=== PATIENT | female | born 1945 | race African-American/Black ===

== ENCOUNTER 2024-07-13 20:40 | Inpatient (IN) | payer OTHER, MEDICAID ==
[~2024-07-13] VITALS: Ht 149.9 cm; Wt 72.6 kg
[2024-07-13] MEDS: PANTOPRAZOLE 40 MG/10 ML VIAL INJ IV ONE
[2024-07-13] MEDS: FUROSEMIDE 100 MG/10ML VIAL IV ONE
[2024-07-13] MEDS: methylPREDNISolone SOD SUCC 125 MG/2 ML VL IV ONE
[2024-07-13] MEDS: IPRATROPIUM BROM 0.5 MG/2.5ML INH SOL NEB ONE (21:32)
--- NOTE | 2024-07-13 21:34 | ED.PDOC ---
SOB-HPI HPI Comments 78 y.o female presents to the ED via EMS for a chief complaint of SOB associated with chest tightness that started a couple days ago. EMS reports home health nurse went to check on her today, states patient had labored breathing, unable to speak in full sentences and last seen normal was 3 days ago. Patient reports chest pain is at the center of her chest that is non radiating and constant. EMS reports initial SPO2 on scene read 83% on 2 liters of oxygen, had a DuoNeb that increased her saturation to 94-95% but dropped once treatment was over. Patient received another breathing treatment and placed on 4 liters of oxygen via simple mask with SPO2 at 95-96%. Per home health nurse, patient's saturation sits around the 90's. Patient has no other symptoms or complaints. Patient is on Xarelto Vitals: Temp: 97.5 F BP: 156/67 HR: 116 SPO2: 95% on 4 liters simple mask. was initially 83% with 2 liters NC. RR: 22 Past medical history: COPD, on 2 liters of oxygen at home NC, CHF, asthma and HTN Past surgical history: Pacemaker HPI: Poor Historian. REVIEW OF SYSTEMS: CONSTITUTIONAL: Denies acute: fever, diaphoresis, chills, HEAD: Denies acute: headache, photophobia Eyes: Denies acute: Double vision, vision loss, eye pain, eye discharge. EARS: Denies acute: tinnitus, hearing loss, ear discharge, ear pain, THROAT: Denies acute: sore throat, swelling, difficulty swallowing , pain with swallowing, change in voice. NECK: Denies acute: neck pain, neck swelling, stiff neck. HEART: Denies acute : palpitations, LUNGS: Denies acute: wheezing, cough, hemoptysis ABDOMEN: Denies acute: abdominal pain, Nausea, Vomiting, diarrhea, melena , hematemesis, hematochezia SKIN: Denies acute: rash, redness, lesions, itchiness. EXTREMITIES: Denies acute: calf pain, numbness, tingling, weakness, denies pain in extremity. Denies acute: Low back pain. Neuro: Denies acute: focal neurological deficit, motor or sensory focal neurological deficit, tremors, seizure like activity, confusion, dizziness, change in mental status, loss of bowel or bladder function, cauda equina like symptoms. : Denies acute: dysuria, hematuria, flank pain, increase in urinary frequency. PSYCH: Denies acute: hallucination, suicidal ideation, homicidal ideation. FEMALE: Denies acute: abnormal vaginal bleeding, foul odor, unusual discharge. PHYSICAL EXAM: General: --[id number]------acute distress, awake and alert. Head: normocephalic, atraumatic. Neck: supple, trachea is midline, no swelling. Throat: Normal phonation. Eyes:, no erythema, no purulent discharge, no proptosis, no icterus. Heart: regular rate, regular rhythm, no significant murmur appreciated. Lungs: [id number]-ov-[id number] respiratory distress, No wheezing, no rhonchi, no crackles. No stridors Abdomen: non tender to palpation, non distended, soft, no guarding, no rebound, + bowel sounds. Obese Neuro: Awake, Alert, oriented to name, self, situation, follows commands GCS=15. Speech is normal. Skin: no petechia, no purpura, no cyanosis, slightly-pale, not jaundice. Lower extremities: --4/4 b/l - Pitting edema no deformity, no focal swelling, no calf TTP. Makes eye contact. moves all four extremities. Face: no apparent facial droop. 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 Bleeding minimal. Differential Dx Differential Diagnosis: Other (DDx include ACS, unstable angina, anxiety, PE, pneumothroax, neoplasm, cardiac ischemia, COPD, asthma, CHF, pleural effusion, tobacco abuse, pneumonia, hypoxia, hypercapnia, anemia., infection/sepsis., pulmonary edema. Asthma, Cardiac tamponade, infection.) X-Ray, Labs, Meds, VS Vital Signs Date Time Temp Pulse Resp B/P (MAP) Pulse Ox O2 Delivery O2 Flow Rate FiO2 07/13/24 21:33 22 97 Nasal Cannula* 2 28 07/13/24 20:45 65 07/13/24 20:45 97.5 116 22 156/67 (96) 95 97.5 07/13/24 20:45 95 Nasal Cannula* 15 N/A Simple Mask* 07/13/24 00:00 149/30 Lab Test 07/13/24 22:26 07/13/24 21:36 Range/Units Troponin I High Sensitivity 10 10 </=34 ng/L White Blood Count 8.5 4.4-10.8 10^3/uL Red Blood Count 1.43 L 4.0-5.20 10^6/uL Hemoglobin 4.5 *L 12.2-16.2 g/dL Hematocrit 16.1 L 36.0-46.0 % Mean Corpuscular Volume 112.4 H 80.0-100.0 fL Mean Corpuscular Hemoglobin 31.7 28.0-32.0 pg Mean Corpuscular Hemoglobin Concent 28.2 L 32.0-36.0 g/dL Red Cell Distribution Width 27.1 H 11.8-14.3 % Platelet Count 269 140-450 10^3/uL Mean Platelet Volume 7.3 6.9-10.8 fL Neutrophils (%) (Auto) 37.0-80.0 % Lymphocytes (%) (Auto) 10.0-50.0 % Monocytes (%) (Auto) 0.0-12.0 % Basophils (%) (Auto) 0.0-2.0 % Neutrophils # (Auto) 1.6-8.6 10 ^3/uL Lymphocytes # (Auto) 0.4-5.4 10 ^3/uL Monocytes # (Auto) 0-1.3 10 ^3/uL Differential Total Cells Counted 100.0 100 Neutrophils % (Manual) 65 37.0-80.0 Band Neutrophils % (Manual) 2 Lymphocytes % (Manual) 26 10.0-50.0 Monocytes % (Manual) 5 0-12 Eosinophils % (Manual) 2 0-7 Basophils % (Manual) 0 0.0-2.0 Metamyelocytes % (manual) 0 Myelocytes % (Manual) 0 Promyelocytes % (Manual) 0 Blast Cells % (Manual) 0 Reactive Lymphocytes 0 Platelet Estimate Adequate Anisocytosis (manual) Slight Macrocytosis Moderate Tear Drop Cells Few Prothrombin Time 11.4 9.3-11.8 sec Prothrombin Time INR 1.08 0.9-1.15 Activated Partial Thromboplast Time 26.6 24.5-34.5 SEC Sodium Level 146 H 136-145 mmol/L Potassium Level 4.0 3.5-5.1 mmol/L Chloride Level 120 H 98-107 mmol/L Carbon Dioxide Level 13 L 20-31 mmol/L Anion Gap 13 5-15 Blood Urea Nitrogen 28 H 9-23 mg/dL Creatinine 1.23 H 0.550-1.02 mg/dL Glomerular Filtration Rate Calc 45 >90 mL/min BUN/Creatinine Ratio 22.8 H 10.0-20.0 Serum Glucose 111 H 74-106 mg/dL Calcium Level 9.6 8.7-10.4 mg/dL Magnesium Level 2.2 1.6-2.6 mg/dL Iron Level 261 H 50-170 ug/dL Total Iron Binding Capacity 328 250-425 ug/dL Percent Iron Saturation 79.6 H 15-50 % Total Bilirubin 0.2 0.2-1.0 mg/dL Aspartate Amino Transferase (AST) 28 13-40 U/L Alanine Aminotransferase (ALT) 16 7-40 U/L Alkaline Phosphatase 76 46-116 U/L B-Type Natriuretic Peptide 384.55 0-100 pg/mL Total Protein 5.4 L 5.7-8.2 g/dL Albumin 3.2 3.2-4.8 g/dL Thyroid Stimulating Hormone (TSH) 1.85 0.55-4.78 uIU/mL Current Medications Medications (Trade) Dose Ordered Sig/[place] Route Start Time Stop Time Status Last Admin Albuterol (Ventolin Medneb) 2.5 mg ONCE ONCE NEB 07/13/24 21:30 07/13/24 21:31 DC 07/14/24 00:03 Ipratropium [place] (Atrovent Medneb) 1 mg ONCE ONCE NEB 07/13/24 21:30 07/13/24 21:31 DC 07/13/24 21:32 Methylprednisolone Sodium Succinate (Solu Medrol) 125 mg ONCE ONCE IV 07/13/24 21:30 07/13/24 21:31 DC 07/13/24 00:00 Furosemide (Lasix Injection) 60 mg ONCE ONCE IV 07/13/24 21:30 07/13/24 21:31 DC 07/13/24 00:00 Pantoprazole Sodium (Protonix) 40 mg ONCE ONCE IV 07/13/24 22:15 07/13/24 22:16 DC 07/13/24 00:00 [place] [id number] Ph: [phone] DIAGNOSTIC IMAGING Diagnostic Imaging Report : [id number] Signed PATIENT: KENNETH MULLER ACCT: [id number] UNIT: [id number] : 1945 LOC: ER ROOM / BED: / AGE / SEX: 78 / F ADM STATUS: REG ER SERVICE 16 ORDERING PHYSICIAN: CINTIA FARR DO PROCEDURE(s): CXRP - CHEST PORTABLE REASON: sob ORDER NUMBER(s): [id number], ACCESSION NUMBER(s): [id number] CHEST RADIOGRAPH Indication: sob Technique: Single frontal view of the chest was obtained Comparison: None FINDINGS: Lines and Tubes: Dual-chamber pacemaker in place with pulse generator over the left chest. Lungs: Atelectasis or scarring in the left base. Pleura: No effusion. No pneumothorax. Cardiomediastinal contours: Unremarkable Bones: No acute osseous abnormality. IMPRESSION: 1. No previous chest x-rays for comparison 2. Pacemaker in place 3. Atelectasis or scarring left base. ATED BY: MARILOU SORENSEN Jr., DO DICTATED DATE/TIME: 07/13/242155 SIGNED BY: MARILOU SORENSEN Jr., SIGNED DATE/TIME: 07/13/242155 CC: Time of 1ST Reevaluation: 21:29 Reevaluation 1ST: Unchanged Time of 2ND Reevaluation: 01:50 Reevaluation 2ND: Improved Patient Education/Counseling: Diagnosis, Treatment Family Education/Counseling: No Family Present Comments Patient and daughter were both consented for central line placement and blood transfusion. Patient had blood transfusion in the past. Patient denies bleeding from anywhere. Patient presented with the above HPI.---dyspnea/chest pain---workup was initiated. patient was found with the above mentioned diagnosis. the following medications were ordered: please refer to order lists of meds and tests obtained by myself Dr. Farr. Patient ED course and VS have been stabilized. Patient has been reassessed in the ED and remained in a stable condition. Pertinent incidental findings were discussed with the patient and/or family. Patient/family voices understanding and is agreeable with plan. Patient has been observed in the ED adequate length of time to insure improvement/stability. Escalation of care considered: Consideration of escalation to observation or admission Patient was ADMITTED to the medicine team for further evaluation and treatment of their presentation. Central line was placed successfully. 2 units of blood transfusion were ord ered. Patient clinically looked to be volume overloaded. Lasix was ordered. All the reports of any imaging studies that were ordered by myself were reviewed by myself. Departure 1 Departure Time of Disposition: 22:00 Impression: Primary Impression: CHF exacerbation Additional Impressions: Hypoxemia Chest pain Abnormal EKG Symptomatic anemia Disposition: ADMITTED INPATIENT Admit to: Tele Condition: Guarded Discharged With: Self Critical Care Note Critical Care Time?: Yes (45 min-critical care time only) Heart Score Heart Score: Heart Score Response (Comments) Value History Moderate Suspicious [address]-Deviation 2 Age >65 2 Risk Factors >3 or Hx ASHD 2 Troponin Normal limit 0 Total 7 I personally scribed for CINTIA FARR DO ([email or web address]) on 07/13/24 at 21:34. Electronically submitted by Sydnee Edwards ([facility]). I personally scribed for CINTIA FARR DO ([email or web address]) on 07/14/24 at 00:35. Electronically submitted by Jose Mcdonald ([email or web address]). CINTIA FARR DO July 13, 2024 21:34
[2024-07-13 21:40] VITALS: PULSE 63; RESP 15; O2SAT 96
[2024-07-13 21:54] LABS: Hematocrit 16.1 % (36.0-46.0); Mean Corpuscular Hemoglobin 31.7 pg (28.0-32.0); Mean Corpuscular Hgb Conc. 28.2 g/dL (32.0-36.0); Mean Corpuscular Volume 112.4 fL (80.0-100.0); Platelet Count (auto) 269 10^3/uL (140-450); Red Blood Cells 1.43 10^6/uL (4.0-5.20); White Blood Cell 8.5 10^3/uL (4.4-10.8)
[2024-07-13 21:59] LABS: Red Cell Distribution Width 27.1 % (11.8-14.3)
--- NOTE | 2024-07-13 21:59 | DVH ---
CHEST RADIOGRAPH Indication: sob Technique: Single frontal view of the chest was obtained Comparison: None FINDINGS: Lines and Tubes: Dual-chamber pacemaker in place with pulse generator over the left chest. Lungs: Atelectasis or scarring in the left base. Pleura: No effusion. No pneumothorax. Cardiomediastinal contours: Unremarkable Bones: No acute osseous abnormality. IMPRESSION: 1. No previous chest x-rays for comparison 2. Pacemaker in place 3. Atelectasis or scarring left base.
[2024-07-13 22:01] LABS: Hemoglobin 4.5 g/dL (12.2-16.2)
[2024-07-13 22:02] LABS: Basophils % (manual) 0 (0.0-2.0); Blast Cells 0; Metamyelocytes % 0; Myelocytes % 0; Promyelocytes % 0; Reactive Lymphocytes 0
[2024-07-13 22:09] LABS: Alanine Aminotransferase 16 U/L (7-40); Albumin 3.2 g/dL (3.2-4.8); Alkaline Phosphatase 76 U/L (46-116); Anion Gap 13 (5-15); Aspartate Aminotransferase 28 U/L (13-40); BUN/Creatinine Ratio 22.8 (10.0-20.0); Blood Urea Nitrogen 28 mg/dL (9-23); Calcium 9.6 mg/dL (8.7-10.4); Carbon Dioxide 13 mmol/L (20-31); Chloride 120 mmol/L (98-107); Glucose 111 mg/dL (74-106); Magnesium 2.2 mg/dL (1.6-2.6); Sodium 146 mmol/L (136-145); Total Protein 5.4 g/dL (5.7-8.2)
[2024-07-13 22:10] LABS: Bilirubin, Total 0.2 mg/dL (0.2-1.0)
[2024-07-13 22:28] LABS: Anisocytosis Slight; Band Neutrophils % (manual) 2; Eosinophils % (manual) 2 (0-7); Lymphocytes % (manual) 26 (10.0-50.0); Macrocytosis Moderate; Monocytes % (manual) 5 (0-12); Tear Drop Cells FEW
[2024-07-13 22:29] LABS: Platelet Estimate Adequate
[2024-07-14] VITALS (19 sets, daily range): BP systolic 130–166; BP diastolic 36–95; PULSE 65–73; RESP 11–22; TEMP 97.5–98.8; O2SAT 92–100
[2024-07-14] MEDS ORDERED: ACETAMINOPHEN 325 MG TAB PO PRN
[2024-07-14] MEDS ORDERED: ONDANSETRON HCL 4 MG/2 ML VIAL IV PRN
[2024-07-14] MEDS: ALBUTEROL SULF 2.5 MG/0.5ML(0.5%) NEB SOLN NEB ONE (00:03)
--- NOTE | 2024-07-14 00:03 | DVHHP2 ---
History of Present Illness Reason for Visit: Generalized weakness History of Present Illness 78-year-old female presents for evaluation of generalized weakness has been ongoing for the past four days. Reports also associated shortness for breath and fatigue. No chest pain or palpitations. Denies melena or hematuria. She does report a history of anemia he reports being transfused yet does not recall when. No other acute complaints reported. Past Medical History COPD, anemia, hypertension, dementia, asthma Past Surgical History Pacemaker Family History Noncontributory Smoke: No ALCOHOL: none Drugs: None Lives: with Family Review of Systems Review of Systems Review of systems are currently negative otherwise addressed in HPI. Allergies: Coded Allergies: Atenolol (Verified Allergy, Unknown, 07/13/24) Lisinopril (Verified Allergy, Unknown, 07/13/24) Penicillins (Verified Allergy, Unknown, 07/13/24) Medications Current Medications Medications Dose Ordered Sig/[place] Route Start Time Stop Time Status Last Admin Dose Admin Albuterol 2.5 mg Q6HPRN PRN NEB 07/14/24 00:00 UNV Pantoprazole Sodium 40 mg DAILY IV 07/14/24 10:00 UNV Donepezil HCl 10 mg HS PO 07/14/24 22:00 UNV Amlodipine Besylate 10 mg DAILY PO 07/14/24 10:00 UNV Levothyroxine Sodium 75 mcg QAM@0600 PO 07/14/24 06:00 UNV Furosemide 40 mg DAILY PO 07/14/24 10:00 UNV Ondansetron HCl 4 mg Q4HP PRN IV 07/14/24 00:00 UNV Acetaminophen 650 mg Q6HP PRN PO 07/14/24 00:00 UNV Exam Vital Signs Vital Signs Date Time Temp Pulse Resp B/P (MAP) Pulse Ox O2 Delivery O2 Flow Rate FiO2 07/13/24 21:33 22 97 Nasal Cannula* 2 28 07/13/24 20:45 65 07/13/24 20:45 97.5 156/67 (96) 97.5 Exam Gen: 78-year-old female in mild distress Skin: Warm, dry, normal color and texture, no rash. HEENT: Normocephalic atraumatic, mucous membranes moist and pink. Neck: Cervical and supraclavicular nodes normal without enlargement, trachea is midline, thyroid gland is normal without masses. Pulmonary: Clear to auscultation and percussion bilaterally. Cardiac: Regular rate and rhythm. No murmur Abdomen: Soft, nontender, nondistended, bowel sounds present all 4 quadrants, no guarding, no rigidity, no organomegaly. Extremities: No cyanosis, clubbing, no edema Neuro: Cranial nerves II through XII grossly intact, normal affect and speech, no focal motor deficits. Labs/Xrays ORDERING PHYSICIAN: CINTIA FARR DO PROCEDURE(s): CXRP - CHEST PORTABLE REASON: sob ORDER NUMBER(s): [id number], ACCESSION NUMBER(s): [id number] CHEST RADIOGRAPH Indication: sob Technique: Single frontal view of the chest was obtained Comparison: None FINDINGS: Lines and Tubes: Dual-chamber pacemaker in place with pulse generator over the left chest. Lungs: Atelectasis or scarring in the left base. Pleura: No effusion. No pneumothorax. Cardiomediastinal contours: Unremarkable Bones: No acute osseous abnormality. IMPRESSION: 1. No previous chest x-rays for comparison 2. Pacemaker in place 3. Atelectasis or scarring left base. Labs Test 07/13/24 22:26 07/13/24 21:36 Range/Units Troponin I High Sensitivity 10 </=34 ng/L White Blood Count 8.5 4.4-10.8 10^3/uL Red Blood Count 1.43 L 4.0-5.20 10^6/uL Hemoglobin 4.5 *L 12.2-16.2 g/dL Hematocrit 16.1 L 36.0-46.0 % Mean Corpuscular Volume 112.4 H 80.0-100.0 fL Mean Corpuscular Hemoglobin 31.7 28.0-32.0 pg Mean Corpuscular Hemoglobin Concent 28.2 L 32.0-36.0 g/dL Red Cell Distribution Width 27.1 H 11.8-14.3 % Platelet Count 269 140-450 10^3/uL Mean Platelet Volume 7.3 6.9-10.8 fL Neutrophils (%) (Auto) 37.0-80.0 % Lymphocytes (%) (Auto) 10.0-50.0 % Monocytes (%) (Auto) 0.0-12.0 % Basophils (%) (Auto) 0.0-2.0 % Neutrophils # (Auto) 1.6-8.6 10 ^3/uL Lymphocytes # (Auto) 0.4-5.4 10 ^3/uL Monocytes # (Auto) 0-1.3 10 ^3/uL Differential Total Cells Counted 100.0 100 Neutrophils % (Manual) 65 37.0-80.0 Band Neutrophils % (Manual) 2 Lymphocytes % (Manual) 26 10.0-50.0 Monocytes % (Manual) 5 0-12 Eosinophils % (Manual) 2 0-7 Basophils % (Manual) 0 0.0-2.0 Metamyelocytes % (manual) 0 Myelocytes % (Manual) 0 Promyelocytes % (Manual) 0 Blast Cells % (Manual) 0 Reactive Lymphocytes 0 Platelet Estimate Adequate Anisocytosis (manual) Slight Macrocytosis Moderate Tear Drop Cells Few Sodium Level 146 H 136-145 mmol/L Potassium Level 4.0 3.5-5.1 mmol/L Chloride Level 120 H 98-107 mmol/L Carbon Dioxide Level 13 L 20-31 mmol/L Anion Gap 13 5-15 Blood Urea Nitrogen 28 H 9-23 mg/dL Creatinine 1.23 H 0.550-1.02 mg/dL Glomerular Filtration Rate Calc 45 >90 mL/min BUN/Creatinine Ratio 22.8 H 10.0-20.0 Serum Glucose 111 H 74-106 mg/dL Calcium Level 9.6 8.7-10.4 mg/dL Magnesium Level 2.2 1.6-2.6 mg/dL Total Bilirubin 0.2 0.2-1.0 mg/dL Aspartate Amino Transferase (AST) 28 13-40 U/L Alanine Aminotransferase (ALT) 16 7-40 U/L Alkaline Phosphatase 76 46-116 U/L B-Type Natriuretic Peptide 384.55 0-100 pg/mL Total Protein 5.4 L 5.7-8.2 g/dL Albumin 3.2 3.2-4.8 g/dL Assessment/Plan Assessment/Plan Assessment Symptomatic anemia Chronic kidney disease Status post pacemaker Hypertension Dementia Plan Admit the patient to Med surge to the hospitalist Transfuse 3 units of packed red cells Resume home medications Hold Xarelto stool occult pending Continue treatment per orders. Plan discussed with: Patient My Orders Orders - NABILA LUTHER Procedure Category Date Status Time Iron Panel LAB 07/13/24 In Process 23:46 Albuterol Medneb PHA 07/14/24 Logged (Ventolin Medneb) 00:00 Pantoprazole PHA 07/14/24 Logged (Protonix) 10:00 Donepezil Tablet PHA 07/14/24 Logged (Aricept Tablet) 22:00 Amlodipine Tablet PHA 07/14/24 Logged (Norvasc Tablet) 10:00 Levothyroxine Tablet PHA 07/14/24 Logged (Synthroid Tablet) 06:00 Thyroid Stimulating LAB 07/13/24 In Process Hormone 23:46 PTPTT LAB 07/13/24 In Process 23:46 Pt Request For Service PT 07/13/24 Logged 23:46 Basic Metabolic Panel LAB 07/14/24 Transmitted 04:00 Furosemide Tablet PHA 07/14/24 Logged (Lasix Tablet) 10:00 Admit ADMIT 07/13/24 Transmitted 23:46 Ondansetron Hcl PHA 07/14/24 Logged (Zofran) 00:00 Complete Blood Count LAB 07/14/24 Verified 04:00 Cardiac DIET 07/14/24 Transmitted Diet-2gna,Lofat,Lochol Breakfast Echo 2d Mode Cardiac US 07/13/24 Logged DOP 23:46 Condition: Stable ABENA 07/13/24 In Process 23:46 Acetaminophen Tablet PHA 07/14/24 Logged (Tylenol Tablet) 00:00 Bedrest With Bathroom ABENA 07/13/24 In Process Privileg 23:46 Packedcell-Noactive BBK 07/14/24 Verified Bleeding 00:00 Date of Service: July 13, 2024 Billing Provider: NABILA LUTHER Common Visit Codes: [id number] INP/OBS CARE (HIGH) NABILA LUTHER July 14, 2024 00:03
[2024-07-14 00:20] LABS: % Iron Saturation 79.6 % (15-50)
[2024-07-14 00:24] LABS: INR 1.08 (0.9-1.15); Partial Thromboplastin Time 26.6 SEC (24.5-34.5); Prothrombin Time 11.4 sec (9.3-11.8)
[2024-07-14 01:43] LABS: Urine Bacteria None Seen /hpf (None Seen)
[2024-07-14 01:55] LABS: Urine Blood Negative /uL (Negative); Urine Clarity Clear (Clear); Urine Color Light-Yellow (Yellow); Urine Protein, UAD Negative (Negative); Urine Specific Gravity 1.017 (1.001-1.035); Urine Squamous Epithelial Cell FEW /hpf (<5); Urine Urobilinogen Normal (Negative); Urine WBC 3 /HPF (0-5); Urine pH 5.5 (5.0-9.0)
[2024-07-14] MEDS: LEVOTHYROXINE SODIUM 25 MCG TAB PO SCH (07:25)
[2024-07-14] MEDS: amLODIPine BESYLATE 5 MG TAB PO SCH (10:06)
[2024-07-14] MEDS: PANTOPRAZOLE 40 MG/10 ML VIAL INJ IV SCH (10:06)
[2024-07-14] MEDS: FUROSEMIDE 40 MG TAB PO SCH (10:06)
[2024-07-14 11:43] LABS: Anion Gap 11 (5-15); Calcium 8.9 mg/dL (8.7-10.4); Carbon Dioxide 20 mmol/L (20-31)
[2024-07-14 11:44] LABS: Chloride 116 mmol/L (98-107); Potassium 3.1 mmol/L (3.5-5.1); Sodium 147 mmol/L (136-145)
[2024-07-14 11:48] LABS: BUN/Creatinine Ratio 24.8 (10.0-20.0)
[2024-07-14 11:50] LABS: Blood Urea Nitrogen 25 mg/dL (9-23); Glucose 162 mg/dL (74-106)
[2024-07-14 13:26] LABS: Hematocrit 30.4 % (36.0-46.0); Hemoglobin 9.9 g/dL (12.2-16.2); Mean Corpuscular Hemoglobin 30.4 pg (28.0-32.0); Mean Corpuscular Hgb Conc. 32.7 g/dL (32.0-36.0); Mean Corpuscular Volume 92.7 fL (80.0-100.0); Platelet Count (auto) 250 10^3/uL (140-450); Red Blood Cells 3.27 10^6/uL (4.0-5.20); Red Cell Distribution Width 19.6 % (11.8-14.3); White Blood Cell 7.4 10^3/uL (4.4-10.8)
[2024-07-14 13:33] LABS: Basophils % (manual) 0 (0.0-2.0); Blast Cells 0; Eosinophils % (manual) 0 (0-7); Myelocytes % 0; Promyelocytes % 0; Reactive Lymphocytes 0
--- NOTE | 2024-07-14 13:36 | ECG ---
[facility] Test Date: 2024-07-13 Test Time: 20:45:18 Pat Name: KENNETH MULLER Department: ED Room: 0246 Gender: F Cushion Padder: SOHAM : 1945 Requested By: EMERGENCY EMERGENCY Order Number: [id number] Reading MD: Dileep Urrutia Measurements Intervals [place] Rate: 65 P: 0 [place]: 56 QRS: 34 QRSD: 102 T: 54 QT: 441 QTc: 459 Interpretive Statements Atrial-paced rhythm Electronically Signed On 07-19-2024 21:50:08 PDT by Dileep Urrutia Please click the below link to view image of tracing.
[2024-07-14 14:15] LABS: Band Neutrophils % (manual) 4; Lymphocytes % (manual) 8 (10.0-50.0); Metamyelocytes % 1; Monocytes % (manual) 3 (0-12)
[2024-07-14 14:16] LABS: Platelet Estimate Adequate
[2024-07-14] MEDS: ALBUTEROL SULF 2.5 MG/0.5ML(0.5%) NEB SOLN NEB PRN (18:11)
[2024-07-14] MEDS: DONEPEZIL HYDROCHLORIDE 5 MG TAB PO SCH (20:51)
[2024-07-15] VITALS (12 sets, daily range): BP systolic 126–176; BP diastolic 55–72; PULSE 64–68; RESP 16–20; TEMP 36.4; O2SAT 95–100
[2024-07-15 14:48] LABS: Basophils # (auto) 0 10 ^3/uL (0-0.2); Basophils % (auto) 0.2 % (0.0-2.0); Eosinophils # (auto) 0 10 ^3/uL (0-0.8); Eosinophils % (auto) 0.5 % (0.0-7.0); Lymphocytes # (auto) 0.8 10 ^3/uL (0.4-5.4); Lymphocytes % (auto) 9.1 % (10.0-50.0); Mean Corpuscular Hemoglobin 30.5 pg (28.0-32.0); Mean Corpuscular Hgb Conc. 32.4 g/dL (32.0-36.0); Monocytes # (auto) 0.6 10 ^3/uL (0-1.3); Monocytes % (auto) 6.6 % (0.0-12.0); Neutrophils # (auto) 7.7 10 ^3/uL (1.6-8.6); Neutrophils % (auto) 83.6 % (37.0-80.0); Nucleated Red Blood Cells % 0.7 %; Platelet Count (auto) 255 10^3/uL (140-450); Red Blood Cells 3.29 10^6/uL (4.0-5.20); White Blood Cell 9.2 10^3/uL (4.4-10.8)
[2024-07-15 14:53] LABS: Red Cell Distribution Width 20.8 % (11.8-14.3)
[2024-07-15 14:56] LABS: Anion Gap 11 (5-15); Carbon Dioxide 24 mmol/L (20-31)
[2024-07-15 14:57] LABS: Calcium 9.9 mg/dL (8.7-10.4); Chloride 115 mmol/L (98-107); Potassium 2.6 mmol/L (3.5-5.1); Sodium 150 mmol/L (136-145)
[2024-07-15 15:02] LABS: BUN/Creatinine Ratio 23.9 (10.0-20.0); Blood Urea Nitrogen 22 mg/dL (9-23)
[2024-07-15 15:05] LABS: Glucose 118 mg/dL (74-106)
--- NOTE | 2024-07-15 17:58 | DVHDS2 ---
Discharge Summary Date of Admission July 13, 2024 at 23:46 Date of Discharge: July 15, 2024 Labs/Diagnostic Data: Laboratory Results Test 07/15/24 14:15 07/14/24 13:15 07/14/24 01:00 07/14/24 00:37 White Blood Count 9.2 10^3/uL (4.4-10.8) Red Blood Count 3.29 10^6/uL (4.0-5.20) Hemoglobin 10.0 g/dL (12.2-16.2) Hematocrit 31.0 % (36.0-46.0) Mean Corpuscular Volume 94.0 fL (80.0-100.0) Mean Corpuscular Hemoglobin 30.5 pg (28.0-32.0) Mean Corpuscular Hemoglobin Concent 32.4 g/dL (32.0-36.0) Red Cell Distribution Width 20.8 % (11.8-14.3) Platelet Count 255 10^3/uL (140-450) Mean Platelet Volume 7.3 fL (6.9-10.8) Neutrophils (%) (Auto) 83.6 % (37.0-80.0) Lymphocytes (%) (Auto) 9.1 % (10.0-50.0) Monocytes (%) (Auto) 6.6 % (0.0-12.0) Eosinophils (%) (Auto) 0.5 % (0.0-7.0) Basophils (%) (Auto) 0.2 % (0.0-2.0) Neutrophils # (Auto) 7.7 10 ^3/uL (1.6-8.6) Lymphocytes # (Auto) 0.8 10 ^3/uL (0.4-5.4) Monocytes # (Auto) 0.6 10 ^3/uL (0-1.3) Eosinophils # (Auto) 0 10 ^3/uL (0-0.8) Basophils # (Auto) 0 10 ^3/uL (0-0.2) Nucleated Red Blood Cells 0.7 % Sodium Level 150 mmol/L (136-145) Potassium Level 2.6 mmol/L (3.5-5.1) Chloride Level 115 mmol/L (98-107) Carbon Dioxide Level 24 mmol/L (20-31) Anion Gap 11 (5-15) Blood Urea Nitrogen 22 mg/dL (9-23) Creatinine 0.92 mg/dL (0.550-1.02) Glomerular Filtration Rate Calc 64 mL/min (>90) BUN/Creatinine Ratio 23.9 (10.0-20.0) Serum Glucose 118 mg/dL (74-106) Calcium Level 9.9 mg/dL (8.7-10.4) Differential Total Cells Counted 100.0 (100) Neutrophils % (Manual) 84 (37.0-80.0) Band Neutrophils % (Manual) 4 Lymphocytes % (Manual) 8 (10.0-50.0) Monocytes % (Manual) 3 (0-12) Eosinophils % (Manual) 0 (0-7) Basophils % (Manual) 0 (0.0-2.0) Metamyelocytes % (manual) 1 Myelocytes % (Manual) 0 Promyelocytes % (Manual) 0 Blast Cells % (Manual) 0 Reactive Lymphocytes 0 Platelet Estimate Adequate Urine Color Light-yellow (Yellow) Urine Clarity Clear (Clear) Urine pH 5.5 (5.0-9.0) Urine Specific [place] 1.017 (1.001-1.035) Urine Protein Negative (Negative) Urine Ketones Negative (Negative) Urine Blood Negative /uL (Negative) Urine Nitrite Negative (Negative) Urine Bilirubin Negative (Negative) Urine Urobilinogen Normal mg/dL (Negative) Urine Leukocyte Esterase Negative /uL (Negative) Urine RBC 1 /hpf (0 - 4) Urine Microscopic WBC 3 /HPF (0-5) Urine Squamous Epithelial Cells Few /hpf (<5) Urine Bacteria None seen /hpf (None Seen) Urine Glucose Normal mg/dL (Normal) Troponin I High Sensitivity 12 ng/L (</=34) Test 07/13/24 21:36 Anisocytosis (manual) Slight Macrocytosis Moderate Tear Drop Cells Few Prothrombin Time 11.4 sec (9.3-11.8) Prothrombin Time INR 1.08 (0.9-1.15) Activated Partial Thromboplast Time 26.6 SEC (24.5-34.5) Magnesium Level 2.2 mg/dL (1.6-2.6) Iron Level 261 ug/dL (50-170) Total Iron Binding Capacity 328 ug/dL (250-425) Percent Iron Saturation 79.6 % (15-50) Total Bilirubin 0.2 mg/dL (0.2-1.0) Aspartate Amino Transferase (AST) 28 U/L (13-40) Alanine Aminotransferase (ALT) 16 U/L (7-40) Alkaline Phosphatase 76 U/L (46-116) B-Type Natriuretic Peptide 384.55 pg/mL (0-100) Total Protein 5.4 g/dL (5.7-8.2) Albumin 3.2 g/dL (3.2-4.8) Thyroid Stimulating Hormone (TSH) 1.85 uIU/mL (0.55-4.78) Other Laboratory Tests 07/15/24 14:15 Brief Hx & Hospital Course: 78-year-old female presents for evaluation of generalized weakness has been ongoing for the past four days. Reports also associated shortness for breath and fatigue. No chest pain or palpitations. Denies melena or hematuria. She does report a history of anemia he reports being transfused yet does not recall when. No other acute complaints reported. Received 3 U PRBC Hb stable Condition at Discharge: Good Final Diagnosis/Problems List Anemia Discharge Disposition: Home Discharge Instruct/Medications Diet: Regular Activity: No Restrictions, As Tolerated Follow Up/Referral: PCP in 7 days Medications: same home medicationss Discharge Statement: "Patient was advised to return to the ER or call 911 if any headaches, dizziness, shortness of breath, chest pain, abdominal pain, bleeding, fevers, or worsening of medical condition. Patient was counseled about treatment plan, medications, possible side effects, patientverbalized understanding. All questions were answered to the best of my ability. This discharge took greater then 30 minutes in planning, reviewing documentation, counseling the patient, and discussing with other team members." ASSESSMENT ASSESSMENT Assessment Anemia Date of Service: July 15, 2024 Billing Provider: STEVE LOVELL MD Common Visit Codes: 68297-VLH/OBS DISCH DAY >30min STEVE LOVELL MD July 15, 2024 17:58
== END 2024-07-15 18:30 | disposition home or self-care (01) | DRG 811 ==
LOC: EDBD 20:40 → ER 20:43 → OVERFLOW 23:46 → EAST 07-14 17:04
PROVIDERS: ADMIT Hospitalist; ATTEND Hospitalist
PROC: 06HY33Z Insertion of Infusion Device into Lower Vein, Percutaneous Approach (ICD-10-PCS; 2024-07-13)
PROC: B54BZZA Ultrasonography of Right Lower Extremity Veins, Guidance (ICD-10-PCS; 2024-07-13)
PROC: 30233N1 Transfusion of Nonautologous Red Blood Cells into Peripheral Vein, Percutaneous Approach (ICD-10-PCS; principal; 2024-07-14)
DX: D64.9 Anemia, unspecified (principal); I50.31 Acute diastolic (congestive) heart failure; J96.00 Acute respiratory failure, unspecified whether with hypoxia or hypercapnia; N17.9 Acute kidney failure, unspecified; I13.0 Hypertensive heart and chronic kidney disease with heart failure and stage 1 through stage 4 chronic kidney disease, or unspecified chronic kidney disease; F03.90 Unspecified dementia, unspecified severity, without behavioral disturbance, psychotic disturbance, mood disturbance, and anxiety; N18.9 Chronic kidney disease, unspecified; J44.9 Chronic obstructive pulmonary disease, unspecified; R94.31 Abnormal electrocardiogram [ECG] [EKG]; Z88.0 Allergy status to penicillin; Z88.8 Allergy status to other drugs, medicaments and biological substances; Z79.899 Other long term (current) drug therapy; Z95.0 Presence of cardiac pacemaker
CPT/HCPCS: 36415; 36556; 71045; 80048; 80053; 81001; 83540; 83550; 83735; 83880; 84443; 84484; 85007; 85025; 85027; 85610; 85730; 86850; 86900; 86901; 86920; 93005; 94640; 96374; 96375; 97163; 99291; G0378; J2470

== ENCOUNTER 2024-09-28 10:11 | Inpatient (IN) | payer OTHER, MEDICAID ==
[~2024-09-28] VITALS: Ht 149.9 cm; Wt 71.9 kg
--- NOTE | 2024-09-28 10:57 | ED.PDOC ---
Altered Mental Status HPI Comments HPI: Poor Historian. 79 y.o female presents to ED s/p rapid response at PCP office today. Caregiver who brought patient in today states that patient was admitted at this hospital last week for near syncopal episodes and was at PCP office today for a follow up appointment. Staff at the office noticed that patient went unresponsive for about 1-2 minutes, witnessed by caregiver as well. Event was described as a near syncopal with patient eyes still open and caregiver denies any falls or head injuries. Patient is a poor historian, unable to get information regarding event today. Caregiver states patient is compliant with all her home medication and took them all this morning. Caregiver reports this near syncopal episode occurs with patient complaining of SOB and get agitated before going unresponsive. Patient is on Xeralto Caregiver states patient has seen a neurologist in the past but not for this event as it is new onset. No hx of seizures but per PCP Dr. Birch, states possible seizure episode to r/o. Vitals Temp: 97.3 F HR: 65 BP: 112/54 RR: 20 SPO2: 97% RA Past Medical history: Anemia, CHF, COPD, anemia, DVT Past Surgical history: Pacemaker Medications: Xeralto Social History: Denies smoking, ETOH, and drug use. Allergies: Atenolol, Lisinopril and penicillins. REVIEW OF SYSTEMS: CONSTITUTIONAL: Denies acute: fever, diaphoresis, chills, HEAD: Denies acute: headache, photophobia Eyes: Denies acute: Double vision, vision loss, eye pain, eye discharge. EARS: Denies acute: tinnitus, hearing loss, ear discharge, ear pain, THROAT: Denies acute: sore throat, swelling, difficulty swallowing , pain with swallowing, change in voice. NECK: Denies acute: neck pain, neck swelling, stiff neck. HEART: Denies acute : chest pain, palpitations, LUNGS: Denies acute: SOB, wheezing, cough, hemoptysis ABDOMEN: Denies acute: abdominal pain, Nausea, Vomiting, diarrhea, melena , hematemesis, hematochezia SKIN: Denies acute: rash, redness, lesions, itchiness. EXTREMITIES: Denies acute: calf pain, numbness, tingling, weakness, denies pain in extremity. Denies acute: Low back pain. Neuro: Denies acute: focal neurological deficit, motor or sensory focal neurological deficit, tremors, seizure like activity, confusion, change in mental status, loss of bowel or bladder function, cauda equina like symptoms. : Denies acute: dysuria, hematuria, flank pain, increase in urinary frequency. PSYCH: Denies acute: hallucination, suicidal ideation, homicidal ideation. FEMALE: Denies acute: abnormal vaginal bleeding, foul odor, unusual discharge. PHYSICAL EXAM: General: --[id number]-----acute distress, awake and alert. Head: normocephalic, atraumatic. Neck: supple, trachea is midline, no swelling. Throat: Normal phonation. Eyes:, no erythema, no purulent discharge, no proptosis, no icterus. Heart: regular rate, regular rhythm, no significant murmur appreciated. Lungs: no apparent respiratory distress, Able to speak in full sentences. No wheezing, no rhonchi, no crackles. No stridors Clear to auscultation bilaterally. Abdomen: non tender to palpation, non distended, soft, no guarding, no rebound, + bowel sounds. Obese Neuro: Awake, Alert, oriented to name, self, situation, follows commands GCS=15. Speech is normal. Skin: no petechia, no purpura, no cyanosis, non-pale, not jaundice. Lower extremities: --no - Pitting edema no deformity, no focal swelling, no calf TTP. Makes eye contact. moves all four extremities. Face: no apparent facial droop. ED COURSE: DISCLAIMER: This medical document was created using an electronic medical record system with voice recognition software and computerized dictation system. Although this document has been carefully reviewed, there might still be some phonetic and typographical errors. Occasional wrong-word or "sound-alike" substitutions may have occurred due to the inherent limitations of voice recognition software. These areas are purely typographical due to imperfections of the software programs and do not reflect any compromise in the patient's medical care. Please read the chart carefully and recognize, using context, where these substitutions have occurred. Chief Complaint: Syncope Time Seen by MD: 10:19 Allergies: Coded Allergies: Atenolol (Unverified Allergy, Unknown, 07/13/24) Lisinopril (Unverified Allergy, Unknown, 07/13/24) Penicillins (Unverified Allergy, Unknown, 07/13/24) Home Meds No Active Prescriptions or Reported Meds Information Source: Patient Mode of Arrival: PUSHED IN WALKER Past Medical History PAST MEDICAL HISTORY: Asthma, CHF, COPD, HTN Surgical History: Pacemaker PRODUCTION MECHANIC History: No Pertinent PRODUCTION MECHANIC History Family History Family History: Reviewed,noncontributory to illness Social History Smoker: Non-Smoker Alcohol: Denies ETOH Use Drugs: Denies Drug Use Lives In: Home Was a procedure done? Was a procedure done?: No Differential Diagnosis (ALOC) Differential Diagnosis: Dehydration, Hypoglycemia, Seizure, Heart Failure, Renal Failure, Other (DDX include CVA, TGA, cerebellar ischemia/infarct, carotid stenosis, Intracranial mass/infection/bleed, encephalopathy, electrolyte abnormality, thyroid disease, hydrocephalus, hypoglycemia, drug toxicity, cardiac arrhythmia, seizure, infection in the elderly, Hyperammonemia., kidney failure., sepsis.) X-Ray, Labs, Meds, VS Vital Signs Date Time Temp Pulse Resp B/P (MAP) Pulse Ox O2 Delivery O2 Flow Rate FiO2 09/28/24 19:50 97.2 65 18 128/50 (76) 100 97.2 09/28/24 17:16 97.6 65 16 140/77 (98) 97 97.6 09/28/24 11:40 65 09/28/24 10:38 97.9 65 12 88/45 (59) 96 97.9 09/28/24 10:12 97.3 65 20 112/54 97 97.3 Lab Test 09/28/24 20:29 09/28/24 13:59 Range/Units Troponin I High Sensitivity 6 4 </=34 ng/L White Blood Count 10.1 4.4-10.8 10^3/uL Red Blood Count 2.82 L 4.0-5.20 10^6/uL Hemoglobin 8.9 L 12.2-16.2 g/dL Hematocrit 29.3 L 36.0-46.0 % Mean Corpuscular Volume 104.0 H 80.0-100.0 fL Mean Corpuscular Hemoglobin 31.5 28.0-32.0 pg Mean Corpuscular Hemoglobin Concent 30.3 L 32.0-36.0 g/dL Red Cell Distribution Width 21.4 H 11.8-14.3 % Platelet Count 360 140-450 10^3/uL Mean Platelet Volume 6.9 6.9-10.8 fL Neutrophils (%) (Auto) 78.8 37.0-80.0 % Lymphocytes (%) (Auto) 13.9 10.0-50.0 % Monocytes (%) (Auto) 6.0 0.0-12.0 % Eosinophils (%) (Auto) 0.7 0.0-7.0 % Basophils (%) (Auto) 0.6 0.0-2.0 % Neutrophils # (Auto) 7.9 1.6-8.6 10 ^3/uL Lymphocytes # (Auto) 1.4 0.4-5.4 10 ^3/uL Monocytes # (Auto) 0.6 0-1.3 10 ^3/uL Eosinophils # (Auto) 0.1 0-0.8 10 ^3/uL Basophils # (Auto) 0.1 0-0.2 10 ^3/uL Nucleated Red Blood Cells 0.5 % Sodium Level 146 H 136-145 mmol/L Potassium Level 4.4 3.5-5.1 mmol/L Chloride Level 119 H 98-107 mmol/L Carbon Dioxide Level 16 L 20-31 mmol/L Anion Gap 11 5-15 Blood Urea Nitrogen 30 H 9-23 mg/dL Creatinine 1.25 H 0.550-1.02 mg/dL Glomerular Filtration Rate Calc 44 >90 mL/min BUN/Creatinine Ratio 24.0 H 10.0-20.0 Serum Glucose 106 74-106 mg/dL Lactic Acid Level 1.4 0.4-2.0 mmol/L Calcium Level 10.3 8.7-10.4 mg/dL Magnesium Level 2.0 1.6-2.6 mg/dL Total Bilirubin 0.2 0.2-1.0 mg/dL Aspartate Amino Transferase (AST) 54 H 13-40 U/L Alanine Aminotransferase (ALT) 38 7-40 U/L Alkaline Phosphatase 102 46-116 U/L Total Protein 7.1 5.7-8.2 g/dL Albumin 4.1 3.2-4.8 g/dL Thyroid Stimulating Hormone (TSH) 1.21 0.55-4.78 uIU/mL [place] [address] Ph: [phone] DIAGNOSTIC IMAGING Diagnostic Imaging Report : [id number] Signed PATIENT: KENNETH MULLER ACCT: [id number] UNIT: [id number] : 1945 LOC: ER ROOM / BED: / AGE / SEX: 79 / F ADM STATUS: REG ER SERVICE 1038 ORDERING PHYSICIAN: CINTIA FARR DO PROCEDURE(s): CXRP - CHEST PORTABLE REASON: near syncope ORDER NUMBER(s): [id number], ACCESSION NUMBER(s): [id number] EXAM: XY CHEST PORTABLE Indication: near syncope Technique: Single frontal view of the chest was obtained Comparison: XY CHEST PORTABLE on DOS: 07/13/24 FINDINGS: Lines and Tubes: Cardiac pacemaker projects over left chest wall. Lungs: No focal consolidation. Right apical pleural / parenchymal scarring. Calcific granuloma projects over left upper lung. Pleura: No effusion. No pneumothorax. Cardiomediastinal contours: Unremarkable Bones: No acute osseous abnormality. IMPRESSION: Right apical pleural/ parenchymal scarring. ATED BY: MONCHO GODDARD MD DICTATED DATE/TIME: 09/28/241221 SIGNED BY: MONCHO GODDARD MD SIGNED DATE/TIME: 09/28/24 1222 CC: [place] [address] Ph: [phone] DIAGNOSTIC IMAGING Diagnostic Imaging Report : [id number] Signed PATIENT: EKNNETH MULLER ACCT: [id number] UNIT: [id number] : 1945 LOC: [facility] ROOM / BED: 0249T / B AGE / SEX: 79 / F ADM STATUS: ADM IN SERVICE 1420 ORDERING PHYSICIAN: SERINA RAIN PROCEDURE(s): HWOCT - HEAD WITHOUT CONTRAST REASON: syncope ORDER NUMBER(s): [id number], ACCESSION NUMBER(s): [id number] EXAM: CT HEAD WITHOUT CONTRAST INDICATION: syncope TECHNIQUE: CT of the head without intravenous contrast. Radiation Dose Information: CT Dose: CTDI volume is 50.9 mGy. Dose-length product is 901.5 mGy*cm The dose indicators for CT are the volume Computed Tomography (CT) Dose Index (CTDIvol) and the Dose Length Product (DLP), and are measured in units of mGy an d mGy-cm, respectively. These indicators are not patient dose, but values generated from the CT scanner acquisition factors. The report includes radiation exposure data for exposures received during this examination. COMPARISON: None FINDINGS: There is no evidence of acute intracranial hemorrhage, extra-axial collection, mass effect, midline shift, herniation or hydrocephalus. The ventricles, sulci and cisterns are age appropriate. The nelson-white differentiation is intact. Patchy periventricular and subcortical white matter hypoattenuation is nonspecific but may be related to small vessel ischemic disease. The visualized paranasal sinuses and mastoid air cells are clear. The surrounding soft tissues and osseous structures are unremarkable. IMPRESSION: No acute intracranial abnormality. ATED BY: BRIGIDA KENYON MD DICTATED DATE/TIME: 09/29/24 1522 SIGNED BY: BRIGIDA KENYON MD SIGNED DATE/TIME: 09/29/24 1522 CC: Time of 1ST Reevaluation: 10:45 Reevaluation 1ST: Unchanged Time of 2ND Reevaluation: 11:29 (Discussed with PCP Dr. Birch of event that prompt pt to come into the ED today. PCP states possible seizure episode, although not confirmed/diagnosed ) Time of 3RD Reevaluation: 13:45 ( OF NOW, ALL LABS ARE STILL PENDING) Patient Education/Counseling: Other Family Education/Counseling: Diagnosis, Treatment Comments MDM: patient presented with the above HPI.----syncope and collapse--workup was initiated. patient was found with the above mentioned diagnosis. the following medications were ordered: please refer to order lists of meds and tests obtained by myself Dr. Farr. Patient ED course and VS have been stabilized. Patient has been reassessed in the ED and remained in a stable condition. Pertinent incidental findings were discussed with the patient and/or family. Patient/family voices understanding and is agreeable with plan. Patient has been observed in the ED adequate length of time to insure improvement/stability. Escalation of care considered: Consideration of escalation to observation or admission Patient was ADMITTED to the medicine team for further evaluation and treatment of their presentation. All the reports of any imaging studies that were ordered by myself were reviewed by myself. Departure 1 Departure Time of Disposition: 11:25 Impression: Primary Impression: Near syncope Additional Impression: Symptomatic anemia Disposition: ADMITTED INPATIENT Admit to: Tele Condition: Guarded e-Prescriptions No Active Prescriptions or Reported Meds Discharged With: Self Critical Care Note Critical Care Time?: Yes Heart Score Heart Score: Heart Score Response (Comments) Value History Slightly Suspicious 0 EKG Normal 0 Age >65 2 Risk Factors >3 or Hx ASHD 2 Troponin Normal limit 0 Total 4 I personally scribed for CINTIA FARR DO ([email or web address]) on 09/28/24 at 10:57. Electronically submitted by Sydnee Edwards ([facility]). I personally scribed for CINTIA FARR DO ([email or web address]) on 09/28/24 at 11:41. Electronically submitted by Sydnee Edwards ([facility]). I personally scribed for CINTIA FARR DO ([email or web address]) on 09/28/24 at 11:43. Electronically submitted by Sydnee Edwards ([facility]). I personally scribed for CINTIA FARR DO ([email or web address]) on 09/28/24 at 12:45. Electronically submitted by Sydnee Edwards ([facility]). CINTIA FARR DO Sep 28, 2024 10:57
--- NOTE | 2024-09-28 12:25 | DVH ---
EXAM: XY CHEST PORTABLE Indication: near syncope Technique: Single frontal view of the chest was obtained Comparison: XY CHEST PORTABLE on DOS: 07/13/24 FINDINGS: Lines and Tubes: Cardiac pacemaker projects over left chest wall. Lungs: No focal consolidation. Right apical pleural / parenchymal scarring. Calcific granuloma projec ts over left upper lung. Pleura: No effusion. No pneumothorax. Cardiomediastinal contours: Unremarkable Bones: No acute osseous abnormality. IMPRESSION: Right apical pleural/ parenchymal scarring.
[2024-09-28 14:23] LABS: Hemoglobin 8.9 g/dL (12.2-16.2)
[2024-09-28 14:25] LABS: Hematocrit 29.3 % (36.0-46.0); Mean Corpuscular Hemoglobin 31.5 pg (28.0-32.0); Mean Corpuscular Volume 104.0 fL (80.0-100.0); Nucleated Red Blood Cells % 0.5 %
[2024-09-28 14:41] LABS: Alanine Aminotransferase 38 U/L (7-40); Albumin 4.1 g/dL (3.2-4.8); Alkaline Phosphatase 102 U/L (46-116); Anion Gap 11 (5-15); BUN/Creatinine Ratio 24.0 (10.0-20.0); Calcium 10.3 mg/dL (8.7-10.4); Glucose 106 mg/dL (74-106); Magnesium 2.0 mg/dL (1.6-2.6); Potassium 4.4 mmol/L (3.5-5.1); Total Protein 7.1 g/dL (5.7-8.2)
[2024-09-28 14:46] LABS: Blood Urea Nitrogen 30 mg/dL (9-23); Carbon Dioxide 16 mmol/L (20-31); Chloride 119 mmol/L (98-107); Sodium 146 mmol/L (136-145)
[2024-09-28 14:47] LABS: Bilirubin, Total 0.2 mg/dL (0.2-1.0)
[2024-09-28] MEDS ORDERED: DOCUSATE SOD 100 MG CAP PO PRN (21:15)
[2024-09-28] MEDS ORDERED: ONDANSETRON HCL 4 MG/2 ML VIAL IV PRN (21:15)
[2024-09-28] MEDS ORDERED: hydrALAZINE HCL 20 MG/ML VL IV PRN (21:15)
--- NOTE | 2024-09-28 21:38 | DVHHP2 ---
History of Present Illness Reason for Visit: Near syncope History of Present Illness Patient is a 79-year-old female with past medical history of anemia, CHF, COPD, and DVT currently on Xarelto presented to [facility] ED with complaint of near syncopal episode. As reported, patient was admitted patient at this hospital last week for near syncopal episodes and was at PCP office today for a follow up appointment. Staff at the office noticed that patient went unresponsive for about 1-2 minutes, witnessed by caregiver as well. Caregiver reports this near syncopal episode occurs with patient complaining of shortness of breaths and get agitated before going unresponsive. Patient was seen and evaluated in the ED, laboratory data shows WBC 10.1, hemoglobin 8.9, hematocrit 29.3, platelets 360, sodium 146, potassium 4.4, BUN 30, creatinine 1.25, glucose 106, AST 54, ALT 38, troponin 4, blood pressure 128/80, pulse 65, temperature 9 7.2 F, O2 saturation 99% on room air. Chest x-ray revealing right apical pleural/parenchymal scarring. Please see medication orders section in the computer. On my assessment, patient denied chest pain, no headache, no dizziness, no syncopal episode at this moment, no shortness of breaths, no nausea, no vomiting, no fever, no chills. Patient was admitted for further mignon luation and medical management. Past Medical History Anemia, CHF, COPD, DVT Past Surgical History Pacemaker Family History Reviewed, noncontributory to the management of this case. Past Social History The patient lives at home, denies smoking, alcohol or illicit drugs abuse. Review of Systems Constitutional: Yes: Weakness; No: Fever, Chills, Sweats, Malaise, Other Eyes: No: Pain, Vision change, Conjunctivae inflammation, Eyelid inflammation, Other, Redness ENT: No: Ear pain, Ear discharge, Nose pain, Nose discharge, Nose congestion, Mouth pain, Mouth swelling, Throat pain, Throat swelling, Other Respiratory: No: Cough, Dry, Shortness of breath, SOB with excertion, Wheezing, Hemoptysis, Pleuritic Pain, Sputum, Wheezing, Other Cardiovascular: Other (Syncope); No: Chest Pain, Palpitations, Orthopnea, Paroxysmal Noc. Dyspnea, Edema, Lt Headedness Gastrointestinal: No: Nausea, Vomiting, Abdominal Pain, Diarrhea, Constipation, Melena, Hematochezia, Other Genitourinary: No Dysuria, No Frequency, No Incontinence, No Hematuria, No Retention, No Other Musculoskeletal: No: other, neck pain, shoulder pain, arm pain, back pain, hand pain, leg pain, foot pain Skin: No: Rash, Lesions, Jaundice, Bruising, Other Neurological: No: Weakness, Numbness, Incoordination, Change in speech, Confusion, Seizures, Other Allergies: Coded Allergies: Atenolol (Unverified Allergy, Unknown, 07/13/24) Lisinopril (Unverified Allergy, Unknown, 07/13/24) Penicillins (Unverified Allergy, Unknown, 07/13/24) Medications Current Medications Medications Dose Ordered Sig/Austin Route Start Time Stop Time Status Last Admin Dose Admin Patient Own Medication 20 mg DAILY PO 09/29/24 10:00 UNV Sodium Chloride 10 ml Q8HR IV 09/28/24 22:00 UNV Acetaminophen/ Hydrocodone Bitart 1 tab Q4HP PRN PO 09/28/24 21:15 UNV Ondansetron HCl 4 mg Q4HP PRN IV 09/28/24 21:15 UNV Docusate Sodium 100 mg BIDPRN PRN PO 09/28/24 21:15 UNV Acetaminophen 650 mg Q6HP PRN PO 09/28/24 21:15 UNV Amlodipine Besylate 5 mg DAILY PO 09/29/24 10:00 UNV Hydralazine HCl 10 mg Q6HP PRN IV 09/28/24 21:15 UNV Levothyroxine Sodium 75 mcg QAM@0600 PO 09/29/24 06:00 UNV Famotidine 20 mg DAILY IV 09/29/24 10:00 UNV Exam Vital Signs Vital Signs Date Time Temp Pulse Resp B/P (MAP) Pulse Ox O2 Delivery O2 Flow Rate FiO2 09/28/24 19:50 97.2 65 18 128/50 (76) 100 97.2 General Appearance: Alert, Oriented X3, Cooperative, No acute distress HEENT: Atraumatic, PERRLA, EOMI, Mucous membr. moist/pink Respiratory: Normal air movement Cardiovascular: Regular rate, Normal S1, Normal S2, No murmurs Abdominal: Normal bowel sounds, Soft, No tenderness, No hepatospenomegaly, No masses Extremities: No clubbing, No cyanosis, No edema, Normal pulses, No tenderness/swelling Skin: No rashes, No significant lesion Neuro: Normal speech, Normal tone, Sensation intact, Cranial nerves 3-12 NL, Reflexes 2+, Other (Generalized weakness) Psych/Mental Status: Mental status NL, Mood NL Labs/Xrays Labs Test 09/28/24 20:29 09/28/24 13:59 Range/Units Troponin I High Sensitivity 6 </=34 ng/L White Blood Count 10.1 4.4-10.8 10^3/uL Red Blood Count 2.82 L 4.0-5.20 10^6/uL Hemoglobin 8.9 L 12.2-16.2 g/dL Hematocrit 29.3 L 36.0-46.0 % Mean Corpuscular Volume 104.0 H 80.0-100.0 fL Mean Corpuscular Hemoglobin 31.5 28.0-32.0 pg Mean Corpuscular Hemoglobin Concent 30.3 L 32.0-36.0 g/dL Red Cell Distribution Width 21.4 H 11.8-14.3 % Platelet Count 360 140-450 10^3/uL Mean Platelet Volume 6.9 6.9-10.8 fL Neutrophils (%) (Auto) 78.8 37.0-80.0 % Lymphocytes (%) (Auto) 13.9 10.0-50.0 % Monocytes (%) (Auto) 6.0 0.0-12.0 % Eosinophils (%) (Auto) 0.7 0.0-7.0 % Basophils (%) (Auto) 0.6 0.0-2.0 % Neutrophils # (Auto) 7.9 1.6-8.6 10 ^3/uL Lymphocytes # (Auto) 1.4 0.4-5.4 10 ^3/uL Monocytes # (Auto) 0.6 0-1.3 10 ^3/uL Eosinophils # (Auto) 0.1 0-0.8 10 ^3/uL Basophils # (Auto) 0.1 0-0.2 10 ^3/uL Nucleated Red Blood Cells 0.5 % Sodium Level 146 H 136-145 mmol/L Potassium Level 4.4 3.5-5.1 mmol/L Chloride Level 119 H 98-107 mmol/L Carbon Dioxide Level 16 L 20-31 mmol/L Anion Gap 11 5-15 Blood Urea Nitrogen 30 H 9-23 mg/dL Creatinine 1.25 H 0.550-1.02 mg/dL Glomerular Filtration Rate Calc 44 >90 mL/min BUN/Creatinine Ratio 24.0 H 10.0-20.0 Serum Glucose 106 74-106 mg/dL Lactic Acid Level 1.4 0.4-2.0 mmol/L Calcium Level 10.3 8.7-10.4 mg/dL Magnesium Level 2.0 1.6-2.6 mg/dL Total Bilirubin 0.2 0.2-1.0 mg/dL Aspartate Amino Transferase (AST) 54 H 13-40 U/L Alanine Aminotransferase (ALT) 38 7-40 U/L Alkaline Phosphatase 102 46-116 U/L Total Protein 7.1 5.7-8.2 g/dL Albumin 4.1 3.2-4.8 g/dL PATIENT: KENNETH MULLER ACCT: [id number] UNIT: [id number] : 1945 LOC: ER ROOM / BED: / AGE / SEX: 79 / F ADM STATUS: REG ER SERVICE 1038 ORDERING PHYSICIAN: CINTIA FARR DO PROCEDURE(s): CXRP - CHEST PORTABLE REASON: near syncope ORDER NUMBER(s): [id number], ACCESSION NUMBER(s): [id number] EXAM: XY CHEST PORTABLE Indication: near syncope Technique: Single frontal view of the chest was obtained Comparison: XY CHEST PORTABLE on DOS: 07/13/24 FINDINGS: Lines and Tubes: Cardiac pacemaker projects over left chest wall. Lungs: No focal consolidation. Right apical pleural / parenchymal scarring. Calcific granuloma projects over left upper lung. Pleura: No effusion. No pneumothorax. Cardiomediastinal contours: Unremarkable Bones: No acute osseous abnormality. IMPRESSION: Right apical pleural/ parenchymal scarring. SEPSIS Sepsis Screen Date sepsis recognized/suspect: Sep 28, 2024 Time Sepsis recognized/suspect: 1015 Recent Procedure: No On Antibiotic Therapy: No Respiratory Rate >20: No Heart Rate >90: No Temp<36 C (96.8 F) or >38.3 C: No SBP <90 or MAP <65 mmHG: No New Acute Mental Status Change: No Is the patient on CPAP, BIPAP,: No Physician Orders Type And Screen (09/28/24 14:48) (Nf) Xarelto (09/29/24 10:00) Allergies (09/28/24 21:11) Code Status (09/28/24 21:11) Sodium Chloride Lock (Saline Lock Ns) (09/28/24 22:00) Oxygen Per Hour (09/28/24 21:11) Hydrocodone-Acet 5/325mg Tab (Bowman 5/32 (09/28/24 21:15) Ondansetron Hcl (Zofran) (09/28/24 21:15) Docusate Sodium Capsule (Colace Capsule) (09/28/24 21:15) Fall Risk Precautions In Place QSHIFT (09/28/24 21:11) Complete Blood Count (09/29/24 04:00) Comprehensive Metabolic Panel (09/29/24 04:00) Cardiac Diet-2gna,Lofat,Lochol (09/29/24 Breakfast) Condition: Serious (09/28/24 21:11) Acetaminophen Tablet (Tylenol Tablet) (09/28/24 21:15) Maintain Bed Rest (09/28/24 21:11) Sequential Compression Device (09/28/24 ) Amlodipine Tablet (Norvasc Tablet) (09/29/24 10:00) Hydralazine Injection (Apresoline Inject (09/28/24 21:15) Levothyroxine Tablet (Synthroid Tablet) (09/29/24 06:00) Thyroid Stimulating Hormone (09/28/24 21:11) Famotidine Injection (Pepcid Injection) (09/29/24 10:00) Admit (09/28/24 21:37) Nitroglycerin Sublingual (Ntrostat Subli (09/28/24 21:45) Morphine Sulfate Injection (09/28/24 21:45) Stat Ekg For Chest Pain (09/28/24 21:37) Notify Md Of Changes From Base (09/28/24 21:37) Material Planning Analyst For 24 Hours (09/28/24 21:37) Emergency Dysrhythmia Protocol (09/28/24 21:37) Rhythm Strips Once Every Shift (09/28/24 21:37) Oxygen By Nasal Cannula (09/28/24 21:37) Vital Signs Date Time Temp Pulse Resp B/P (MAP) Pulse Ox O2 Delivery O2 Flow Rate FiO2 09/28/24 19:50 97.2 65 18 128/50 (76) 100 97.2 09/28/24 17:16 97.6 65 16 140/77 (98) 97 97.6 Laboratory Tests Test 09/28/24 13:59 Lactic Acid Level 1.4 mmol/L (0.4-2.0) White Blood Count 10.1 10^3/uL (4.4-10.8) Assessment/Plan Assessment/Plan Near syncope Symptomatic anemia Generalized weakness Plan 1. Admit to telemetry units 2. Breathing treatment 3. Pain control management 4. Management of fluids and electrolytes 5. Consultation for chest x-ray 6. Diagnostic tests-chest x-ray 7. DVT prophylaxis-on aspirin 8. Repeat labs CBC, CMP in a.m. 9. Continue with current medical management 10. Treatment plan discussed with patient and RN. Patient verbalized understanding. Plan discussed with: Patient, Other (RN) My Orders Orders - ZEYNEP BRUCE DNP Procedure Category Date Status Time (Nf) Xarelto PHA 09/29/24 Logged 10:00 Allergies ABENA 09/28/24 In Process 21:11 Code Status CODE 09/28/24 Transmitted 21:11 Sodium Chloride Lock PHA 09/28/24 Logged (Saline Lock Ns) 22:00 Oxygen Per Hour RT 09/28/24 Transmitted 21:11 Hydrocodone-Acet PHA 09/28/24 Logged 5/325mg Tab (Bowman 21:15 Ondansetron Hcl PHA 09/28/24 Logged (Zofran) 21:15 Docusate Sodium PHA 09/28/24 Logged Capsule (Colace 21:15 Fall Risk Precautions [facility] 09/28/[address] 21:11 Complete Blood Count LAB 09/29/24 Verified 04:00 Comprehensive LAB 09/29/24 Verified Metabolic Panel 04:00 Cardiac DIET 09/29/24 Transmitted Diet-2gna,Lofat,Lochol Breakfast Condition: Serious ABENA 09/28/24 In Process 21:11 Acetaminophen Tablet PHA 09/28/24 Logged (Tylenol Tablet) 21:15 Maintain Bed Rest ABENA 09/28/24 In Process 21:11 Sequential ABENA 09/28/24 In Process Compression Device Amlodipine Tablet PHA 09/29/24 Logged (Norvasc Tablet) 10:00 Hydralazine Injection [facility] 09/28/24 Logged (Apresoline Inject 21:15 Levothyroxine Tablet [facility] 09/29/24 Logged (Synthroid Tablet) 06:00 Thyroid Stimulating LAB 09/28/24 Logged Hormone 21:11 Famotidine Injection [facility] 09/29/24 Logged (Pepcid Injection) 10:00 Admit ADMIT 09/28/24 Verified 21:37 Nitroglycerin [facility] 09/28/24 Verified Sublingual (Ntrostat 21:45 Morphine Sulfate [facility] 09/28/24 Verified Injection 21:45 Stat Ekg For Chest [facility] 09/28/24 Verified Pain 21:37 Notify Md Of Changes [facility] 09/28/24 Verified From Base 21:37 Material Planning Analyst For [facility] 09/28/24 Verified 24 Hours 21:37 Emergency Dysrhythmia [facility] 09/28/24 Verified Protocol 21:37 Rhythm Strips Once [facility] 09/28/24 Verified Every Shift 21:37 Oxygen By Nasal RT 09/28/24 Verified Cannula 21:37 Problem List: (1) Near syncope (2) Symptomatic anemia (3) Generalized weakness Date of Service: Sep 28, 2024 Billing Provider: ZEYNEP BRUCE DNP Common Visit Codes: [id number] INP/OBS CARE (HIGH) ZEYNEP BRUCE DNP Sep 28, 2024 21:38
[2024-09-28] MEDS ORDERED: NITROGLYCERIN 0.4 MG SL TAB SL PRN (21:45)
[2024-09-28] MEDS ORDERED: MORPHINE SULFATE INJ 2 MG/ml SYRG IV PRN (21:45)
[2024-09-29] VITALS (16 sets, daily range): BP systolic 139–160; BP diastolic 48–70; PULSE 64–69; RESP 16–18; TEMP 97.3–98.3; O2SAT 95–100
[2024-09-29] MEDS: SODIUM CHLOR 0.9% PF (SALINE LOCK) 10ML VIAL/SYR IV SCH (02:10)
[2024-09-29] MEDS: LEVOTHYROXINE SODIUM 25 MCG TAB PO SCH (05:39)
[2024-09-29 06:56] LABS: Alanine Aminotransferase 37 U/L (7-40); Albumin 3.3 g/dL (3.2-4.8); Alkaline Phosphatase 85 U/L (46-116); Anion Gap 14 (5-15); BUN/Creatinine Ratio 30.1 (10.0-20.0); Calcium 9.7 mg/dL (8.7-10.4); Potassium 4.5 mmol/L (3.5-5.1)
[2024-09-29 06:57] LABS: Bilirubin, Total 0.2 mg/dL (0.2-1.0); Blood Urea Nitrogen 31 mg/dL (9-23); Carbon Dioxide 12 mmol/L (20-31); Chloride 121 mmol/L (98-107); Glucose 67 mg/dL (74-106); Sodium 147 mmol/L (136-145); Total Protein 5.7 g/dL (5.7-8.2)
[2024-09-29 09:35] LABS: Hemoglobin 7.8 g/dL (12.2-16.2); Nucleated Red Blood Cells % 0.3 %
[2024-09-29 09:37] LABS: Hematocrit 25.5 % (36.0-46.0); Mean Corpuscular Hemoglobin 31.4 pg (28.0-32.0); Mean Corpuscular Volume 102.3 fL (80.0-100.0)
[2024-09-29] MEDS: FAMOTIDINE (10MG/ML) 2ML VL IV SCH (10:47)
[2024-09-29] MEDS: ALBUTEROL SULF 2.5 MG/0.5ML(0.5%) NEB SOLN NEB SCH (11:13)
[2024-09-29] MEDS: IPRATROPIUM BROM 0.5 MG/2.5ML INH SOL NEB SCH (11:14)
[2024-09-29] MEDS ORDERED: IPRATROPIUM BROM 0.5 MG/2.5ML INH SOL NEB SCH (12:00)
[2024-09-29] MEDS ORDERED: ALBUTEROL SULF 2.5 MG/0.5ML(0.5%) NEB SOLN NEB SCH (14:00)
[2024-09-29 15:11] LABS: Cholesterol 162 mg/dL (< 200)
[2024-09-29 15:19] LABS: HDL Cholesterol 36 mg/dL (40-59); Triglycerides 170 mg/dL (< 150)
--- NOTE | 2024-09-29 15:24 | DVH ---
EXAM: CT HEAD WITHOUT CONTRAST INDICATION: syncope TECHNIQUE: CT of the head without intravenous contrast. Radiation Dose Information: CT Dose: CTDI volume is 50.9 mGy. Dose-length product is 901.5 mGy*cm The dose indicators for CT are the volume Computed Tomography (CT) Dose Index (CTDIvol) and the Dose Length Product (DLP), and are measured in units of mGy and mGy-cm, respectively. These indicators are not patient dose, but values generated from the CT scanner acquisition factors. The report includes radiation exposure data for exposures received during this examination. COMPARISON: None FINDINGS: There is no evidence of acute intracranial hemorrhage, extra-axial collection, mass effect, midline s hift, herniation or hydrocephalus. The ventricles, sulci and cisterns are age appropriate. The nelson-white differentiation is intact. Patchy periventricular and subcortical white matter hypoattenuation is nonspecific but may be related to small vessel ischemic disease. The visualized paranasal sinuses and mastoid air cells are clear. The surrounding soft tissues and osseous structures are unremarkable. IMPRESSION: No acute intracranial abnormality.
[2024-09-29 16:14] LABS: COVID19 ANTIGEN SOFIA FIA NEGATIVE (NEGATIVE)
--- NOTE | 2024-09-29 16:44 | DVHPNRES ---
Progress Note Date Seen: Sep 29, 2024 Resident Creating Document: CR HAAS RESIDENT Medical Necessity Reason Pt with a Central, PICC or Fol: No Subjective Review of Systems Patient is a 79-year-old female with a past medical history of anemia, CHF, COPD with 2 L of oxygen at home, DVT currently on Xarelto presents to [facility] with complaint of near syncopal episode and wobbly feet. Patient reports that she was admitted in the hospital last week for near syncopal episode and yesterday was at the PCP office for a follow up appointment when she felt her legs were weak. Staff at the office noticed that the patient was unresponsive for about 1-2 minutes, witnessed by caregiver as well. Patient denies any chest pain, headache, dizziness, shortness of breath, nausea, vomiting, fever, chills. PMH: Anemia, CHF, COPD, DVT Past surgical history: Pacemaker Family history: Reviewed and noncontributory to the management of this case PSH: Patient lives at home, denies smoking, alcohol or any illicit drug abuse ROS: 09/29/2024 patient was seen and examined by me at the bedside. she has no new active complaints. She is on 3 L of oxygen via nasal cannula. Patient s going to continue med nebulization of albuterol and ipratropium bromide. MRSA nares are pending. COVID and flu tests are pending. For low hemoglobin levels with slightly increased MCV, a B12 and folic acid levels have been ordered, pending. We have ordered an echo, CT head without contrast came normal and consulted Neurology which is pending. Objective vital signs Vital Sign Date Time Temp Pulse Resp B/P (MAP) Pulse Ox O2 Delivery O2 Flow Rate FiO2 09/29/24 13:18 66 18 98 2.0 28 09/29/24 13:00 98.3 160/52 (88) 98.3 09/29/24 11:13 Nasal Cannula Total Intake and Output 09/28/24 09/28/24 09/29/24 15:00 23:00 07:00 Intake Total 0 ml Balance 0 ml medications Current Medications Medications Dose Ordered Sig/[place] Route Start Time Stop Time Status Last Admin Dose Admin Patient Own Medication 20 mg DAILY PO 09/29/24 10:00 UNV Sodium Chloride 10 ml Q8HR IV 09/28/24 22:00 09/29/24 10:48 10 ML Acetaminophen/ Hydrocodone Bitart 1 tab Q4HP PRN PO 09/28/24 21:15 Ondansetron HCl 4 mg Q4HP PRN IV 09/28/24 21:15 Docusate Sodium 100 mg BIDPRN PRN PO 09/28/24 21:15 Acetaminophen 650 mg Q6HP PRN PO 09/28/24 21:15 Levothyroxine Sodium 75 mcg QAM@0600 PO 09/29/24 06:00 09/29/24 05:39 75 MCG Famotidine 20 mg DAILY IV 09/29/24 10:00 09/29/24 10:47 20 MG Nitroglycerin 0.4 mg Q5MINP PRN SL 09/28/24 21:45 Morphine Sulfate 2 mg Q30M PRN IV 09/28/24 21:45 Rivaroxaban 20 mg QPM PO 09/29/24 18:00 Albuterol 2.5 mg Q6HR NEB 09/29/24 11:00 09/29/24 11:13 2.5 MG Ipratropium Lipscomb 0.5 mg Q6HR NEB 09/29/24 11:00 09/29/24 11:14 0.5 MG Aspirin 81 mg DAILY PO 09/30/24 10:00 Atorvastatin Calcium 40 mg HS PO 09/29/24 22:00 Examination Pt is lying on bed General Appearance: Alert, Oriented X3, Cooperative, Not in acute distress HEENT: Atraumatic, Mucous membranes moist/pink, 3 L of oxygen via nasal cannula Respiratory: Clear to auscultation, Normal air movement, No added sounds Cardiovascular: Regular rate, Normal S1, Normal S2, No murmurs Abdominal: Active bowel sounds, Soft, no distention, no tenderness Extremities: No edema, Normal pulses, No tenderness/swelling Skin: No Significant rash, No breakage in skin barrier Neuro: Normal speech, sensorimotor deficits none Psych/Mental Status: Mental status NL, Mood NL Nurse was there as quality control systems manager during examination laboratory and microbiology Laboratory Tests 09/29/24 09:16 09/29/24 05:50 Test 09/29/24 05:50 Range/Units Serum Glucose 67 L 74-106 mg/dL Labs and/or images reviewed: Labs reviewed by me, Image(s) reviewed by me Problem List/Assessment/Plan Problem List/Assessment/Plan #syncopal episode secondary to hypotension / seizure episode -Orthostatic vitals -Tele -EKG -Echocardiography -Amlodipine stopped for now -aspirin 81 mg p.o. daily -Atorvastatin 40 mg p.o. HS daily -CT head without contrast -Neuro consultation, pending #acute Gram-positive /negative pneumonia #COPD not in exacerbation -Respiratory therapy with ipratropium bromide, albuterol -MRSA nares -COVID/ flu tests -cxr: Right apical pleural/ parenchymal scarring. #Anemia, macrocytic -B12, folic acid within normal range Goals of care discussed with the patient for more than 27 minutes: Full code status Case discussed with Dr. Pedroza, patient and nurse. Plan discussed with: Patient, Other (rn) My Orders My Orders Orders - CR HAAS Procedure Category Date Status Time Urine Sodium LAB 09/29/24 Logged 08:50 Urine Creatinine LAB 09/29/24 Logged 08:50 Urine LAB 09/29/24 Logged Protein/Creatinine Mrsa Screen LAURI 09/29/24 Uncollected 10:45 Albuterol Medneb PHA 09/29/24 In Process (Ventolin Medneb) 11:00 Ipratropium Medneb PHA 09/29/24 In Process (Atrovent Medneb) 11:00 Date of Service: Sep 29, 2024 Billing Provider: DONTAE PEDROZA MD Common Visit Codes: [id number] INP/OBS CARE(HIGH) CR HAAS Sep 29, 2024 16:44 DONTAE PEDROZA MD Sep 29, 2024 17:50
[2024-09-29] MEDS: RIVAROXABAN 20 MG TAB PO SCH (17:46)
[2024-09-29 18:58] LABS: INR 1.32 (0.9-1.15); Partial Thromboplastin Time 33.1 SEC (24.5-34.5); Prothrombin Time 13.6 sec (9.3-11.8)
--- NOTE | 2024-09-29 20:50 | DVHINCON2 ---
Date of service: Sep 29, [address] Ellsworth Reason for Consultation ? Seizure versus syncope History of Present Illness Ms. Chaves is a 79 years old right-handed female with a history of hypertension, diabetes, congestive heart failure, COPD, asthma, AFib, DVT on Xarelto, arthritis, hypothyroidism, GERD, anemia, she was brought to the [facility] on 09/28/2024 with a chief complaint of altered mental status. At this time, she is alert and oriented x3, but is a poor historian. The following information mentioned is obtained from her and then later her daughter, I have also talked her nurse, and I have reviewed her chart and the patient has had two charts and appropriate information from other chart were reviewed and summarized in the the reports The patient reports, on 09/28/2024, she did not know what happened, she denies altered mental status when she was waiting for her appointment here doctor's office but she was taken to the hospital hospital. According to her daughter and ER reports, the patient was mentally altered when she was waiting for appointment in her PCP's office. Dr. Abdullahi garcia stated possible seizure episode to r/o On 09/17/24, when she was at her PCP's office, the patient has had a syncopal event where she became unresponsive for 2-3 minutes, according to ER note, the patient has had a lot of follow up black stool on 09/16/2024. The patient c laims she remember this event, and she said she did not have loss of consciousness, the patient was treated in the [facility] Her daughter relates in 07/2024, the patient has passed out when she was walking at home, and she was treated in the [facility] on weak (not confirmed with our EMR) Daughter confirmed the patient has problem with memory [phone] Plasma alcohol, 09/29/2024: 502 WBC/HB/PLT/MCV, 09/29/2024: 10.1/7.8/343/102.3 PTT/INR/PTT, 09/29/2024: 70.3/1.32/33.1 Na 09/28/24:146, 09/29/24: 147 HCO3, 09/28/2024: 16., 09/29/2024: 12 BUN/CR, 09/28/2024: 30/1.25, 09/29/2024: 31/1.03 GFR, 09/29/2019 5:44 a.m., 09/29/2024: 55 HGB A1c, 09/29/2024: <3.8 TG/HDL/LDL/HDL, 09/29/2024: 117/162/114/36 Vitamin B12, 09/29/24: 1160 Folic acid, 09/29/2024: 47.02 TSH, 09/28/24: 13.59 EKG, 11/02/2014: AFib EKG, 05/27/2016: AFib Extremity venous study, 07/02/2016 Occlusive and near - occlusive deep venous thrombi in the right lower extremity from the common femoral vein to the posterior tibial vein. Extremity venous study, 10/18/2024: Non-occlusive thrombus in the right proximal/mid superficial femoral veins and left proximal femoral vein. Chest X-ray 09/28/2024: Right apical pleural/ parenchymal scarring CT head, 09/29/2024: No acute intracranial abnormality Past Medical History Hypertension, diabetes, congestive heart failure, COPD, asthma, AFib, DVT on Xarelto, arthritis, hypothyroidism, GERD, anemia Past Surgical History Cholecystectomy, , hernia repair, tonsillectomy, Pacemaker insertion Family History: Cardiovascular disease G8 FATHER Family History Heart disease Social History He was tobacco smoke, but no history of drug/alcohol abuse Allergies: Coded Allergies: Atenolol (Unverified Allergy, Unknown, 07/13/24) Lisinopril (Unverified Allergy, Unknown, 07/13/24) Penicillins (Unverified Allergy, Unknown, 07/13/24) Home Meds No Active Prescriptions or Reported Meds Current Medications Current Medications Medications (Trade) Dose Ordered Sig/Austin Route PRN Reason Start Time Stop Time Status Last Admin Patient Own Medication 20 mg DAILY PO 09/29/24 10:00 UNV Sodium Chloride (Saline Lock Ns) 10 ml Q8HR IV 09/28/24 22:00 09/29/24 10:48 Acetaminophen/ Hydrocodone Bitart ([place] 5/325MG Tab) 1 tab Q4HP PRN PO MODERATE PAIN (4-6 PAIN SCALE) 09/28/24 21:15 Ondansetron HCl (Zofran) 4 mg Q4HP PRN IV NAUSEA / VOMITING 09/28/24 21:15 Docusate Sodium (Colace Capsule) 100 mg BIDPRN PRN PO FOR CONSTIPATION 09/28/24 21:15 Acetaminophen (Tylenol Tablet) 650 mg Q6HP PRN PO PAIN SCALE 1-3 OR TEMP>100.4 09/28/24 21:15 Amlodipine Besylate (Norvasc Tablet) 5 mg DAILY PO 09/29/24 10:00 09/29/24 08:50 DC Hydralazine HCl (Apresoline Injection) 10 mg Q6HP PRN IV SBP>150 09/28/24 21:15 09/29/24 08:50 DC Levothyroxine Sodium (Synthroid Tablet) 75 mcg QAM@0600 PO 09/29/24 06:00 09/29/24 05:39 Famotidine (Pepcid Injection) 20 mg DAILY IV 09/29/24 10:00 09/29/24 10:47 Nitroglycerin (Ntrostat Sublingual) 0.4 mg Q5MINP PRN SL FOR CHEST PAIN 09/28/24 21:45 Morphine Sulfate 2 mg Q30M PRN IV FOR CHEST PAIN 09/28/24 21:45 Rivaroxaban (Xarelto Tablet) 20 mg QPM PO 09/29/24 18:00 09/29/24 17:46 Ipratropium [place] (Atrovent Medneb) 0.5 mg Q6HR NEB 09/29/24 12:00 09/29/24 10:56 DC Albuterol (Ventolin Medneb) 2.5 mg Q4HR NEB 09/29/24 14:00 09/29/24 10:56 DC Albuterol (Ventolin Medneb) 2.5 mg Q6HR NEB 09/29/24 11:00 09/29/24 19:44 Ipratropium [place] (Atrovent Medneb) 0.5 mg Q6HR NEB 09/29/24 11:00 09/29/24 19:44 Aspirin 81 mg DAILY PO 09/30/24 10:00 Atorvastatin Calcium (Lipitor) 40 mg HS PO 09/29/24 22:00 Review of Systems As above, the other systems are negative Vital Signs Vital Signs Date Time Temp Pulse Resp B/P (MAP) Pulse Ox O2 Delivery O2 Flow Rate FiO2 09/29/24 17:01 97.4 65 16 143/68 (93) 100 97.4 09/29/24 13:18 2.0 28 09/29/24 11:13 Nasal Cannula Physical Exam GENERAL EXAM: General: the patient is well developed and nourished. No acute distress. HEENT: Normocephalic, neck is supple, no carotid bruits. No mass. RESPIRATORY: Normal respiratory effort with symmetrical lung expansion. Lungs clear to auscultation. CARDIOVASCULAR: Regular rate and rhythm with no murmurs. S1, S2. ABDOMEN: Soft, nontender, normal bowel sound NEUROLOGICAL: MENTAL STATUS: Awake and alert. Oriented to person, place, time poor historian SPEECH, LANGUAGE, HIGHER CORTICAL FUNCTION: no aphasia or dysathria. CRANIAL NERVES: #2: Intact visual raman to confrontation. The optic discs were sharp. #3,4,6: Pupils are equal, round and reactive. EOMs full and conjugate. #5: Facial sensation intact in all three divisions bilaterally. Mandibular strength intact. #7: Facial muscles symmetrical and strength intact. #8: Hearing grossly normal to voice. #9,10: Uvula and soft palate rise in the midline. Swallow and voice are normal. #11: Trapezius and sternomastoid strength intact bilaterally. #12: Tongue midline. No fasciculations or atrophy. SENSATION: Sensation to touch and pinprick is normal. MOTOR: Normal tone in the upper and lower extremity. Normal muscle bulk. No fasciculations. No abnormal movements or posturing. Muscle strength of the major groups in the upper extremities is 5/5. Muscle strength of the major groups in the lower extremities is 5/5. REFLEXES: Deep tendon reflexes normal and symmetrical. No pathological reflexes. CEREBELLAR/COORDINATION: Finger to nose is normal bilaterally. GAIT/STATION: deferred. Labs/Diagnostic Data Labs Test 09/29/24 18:23 09/29/24 15:00 09/29/24 13:49 09/29/24 09:16 Range/Units Prothrombin Time 13.6 H 9.3-11.8 sec Prothrombin Time INR 1.32 H 0.9-1.15 Activated Partial Thromboplast Time 33.1 24.5-34.5 SEC Influenza Type A Antigen Negative Negative Influenza Type B Antigen Negative Negative SARS-CoV-2 Antigen (Rapid) Negative NEGATIVE Hemoglobin A1c < 3.8 <5.7 % A1C B-Type Natriuretic Peptide 70.46 0-100 pg/mL Triglycerides Level 170 H < 150 mg/dL Cholesterol Level 162 < 200 mg/dL LDL Cholesterol 114 H < 100 mg/dL HDL Cholesterol 36 L 40-59 mg/dL Vitamin B12 Level 1160 H 211-911 pg/mL Vitamin D 25-Hydroxy 52.5 30.0-100 ng/mL Folic Acid 47.02 >5.38 ng/mL Plasma/Serum Blood Alcohol 5.2 <10 mg/dL White Blood Count 10.1 4.4-10.8 10^3/uL Red Blood Count 2.49 L 4.0-5.20 10^6/uL Hemoglobin 7.8 L 12.2-16.2 g/dL Hematocrit 25.5 #L 36.0-46.0 % Mean Corpuscular Volume 102.3 H 80.0-100.0 fL Mean Corpuscular Hemoglobin 31.4 28.0-32.0 pg Mean Corpuscular Hemoglobin Concent 30.7 L 32.0-36.0 g/dL Red Cell Distribution Width 20.7 H 11.8-14.3 % Platelet Count 343 140-450 10^3/uL Mean Platelet Volume 7.2 6.9-10.8 fL Neutrophils (%) (Auto) 74.0 37.0-80.0 % Lymphocytes (%) (Auto) 15.7 10.0-50.0 % Monocytes (%) (Auto) 7.0 0.0-12.0 % Eosinophils (%) (Auto) 2.4 0.0-7.0 % Basophils (%) (Auto) 0.9 0.0-2.0 % Neutrophils # (Auto) 7.5 1.6-8.6 10 ^3/uL Lymphocytes # (Auto) 1.6 0.4-5.4 10 ^3/uL Monocytes # (Auto) 0.7 0-1.3 10 ^3/uL Eosinophils # (Auto) 0.2 0-0.8 10 ^3/uL Basophils # (Auto) 0.1 0-0.2 10 ^3/uL Nucleated Red Blood Cells 0.3 % Test 09/29/24 05:50 09/28/24 22:15 09/28/24 13:59 Range/Units Sodium Level 147 H 136-145 mmol/L Potassium Level 4.5 3.5-5.1 mmol/L Chloride Level 121 H 98-107 mmol/L Carbon Dioxide Level 12 L 20-31 mmol/L Anion Gap 14 5-15 Blood Urea Nitrogen 31 H 9-23 mg/dL Creatinine 1.03 H 0.550-1.02 mg/dL Glomerular Filtration Rate Calc 55 >90 mL/min BUN/Creatinine Ratio 30.1 H 10.0-20.0 Serum Glucose 67 L 74-106 mg/dL Calcium Level 9.7 8.7-10.4 mg/dL Total Bilirubin 0.2 0.2-1.0 mg/dL Aspartate Amino Transferase (AST) 66 H 13-40 U/L Alanine Aminotransferase (ALT) 37 7-40 U/L Alkaline Phosphatase 85 46-116 U/L Total Protein 5.7 5.7-8.2 g/dL Albumin 3.3 3.2-4.8 g/dL Troponin I High Sensitivity 7 </=34 ng/L Lactic Acid Level 1.4 0.4-2.0 mmol/L Magnesium Level 2.0 1.6-2.6 mg/dL Thyroid Stimulating Hormone (TSH) 1.21 0.55-4.78 uIU/mL Assessment This is a difficult a long consultation Recurrent syncopal event Syncope secondary to anemia/GI bleeding Rule out partial simple seizure ? Acidosis Dehydration Hypernatremia Kidney injury History of DVT Respiratory failure Anemia Cognitive dysfunction ? Encephalopathy ? Dementia/MCI Plan/Recommendation Monitoring Supportive treatment EEG MR brain scan Lipitor 40 mg daily Xarelto 20 mg daily Up to chair Physical therapy More recommendation per clinical course Progress: Poor This medical document was created using an electronic medical record system with [employer] dictation system. Although this document has been carefully reviewed, there may still be some phonetic and typographical errors. These areas are purely typographical due to imperfections of the software programs, and do not reflect any compromise in the patient's medical care. Plan discussed with: Patient, Daughter, Other MISTI JACOBO MD Sep 29, 2024 20:50
[2024-09-29] MEDS: ATORVASTATIN 20 MG TAB PO SCH (21:33)
[2024-09-29] MEDS ORDERED: LORazepam 2MG/ML-1ML VIAL IV PRN (21:45)
[2024-09-29] MEDS: ACETAMINOPHEN 325 MG TAB PO PRN (23:21)
[2024-09-30] VITALS (15 sets, daily range): BP systolic 134–148; BP diastolic 60–87; PULSE 61–68; RESP 16–18; TEMP 97.3–98.5; O2SAT 99–100
[2024-09-30 06:46] LABS: Hematocrit 18.6 % (36.0-46.0); Mean Corpuscular Hemoglobin 32.4 pg (28.0-32.0); Mean Corpuscular Volume 98.4 fL (80.0-100.0); Nucleated Red Blood Cells % 0.2 %
[2024-09-30 06:55] LABS: Hemoglobin 6.1 g/dL (12.2-16.2)
[2024-09-30 07:01] LABS: Anion Gap 10 (5-15)
[2024-09-30 07:02] LABS: Calcium 9.6 mg/dL (8.7-10.4)
[2024-09-30 07:03] LABS: Carbon Dioxide 16 mmol/L (20-31); Chloride 120 mmol/L (98-107); Potassium 3.3 mmol/L (3.5-5.1); Sodium 146 mmol/L (136-145)
[2024-09-30 07:07] LABS: BUN/Creatinine Ratio 24.4 (10.0-20.0); Blood Urea Nitrogen 21 mg/dL (9-23)
[2024-09-30] MEDS: PANTOPRAZOLE 40 MG/10 ML VIAL INJ IV SCH (07:15)
[2024-09-30 07:17] LABS: Glucose 70 mg/dL (74-106)
[2024-09-30 08:44] LABS: Iron 32.0 ug/dL (50-170); Total Iron Binding Capacity 237.0 ug/dL (250-425)
[2024-09-30] MEDS: POTASSIUM CHL 20MEQ/100ML 100 ML IV ONE (09:47)
--- NOTE | 2024-09-30 18:04 | DVHPNRES ---
Progress Note Date Seen: Sep 30, 2024 Resident Creating Document: CR HAAS RESIDENT Medical Necessity Reason Pt with a Central, PICC or Fol: No Subjective Review of Systems Patient is a 79-year-old female with a past medical history of anemia, CHF, COPD with 2 L of oxygen at home, DVT currently on Xarelto presents to [facility] with complaint of near syncopal episode and wobbly feet. Patient reports that she was admitted in the hospital last week for near syncopal episode and yesterday was at the PCP office for a follow up appointment when she felt her legs were weak. Staff at the office noticed that the patient was unresponsive for about 1-2 minutes, witnessed by caregiver as well. Patient denies any chest pain, headache, dizziness, shortness of breath, nausea, vomiting, fever, chills. PMH: Anemia, CHF, COPD, DVT Past surgical history: Pacemaker Family history: Reviewed and noncontributory to the management of this case PSH: Patient lives at home, denies smoking, alcohol or any illicit drug abuse Pt is lying on bed General Appearance: Alert, Oriented X3, Cooperative, Not in acute distress HEENT: Atraumatic, Mucous membranes moist/pink, 3 L of oxygen via nasal cannula Respiratory: Clear to auscultation, Normal air movement, No added sounds Cardiovascular: Regular rate, Normal S1, Normal S2, No murmurs Abdominal: Active bowel sounds, Soft, no distention, no tenderness Extremities: No edema, Normal pulses, No tenderness/swelling Skin: No Significant rash, No breakage in skin barrier Neuro: Normal speech, sensorimotor deficits none Psych/Mental Status: Mental status NL, Mood NL Nurse was there as finishing range operator during examination ROS: 09/29/2024 patient was seen and examined by me at the bedside. she has no new active complaints. She is on 3 L of oxygen via nasal cannula. Patient s going to continue med nebulization of albuterol and ipratropium bromide. MRSA nares are pending. COVID and flu tests are pending. For low hemoglobin levels with slightly increased MCV, a B12 and folic acid levels have been ordered, pending. We have ordered an echo, CT head without contrast came normal and consulted Neurology which is pending. 09/30/2024 patient was seen and examined by me at the bedside. Patient has no new active complaints. Her hemoglobin dropped to 6.1 so we have transfused her with PRBC. EEG, MR brain scan ordered by Neurology , results pending. I did a per rectal examination on her which showed no bleeding. The stool occult blood has been sent, Results pending. Objective vital signs Vital Sign Date Time Temp Pulse Resp B/P (MAP) Pulse Ox O2 Delivery O2 Flow Rate FiO2 09/30/24 17:00 97.4 63 18 148/87 (107) 100 97.4 09/30/24 11:05 Nasal Cannula* 2 28 Total Intake and Output 09/29/24 09/29/24 09/30/24 15:00 23:00 07:00 Intake Total 400 ml 50 ml Balance 400 ml 50 ml medications Current Medications Medications Dose Ordered Sig/[place] Route Start Time Stop Time Status Last Admin Dose Admin Patient Own Medication 20 mg DAILY PO 09/29/24 10:00 UNV Sodium Chloride 10 ml Q8HR IV 09/28/24 22:00 09/30/24 14:32 10 ML Acetaminophen/ Hydrocodone Bitart 1 tab Q4HP PRN PO 09/28/24 21:15 Ondansetron HCl 4 mg Q4HP PRN IV 09/28/24 21:15 Docusate Sodium 100 mg BIDPRN PRN PO 09/28/24 21:15 Acetaminophen 650 mg Q6HP PRN PO 09/28/24 21:15 09/29/24 23:21 650 MG Levothyroxine Sodium 75 mcg QAM@0600 PO 09/29/24 06:00 09/30/24 06:12 75 MCG Nitroglycerin 0.4 mg Q5MINP PRN SL 09/28/24 21:45 Morphine Sulfate 2 mg Q30M PRN IV 09/28/24 21:45 Rivaroxaban 20 mg QPM PO 09/29/24 18:00 Hold 09/29/24 17:46 20 MG Albuterol 2.5 mg Q6HR NEB 09/29/24 11:00 09/30/24 11:05 2.5 MG Ipratropium [place] 0.5 mg Q6HR NEB 09/29/24 11:00 09/30/24 11:05 0.5 MG Aspirin 81 mg DAILY PO 09/30/24 10:00 09/30/24 13:30 81 MG Atorvastatin Calcium 40 mg HS PO 09/29/24 22:00 09/29/24 21:33 40 MG Lorazepam 1 mg ONCE PRN IV 09/29/24 21:45 Pantoprazole Sodium 40 mg BID IV 09/30/24 07:15 Hold Examination Pt is lying on bed General Appearance: Alert, Oriented X3, Cooperative, Not in acute distress HEENT: Atraumatic, Mucous membranes moist/pink Respiratory: Clear to auscultation, Normal air movement, No added sounds Cardiovascular: Regular rate, Normal S1, Normal S2, No murmurs Abdominal: Active bowel sounds, Soft, no distention, no tenderness Extremities: No edema, Normal pulses, No tenderness/swelling Skin: No Significant rash, presence of stage II decubitus ulcer Neuro: Normal speech, sensorimotor deficits none Psych/Mental Status: Mental status NL, Mood NL Nurse was there as finishing range operator during examination Per rectal examination was conducted by me with the nurse as a finishing range operator. No bleeding seen, no masses felt, no hemorrhoids felt laboratory and microbiology Laboratory Tests 09/30/24 06:05 Test 09/30/24 06:05 Range/Units Serum Glucose 70 L 74-106 mg/dL Microbiology Date/Time Source Procedure Growth Status 09/29/24 15:00 Nose MRSA Screen - Final Complete Labs and/or images reviewed: Labs reviewed by me, Image(s) reviewed by me Problem List/Assessment/Plan Problem List/Assessment/Plan #syncopal episode secondary to ?hypotension/ ?dehydration /?seizure episode/anemia #Cognitive dysfunction due to ? Encephalopathy/ ? Dementia/MCI #DANNI likely due to VMN- resolved #hypernatremia -Orthostatic vitals -Tele -EKG -Echocardiography -Amlodipine stopped for now -aspirin 81 mg p.o. daily -Atorvastatin 40 mg p.o. HS daily -CT head without contrast -Neuro consultation, suggested: Monitoring, Supportive treatment, EEG, MR brain scan, Lipitor 40 mg daily, Xarelto 20 mg daily,Up to chair,Physical therapy #acute Gram-positive /negative pneumonia #COPD not in exacerbation #Respiratory failure with hypoxia -Respiratory therapy with ipratropium bromide, albuterol -MRSA nares -COVID/ flu tests -cxr: Right apical pleural/ parenchymal scarring. #Mixed Anemia, macrocytic, micocytic -B12, folic acid within normal range - iron deficiency profile -hb 6.1 on 09/30, 1PRBC -H&H, pending -stool occult blood, pending # stage II decubitus ulcer on admission -wound consult, pending #history of DVT -no prophylaxis for now Goals of care discussed with the patient for more than 27 minutes: Full code status Case discussed with Dr. Pedroza, patient and nurse. Plan discussed with: Patient, Other (rn) My Orders My Orders Orders - CR HAAS Procedure Category Date Status Time * Wound Consult CONS 09/30/24 Transmitted Stool Occult Blood LAB 09/30/24 Logged 07:05 Pantoprazole PHA 09/30/24 In Process (Protonix) 07:15 * Wound Consult CONS 09/30/24 Transmitted Insert Midline ORDERS 09/30/24 Transmitted 14:47 Date of Service: Sep 30, 2024 Billing Provider: DONTAE PEDROZA MD Common Visit Codes: [id number] INP/OBS CARE(HIGH) CR HAAS Sep 30, 2024 18:04 DONTAE PEDROZA MD Sep 30, 2024 23:58
--- NOTE | 2024-09-30 22:32 | DVHPN2 ---
Progress Note - Dictate Date Seen: Sep 30, 2024 Medical Necessity Reason Pt with a Central, PICC or Fol: No Subjective Ms. Chaves is a 79 years old right-handed female with a history of hypertension, diabetes, congestive heart failure, COPD, asthma, AFib, DVT on Xarelto, arthritis, hypothyroidism, GERD, anemia, she was brought to the [facility] on 09/28/2024 with a chief complaint of altered mental status. I have seen and examined the patient, I have talked to her nurse, she is alert, oriented x3, poor historian but is better compared to yesterday. She is going through RBC transfusion, she reports feeling code, but no chills, no fever, no seizure rashes She Reports feeling tired The patient reports, on 09/28/2024, she did not know what happened, she denies altered mental status when she was waiting for her appointment here doctor's office but she was taken to the hospital hospital. According to her daughter and ER reports, the patient was mentally altered when she was waiting for appointment in her PCP's office. Dr. Birch stated possible seizure episode to r/o On 09/17/24, when she was at her PCP's office, the patient has had a syncopal event where she became unresponsive for 2-3 minutes, according to ER note, the patient has had a lot of follow up black stool on 09/16/2024. The patient claims she remember this event, and she said she did not have loss of consciousness, the patient was treated in the [facility] Her daughter related in 07/2024, the patient passed out when she was walking at home, she was treated in the [facility] (not confirmed with our EMR) Daughter confirmed the patient had problem with memory Plasma alcohol, 09/29/2024: 5.2 WBC/HB/PLT/MCV, 09/29/2024: 10.1/7.8/343/102.3, 09/30/2024: 7.1/6.1/287/98 point four PTT/INR/PTT, 09/29/2024: 70.3/1.32/33.1 Na 09/28/24:146, 09/29/24: 147 HCO3, 09/28/2024: 16., 09/29/2024: 12 BUN/CR, 09/28/2024: 30/1.25, 09/29/2024: 31/1.03 GFR, 09/29/2019 5:44 a.m., 09/29/2024: 55 HGB A1c, 09/29/2024: <3.8 TG/HDL/LDL/HDL, 09/29/2024: 117/162/114/36 Vitamin B12, 09/29/24: 1160 Folic acid, 09/29/2024: 47.02 TSH, 09/28/24: 13.59 EKG, 11/02/2014: AFib EKG, 05/27/2016: AFib Extremity venous study, 07/02/2016 Occlusive and near - occlusive deep venous thrombi in the right lower extremity from the common femoral vein to the posterior tibial vein. Extremity venous study, 10/18/2024: Non-occlusive thrombus in the right proximal/mid superficial femoral veins and left proximal femoral vein. Chest X-ray 09/28/2024: Right apical pleural/ parenchymal scarring CT head, 09/29/2024: No acute intracranial abnormality vital signs Vital Sign Date Time Temp Pulse Resp B/P (MAP) Pulse Ox O2 Delivery O2 Flow Rate FiO2 09/30/24 21:35 97.7 65 18 141/61 97.7 09/30/24 21:00 100 09/30/24 19:04 Nasal Cannula 2.0 09/30/24 19:04 28 Total Intake and Output 09/29/24 09/29/24 09/30/24 15:00 23:00 07:00 Intake Total 400 ml 50 ml Balance 400 ml 50 ml medications Current Medications Medications Dose Ordered Sig/[place] Route Start Time Stop Time Status Last Admin Dose Admin Patient Own Medication 20 mg DAILY PO 09/29/24 10:00 UNV Sodium Chloride 10 ml Q8HR IV 09/28/24 22:00 09/30/24 21:50 10 ML Acetaminophen/ Hydrocodone Bitart 1 tab Q4HP PRN PO 09/28/24 21:15 Ondansetron HCl 4 mg Q4HP PRN IV 09/28/24 21:15 Docusate Sodium 100 mg BIDPRN PRN PO 09/28/24 21:15 Acetaminophen 650 mg Q6HP PRN PO 09/28/24 21:15 09/29/24 23:21 650 MG Levothyroxine Sodium 75 mcg QAM@0600 PO 09/29/24 06:00 09/30/24 06:12 75 MCG Nitroglycerin 0.4 mg Q5MINP PRN SL 09/28/24 21:45 Morphine Sulfate 2 mg Q30M PRN IV 09/28/24 21:45 Rivaroxaban 20 mg QPM PO 09/29/24 18:00 Hold 09/29/24 17:46 20 MG Albuterol 2.5 mg Q6HR NEB 09/29/24 11:00 09/30/24 19:03 2.5 MG Ipratropium [place] 0.5 mg Q6HR NEB 09/29/24 11:00 09/30/24 19:03 0.5 MG Aspirin 81 mg DAILY PO 09/30/24 10:00 09/30/24 13:30 81 MG Atorvastatin Calcium 40 mg HS PO 09/29/24 22:00 09/30/24 21:50 40 MG Lorazepam 1 mg ONCE PRN IV 09/29/24 21:45 Pantoprazole Sodium 40 mg BID IV 09/30/24 07:15 Hold objective General: the patient is well developed and nourished. No acute distress. MENTAL STATUS: Awake and alert. Oriented to person, place, time, poor historian SPEECH, LANGUAGE, HIGHER CORTICAL FUNCTION: no aphasia or dysathria. CRANIAL NERVES: Pupils are equal, round and reactive. EOMs full and conjugate. Facial sensation intact in all three divisions bilaterally. Mandibular strength intact. Facial muscles symmetrical and strength intact. Tongue midline. No fasciculations or atrophy. SENSATION: Sensation to touch and pinprick is normal. MOTOR: Normal tone in the upper and lower extremity. Normal muscle bulk. No fasciculations. No abnormal movements or posturing. Muscle strength of the major groups in the extremities is 5/5. REFLEXES: Deep tendon reflexes normal and symmetrical. No pathological reflexes. CEREBELLAR/COORDINATION: Finger to nose is normal bilaterally. GAIT/STATION: deferred. laboratory and microbiology Laboratory Tests 09/30/24 06:05 Test 09/30/24 06:05 Range/Units Serum Glucose 70 L 74-106 mg/dL Problem List Recurrent syncopal event Syncope secondary to anemia/GI bleeding Rule out partial simple seizure ? Acidosis Dehydration Hypernatremia Kidney injury History of DVT Respiratory failure Anemia Cognitive dysfunction ? Encephalopathy ? Dementia/MCI Assessment/Plan Monitoring Supportive treatment EEG MR brain scan Lipitor 40 mg daily Xarelto 20 mg daily Blood transfusion Up to chair Physical therapy More recommendation per clinical course Progress: Poor This medical document was created using an electronic medical record system with [employer] dictation system. Although this document has been carefully reviewed, there may still be some phonetic and typographical errors. These areas are purely typographical due to imperfections of the software programs, and do not reflect any compromise in the patient's medical care. Prognosis poor Plan discussed with: Other Total Time (mins): 35 MISTI JACOBO MD Sep 30, 2024 22:32
[2024-10-01] VITALS (19 sets, daily range): BP systolic 138–162; BP diastolic 44–76; PULSE 63–68; RESP 16–20; TEMP 97.6–98.2; O2SAT 96–100
[2024-10-01 06:48] LABS: Potassium 3.6 mmol/L (3.5-5.1)
[2024-10-01 06:49] LABS: Anion Gap 11 (5-15); Calcium 9.5 mg/dL (8.7-10.4); Carbon Dioxide 16 mmol/L (20-31); Chloride 120 mmol/L (98-107); Sodium 147 mmol/L (136-145)
[2024-10-01 06:54] LABS: BUN/Creatinine Ratio 19.4 (10.0-20.0); Blood Urea Nitrogen 14 mg/dL (9-23)
[2024-10-01 06:57] LABS: Glucose 68 mg/dL (74-106)
[2024-10-01 07:14] LABS: Hematocrit 25.8 % (36.0-46.0); Hemoglobin 8.6 g/dL (12.2-16.2); Mean Corpuscular Hemoglobin 31.0 pg (28.0-32.0); Mean Corpuscular Volume 92.6 fL (80.0-100.0); Nucleated Red Blood Cells % 0.4 %
[2024-10-01] MEDS: D5W 5% 500 ML IV ONE (12:27)
--- NOTE | 2024-10-01 12:58 | ECG ---
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
--- NOTE | 2024-10-01 19:49 | DVHPNRES ---
Progress Note Date Seen: Oct 01, 2024 Resident Creating Document: CR HAAS RESIDENT Medical Necessity Reason Pt with a Central, PICC or Fol: No Subjective Review of Systems Patient is a 79-year-old female with a past medical history of anemia, CHF, COPD with 2 L of oxygen at home, DVT currently on Xarelto presents to [facility] with complaint of near syncopal episode and wobbly feet. Patient reports that she was admitted in the hospital last week for near syncopal episode and yesterday was at the PCP office for a follow up appointment when she felt her legs were weak. Staff at the office noticed that the patient was unresponsive for about 1-2 minutes, witnessed by caregiver as well. Patient denies any chest pain, headache, dizziness, shortness of breath, nausea, vomiting, fever, chills. PMH: Anemia, CHF, COPD, DVT Past surgical history: Pacemaker Family history: Reviewed and noncontributory to the management of this case PSH: Patient lives at home, denies smoking, alcohol or any illicit drug abuse Pt is lying on bed General Appearance: Alert, Oriented X3, Cooperative, Not in acute distress HEENT: Atraumatic, Mucous membranes moist/pink, 3 L of oxygen via nasal cannula Respiratory: Clear to auscultation, Normal air movement, No added sounds Cardiovascular: Regular rate, Normal S1, Normal S2, No murmurs Abdominal: Active bowel sounds, Soft, no distention, no tenderness Extremities: No edema, Normal pulses, No tenderness/swelling Skin: No Significant rash, No breakage in skin barrier Neuro: Normal speech, sensorimotor deficits none Psych/Mental Status: Mental status NL, Mood NL Nurse was there as surgical aides teacher during examination ROS: 09/29/2024 patient was seen and examined by me at the bedside. she has no new active complaints. She is on 3 L of oxygen via nasal cannula. Patient s going to continue med nebulization of albuterol and ipratropium bromide. MRSA nares are pending. COVID and flu tests are pending. For low hemoglobin levels with slightly increased MCV, a B12 and folic acid levels have been ordered, pending. We have ordered an echo, CT head without contrast came normal and consulted Neurology which is pending. 09/30/2024 patient was seen and examined by me at the bedside. Patient has no new active complaints. Her hemoglobin dropped to 6.1 so we have transfused her with PRBC. EEG, MR brain scan ordered by Neurology , results pending. I did a per rectal examination on her which showed no bleeding. The stool occult blood has been sent, Results pending. 10/01/2024 patient was seen and examined by me at the bedside. Patient was given D5W 500 bolus today. Orthostatic vitals came back normal. plan is to discharge Tomorrow. Objective vital signs Vital Sign Date Time Temp Pulse Resp B/P (MAP) Pulse Ox O2 Delivery O2 Flow Rate FiO2 10/01/24 18:34 68 16 100 10/01/24 18:28 Nasal Cannula* 2 28 10/01/24 17:04 98.0 156/76 (102) 98.0 Total Intake and Output 09/30/24 09/30/24 10/01/24 15:00 23:00 07:00 Intake Total 400 ml 640 ml Balance 400 ml 640 ml medications Current Medications Medications Dose Ordered Sig/[place] Route Start Time Stop Time Status Last Admin Dose Admin Patient Own Medication 20 mg DAILY PO 09/29/24 10:00 UNV Sodium Chloride 10 ml Q8HR IV 09/28/24 22:00 10/01/24 12:35 10 ML Acetaminophen/ Hydrocodone Bitart 1 tab Q4HP PRN PO 09/28/24 21:15 Ondansetron HCl 4 mg Q4HP PRN IV 09/28/24 21:15 Docusate Sodium 100 mg BIDPRN PRN PO 09/28/24 21:15 Acetaminophen 650 mg Q6HP PRN PO 09/28/24 21:15 09/29/24 23:21 650 MG Levothyroxine Sodium 75 mcg QAM@0600 PO 09/29/24 06:00 10/01/24 05:53 75 MCG Nitroglycerin 0.4 mg Q5MINP PRN SL 09/28/24 21:45 Morphine Sulfate 2 mg Q30M PRN IV 09/28/24 21:45 Rivaroxaban 20 mg QPM PO 09/29/24 18:00 Hold 09/29/24 17:46 20 MG Albuterol 2.5 mg Q6HR NEB 09/29/24 11:00 10/01/24 18:28 2.5 MG Ipratropium [place] 0.5 mg Q6HR NEB 09/29/24 11:00 10/01/24 18:28 0.5 MG Aspirin 81 mg DAILY PO 09/30/24 10:00 10/01/24 10:01 81 MG Atorvastatin Calcium 40 mg HS PO 09/29/24 22:00 09/30/24 21:50 40 MG Lorazepam 1 mg ONCE PRN IV 09/29/24 21:45 Pantoprazole Sodium 40 mg BID IV 09/30/24 07:15 Hold Examination Pt is lying on bed General Appearance: Alert, Oriented X3, Cooperative, Not in acute distress HEENT: Atraumatic, Mucous membranes moist/pink Respiratory: Clear to auscultation, Normal air movement, No added sounds Cardiovascular: Regular rate, Normal S1, Normal S2, No murmurs Abdominal: Active bowel sounds, Soft, no distention, no tenderness Extremities: No edema, Normal pulses, No tenderness/swelling Skin: No Significant rash, presence of stage II decubitus ulcer Neuro: Normal speech, sensorimotor deficits none Psych/Mental Status: Mental status NL, Mood NL Nurse was there as surgical aides teacher during examination Per rectal examination was conducted by me with the nurse as a surgical aides teacher. No bleeding seen, no masses felt, no hemorrhoids felt laboratory and microbiology Laboratory Tests 10/01/24 06:06 Test 10/01/24 06:06 Range/Units Serum Glucose 68 L 74-106 mg/dL Microbiology Date/Time Source Procedure Growth Status 09/29/24 15:00 Nose MRSA Screen - Final Complete Labs and/or images reviewed: Labs reviewed by me, Image(s) reviewed by me Problem List/Assessment/Plan Problem List/Assessment/Plan #syncopal episode secondary to ?hypotension/ ?dehydration /?seizure episode/ symptomatic anemia #Cognitive dysfunction due to ? Encephalopathy/ ? Dementia/MCI #DANNI likely due to VMN- resolved #hypernatremia -Orthostatic vitals normal -Tele -EKG normal -Echocardiography -Amlodipine stopped for now -aspirin 81 mg p.o. daily -Atorvastatin 40 mg p.o. HS daily -CT head without contrast -Neuro consultation, suggested: Monitoring, Supportive treatment, EEG, MR brain scan, Lipitor 40 mg daily, Xarelto 20 mg daily,Up to chair,Physical therapy -D5W 500 bolus #acute Gram-positive /negative pneumonia #COPD not in exacerbation #Respiratory failure with hypoxia -Respiratory therapy with ipratropium bromide, albuterol -MRSA nares -COVID/ flu tests -cxr: Right apical pleural/ parenchymal scarring. #Mixed Anemia, macrocytic, micocytic -B12, folic acid within normal range -iron deficiency profile -hb 6.1 on 09/30, 1PRBC -H&H, 8.6 -stool occult blood, pending # stage II decubitus ulcer on admission -wound consult, pending #history of DVT -no prophylaxis for now Goals of care discussed with the patient for more than 27 minutes: Full code status Case discussed with Dr. Pedroza, patient and nurse. Plan discussed with: Patient, Other (rn) Date of Service: Oct 01, 2024 Billing Provider: DONTAE PEDROZA MD Common Visit Codes: [id number] INP/OBS CARE(HIGH) CR HAAS RESIDENT Oct 01, 2024 19:49 DONTAE PEDROZA MD Oct 01, 2024 22:09
--- NOTE | 2024-10-01 21:54 | DVHPN2 ---
Progress Note - Dictate Date Seen: Oct 01, 2024 Medical Necessity Reason Pt with a Central, PICC or Fol: No Subjective MsJean Chaves is a 79 years old right-handed female with a history of hypertension, diabetes, congestive heart failure, COPD, asthma, AFib, DVT on Xarelto, arthritis, hypothyroidism, GERD, anemia, she was brought to the [facility] on 09/28/2024 with a chief complaint of altered mental status. I have seen and examined the patient, I have talked to her nurse, she is alert, oriented x3, she reports doing better, no dizziness or other new complaints Plasma alcohol, 09/29/2024: 5.2 WBC/HB/PLT/MCV, 09/29/2024: 10.1/7.8/343/102.3, 09/30/2024: 7.1/6.1/287/98 point four PTT/INR/PTT, 09/29/2024: 70.3/1.32/33.1 Na 09/28/24:146, 09/29/24: 147 HCO3, 09/28/2024: 16., 09/29/2024: 12 BUN/CR, 09/28/2024: 30/1.25, 09/29/2024: 31/1.03 GFR, 09/29/2019 5:44 a.m., 09/29/2024: 55 HGB A1c, 09/29/2024: <3.8 TG/HDL/LDL/HDL, 09/29/2024: 117/162/114/36 Vitamin B12, 09/29/24: 1160 Folic acid, 09/29/2024: 47.02 TSH, 09/28/24: 13.59 EKG, 11/02/2014: AFib EKG, 05/27/2016: AFib Extremity venous study, 07/02/2016 Occlusive and near - occlusive deep venous thrombi in the right lower extremity from the common femoral vein to the posterior tibial vein. Extremity venous study, 10/18/2024: Non-occlusive thrombus in the right proximal/mid superficial femoral veins and left proximal femoral vein. Chest X-ray 09/28/2024: Right apical pleural/ parenchymal scarring CT head, 09/29/2024: No acute intracranial abnormality vital signs Vital Sign Date Time Temp Pulse Resp B/P (MAP) Pulse Ox O2 Delivery O2 Flow Rate FiO2 10/01/24 21:00 97.7 66 16 141/64 (89) 100 97.7 10/01/24 18:28 Nasal Cannula* 2 28 Total Intake and Output 09/30/24 09/30/24 10/01/24 15:00 23:00 07:00 Intake Total 400 ml 640 ml Balance 400 ml 640 ml medications Current Medications Medications Dose Ordered Sig/[place] Route Start Time Stop Time Status Last Admin Dose Admin Patient Own Medication 20 mg DAILY PO 09/29/24 10:00 UNV Sodium Chloride 10 ml Q8HR IV 09/28/24 22:00 10/01/24 12:35 10 ML Acetaminophen/ Hydrocodone Bitart 1 tab Q4HP PRN PO 09/28/24 21:15 Ondansetron HCl 4 mg Q4HP PRN IV 09/28/24 21:15 Docusate Sodium 100 mg BIDPRN PRN PO 09/28/24 21:15 Acetaminophen 650 mg Q6HP PRN PO 09/28/24 21:15 09/29/24 23:21 650 MG Levothyroxine Sodium 75 mcg QAM@0600 PO 09/29/24 06:00 10/01/24 05:53 75 MCG Nitroglycerin 0.4 mg Q5MINP PRN SL 09/28/24 21:45 Morphine Sulfate 2 mg Q30M PRN IV 09/28/24 21:45 Rivaroxaban 20 mg QPM PO 09/29/24 18:00 Hold 09/29/24 17:46 20 MG Albuterol 2.5 mg Q6HR NEB 09/29/24 11:00 10/01/24 18:28 2.5 MG Ipratropium [place] 0.5 mg Q6HR NEB 09/29/24 11:00 10/01/24 18:28 0.5 MG Aspirin 81 mg DAILY PO 09/30/24 10:00 10/01/24 10:01 81 MG Atorvastatin Calcium 40 mg HS PO 09/29/24 22:00 09/30/24 21:50 40 MG Lorazepam 1 mg ONCE PRN IV 09/29/24 21:45 Pantoprazole Sodium 40 mg BID IV 09/30/24 07:15 Hold objective General: the patient is well developed and nourished. No acute distress. MENTAL STATUS: Awake and alert. Oriented to person, place, time, poor historian SPEECH, LANGUAGE, HIGHER CORTICAL FUNCTION: no aphasia or dysathria. CRANIAL NERVES: Pupils are equal, round and reactive. EOMs full and conjugate. Facial sensation intact in all three divisions bilaterally. Mandibular strength intact. Facial muscles symmetrical and strength intact. Tongue midline. No fasciculations or atrophy. SENSATION: Sensation to touch and pinprick is normal. MOTOR: Normal tone in the upper and lower extremity. Normal muscle bulk. No fasciculations. No abnormal movements or posturing. Muscle strength of the major groups in the extremities is 5/5. REFLEXES: Deep tendon reflexes normal and symmetrical. No pathological reflexes. CEREBELLAR/COORDINATION: Finger to nose is normal bilaterally. GAIT/STATION: deferred. laboratory and microbiology Laboratory Tests 10/01/24 06:06 Test 10/01/24 06:06 Range/Units Serum Glucose 68 L 74-106 mg/dL Problem List Recurrent syncopal event Syncope secondary to anemia/GI bleeding Rule out partial simple seizure ? Acidosis Dehydration Hypernatremia Kidney injury History of DVT Respiratory failure Anemia Cognitive dysfunction ? Encephalopathy ? Dementia/MCI Assessment/Plan Monitoring Supportive treatment EEG MR brain scan Lipitor 40 mg daily Xarelto 20 mg daily Blood transfusion Up to chair Physical therapy More recommendation per clinical course This medical document was created using an electronic medical record system with [employer] dictation system. Although this document has been carefully reviewed, there may still be some phonetic and typographical errors. These areas are purely typographical due to imperfections of the software programs, and do not reflect any compromise in the patient's medical care. Prognosis poor Plan discussed with: Other MISTI JACOBO MD Oct 01, 2024 21:54
[2024-10-01] MEDS: HYDROcodone-ACET 5/325MG TAB PO PRN (23:02)
--- NOTE | 2024-10-01 23:32 | DVHEEG2 ---
Neurology EEG Procedural Note Procedural Note EXAM DATE: 09/30/2024 REFERRING DOCTOR: Dr. Jacobo TECHNIQUE: Eighteen channels of EEG, 2 channels of EOG, and 1 channel of EKG were recorded using the International 10/20 system. CLINICAL DATA: The patient was referred for an EEG evaluation for the evidence of seizure disorder. MEDICATIONS: See the chart BACKGROUND ACTIVITY: While the patient was awake, the background activity consisted of well regulated 8 Hz rhythmic waveforms, symmetrically distributed over both posterior quadrants and was reactive to eye opening. ACTIVATION: Hyperventilation: Not done Photic Stimulation: Not done Sleep: Noticed IMPRESSION: This is a normal EEG. No focal, lateralized, or epileptiform features are noted. If clinically indicated to rule out a seizure disorder, recommend repeat EEG with sleep deprivation. The EKG channel showed a regular heart rate of 66 per minutes. [place] [address] MISTI JACOBO MD Oct 01, 2024 23:32
[2024-10-02] VITALS (12 sets, daily range): BP systolic 125–162; BP diastolic 52–79; PULSE 51–73; RESP 12–16; TEMP 97.6–98.3; O2SAT 65–100
--- NOTE | 2024-10-02 10:46 | DVHDSRES ---
Discharge Summary Date of Admission Resident Creating Document: CR HAAS RESIDENT Sep 28, 2024 at 21:37 Date of Discharge: Oct 02, 2024 Admitting Diagnosis syncopal episode Labs/Diagnostic Data: Laboratory Results Test 10/01/24 06:06 09/30/24 06:05 09/29/24 18:23 09/29/24 15:00 White Blood Count 7.7 10^3/uL (4.4-10.8) Red Blood Count 2.79 10^6/uL (4.0-5.20) Hemoglobin 8.6 g/dL (12.2-16.2) Hematocrit 25.8 % (36.0-46.0) Mean Corpuscular Volume 92.6 fL (80.0-100.0) Mean Corpuscular Hemoglobin 31.0 pg (28.0-32.0) Mean Corpuscular Hemoglobin Concent 33.4 g/dL (32.0-36.0) Red Cell Distribution Width 21.7 % (11.8-14.3) Platelet Count 310 10^3/uL (140-450) Mean Platelet Volume 7.5 fL (6.9-10.8) Neutrophils (%) (Auto) 68.1 % (37.0-80.0) Lymphocytes (%) (Auto) 19.3 % (10.0-50.0) Monocytes (%) (Auto) 9.4 % (0.0-12.0) Eosinophils (%) (Auto) 2.6 % (0.0-7.0) Basophils (%) (Auto) 0.6 % (0.0-2.0) Neutrophils # (Auto) 5.2 10 ^3/uL (1.6-8.6) Lymphocytes # (Auto) 1.5 10 ^3/uL (0.4-5.4) Monocytes # (Auto) 0.7 10 ^3/uL (0-1.3) Eosinophils # (Auto) 0.2 10 ^3/uL (0-0.8) Basophils # (Auto) 0 10 ^3/uL (0-0.2) Nucleated Red Blood Cells 0.4 % Sodium Level 147 mmol/L (136-145) Potassium Level 3.6 mmol/L (3.5-5.1) Chloride Level 120 mmol/L (98-107) Carbon Dioxide Level 16 mmol/L (20-31) Anion Gap 11 (5-15) Blood Urea Nitrogen 14 mg/dL (9-23) Creatinine 0.72 mg/dL (0.550-1.02) Glomerular Filtration Rate Calc 85 mL/min (>90) BUN/Creatinine Ratio 19.4 (10.0-20.0) Serum Glucose 68 mg/dL (74-106) Calcium Level 9.5 mg/dL (8.7-10.4) Reticulocyte Count (auto) 7.06 % (0.5-1.5) Iron Level 32 ug/dL (50-170) Total Iron Binding Capacity 237 ug/dL (250-425) Percent Iron Saturation 13.5 % (15-50) Ferritin 224.8 ng/mL (10-291) Lactate Dehydrogenase 163 U/L (120-246) Prothrombin Time 13.6 sec (9.3-11.8) Prothrombin Time INR 1.32 (0.9-1.15) Activated Partial Thromboplast Time 33.1 SEC (24.5-34.5) Influenza Type A Antigen Negative (Negative) Influenza Type B Antigen Negative (Negative) SARS-CoV-2 Antigen (Rapid) Negative (NEGATIVE) Test 09/29/24 13:49 09/29/24 05:50 09/28/24 22:15 09/28/24 13:59 Hemoglobin A1c < 3.8 % A1C (<5.7) B-Type Natriuretic Peptide 70.46 pg/mL (0-100) Triglycerides Level 170 mg/dL (< 150) Cholesterol Level 162 mg/dL (< 200) LDL Cholesterol 114 mg/dL (< 100) HDL Cholesterol 36 mg/dL (40-59) Vitamin B12 Level 1160 pg/mL (211-911) Vitamin D 25-Hydroxy 52.5 ng/mL (30.0-100) Folic Acid 47.02 ng/mL (>5.38) Plasma/Serum Blood Alcohol 5.2 mg/dL (<10) Total Bilirubin 0.2 mg/dL (0.2-1.0) Aspartate Amino Transferase (AST) 66 U/L (13-40) Alanine Aminotransferase (ALT) 37 U/L (7-40) Alkaline Phosphatase 85 U/L (46-116) Total Protein 5.7 g/dL (5.7-8.2) Albumin 3.3 g/dL (3.2-4.8) Troponin I High Sensitivity 7 ng/L (</=34) Lactic Acid Level 1.4 mmol/L (0.4-2.0) Magnesium Level 2.0 mg/dL (1.6-2.6) Thyroid Stimulating Hormone (TSH) 1.21 uIU/mL (0.55-4.78) Other Laboratory Tests 10/01/24 06:06 Brief Hx & Hospital Course: Patient is a 79-year-old female with a past medical history of anemia, CHF, COPD with 2 L of oxygen at home, DVT currently on Xarelto presents to [facility] with complaint of near syncopal episode and wobbly feet. Patient reports that she was admitted in the hospital last week for near syncopal episode and yesterday was at the PCP office for a follow up appointment when she felt her legs were weak. Staff at the office noticed that the patient was unresponsive for about 1-2 minutes, witnessed by caregiver as well. Patient denies any chest pain, headache, dizziness, shortness of breath, nausea, vomiting, fever, chills. PMH: Anemia, CHF, COPD, DVT Past surgical history: Pacemaker Family history: Reviewed and noncontributory to the management of this case PSH: Patient lives at home, denies smoking, alcohol or any illicit drug abuse Brief history of hospitalization: Patient came in with syncopal episodes secondary to possible hypotension / dehydration /seizure episode/ anemia. She had slight cognitive dysfunction possibly due to encephalopathy, dementia, mCi. Her labs showed hyponatremia and DANNI likely due to VM in. We measured her orthostatic vitals which were normal. We put her on telemetry and did an EKG which came back normal. We stopped her amlodipine as blood pressure was controlled without it. We gave her aspirin 81 mg per orally daily and atorvastatin 40 mg per orally at night. Ct Scan of the head shows no abnormality. we consulted Neurology who suggested EEG, MR brain scan and patient has been counselled to follow-up outpatient for the tests. we will also suggested Lipitor 40 mg daily and Xarelto 20 mg daily as well as physical therapy. during hospitalization labs showed a low hemoglobin of 6.1 so we transfused 1 unit of packed red blood cells and repeated her hemoglobin levels which came back to 8.6. I did a per rectal examination on her which showed no bleeding. Stool occult blood was pending. For her high hyponatremia we gave D5W 500 bolus. For patient's acute Gram-positive /negative pneumonia Seen on x-ray as right apical pleural / parenchymal scarring, COPD not in exacerbation and respiratory failure with hypoxia on 3 L of oxygen patient was given respiratory therapy with ipratropium bromide and albuterol med nebulizations. COVID and flu tests were done which came back negative. patient has mixed anemia, macrocytic, microcytic B12 and folic acid levels were checked which were in normal range. It showed an iron-deficiency profile. As stated earlier we transfused 1 unit PRBC for her low hemoglobin levels. On admission we also saw that she has a stage II decubitus ulcer and wound consult was done. For patient's history of DVT we gave no prophylaxis as her hemoglobin was low. patient is now stable for discharge and reports feeling much better than before. We have counseled the patient Regarding follow up with PCP, we have stopped Xarelto for now and I recommended her to check her hemoglobin level again when she meets her PCP to continue Xarelto and to do the EEG and hemoglobin scan, then to follow up with Neurology. Patient has communicated understanding and agreed with the discharge plan. General Appearance: Alert, Oriented X3, Cooperative, Not in acute distress HEENT: Atraumatic, Mucous membranes moist/pink, 3 L of oxygen via nasal cannula Respiratory: Clear to auscultation, Normal air movement, No added sounds Cardiovascular: Regular rate, Normal S1, Normal S2, No murmurs Abdominal: Active bowel sounds, Soft, no distention, no tenderness Extremities: No edema, Normal pulses, No tenderness/swelling Skin: No Significant rash, Stage II decubitus ulcer seen on admission Neuro: Normal speech, sensorimotor deficits none Psych/Mental Status: Mental status NL, Mood NL Nurse was there as lieutenant ballistics during examination Operations or Procedures EXAM: XY CHEST PORTABLE Indication: near syncope IMPRESSION:Right apical pleural/ parenchymal scarring. EXAM: CT HEAD WITHOUT CONTRAST INDICATION: syncope IMPRESSION: No acute intracranial abnormality. Condition at Discharge: Stable Final Diagnosis/Problems List #syncopal episode secondary to hypotension vs symptomatic anemia, ruled out seizure disorder #Cognitive dysfunction ruled out Encephalopathy, likely Dementia/MCI #DANNI likely due to VMN- resolved #hypernatremia #acute Gram-positive /negative pneumonia #COPD not in exacerbation #Respiratory failure with hypoxia #Mixed Anemia, macrocytic, micocytic # stage II decubitus ulcer on admission #history of DVT Discharge Disposition: Home Discharge Instruct/Medications Diet: Consistent carbohydrate, Cardiac 2g Na,low cholest Activity: No Restrictions, As Tolerated Follow Up/Referral: follow up with PCP within 1 week and check hemoglobin to see for continuation of Xarelto, for EEG, MR brain Follow up with the neurologist with EEG and MR brain reports follow up in Discharge clin[facility] within 1 week Medications: resume home medication Do not take Xarelto until you meet PCP No Active Prescriptions or Reported Meds Discharge Statement: "Patient was advised to return to the ER or call 911 if any headaches, dizziness, shortness of breath, chest pain, abdominal pain, bleeding, fevers, or worsening of medical condition. Patient was counseled about treatment plan, medications, possible side effects, patientverbalized understanding. All questions were answered to the best of my ability. This discharge took greater then 30 minutes in planning, reviewing documentation, counseling the patient, and discussing with other team members." ASSESSMENT ASSESSMENT Assessment syncopal episode secondary to symptomatic anemia Date of Service: Oct 02, 2024 Billing Provider: DONTAE BENEDICT MD Common Visit Codes: [id number] DISCH DAY >30min CR HAAS Oct 02, 2024 10:46 DONTAE BENEDICT MD Oct 02, 2024 23:47
== END 2024-10-02 16:20 | disposition home or self-care (01) | DRG 811 ==
LOC: ER 10:11 → OVERFLOW 21:37 → TELE-EAST 21:37
PROVIDERS: ADMIT Internal Medicine; ATTEND Internal Medicine
PROC: 05HB33Z Insertion of Infusion Device into Right Basilic Vein, Percutaneous Approach (ICD-10-PCS; principal; 2024-09-30)
PROC: B54BZZA Ultrasonography of Right Lower Extremity Veins, Guidance (ICD-10-PCS; 2024-09-30)
PROC: 30233N1 Transfusion of Nonautologous Red Blood Cells into Peripheral Vein, Percutaneous Approach (ICD-10-PCS; 2024-09-30)
DX: D50.9 Iron deficiency anemia, unspecified (principal); J15.69 Pneumonia due to other Gram-negative bacteria; N17.0 Acute kidney failure with tubular necrosis; J96.91 Respiratory failure, unspecified with hypoxia; J15.9 Unspecified bacterial pneumonia; K92.2 Gastrointestinal hemorrhage, unspecified; E87.0 Hyperosmolality and hypernatremia; I95.9 Hypotension, unspecified; E86.0 Dehydration; D53.9 Nutritional anemia, unspecified; Z20.822 Contact with and (suspected) exposure to COVID-19; K21.9 Gastro-esophageal reflux disease without esophagitis; I48.91 Unspecified atrial fibrillation; J44.89 Other specified chronic obstructive pulmonary disease; I50.9 Heart failure, unspecified; I11.0 Hypertensive heart disease with heart failure; E11.9 Type 2 diabetes mellitus without complications; E03.9 Hypothyroidism, unspecified; L89.892 Pressure ulcer of other site, stage 2; Z79.01 Long term (current) use of anticoagulants; Z95.0 Presence of cardiac pacemaker; Z88.0 Allergy status to penicillin; Z86.718 Personal history of other venous thrombosis and embolism; Z82.49 Family history of ischemic heart disease and other diseases of the circulatory system; Z79.899 Other long term (current) drug therapy; Z90.49 Acquired absence of other specified parts of digestive tract; Z88.8 Allergy status to other drugs, medicaments and biological substances
CPT/HCPCS: 36415; 36430; 70450; 71045; 80048; 80053; 80061; 80320; 82306; 82607; 82728; 82746; 83036; 83540; 83550; 83605; 83615; 83735; 83880; 84443; 84484; 85025; 85045; 85610; 85730; 86850; 86900; 86901; 86920; 87081; 87426; 87804; 93005; 94640; 95819; 97163; G0378; J3480; J3490

== ENCOUNTER 2024-10-05 19:49 | Inpatient (IN) | payer OTHER, MEDICAID ==
[~2024-10-05] VITALS: Ht 149.9 cm; Wt 71.5 kg
--- NOTE | 2024-10-05 20:29 | ED.PDOC ---
History of Present Illness HPI Comments 79 y/o F is BIBA from private residence for c/c hematuria. 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 Vitals were noted to have been stable and within normal limits, with exception of patient being hypertensive in the 150's systolically. 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 No reported dysuria or abdominal pain until palpation to abdomen. At time of assessment, patient corrected on bleeding emanating from her rectum, instead. No further acute symptoms endorsed. Chief Complaint: Urinary Time Seen by MD: 19:55 Reviewed Notes: Nurses Notes, Meat Stringer Notes, Medications, Allergies Allergies: Coded Allergies: Atenolol (Unverified Allergy, Unknown, 07/13/24) Lisinopril (Unverified Allergy, Unknown, 07/13/24) Penicillins (Unverified Allergy, Unknown, 07/13/24) Home Meds No Active Prescriptions or Reported Meds Information Source: Patient, Emergency Med Personnel Mode of Arrival: EMS Severity: Moderate Timing: Hours Duration: Since onset Prehospital treatment: 12 Lead EKG, Accucheck, Resource Recovery Specialist Past Medical History PAST MEDICAL HISTORY: Anemia (macrocytic and mcrocytic, mixed ), Asthma, CHF, COPD (w/home O2), HTN, Thyroid (hypothyroidism ) Past Medical History (Other): DANNI DVT - currently on Xarelto PNA Surgical History: Pacemaker (dual sequential paced ) PERSONALIZED LIVING MANAGER History: No Pertinent PERSONALIZED LIVING MANAGER History Family History Family History: Reviewed,noncontributory to illness Social History Smoker: Non-Smoker Alcohol: Denies ETOH Use Drugs: Denies Drug Use Lives In: Home, Assisted Care All Other Systems: Reviewed and Negative (Comprehensive systems review obtained and negative except for what is stated in the HPI.) Physical Exam General Appearance: No Apparent Distress, Normal, Other (elderly appearing ) HEENT: Normal ENT Inspection, Pharynx Normal, TMs Normal Neck: Full Range of Motion, Non-Tender, Normal, Normal Inspection Respiratory: Chest Non-Tender, Lungs Clear, No Accessory Muscle Use, No Respiratory Distress, Normal Breath Sounds Cardiovascular: No Edema, No JVD, No Murmur, No Gallop, Normal Peripheral Pulses, Regular Rate/Rhythm Breast Exam: Deferred Gastrointestinal: No Organomegaly, Non Tender, No Pulsatile Mass, Normal Bowel Sounds, Soft Genitalia: Deferred Pelvic: Deferred Rectal: Deferred Extremities: No calf tenderness, Normal capillary refill, Normal inspection, Normal range of motion, Non-tender, No pedal edema Musculoskeletal : Apperance: Normal Neurologic: Alert, 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 Was a procedure done?: No Differential Dx Considerations may include: upper GI bleed, lower GI bleed, rectal fistula, hemorrhoids, cystitis, pyelonephritis, nephrolithiasis, vaginitis, anemia, among others X-Ray, Labs, Meds, VS Vital Signs Date Time Temp Pulse Resp B/P (MAP) Pulse Ox O2 Delivery O2 Flow Rate FiO2 10/05/24 20:18 65 10/05/24 20:04 98.1 65 16 159/78 100 98.1 Lab Test 10/05/24 22:15 10/05/24 20:24 Range/Units White Blood Count 9.2 4.4-10.8 10^3/uL Red Blood Count 3.25 L 4.0-5.20 10^6/uL Hemoglobin 9.9 #L 12.2-16.2 g/dL Hematocrit 30.9 #L 36.0-46.0 % Mean Corpuscular Volume 95.0 80.0-100.0 fL Mean Corpuscular Hemoglobin 30.3 28.0-32.0 pg Mean Corpuscular Hemoglobin Concent 31.9 L 32.0-36.0 g/dL Red Cell Distribution Width 21.9 H 11.8-14.3 % Platelet Count 323 140-450 10^3/uL Mean Platelet Volume 7.2 6.9-10.8 fL Neutrophils (%) (Auto) 67.9 37.0-80.0 % Lymphocytes (%) (Auto) 19.1 10.0-50.0 % Monocytes (%) (Auto) 8.6 0.0-12.0 % Eosinophils (%) (Auto) 3.8 0.0-7.0 % Basophils (%) (Auto) 0.6 0.0-2.0 % Neutrophils # (Auto) 6.2 1.6-8.6 10 ^3/uL Lymphocytes # (Auto) 1.7 0.4-5.4 10 ^3/uL Monocytes # (Auto) 0.8 0-1.3 10 ^3/uL Eosinophils # (Auto) 0.3 0-0.8 10 ^3/uL Basophils # (Auto) 0.1 0-0.2 10 ^3/uL Nucleated Red Blood Cells 0.1 % Prothrombin Time 16.1 H 9.3-11.8 sec Prothrombin Time INR 1.59 H 0.9-1.15 Activated Partial Thromboplast Time 38.6 H 24.5-34.5 SEC Sodium Level 143 136-145 mmol/L Potassium Level 3.9 3.5-5.1 mmol/L Chloride Level 118 H 98-107 mmol/L Carbon Dioxide Level 12 L 20-31 mmol/L Anion Gap 13 5-15 Blood Urea Nitrogen 21 9-23 mg/dL Creatinine 1.42 #H 0.550-1.02 mg/dL Glomerular Filtration Rate Calc 38 >90 mL/min BUN/Creatinine Ratio 14.8 10.0-20.0 Serum Glucose 74 74-106 mg/dL Calcium Level 9.6 8.7-10.4 mg/dL Total Bilirubin 0.2 0.2-1.0 mg/dL Aspartate Amino Transferase (AST) 41 H 13-40 U/L Alanine Aminotransferase (ALT) 34 7-40 U/L Alkaline Phosphatase 97 46-116 U/L Total Protein 5.8 5.7-8.2 g/dL Albumin 3.4 3.2-4.8 g/dL [place] [id number] Ph: [phone] DIAGNOSTIC IMAGING Diagnostic Imaging Report : [id number] Signed PATIENT: KENNETH MULLER ACCT: [id number] UNIT: [id number] : 1945 LOC: ER ROOM / BED: / AGE / SEX: 79 / F ADM STATUS: REG ER SERVICE 99 ORDERING PHYSICIAN: DAWIT ALMENDAREZ MD PROCEDURE(s): ABPL - CT AB PEL WO CON-NO ORAL OR IV REASON: abd pain, GI bleed ORDER NUMBER(s): [id number], ACCESSION NUMBER(s): [id number] Exam: CT CT AB PEL WO CON-NO ORAL OR IV History: abd pain, GI bleed Comparison Study: None TECHNIQUE: Multidetector CT of the abdomen was performed from lung bases to pubic symphysis. Imaging was performed without IV contrast. Axial, coronal and sagittal multiplanar reformats were obtained from the axial data set by the technologist. Radiation Dose Information: CT Dose: CTDI volume is 5.77 mGy. Dose-length product is 297.62 mGy*cm FINDINGS: Evaluation of solid organs is limited due to lack of intravenous contrast use. Findings: Lung Bases: No acute or significant lung base finding. Normal heart size. No pleural or pericardial effusion. Liver: The liver is normal in size. No focal lesions. Gallbladder and Biliary Tree: Gallbladder has been surgically removed. Spleen: Unremarkable Pancreas: The pancreas is grossly normal in appearance. Adrenal Glands: Unremarkable Kidneys: 15-16 mm cortical irregularity left kidney noticed on series 2, image [address] with IV contrast or renal ultrasound for further evaluati on. Punctate calculus right kidney without hydronephrosis. Bladder: Grossly unremarkable for degree of distention. Bowel: The stomach is grossly normal in appearance. Small bowel and colon are normal in caliber and distribution. The appendix is not visualized; however, no secondary findings of acute appendicitis identified. Ascites: Absent Lymphadenopathy: No mesenteric, retroperitoneal or periportal lymphadenopathy. Abdominal Wall and Mesentery: Unremarkable. Vasculature: The visualized abdominal aorta is normal in size and caliber. Evaluation of abdominal and pelvic vessels is limited due to lack of intravenous contrast. Pelvic Organs: Unremarkable Musculoskeletal: No aggressive focal bony lesions, acute fractures or dislocation. Soft tissues: Unremarkable IMPRESSION: 1. Gallbladder has been surgically removed. 2. 15-16 mm cortical irregularity left kidney does not appear to be a simple cyst recommend repeat CT with IV contrast or renal ultrasound for further evaluation. Radiation optimization: All CT scans at this facility use at least one of these dose optimization techniques: automated exposure control mA and/or kV adjustment per patient size (includes targeted exams where dose is matched to clinical indication) or iterative reconstruction. ATED BY: MARILOU SORENSEN Jr., DO DICTATED DATE/TIME: 10/05/242116 SIGNED BY: MARILOU SORENSEN Jr., SIGNED DATE/TIME: 10/05/242116 CC: Time of 1ST Reevaluation: 20:25 Reevaluation 1ST: Unchanged Patient Education/Counseling: Diagnosis, Treatment Family Education/Counseling: No Family Present SEPSIS Sepsis Screen Date sepsis recognized/suspect: Oct 05, 2024 Time Sepsis recognized/suspect: 2005 Recent Procedure: No On Antibiotic Therapy: No Respiratory Rate >20: No Heart Rate >90: No Temp<36 C (96.8 F) or >38.3 C: No SBP <90 or MAP <65 mmHG: No New Acute Mental Status Change: No Is the patient on CPAP, BIPAP,: No Physician Orders Urinalysis (10/05/24 19:52) Ct Ab Pel Wo Con-No Oral Or Iv (10/05/24 20:00) Electrocardigram (10/05/24 20:00) Vital Signs Date Time Temp Pulse Resp B/P (MAP) Pulse Ox O2 Delivery O2 Flow Rate FiO2 10/05/24 20:18 65 10/05/24 20:04 98.1 65 16 159/78 100 98.1 Laboratory Tests Test 10/05/24 22:15 White Blood Count 9.2 10^3/uL (4.4-10.8) Departure 1 Departure Time of Disposition: 00:01 Impression: Primary Impression: Generalized weakness Additional Impressions: GI bleed Acute renal injury Disposition: ADMITTED INPATIENT Admit to: Med Surg Condition: Guarded e-Prescriptions No Active Prescriptions or Reported Meds Comments 79-year-old female reports noting rectal bleeding earlier today. On lab review she is mildly anemic with an H and H of 10 and 31. Creatinine is elevated at 1.42/acute renal injury. INR elevated at 1.59. CT of the abdomen and pelvis shows a left kidney cyst. Patient is hemodynamically stable but will need to be admitted for acute renal injury and lower GI bleeding with initially with mild anemia Critical Care Note Critical Care Time?: Yes (35 min-critical care time only) Critical care comment: Total critical care time: Approximately 36 minutes Due to a high probability of clinically significant, life threatening deterioration, the patient required my highest level of preparedness to intervene emergently and I personally spent this critical care time directly and personally managing the patient. This critical care time included obtaining a history; examining the patient; pulse oximetry; ordering and review of studies; arranging urgent treatment with development of a management plan; evaluation of patient's response to treatment; frequent reassessment; and, discussions with other providers. This critical care time was performed to assess and manage the high probability of imminent, life-threatening deterioration that could result in multi-organ failure. It was exclusive of separately billable procedures and treating other patients. Stability Stability form required: No Heart Score Heart Score: Heart Score Response (Comments) Value History N/A 0 EKG N/A 0 Age N/A 0 Risk Factors N/A 0 Troponin N/A 0 Total 0 I personally scribed for DAWIT ALMENDAREZ MD ([email or web address]) on 10/05/24 at 20:29. Electronically submitted by Jose Mcdonald ([email or web address]). I personally scribed for DAWIT ALMENDAREZ MD ([email or web address]) on 10/05/24 at 22:16. Electronically submitted by Jose Mcdonald ([email or web address]). DAWIT ALMENDAREZ MD Oct 05, 2024 20:29
[2024-10-05 21:07] LABS: Alanine Aminotransferase 34 U/L (7-40); Albumin 3.4 g/dL (3.2-4.8); Alkaline Phosphatase 97 U/L (46-116); Anion Gap 13 (5-15); BUN/Creatinine Ratio 14.8 (10.0-20.0); Blood Urea Nitrogen 21 mg/dL (9-23); Calcium 9.6 mg/dL (8.7-10.4); Glucose 74 mg/dL (74-106); Potassium 3.9 mmol/L (3.5-5.1); Sodium 143 mmol/L (136-145); Total Protein 5.8 g/dL (5.7-8.2)
[2024-10-05 21:08] LABS: INR 1.59 (0.9-1.15); Partial Thromboplastin Time 38.6 SEC (24.5-34.5); Prothrombin Time 16.1 sec (9.3-11.8)
--- NOTE | 2024-10-05 21:20 | DVH ---
Exam: CT CT AB PEL WO CON-NO ORAL OR IV History: abd pain, GI bleed Comparison Study: None TECHNIQUE: Multidetector CT of the abdomen was performed from lung bases to pubic symphysis. Imaging was performed without IV contrast. Axial, coronal and sagittal multiplanar reformats were obtained fr om the axial data set by the technologist. Radiation Dose Information: CT Dose: CTDI volume is 5.77 mGy. Dose-length product is 297.62 mGy*cm FINDINGS: Evaluation of solid organs is limited due to lack of intravenous contrast use. Findings: Lung Bases: No acute or significant lung base finding. Normal heart size. No pleural or pericardial effusion. Liver: The liver is normal in size. No focal lesions. Gallbladder and Biliary Tree: Gallbladder has been surgically removed. Spleen: Unremarkable Pancreas: The pancreas is grossly normal in appearance. Adrenal Glands: Unremarkable Kidneys: 15-16 mm cortical irregularity left kidney noticed on series 2, image [address] with IV contrast or renal ultrasound for further evaluation. Punctate calculus right kidney without hydronephrosis. Bladder: Grossly unremarkable for degree of distention. Bowel: The stomach is grossly normal in appearance. Small bowel and colon are normal in caliber and d istribution. The appendix is not visualized; however, no secondary findings of acute appendicitis id entified. Ascites: Absent Lymphadenopathy: No mesenteric, retroperitoneal or periportal lymphadenopathy. Abdominal Wall and Mesentery: Unremarkable. Vasculature: The visualized abdominal aorta is normal in size and caliber. Evaluation of abdominal a nd pelvic vessels is limited due to lack of intravenous contrast. Pelvic Organs: Unremarkable Musculoskeletal: No aggressive focal bony lesions, acute fractures or dislocation. Soft tissues: Unremarkable IMPRESSION: 1. Gallbladder has been surgically removed. 2. 15-16 mm cortical irregularity left kidney does not appear to be a simple cyst recommend repeat CT with IV contrast or renal ultrasound for further evaluation. Radiation optimization: All CT scans at this facility use at least one of these dose optimization te chniques: automated exposure control mA and/or kV adjustment per patient size (includes targeted exa ms where dose is matched to clinical indication) or iterative reconstruction.
[2024-10-05 21:38] LABS: Bilirubin, Total 0.2 mg/dL (0.2-1.0); Carbon Dioxide 12 mmol/L (20-31); Chloride 118 mmol/L (98-107)
[2024-10-05 22:34] LABS: Hematocrit 30.9 % (36.0-46.0); Hemoglobin 9.9 g/dL (12.2-16.2); Mean Corpuscular Hemoglobin 30.3 pg (28.0-32.0); Mean Corpuscular Volume 95.0 fL (80.0-100.0); Nucleated Red Blood Cells % 0.1 %
[2024-10-06] MEDS: SODIUM CHLORIDE 0.9% 1,000 ML IV SCH ×2 (00:15→13:15)
--- NOTE | 2024-10-06 01:13 | DVHHPRES ---
History of Present Illness Resident Creating Document: WILFREDO RUIZ RESIDENT History of Present Illness 79-year-old female with history of hypertension, CHF, hypothyroidism, dual sequential pacemaker, COPD with 2 L, DVT on Xarelto, home oxygen, anemia, asthma, DANNI, CHF presents to the ER with complaints of blood mixed stool and bl ood in the urine reported by the caregiver. The patient herself did not observe any hematochezia or hematuria. The patient denies any shortness of breath, chest pain, lightheadedness, dizziness, palpitations, weakness, urinary symptoms or any other complaints. The patient is a poor historian and no one was accompanying the patient. Most of the past medical history have been obtained from previous documentations. Past Medical history: Hypertension, CHF, hypothyroidism, dual sequential pacemaker, COPD with 2 L, DVT on Xarelto, home oxygen, anemia, asthma, DANNI, CHF Past surgical history: sections Home medications: Xarelto, vitamin-D, donepezil, folic acid metoprolol succinate, amiodarone, levothyroxine, docusate sodium, ipratropium Allergies: Atenolol, lisinopril, penicillins Smoking history: 42 pack years. Quit 20 years ago Alcohol: Quit 20 years ago. Used to drink occasionally Drugs: Never PCP: Dr. Birch Code status: DNR, DNI Review of Systems Allergies: Coded Allergies: Atenolol (Unverified Allergy, Unknown, 07/13/24) Lisinopril (Unverified Allergy, Unknown, 07/13/24) Penicillins (Unverified Allergy, Unknown, 07/13/24) Medications Current Medications Medications Dose Ordered Sig/[place] Route Start Time Stop Time Status Last Admin Dose Admin Sodium Chloride 10 ml Q8HR IV 10/06/24 06:00 Sodium Chloride 1,000 ml @ 60 mls/hr [id number] IV 10/06/24 00:15 Exam Vital Signs Vital Signs Date Time Temp Pulse Resp B/P (MAP) Pulse Ox O2 Delivery O2 Flow Rate FiO2 10/06/24 00:23 97.3 69 18 155/69 (97) 100 97.3 10/06/24 00:23 Nasal Cannula 2.0 Exam Pt is lying on bed General Appearance: Alert, Oriented X3, Cooperative, Mild distress HEENT: Atraumatic, Mucous membranes moist/pink Respiratory: Clear to auscultation, Normal air movement, No added sounds Cardiovascular: Regular rate, Normal S1, Normal S2, No murmurs Abdominal/ : Active bowel sounds, Soft, no distention, right upper quadrant mild tenderness MILA: No mass, formed stool in the rectal vault. No active bleeding. No tenderness. FOBT sent Extremities: No edema, Normal pulses, No tenderness/swelling Skin: 2 discrete skin ulcers over the sacrum, no active bleeding or discharge present, 1 and 2 cm respectively. Neuro: Normal speech, sensorimotor deficits none Psych/Mental Status: Mental status NL, Mood NL Nurse was there as rose grading supervisor during examination Labs/Xrays Labs Test 10/05/24 22:15 10/05/24 20:24 Range/Units White Blood Count 9.2 4.4-10.8 10^3/uL Red Blood Count 3.25 L 4.0-5.20 10^6/uL Hemoglobin 9.9 #L 12.2-16.2 g/dL Hematocrit 30.9 #L 36.0-46.0 % Mean Corpuscular Volume 95.0 80.0-100.0 fL Mean Corpuscular Hemoglobin 30.3 28.0-32.0 pg Mean Corpuscular Hemoglobin Concent 31.9 L 32.0-36.0 g/dL Red Cell Distribution Width 21.9 H 11.8-14.3 % Platelet Count 323 140-450 10^3/uL Mean Platelet Volume 7.2 6.9-10.8 fL Neutrophils (%) (Auto) 67.9 37.0-80.0 % Lymphocytes (%) (Auto) 19.1 10.0-50.0 % Monocytes (%) (Auto) 8.6 0.0-12.0 % Eosinophils (%) (Auto) 3.8 0.0-7.0 % Basophils (%) (Auto) 0.6 0.0-2.0 % Neutrophils # (Auto) 6.2 1.6-8.6 10 ^3/uL Lymphocytes # (Auto) 1.7 0.4-5.4 10 ^3/uL Monocytes # (Auto) 0.8 0-1.3 10 ^3/uL Eosinophils # (Auto) 0.3 0-0.8 10 ^3/uL Basophils # (Auto) 0.1 0-0.2 10 ^3/uL Nucleated Red Blood Cells 0.1 % Prothrombin Time 16.1 H 9.3-11.8 sec Prothrombin Time INR 1.59 H 0.9-1.15 Activated Partial Thromboplast Time 38.6 H 24.5-34.5 SEC Sodium Level 143 136-145 mmol/L Potassium Level 3.9 3.5-5.1 mmol/L Chloride Level 118 H 98-107 mmol/L Carbon Dioxide Level 12 L 20-31 mmol/L Anion Gap 13 5-15 Blood Urea Nitrogen 21 9-23 mg/dL Creatinine 1.42 #H 0.550-1.02 mg/dL Glomerular Filtration Rate Calc 38 >90 mL/min BUN/Creatinine Ratio 14.8 10.0-20.0 Serum Glucose 74 74-106 mg/dL Calcium Level 9.6 8.7-10.4 mg/dL Total Bilirubin 0.2 0.2-1.0 mg/dL Aspartate Amino Transferase (AST) 41 H 13-40 U/L Alanine Aminotransferase (ALT) 34 7-40 U/L Alkaline Phosphatase 97 46-116 U/L Total Protein 5.8 5.7-8.2 g/dL Albumin 3.4 3.2-4.8 g/dL SEPSIS Sepsis Screen Date sepsis recognized/suspect: Oct 05, 2024 Time Sepsis recognized/suspect: 2005 Recent Procedure: No On Antibiotic Therapy: No Respiratory Rate >20: No Heart Rate >90: No Temp<36 C (96.8 F) or >38.3 C: No SBP <90 or MAP <65 mmHG: No New Acute Mental Status Change: No Is the patient on CPAP, BIPAP,: No Physician Orders Urinalysis (10/05/24 19:52) Ct Ab Pel Wo Con-No Oral Or Iv (10/05/24 20:00) Electrocardigram (10/05/24 20:00) Admit (10/06/24 00:09) Allergies (10/06/24 00:09) Code Status (10/06/24 00:09) Sodium Chloride Lock (Saline Lock Ns) (10/06/24 06:00) Sodium Chloride 0.9% (10/06/24 00:15) Complete Blood Count (10/07/24 04:00) Comprehensive Metabolic Panel (10/07/24 04:00) Cardiac Diet-2gna,Lofat,Lochol (10/06/24 Breakfast) Notify Md Of Changes From Base (10/06/24 00:09) Oxygen By Nasal Cannula (10/06/24 00:09) Stool Occult Blood (10/06/24 00:53) Iron Panel (10/06/24 01:03) Kidney (10/06/24 01:03) B-Type Natriuretic Peptide (10/06/24 01:08) Chest Two Views Routine (10/06/24 01:08) Stool Occult Blood (10/06/24 01:08) Stool Bacterial Culture (10/06/24 01:08) Stool Wbc (10/06/24 01:08) Vital Signs Date Time Temp Pulse Resp B/P (MAP) Pulse Ox O2 Delivery O2 Flow Rate FiO2 10/06/24 00:23 97.3 69 18 155/69 (97) 100 97.3 10/06/24 00:23 69 18 100 Nasal Cannula 2.0 10/05/24 20:18 65 10/05/24 20:04 98.1 65 16 159/78 100 98.1 Laboratory Tests Test 10/05/24 22:15 White Blood Count 9.2 10^3/uL (4.4-10.8) Assessment/Plan Assessment/Plan Lower GI bleeding due to hemorrhoids/diverticulosis/upper GI bleeding Anemia likely due to lower GI bleeding? -Hemoglobin 9.9 -FOBT -Consult GI for possible colonoscopy -IV fluid -CT abdomen and pelvis:Gallbladder has been surgically removed. 15-16 mm cortical irregularity left kidney does not appear to be a simple cyst recommend repeat CT with IV contrast or renal ultrasound for further evaluation. Left kidney irregular mass -renal ultrasound ordered for further evaluation -consult Urology if deemed necessary History of CHF with bilateral pedal edema present -CXR -echocardiography -BNP -EKG DVT -Rivaroxaban held due to GI bleeding and GFR less than 38. PT, PTT and INR high DANNI likely due to VMN -Creatinine 1.4 -IV fluid given and monitor labs GI prophylaxis: Pantoprazole DVT prophylaxis: SCDs Diet: Cardiac Goals of care discussed with the patient for more than 27 minutes: Full code status Case discussed with , patient and RN Plan discussed with: Patient, Other (RN) My Orders Orders - WILFREDO RUIZ RESIDENT Procedure Category Date Status Time Admit ADMIT 10/06/24 Transmitted 00:09 Allergies ABENA 10/06/24 In Process 00:09 Code Status CODE 10/06/24 Transmitted 00:09 Sodium Chloride Lock PHA 10/06/24 In Process (Saline Lock Ns) 06:00 Sodium Chloride 0.9% PHA 10/06/24 In Process 00:15 Complete Blood Count LAB 10/07/24 Verified 04:00 Comprehensive LAB 10/07/24 Verified Metabolic Panel 04:00 Cardiac DIET 10/06/24 Transmitted Diet-2gna,Lofat,Lochol Breakfast Notify Of Changes ABENA 10/06/24 In Process From Base 00:09 Oxygen By Nasal RT 10/06/24 Transmitted Cannula 00:09 Iron Panel LAB 10/06/24 Logged 01:03 Kidney US 10/06/24 Logged 01:03 B-Type Natriuretic LAB 10/06/24 Logged Peptide 01:08 Chest Two Views XY 10/06/24 Logged Routine 01:08 Stool Occult Blood LAB 10/06/24 Logged 01:08 Stool Bacterial LAURI 10/06/24 Uncollected Culture 01:08 Stool Wbc LAB 10/06/24 Logged 01:08 Date of Service: Oct 06, 2024 Billing Provider: WILFREDO RUIZ Common Visit Codes: 09077-QUSUQNU INP/OBS CARE (HIGH) Secondary Visit Codes: 54581-DMMIUVML CARE PLAN 30 MINUTES WILFREDO RUIZ Oct 06, 2024 01:13
[2024-10-06] MEDS ORDERED: RIVAROXABAN 15 MG TAB PO SCH (01:45)
--- NOTE | 2024-10-06 02:26 | ECG ---
[facility] Test Date: 2024-10-05 Test Time: 20:18:08 Pat Name: KENNETH MULLER Department: [facility] ED Patient ID: [id number] Room: [facility] Gender: F Humanities Division Chair: RONAK : 1945 Requested By: DAWIT ALMENDAREZ Order Number: [id number] Reading MD: Dileep Urrutia Measurements Intervals [place] Rate: 65 P: 0 WV: 49 QRS: 7 QRSD: 94 T: 9 QT: 403 QTc: 419 Interpretive Statements Atrial-paced complexes Left ventricular hypertrophy Electronically Signed On 10-06-2024 22:58:51 PDT by Dileep Urrutia Please click the below link to view image of tracing.
[2024-10-06 02:46] LABS: Iron 47.0 ug/dL (50-170)
[2024-10-06 03:26] LABS: Total Iron Binding Capacity 233.0 ug/dL (250-425)
--- NOTE | 2024-10-06 04:33 | DVH ---
INDICATION: Renal cortical irregularity TECHNIQUE: Multiple real-time sonographic images of the kidneys and bladder were obtained. COMPARISON: None FINDINGS: RIGHT KIDNEY: Measures 9.1 cm. Increased in echogenicity. No mass. No urinary stones. No hydronephros is. Decreased cortex. LEFT KIDNEY: Measures 8.6 cm. Increased in echogenicity. No mass. No urinary stones. No hydronephro sis. Decreased cortex. 1.7 x 1.8 x 1.7 cm cysts within the left kidney. BLADDER: Contracted IMPRESSION: 1. Medical renal disease. Decreased bilateral renal cortex. 2. Simple cyst within the left kidney. 3. Empty bladder.
[2024-10-06] MEDS: SODIUM CHLOR 0.9% PF (SALINE LOCK) 10ML VIAL/SYR IV SCH (06:00)
--- NOTE | 2024-10-06 06:14 | DVH ---
CHEST RADIOGRAPH Indication: Bilateral leg edema Technique: Single frontal view of the chest was obtained COMPARISON: XY CHEST PORTABLE on DOS: 09/28/24, XY CHEST PORTABLE on DOS: 07/13/24 FINDINGS: Lines and Tubes: None. Left anterior chest wall cardiac pacing device. Lungs: Chronic appearing right apical pleural-parenchymal scarring. No evidence of focal consolidatio n. Pleura: No effusion. No pneumothorax. Cardiomediastinal contours: Unremarkable Bones: Unremarkable IMPRESSION: 1. No acute disease.
[2024-10-06 08:00] VITALS: PULSE 65; RESP 17; O2SAT 100
[2024-10-06 10:45] VITALS: BP 158/56; PULSE 64; RESP 18; TEMP 97.7; O2SAT 98
[2024-10-06] MEDS: PANTOPRAZOLE 40 MG/10 ML VIAL INJ IV SCH (10:47)
[2024-10-06] MEDS: SODIUM CHLORIDE 0.9% 500 ML IVB ONE (10:56)
[2024-10-06 13:04] VITALS: BP 157/48; PULSE 62; RESP 20; TEMP 96.9; O2SAT 98
[2024-10-06] MEDS: SODIUM CHLORIDE 0.9% 500 ML IV ONE (13:15)
[2024-10-06 15:31] LABS: Urine Protein, UAD TRACE (Negative)
--- NOTE | 2024-10-06 15:31 | DVHSR ---
APPROVED REPORT EXAM: LIMITED Two-dimensional and M-mode echocardiogram with Doppler and color Doppler. Blood Pressure: 155/69 mmHg INDICATION cobgestive heart failure RISK FACTORS Obesity: Height: 4'11, Weight: 160 DIMENSIONS LVDd4.0 (3.8-5.7cm)LA (2D)3.8 (1.9-4.0cm)Aortic Root3.1 (2.0-3.7cm) LVDs3.0 (2.5-4.0cm)LA (MM) (1.9-4.0cm)Aortic Cusp Exc1.4 (1.5-2.0cm) EF (%) 54.0 (55-70%)Rt. Atrium (1.9-4.0cm)Asc. Aorta cm IVSd1.0 (0.7-1.1cm)RV (D) (1.8-2.4cm) PWd0.9 (0.7-1.1cm) Mitral Valve MitralMitral Stenosis E wave0.58m/sMV Mean GR.mmHg A wave1.02m/sMV Peak GR.105mmHg E/A ratio0.62D MVAcm2 DECEL [id number] 1/2 Timems Aortic Valve Aortic ValveAortic Stenosis V10.94m/Chery Mean GR.6mmHg V21.65m/Chery Peak GR.11mmHg LVOT Diameter2.3 (1.8-2.4cm)Doppler AVA2.37cm2 Tricuspid Valve TR Velocity2.73m/s [id number] Other Information Quality : Technically LimitedRhythm : Technically limited study due to pt kept moving probe away. body habitus.patient position. Conclusion lvef 55% normal rv function left atrium enlarged mild aortic sclerosis
[2024-10-06 17:33] VITALS: BP 145/26; PULSE 65; TEMP 97.8; O2SAT 100
--- NOTE | 2024-10-06 19:24 | DVHPNRES ---
Progress Note Date Seen: Oct 06, 2024 Resident Creating Document: BUSHRA LAUREN RESIDENT Medical Necessity Reason Pt with a Central, PICC or Fol: No Subjective Review of Systems 79-year-old female with past medical history of hypertension congestive heart failure undetermined, hypothyroidism, COPD on 2 L home oxygen, DVT, with symptoms of blood in stool since 1 day. Patient's history had mild pain on defecation digital rectal examination done in the ED level so stools and no blood. Patient says she is fine and did not require hospitalization. Caregiver contradicts the patient saying she had hematuria. PMHx:hypertension, congestive heart failure-undetermined, hypothyroidism, COPD, DVT, PSHx: section Family history: Insignificant Social history: Further pack-year smoking history, quit alcohol 20 years ago. Allergic history: Atenolol, lisinopril, penicillin General: patient denies fever, fatigue, weaknes, sweating, any recent changes in appetite and weight HEENT: No headaches, visiual changes, hearing loss, tinnitus, nasal congestion and discharge, and sore throat. Cardiovascular: Denies chest pain, palpitations, dyspnea on exertion, orthopnea, or claudication. Respiratory: No cough, and wheezing. Gastrointestinal: Denies nausea, vomiting, dysphagia, odynophagia, heartburn, abdominal pain, flatulence, bloating, diarrhea, constipation, change in stool, or blood in stool. Genitourinary: No dysuria, hematuria, discharge, frequency, urgency, nocturia, incontinence, and urinary retention. Endocrine: No heat or cold intolerance, polydipsia, polyuria, and polyphagia. Neurological: No dizziness, extremity weakness and numbness, tremors, gait disturbance, seizures, and memory impairment. Psychiatric: Denies depression, anxiety,or insomnia. Musculoskeletal: Denies neck pain, stiffness and swelling, back pain, muscle weakness, joint pain, stiffness, swelling, or limited range of motion. Skin: No rashes, itching, skin lesion, changes in hair, nail, skin texture and breast. Hematologic/Lymphatic: Denies easy bruising, bleeding tendencies, or lymph node enlargement. Objective vital signs Vital Sign Date Time Temp Pulse Resp B/P (MAP) Pulse Ox O2 Delivery O2 Flow Rate FiO2 10/06/24 17:33 97.8 65 145/26 (65) 100 97.8 10/06/24 13:04 20 10/06/24 08:00 Nasal Cannula* 2 28 medications Current Medications Medications Dose Ordered Sig/[place] Route Start Time Stop Time Status Last Admin Dose Admin Sodium Chloride 10 ml Q8HR IV 10/06/24 06:00 10/06/24 14:24 10 ML Pantoprazole Sodium 40 mg DAILY IV 10/06/24 10:00 10/06/24 10:47 40 MG Sodium Chloride 1,000 ml @ 100 mls/hr Q10H IV 10/06/24 13:15 Examination General Appearance: Alert, Oriented X3, Cooperative, No acute distress HEENT: Atraumatic, PERRLA, EOMI, Mucous membrane moist/pink Respiratory: Clear to auscultation, Normal air movement Cardiovascular: Regular rate, Normal S1, Normal S2, No murmurs, no chest wall tenderness Abdominal: Tenderness in the hypogastric region, No hepatospenomegaly, No masses Extremities: No clubbing, No cyanosis, No edema, Normal pulses, No tenderness/swelling Skin: No rashes, No breakdown, No significant lesion Neuro: Normal gait, Normal speech, Strength at 5/5 X4 ext, Normal tone, Sensation intact, Cranial nerves 3-12 NL, Reflexes 2+ Psych/Mental Status: Mental status NL, Mood NL laboratory and microbiology Laboratory Tests 10/05/24 22:15 10/05/24 20:24 Test 10/05/24 20:24 Range/Units Serum Glucose 74 74-106 mg/dL Problem List/Assessment/Plan Problem List/Assessment/Plan Possible acute kidney injury Urinalysis IV fluids Sacral ulcer - present on presentation Hypertension Congestive heart failure - unknown type Hypothyroidism COPD DVT Iron-deficiency anemia Asthma DIET: Cardiac diet DVT PROPHYLAXIS: Lovenox GI PROPHYLAXIS:: Protonix BOWEL REGIMEN: Colace CODE STATUS: Goal of care discussed for more than 25 minutes, full code DISPOSITION: Med/surge RECONCILED HOME MEDS: Donepezil, rivaroxaban, metoprolol, omeprazole, amiodarone, levothyroxine, ipratropium albuterol nebulization PCP: Patient's status and plan discussed with the patient. Case discussed with Dr. Hou Plan discussed with: Patient My Orders My Orders Orders - BUSHRA LAUREN RESIDENT Procedure Category Date Status Time Sodium Chloride 0.9% PHA 10/06/24 In Process 13:15 Communication Order ORDERS 10/06/24 Transmitted 14:16 * Wound Consult CONS 10/06/24 Transmitted Date of Service: Oct 06, 2024 Billing Provider: GINA HOU MD Common Visit Codes: [id number] INP/OBS CARE(HIGH) BUSHRA LAUREN RESIDENT Oct 06, 2024 19:24 GINA HOU MD Oct 07, 2024 23:17
[2024-10-06] MEDS ORDERED: METOPROLOL TARTRATE 25 MG TAB PO ONE (19:45)
[2024-10-06 21:50] VITALS: BP 167/77; PULSE 65; RESP 18; TEMP 98.2; O2SAT 100
[2024-10-06] MEDS ORDERED: METOPROLOL TARTRATE 25 MG TAB PO SCH (22:00)
[2024-10-06] MEDS: LEVOTHYROXINE SODIUM 25 MCG TAB PO ONE (22:21)
[2024-10-06] MEDS: AMIODARONE HCL 200 MG TAB PO ONE (22:22)
[2024-10-06] MEDS: DONEPEZIL HYDROCHLORIDE 5 MG TAB PO SCH (22:22)
[2024-10-07] VITALS (8 sets, daily range): BP systolic 140–173; BP diastolic 46–89; PULSE 65–75; RESP 17–23; TEMP 97.1–98.1; O2SAT 95–100
[2024-10-07] MEDS: LEVOTHYROXINE SODIUM 25 MCG TAB PO SCH (05:04)
[2024-10-07] MEDS: AMIODARONE HCL 200 MG TAB PO SCH (08:49)
--- NOTE | 2024-10-07 16:59 | DVHPNRES ---
Progress Note Date Seen: Oct 07, 2024 Resident Creating Document: BUSHRA LAUREN Medical Necessity Reason Pt with a Central, PICC or Fol: No Subjective Review of Systems Patient seen at bedside. Plan for Urinalysis sample to be obtained by straight cath Objective vital signs Vital Sign Date Time Temp Pulse Resp B/P (MAP) Pulse Ox O2 Delivery O2 Flow Rate FiO2 10/07/24 12:45 97.2 66 18 147/75 (99) 100 97.2 10/07/24 07:30 Nasal Cannula* 2 28 Total Intake and Output 10/06/24 10/06/24 10/07/24 15:00 23:00 07:00 Intake Total 300 ml 50 ml Balance 300 ml 50 ml medications Current Medications Medications Dose Ordered Sig/[place] Route Start Time Stop Time Status Last Admin Dose Admin Sodium Chloride 10 ml Q8HR IV 10/06/24 06:00 10/07/24 05:07 10 ML Pantoprazole Sodium 40 mg DAILY IV 10/06/24 10:00 10/07/24 08:49 40 MG Sodium Chloride 1,000 ml @ 100 mls/hr Q10H IV 10/06/24 13:15 10/07/24 09:02 100 MLS/HR Rivaroxaban 20 mg QPM PO 10/07/24 18:00 Metoprolol Tartrate 12.5 mg BID PO 10/06/24 22:00 Hold Donepezil HCl 5 mg HS PO 10/06/24 22:00 10/06/24 22:22 5 MG Levothyroxine Sodium 75 mcg QAM@0600 PO 10/07/24 06:00 10/07/24 05:04 75 MCG Amiodarone HCl 200 mg DAILY PO 10/07/24 10:00 10/07/24 08:49 200 MG Examination General Appearance: Alert, Oriented X3, Cooperative, No acute distress HEENT: Atraumatic, PERRLA, EOMI, Mucous membrane moist/pink Respiratory: Clear to auscultation, Normal air movement Cardiovascular: Regular rate, Normal S1, Normal S2, No murmurs, no chest wall tenderness Abdominal: Tenderness in the hypogastric region, No hepatospenomegaly, No masses Extremities: No clubbing, No cyanosis, No edema, Normal pulses, No tenderness/swelling Skin: No rashes, No breakdown, No significant lesion Neuro: Normal gait, Normal speech, Strength at 5/5 X4 ext, Normal tone, Sensation intact, Cranial nerves 3-12 NL, Reflexes 2+ Psych/Mental Status: Mental status NL, Mood NL laboratory and microbiology Laboratory Tests 10/05/24 22:15 10/05/24 20:24 Test 10/05/24 20:24 Range/Units Serum Glucose 74 74-106 mg/dL Problem List/Assessment/Plan Problem List/Assessment/Plan Possible acute kidney injury Urinalysis IV fluids Sacral ulcer - present on presentation Hypertension Congestive heart failure - unknown type Hypothyroidism COPD DVT Iron-deficiency anemia Asthma DIET: Cardiac diet DVT PROPHYLAXIS: Rivaroxaban GI PROPHYLAXIS:: Protonix CODE STATUS: full code DISPOSITION: Med/surge RECONCILED HOME MEDS: Donepezil, rivaroxaban, metoprolol, omeprazole, amiodarone, levothyroxine, ipratropium albuterol nebulization PCP: Patient's status and plan discussed with the patient. Case discussed with Dr. Hou Plan discussed with: Patient My Orders My Orders Orders - BUSHRA LAUREN RESIDENT Procedure Category Date Status Time Straight Cath Patient ORDERS 10/07/24 Transmitted 15:11 Communication Order ORDERS 10/07/24 Transmitted 15:11 Complete Blood Count LAB 10/08/24 Verified 04:00 Comprehensive LAB 10/08/24 Verified Metabolic Panel 04:00 Date of Service: Oct 07, 2024 Billing Provider: GINA HOU MD Common Visit Codes: [id number] INP/OBS CARE(HIGH) BUSHRA LAUREN Oct 07, 2024 16:10 GINA HOU MD Oct 07, 2024 22:38
[2024-10-07] MEDS: RIVAROXABAN 20 MG TAB PO SCH (17:09)
[2024-10-07 18:15] LABS: Urine Protein, UAD TRACE (Negative)
[2024-10-07 18:33] LABS: Nucleated Red Blood Cells % 0.0 %
[2024-10-07 18:34] LABS: Hematocrit 32.6 % (36.0-46.0); Hemoglobin 9.8 g/dL (12.2-16.2); Mean Corpuscular Hemoglobin 30.6 pg (28.0-32.0); Mean Corpuscular Volume 102.3 fL (80.0-100.0)
[2024-10-07 18:57] LABS: Alanine Aminotransferase 33 U/L (7-40); Albumin 3.5 g/dL (3.2-4.8); Alkaline Phosphatase 101 U/L (46-116); Anion Gap 15 (5-15); BUN/Creatinine Ratio 29.9 (10.0-20.0); Bilirubin, Total 0.3 mg/dL (0.2-1.0); Calcium 9.8 mg/dL (8.7-10.4); Total Protein 5.9 g/dL (5.7-8.2)
[2024-10-07 19:05] LABS: Blood Urea Nitrogen 26 mg/dL (9-23); Carbon Dioxide 11 mmol/L (20-31); Chloride 122 mmol/L (98-107); Glucose 71 mg/dL (74-106); Potassium 3.3 mmol/L (3.5-5.1); Sodium 148 mmol/L (136-145)
[2024-10-08] VITALS (8 sets, daily range): BP systolic 127–177; BP diastolic 58–79; PULSE 64–70; RESP 16–18; TEMP 97.3–97.7; O2SAT 96–100
[2024-10-08] MEDS: ACETAMINOPHEN 325 MG TAB PO PRN (00:30)
[2024-10-08] MEDS: ONDANSETRON ODT 4 MG TAB PO ONE (00:30)
[2024-10-08] MEDS ORDERED: METOPROLOL TARTRATE 25 MG TAB PO ONE (17:30)
[2024-10-08] MEDS: predniSONE 20 MG TAB PO ONE (18:59)
[2024-10-08] MEDS: diphenhdrAMINE HCL 50 MG/1 ML VL IM ONE (19:00)
--- NOTE | 2024-10-08 19:21 | DVHPNRES ---
Progress Note Date Seen: Oct 08, 2024 Resident Creating Document: BUSHRA LAUREN RESIDENT Medical Necessity Reason Pt with a Central, PICC or Fol: No Subjective Review of Systems Patient seen at bedside. She complains of abdominal pain. Pain medication ordered. Objective vital signs Vital Sign Date Time Temp Pulse Resp B/P (MAP) Pulse Ox O2 Delivery O2 Flow Rate FiO2 10/08/24 18:58 177/62 10/08/24 17:00 97.3 68 16 100 97.3 10/08/24 07:30 Nasal Cannula* 2 28 Total Intake and Output 10/07/24 10/07/24 10/08/24 15:00 23:00 07:00 Intake Total 500 ml 150 ml Balance 500 ml 150 ml medications Current Medications Medications Dose Ordered Sig/[place] Route Start Time Stop Time Status Last Admin Dose Admin Sodium Chloride 10 ml Q8HR IV 10/06/24 06:00 10/08/24 14:00 10 ML Sodium Chloride 1,000 ml @ 100 mls/hr Q10H IV 10/06/24 13:15 10/08/24 15:15 100 MLS/HR Rivaroxaban 20 mg QPM PO 10/07/24 18:00 10/08/24 18:18 20 MG Donepezil HCl 5 mg HS PO 10/06/24 22:00 10/07/24 21:33 5 MG Levothyroxine Sodium 75 mcg QAM@0600 PO 10/07/24 06:00 10/08/24 06:01 75 MCG Amiodarone HCl 200 mg DAILY PO 10/07/24 10:00 10/08/24 08:44 200 MG Ceftriaxone Sodium 50 ml @ 100 mls/hr DAILY@09 IV 10/08/24 09:00 10/08/24 08:44 100 MLS/HR Acetaminophen 650 mg Q6HP PRN PO 10/07/24 23:30 10/08/24 00:30 650 MG Nifedipine 60 mg DAILY PO 10/09/24 10:00 Diphenhydramine HCl 25 mg Q6HP PRN IV 10/09/24 00:30 Prednisone 40 mg DAILY PO 10/09/24 10:00 Pantoprazole Sodium 40 mg BID IV 10/08/24 22:00 Examination General Appearance: Alert, Oriented X3, Cooperative, No acute distress HEENT: Atraumatic, PERRLA, EOMI, Mucous membrane moist/pink Respiratory: Clear to auscultation, Normal air movement Cardiovascular: Regular rate, Normal S1, Normal S2, No murmurs, no chest wall tenderness Abdominal: Tenderness in the hypogastric region, No hepatospenomegaly, No masses Extremities: No clubbing, No cyanosis, No edema, Normal pulses, No tenderness/swelling Skin: No rashes, No breakdown, No significant lesion Neuro: Normal gait, Normal speech, Strength at 5/5 X4 ext, Normal tone, Sensation intact, Cranial nerves 3-12 NL, Reflexes 2+ Psych/Mental Status: Mental status NL, Mood NL laboratory and microbiology Laboratory Tests 10/07/24 18:20 Test 10/07/24 18:20 Range/Units Serum Glucose 71 L 74-106 mg/dL Problem List/Assessment/Plan Problem List/Assessment/Plan Possible acute kidney injury Urinalysis IV fluids Urinary Tract infection on antibiotics Sacral ulcer - present on presentation Hypertension Congestive heart failure - unknown type Hypothyroidism COPD DVT Iron-deficiency anemia Asthma DIET: Cardiac diet DVT PROPHYLAXIS: Rivaroxaban GI PROPHYLAXIS:: Protonix CODE STATUS: full code DISPOSITION: Med/surge RECONCILED HOME MEDS: Donepezil, rivaroxaban, metoprolol, omeprazole, amiodarone, levothyroxine, ipratropium albuterol nebulization PCP: Patient's status and plan discussed with the patient. Case discussed with Dr. Hou Plan discussed with: Patient My Orders My Orders Orders - BUSHRA LAUREN RESIDENT Procedure Category Date Status Time Basic Metabolic Panel LAB 10/08/24 Logged 17:25 Alum & Mag PHA 10/08/24 Verified Hydrox-Simethicone 19:15 Morphine Sulfate PHA 10/08/24 Verified Injection 19:15 Dietary Evaluation Review Comments: Nutrition Recommendation 1) Consider Ensure High Protein 240ml BID if PO intake <50% 2) Laron 1 pk BID, MVI w/ minerals 1 tab daily, VitC 500mg BID, Zinc sulfate 220mg BID x 10 days 3) Monitor PO intake, lab values, weight trend, and I/O Expected Outcomes/Goals: To meet >75% estimated needs Wound to improve Fu 3-5 days Date of Service: Oct 08, 2024 Billing Provider: GINA HOU MD Common Visit Codes: [id number] INP/OBS CARE(HIGH) BUSHRA LAUREN RESIDENT Oct 08, 2024 19:21 GINA HOU MD Oct 15, 2024 21:37
[2024-10-08] MEDS: PANTOPRAZOLE 40 MG/10 ML VIAL INJ IV SCH (22:02)
[2024-10-08 23:00] LABS: Hemoglobin 8.3 g/dL (12.2-16.2); Mean Corpuscular Volume 94.5 fL (80.0-100.0); Nucleated Red Blood Cells % 0.0 %
[2024-10-08 23:02] LABS: Hematocrit 26.2 % (36.0-46.0); Mean Corpuscular Hemoglobin 30.0 pg (28.0-32.0)
[2024-10-08 23:19] LABS: Albumin 3.2 g/dL (3.2-4.8); Alkaline Phosphatase 97 U/L (46-116); Anion Gap 15 (5-15); BUN/Creatinine Ratio 22.5 (10.0-20.0); Blood Urea Nitrogen 20 mg/dL (9-23); Calcium 9.6 mg/dL (8.7-10.4); Glucose 93 mg/dL (74-106); Total Protein 5.9 g/dL (5.7-8.2)
[2024-10-08 23:20] LABS: Sodium 150 mmol/L (136-145)
[2024-10-08 23:21] LABS: Alanine Aminotransferase 44 U/L (7-40); Bilirubin, Total 0.2 mg/dL (0.2-1.0); Carbon Dioxide 12 mmol/L (20-31); Chloride 123 mmol/L (98-107)
[2024-10-08 23:22] LABS: Potassium 2.5 mmol/L (3.5-5.1)
[2024-10-09] VITALS (8 sets, daily range): BP systolic 111–143; BP diastolic 44–78; PULSE 63–65; RESP 17–18; TEMP 96.5–98.4; O2SAT 96–100
[2024-10-09] MEDS: POTASSIUM CHL 20MEQ/100ML 100 ML IV SCH (00:22)
[2024-10-09] MEDS ORDERED: diphenhdrAMINE HCL 50 MG/1 ML VL IV PRN (00:30)
[2024-10-09] MEDS ORDERED: METOPROLOL TARTRATE 25 MG TAB PO SCH (10:00)
[2024-10-09] MEDS ORDERED: predniSONE 20 MG TAB PO SCH (10:00)
--- NOTE | 2024-10-09 11:37 | DVHPNRES ---
Progress Note Date Seen: Oct 09, 2024 Resident Creating Document: BUSHRA LAUREN Medical Necessity Reason Pt with a Central, PICC or Fol: No Subjective Review of Systems Patient seen at bedside. Complains of abdominal pain. She had an episode of hypokalemia potassium 2.5 yesterday. Potassium was supplemented. Potassium send for today. Neutrophilic leukocytosis present 12.3. We will try to wean off from oxygen. Did not get sample for stool test. Change ceftriaxone to levofloxacin. Objective vital signs Vital Sign Date Time Temp Pulse Resp B/P (MAP) Pulse Ox O2 Delivery O2 Flow Rate FiO2 10/09/24 09:39 129/44 10/09/24 09:00 96.5 65 18 100 96.5 10/09/24 08:00 Nasal Cannula* 2 28 Total Intake and Output 10/08/24 10/08/24 10/09/24 15:00 23:00 07:00 Intake Total 50 ml 420 ml 350 ml Balance 50 ml 420 ml 350 ml medications Current Medications Medications Dose Ordered Sig/[place] Route Start Time Stop Time Status Last Admin Dose Admin Sodium Chloride 10 ml Q8HR IV 10/06/24 06:00 10/09/24 05:41 10 ML Rivaroxaban 20 mg QPM PO 10/07/24 18:00 10/08/24 18:18 20 MG Donepezil HCl 5 mg HS PO 10/06/24 22:00 10/08/24 22:02 5 MG Levothyroxine Sodium 75 mcg QAM@0600 PO 10/07/24 06:00 10/09/24 05:42 75 MCG Amiodarone HCl 200 mg DAILY PO 10/07/24 10:00 10/09/24 09:39 200 MG Acetaminophen 650 mg Q6HP PRN PO 10/07/24 23:30 10/08/24 00:30 650 MG Nifedipine 60 mg DAILY PO 10/09/24 10:00 10/09/24 09:39 60 MG Pantoprazole Sodium 40 mg BID IV 10/08/24 22:00 10/09/24 09:39 40 MG Al Hydrox/Mg Hydrox/Simethicone 15 ml [id number] PRN GT 10/08/24 19:15 Morphine Sulfate 1 mg Q4HP PRN IV 10/08/24 19:15 Sodium Chloride 1,000 ml @ 125 mls/hr Q8H IV 10/09/24 10:45 Levofloxacin/ Dextrose 100 ml @ 100 mls/hr DAILY IV 10/09/24 10:45 Examination General Appearance: Alert, Oriented X3, Cooperative, No acute distress HEENT: Atraumatic, PERRLA, EOMI, Mucous membrane moist/pink Respiratory: Clear to auscultation, Normal air movement, Patient on 2 L oxygen Cardiovascular: Regular rate, Normal S1, Normal S2, No murmurs, no chest wall tenderness Abdominal: Tenderness in the hypogastric region, No hepatospenomegaly, No masses Extremities: No clubbing, No cyanosis, No edema, Normal pulses, No tenderness/swelling Skin: No rashes, No breakdown, No significant lesion Neuro: Normal gait, Normal speech, Strength at 5/5 X4 ext, Normal tone, Sensation intact, Cranial nerves 3-12 NL, Reflexes 2+ Psych/Mental Status: Mental status NL, Mood NL laboratory and microbiology Laboratory Tests 10/08/24 22:39 Test 10/08/24 22:39 Range/Units Serum Glucose 93 74-106 mg/dL Problem List/Assessment/Plan Problem List/Assessment/Plan acute kidney injury Urinalysis IV fluids Urinary Tract infection on antibiotics-levofloxacin Neutrophilic leukocytosis Hypokalemia potassium supplemented Sacral ulcer - present on presentation Wound care consult given Hypertension Congestive heart failure - unknown type Hypothyroidism COPD DVT Iron-deficiency anemia Asthma DIET: Cardiac diet DVT PROPHYLAXIS: Rivaroxaban GI PROPHYLAXIS:: Protonix CODE STATUS: full code DISPOSITION: Med/surge RECONCILED HOME MEDS: Donepezil, rivaroxaban, metoprolol, omeprazole, amiodarone, levothyroxine, ipratropium albuterol nebulization PCP: Patient's status and plan discussed with the patient. Case discussed with Dr. Hou Plan discussed with: Patient My Orders My Orders Orders - BUSHRA LAUREN RESIDENT Procedure Category Date Status Time Alum & Mag PHA 10/08/24 In Process Hydrox-Simethicone 19:15 Morphine Sulfate PHA 10/08/24 In Process Injection 19:15 Basic Metabolic Panel LAB 10/09/24 Logged 06:46 Dietary Evaluation Review Comments: Nutrition Recommendation 1) Consider Ensure High Protein 240ml BID if PO intake <50% 2) Laron 1 pk BID, MVI w/ minerals 1 tab daily, VitC 500mg BID, Zinc sulfate 220mg BID x 10 days 3) Monitor PO intake, lab values, weight trend, and I/O Expected Outcomes/Goals: To meet >75% estimated needs Wound to improve Fu 3-5 days Date of Service: Oct 09, 2024 Billing Provider: GINA HOU MD Common Visit Codes: [id number] INP/OBS CARE(HIGH) BUSHRA LAUREN RESIDENT Oct 09, 2024 11:37 GINA HOU MD Oct 15, 2024 21:54
[2024-10-09 13:01] LABS: Urine Protein, UAD TRACE (Negative)
[2024-10-09 13:25] LABS: Anion Gap 11 (5-15); Chloride 126 mmol/L (98-107); Potassium 3.3 mmol/L (3.5-5.1); Sodium 151 mmol/L (136-145)
[2024-10-09 13:26] LABS: Calcium 9.8 mg/dL (8.7-10.4); Carbon Dioxide 14 mmol/L (20-31)
[2024-10-09 13:31] LABS: BUN/Creatinine Ratio 27.5 (10.0-20.0)
[2024-10-09 13:35] LABS: Blood Urea Nitrogen 22 mg/dL (9-23); Glucose 96 mg/dL (74-106)
[2024-10-09] MEDS: SODIUM CHLORIDE 0.9% 1,000 ML IV SCH (13:49)
[2024-10-09] MEDS: POTASSIUM EFFERVESENT TAB 25 MEQ PO ONE (17:48)
[2024-10-10] VITALS (8 sets, daily range): BP systolic 102–175; BP diastolic 43–85; PULSE 65–76; RESP 16–21; TEMP 97.5–98.9; O2SAT 96–100
[2024-10-10] MEDS: MAALOX PLUS or MAALOX 30 ML GT PRN (10:58)
[2024-10-10] MEDS: MORPHINE SULFATE INJ 2 MG/ml SYRG IV PRN (10:59)
--- NOTE | 2024-10-10 11:12 | DVHPNRES ---
Progress Note Date Seen: Oct 10, 2024 Resident Creating Document: BUSHRA LAUREN RESIDENT Medical Necessity Reason Pt with a Central, PICC or Fol: No Subjective Review of Systems Patient seen at bedside. Symptomatically better than yesterday. Still has abdominal pain. Urine culture pending. Antibiotics changed from ceftriaxone to levofloxacin. Objective vital signs Vital Sign Date Time Temp Pulse Resp B/P (MAP) Pulse Ox O2 Delivery O2 Flow Rate FiO2 10/10/24 10:59 76 20 123/62 10/10/24 09:00 98.3 99 98.3 10/09/24 20:00 Nasal Cannula* 2 28 Total Intake and Output 10/09/24 10/09/24 10/10/24 15:00 23:00 07:00 Intake Total 220 ml 1240 ml 1265 ml Output Total 200 ml Balance 220 ml 1040 ml 1265 ml medications Current Medications Medications Dose Ordered Sig/[place] Route Start Time Stop Time Status Last Admin Dose Admin Sodium Chloride 10 ml Q8HR IV 10/06/24 06:00 10/10/24 10:25 10 ML Rivaroxaban 20 mg QPM PO 10/07/24 18:00 10/09/24 17:48 20 MG Donepezil HCl 5 mg HS PO 10/06/24 22:00 10/09/24 21:44 5 MG Levothyroxine Sodium 75 mcg QAM@0600 PO 10/07/24 06:00 10/10/24 05:44 75 MCG Amiodarone HCl 200 mg DAILY PO 10/07/24 10:00 10/10/24 10:24 200 MG Acetaminophen 650 mg Q6HP PRN PO 10/07/24 23:30 10/10/24 00:54 650 MG Nifedipine 60 mg DAILY PO 10/09/24 10:00 10/10/24 10:24 60 MG Pantoprazole Sodium 40 mg BID IV 10/08/24 22:00 10/10/24 10:23 40 MG Al Hydrox/Mg Hydrox/Simethicone 15 ml [id number] PRN GT 10/08/24 19:15 10/10/24 10:58 15 ML Morphine Sulfate 1 mg Q4HP PRN IV 10/08/24 19:15 10/10/24 10:59 1 MG Sodium Chloride 1,000 ml @ 125 mls/hr Q8H IV 10/09/24 10:45 10/10/24 10:33 125 MLS/HR Levofloxacin/ Dextrose 100 ml @ 100 mls/hr DAILY IV 10/09/24 10:45 10/10/24 10:23 100 MLS/HR Examination General Appearance: Alert, Oriented X3, Cooperative, No acute distress HEENT: Atraumatic, PERRLA, EOMI, Mucous membrane moist/pink Respiratory: Clear to auscultation, Normal air movement, Patient on 2 L oxygen Cardiovascular: Regular rate, Normal S1, Normal S2, No murmurs, no chest wall tenderness Abdominal: Tenderness in the hypogastric region, No hepatospenomegaly, No masses Extremities: No clubbing, No cyanosis, No edema, Normal pulses, No tenderness/swelling Skin: No rashes, No breakdown, No significant lesion Neuro: Normal gait, Normal speech, Strength at 5/5 X4 ext, Normal tone, Sensation intact, Cranial nerves 3-12 NL, Reflexes 2+ Psych/Mental Status: Mental status NL, Mood NL laboratory and microbiology Laboratory Tests 10/09/24 12:58 10/08/24 22:39 Test 10/09/24 12:58 Range/Units Serum Glucose 96 74-106 mg/dL Microbiology Date/Time Source Procedure Growth Status 10/08/24 22:39 Blood Blood Culture - Preliminary NO GROWTH AFTER 24 HOURS OF INCUBATION. Resulted Problem List/Assessment/Plan Problem List/Assessment/Plan acute kidney injury Urinalysis IV fluids Urinary Tract infection on antibiotics-levofloxacin Neutrophilic leukocytosis Hypokalemia potassium supplemented Sacral ulcer - present on presentation Wound care consult given Hypertension Congestive heart failure - unknown type Hypothyroidism COPD DVT Iron-deficiency anemia Asthma DIET: Cardiac diet DVT PROPHYLAXIS: Rivaroxaban GI PROPHYLAXIS:: Protonix CODE STATUS: full code DISPOSITION: Med/surge RECONCILED HOME MEDS: Donepezil, rivaroxaban, metoprolol, omeprazole, amiodarone, levothyroxine, ipratropium albuterol nebulization PCP: Patient's status and plan discussed with the patient. Case discussed with Dr. Vasquez Plan discussed with: Patient, Daughter (stepdaughter) My Orders My Orders Orders - BUSHRA LAUREN RESIDENT Procedure Category Date Status Time Basic Metabolic Panel LAB 10/11/24 Verified 04:00 Complete Blood Count LAB 10/11/24 Verified 04:00 Communication Order ORDERS 10/10/24 Transmitted 11:05 Dietary Evaluation Review Comments: Nutrition Recommendation 1) Consider Ensure High Protein 240ml BID if PO intake <50% 2) Laron 1 pk BID, MVI w/ minerals 1 tab daily, VitC 500mg BID, Zinc sulfate 220mg BID x 10 days 3) Monitor PO intake, lab values, weight trend, and I/O Expected Outcomes/Goals: To meet >75% estimated needs Wound to improve Fu 3-5 days Date of Service: Oct 10, 2024 Billing Provider: DONTAE BENEDICT MD Common Visit Codes: [id number] INP/OBS CARE(HIGH) BUSHRA LAUREN RESIDENT Oct 10, 2024 11:12 DONTAE BENEDICT MD Oct 11, 2024 09:26
[2024-10-10 12:18] LABS: Hematocrit 27.9 % (36.0-46.0); Hemoglobin 9.1 g/dL (12.2-16.2); Mean Corpuscular Hemoglobin 29.7 pg (28.0-32.0); Mean Corpuscular Volume 91.3 fL (80.0-100.0); Nucleated Red Blood Cells % 0.1 %
[2024-10-10 12:30] LABS: Anisocytosis Slight; Tear Drop Cells FEW
[2024-10-10 12:36] LABS: Albumin 3.5 g/dL (3.2-4.8); Alkaline Phosphatase 111 U/L (46-116); Anion Gap 11 (5-15); BUN/Creatinine Ratio 26.5 (10.0-20.0); Blood Urea Nitrogen 22 mg/dL (9-23); Calcium 10.3 mg/dL (8.7-10.4); Potassium 3.6 mmol/L (3.5-5.1); Total Protein 6.2 g/dL (5.7-8.2)
[2024-10-10 12:37] LABS: Alanine Aminotransferase 89 U/L (7-40); Bilirubin, Total 0.2 mg/dL (0.2-1.0); Carbon Dioxide 17 mmol/L (20-31); Chloride 121 mmol/L (98-107); Glucose 58 mg/dL (74-106); Sodium 149 mmol/L (136-145)
[2024-10-11] VITALS (10 sets, daily range): BP systolic 102–138; BP diastolic 47–66; PULSE 61–88; RESP 16–20; TEMP 97–100.3; O2SAT 96–100
[2024-10-11 08:03] LABS: Hemoglobin 7.9 g/dL (12.2-16.2)
[2024-10-11 08:04] LABS: Hematocrit 24.3 % (36.0-46.0); Mean Corpuscular Hemoglobin 30.2 pg (28.0-32.0); Mean Corpuscular Volume 92.8 fL (80.0-100.0); Nucleated Red Blood Cells % 0.2 %
[2024-10-11 08:21] LABS: Anion Gap 13 (5-15); Calcium 9.5 mg/dL (8.7-10.4)
[2024-10-11 08:26] LABS: BUN/Creatinine Ratio 18.3 (10.0-20.0); Blood Urea Nitrogen 13 mg/dL (9-23)
[2024-10-11 08:31] LABS: Sodium 148 mmol/L (136-145)
[2024-10-11 08:35] LABS: Carbon Dioxide 16 mmol/L (20-31); Chloride 119 mmol/L (98-107); Glucose 74 mg/dL (74-106); Potassium 2.5 mmol/L (3.5-5.1)
[2024-10-11] MEDS: POTASSIUM CHLORIDE 60 MEQ, LIDOCAINE 1% (LOCAL ANESTH.) 6 ML in SODIUM CHL 0.9% 500 ML IV ONE (11:26)
[2024-10-11] MEDS: POTASSIUM EFFERVESENT TAB 25 MEQ PO ONE (11:45)
[2024-10-11] MEDS: LACTULOSE 20Gm/30ML SOLN PO ONE (14:17)
--- NOTE | 2024-10-11 16:02 | DVHPNRES ---
Progress Note Date Seen: Oct 11, 2024 Resident Creating Document: TEODORO GALLAGHER RESIDENT Medical Necessity Reason Pt with a Central, PICC or Fol: No Subjective Review of Systems Physical examined review of system on admission: Neeta Chaves is a 79-year-old female with past medical history of hypertension, congestive heart failure with preserved ejection fraction, hypothyroidism, COPD on 2 L home oxygen, DVT, presented to the ER with chief complain of blood in stool since 1 day. She is a poor historian. She reported mild pain on defecation; digital rectal examination done in the ER revealed stools without blood smeared. Patient says she is fine and did not require hospitalization. Caregiver contradicts the patient saying she had hematuria. PMHx:hypertension, congestive heart failure-undetermined, hypothyroidism, COPD, DVT, PSHx: section Family history: Insignificant Social history: Further pack-year smoking history, quit alcohol 20 years ago. Allergic history: Atenolol, lisinopril, penicillin General: Patient denies fever, fatigue, weaknes, sweating, any recent changes in appetite and weight HEENT: No headaches, visiual changes, hearing loss, tinnitus, nasal congestion and discharge, and sore throat. Cardiovascular: Denies chest pain, palpitations, dyspnea on exertion, orthopnea, or claudication. Respiratory: No cough, and wheezing. Gastrointestinal: Denies nausea, vomiting, dysphagia, odynophagia, heartburn, abdominal pain, flatulence, bloating, diarrhea, constipation, change in stool, or blood in stool. Genitourinary: No dysuria, hematuria, discharge, frequency, urgency, nocturia, incontinence, and urinary retention. Endocrine: No heat or cold intolerance, polydipsia, polyuria, and polyphagia. Neurological: No dizziness, extremity weakness and numbness, tremors, gait disturbance, seizures, and memory impairment. Psychiatric: Denies depression, anxiety,or insomnia. Musculoskeletal: Denies neck pain, stiffness and swelling, back pain, muscle weakness, joint pain, stiffness, swelling, or limited range of motion. Skin: No rashes, itching, skin lesion, changes in hair, nail, skin texture and breast. Hematologic/Lymphatic: Denies easy bruising, bleeding tendencies, or lymph node enlargement. 10/11/2024: She was examined at bedside today. She is talking softly. Complained of new onset cough, she has a weak cough, unable to produce sputum. Minimal sputum produced, white in color. CXR, influenza, COVID test ordered. Her hemoglobin came down from 9.1 to 7.5, H&H repeated, GI consulted, stool occult blood pending. Objective vital signs Vital Sign Date Time Temp Pulse Resp B/P (MAP) Pulse Ox O2 Delivery O2 Flow Rate FiO2 10/11/24 12:54 97.5 65 19 125/57 (79) 99 97.5 10/11/24 08:00 Nasal Cannula* 2 28 Total Intake and Output 10/10/24 10/10/24 10/11/24 15:00 23:00 07:00 Intake Total 300 ml 100 ml Output Total 500 ml Balance -200 ml 100 ml medications Current Medications Medications Dose Ordered Sig/[place] Route Start Time Stop Time Status Last Admin Dose Admin Sodium Chloride 10 ml Q8HR IV 10/06/24 06:00 10/11/24 14:14 10 ML Rivaroxaban 20 mg QPM PO 10/07/24 18:00 10/10/24 16:32 20 MG Donepezil HCl 5 mg HS PO 10/06/24 22:00 10/10/24 21:28 5 MG Levothyroxine Sodium 75 mcg QAM@0600 PO 10/07/24 06:00 10/11/24 05:46 75 MCG Amiodarone HCl 200 mg DAILY PO 10/07/24 10:00 10/11/24 09:27 200 MG Acetaminophen 650 mg Q6HP PRN PO 10/07/24 23:30 10/11/24 04:28 650 MG Nifedipine 60 mg DAILY PO 10/09/24 10:00 10/11/24 09:28 60 MG Pantoprazole Sodium 40 mg BID IV 10/08/24 22:00 10/11/24 09:27 40 MG Al Hydrox/Mg Hydrox/Simethicone 15 ml [id number] PRN GT 10/08/24 19:15 10/10/24 10:58 15 ML Morphine Sulfate 1 mg Q4HP PRN IV 10/08/24 19:15 10/10/24 16:42 1 MG Sodium Chloride 1,000 ml @ 125 mls/hr Q8H IV 10/09/24 10:45 10/10/24 20:03 125 MLS/HR Levofloxacin 50 ml @ 50 mls/hr DAILY IV 10/11/24 10:00 10/11/24 09:28 50 MLS/HR Guaifenesin 200 mg Q6HP PRN PO 10/11/24 12:00 Examination General: Patient is speaking softly, with weak cough. Patient alert and oriented in person, place and time. Patient following commands. HEENT: Normocephalic, atraumatic, moist mucous membranes Respiratory/pulmonary: Bilateral rhonchi on auscultation. Cardiovascular: Normal heart sounds S1 and S2 with no associated murmurs Abdomen: Generalized abdominal tenderness on palpation Extremities: There is no peripheral edema present at the lower extremities. Peripheral Pulses: 3+ Radial (R). 3+ Radial (L). 3+ Dorsalis pedis (R). 3+ Dorsalis pedis(L) Skin: No rashes or pruritus, there is no sacral edema present at this time. Neurological: Intact cranial nerves with no focal neurologic deficits laboratory and microbiology Laboratory Tests 10/11/24 06:29 Test 10/11/24 06:29 Range/Units Serum Glucose 74 74-106 mg/dL Microbiology Date/Time Source Procedure Growth Status 10/08/24 22:39 Blood Blood Culture - Preliminary NO GROWTH AFTER 72 HOURS OF INCUBATION. Resulted 10/08/24 12:20 Voided Urine Urine Culture - Final Complete Problem List/Assessment/Plan Problem List/Assessment/Plan Complicated Urinary tract infection Acute kidney injury, likely due to VMN Labs showed neutrophilic leukocytosis. Urinalysis positive for UTI, hematuria Managed with IV fluids, IV levofloxacin Hypokalemia Potassium supplemented Sacral ulcer - present on presentation Wound care consult given Anemia due to GI bleed, possible Hemoglobin went down from 9.1 yesterday to 7.9 Stool occult blood ordered GI consulted Hypertension HFpEF Hypothyroidism History of COPD, without exacerbation History of DVT History of Iron-deficiency anemia History of Asthma DIET: Cardiac diet DVT PROPHYLAXIS: Rivaroxaban GI PROPHYLAXIS:: Protonix CODE STATUS: full code DISPOSITION: Med/surge RECONCILED HOME MEDS: Donepezil, rivaroxaban, metoprolol, omeprazole, amiodarone, levothyroxine, ipratropium albuterol nebulization PCP: Patient's status and plan discussed with the patient. Case discussed with Dr. Pedroza Plan discussed with: Patient My Orders My Orders Orders - TEODORO GALLAGHER RESIDENT Procedure Category Date Status Time Potassium LAB 10/11/24 Logged 13:00 Potassium Chloride PHA 10/11/24 In Process (Potassium Chloride). 10:00 Hemoglobin & LAB 10/11/24 Logged Hematocrit 11:38 * Gi [facility] [employer] CONS 10/11/24 Transmitted 11:49 Stool Occult Blood LAB 10/11/24 Logged 11:49 Guaifenesin Plain PHA 10/11/24 In Process Liquid (Robitussin Gabriela 12:00 Chest Percussion Tx RT 10/11/24 Transmitted Initi 15:42 Chest Two Views XY 10/11/24 Transmitted Routine 15:42 Albuterol Medneb PHA 10/11/24 Transmitted (Ventolin Medneb) 15:45 Ipratropium Medneb PHA 10/11/24 Transmitted (Atrovent Medneb) 15:45 Dietary Evaluation Review Comments: Nutrition Recommendation 1) Consider Ensure High Protein 240ml BID if PO intake <50% 2) Laron 1 pk BID, MVI w/ minerals 1 tab daily, VitC 500mg BID, Zinc sulfate 220mg BID x 10 days 3) Monitor PO intake, lab values, weight trend, and I/O Expected Outcomes/Goals: To meet >75% estimated needs Wound to improve Fu 3-5 days Date of Service: Oct 11, 2024 Billing Provider: DONTAE PEDROZA MD Common Visit Codes: [id number] INP/OBS CARE(HIGH) TEODORO GALLAGHER RESIDENT Oct 11, 2024 16:02 DONTAE PEDROZA MD Oct 11, 2024 23:10
[2024-10-11] MEDS: ALBUTEROL SULF 2.5 MG/0.5ML(0.5%) NEB SOLN NEB ONE (16:13)
[2024-10-11] MEDS: IPRATROPIUM BROM 0.5 MG/2.5ML INH SOL NEB ONE (16:14)
--- NOTE | 2024-10-11 16:20 | DVH ---
CHEST RADIOGRAPH Indication: New onset cough Technique: Single frontal view of the chest was obtained Comparison: XY CHEST XRAY 1 VIEW on DOS: 10/06/24, XY CHEST PORTABLE on DOS: 09/28/24, XY CHEST PORTABL E on DOS: 07/13/24 FINDINGS: Lines and Tubes: None ended approach dual lead pacemaker terminating within right atrium and right ve ntricle. Lungs: Right apical opacity. Mild interstitial prominence. Pleura: No effusion. No pneumothorax. Cardiomediastinal contours: Size is within normal limits with [id number] atherosclerotic calcif ication and uncoiling of the aorta. Bones: No acute osseous abnormality. IMPRESSION: Unchanged right apical opacity which may represent pleural thickening/ scarring with mild interstitia l prominence which may be from Senescent changes/fibrotic changes
--- NOTE | 2024-10-11 17:43 | DVHINCON2 ---
Date of service: Oct 11, [address] RUIZ Reason for Consultation Rectal bleeding abdominal pain History of Present Illness This 79-year-old female with a history of hypertension congestive heart failure hypothyroidism pacemaker status post COPD with on oxygen with DVT patient is on Xarelto and home oxygen and patient has got anemia he came with some blood mixed with stools and blood in the urine. Denied any constipation or diarrhea patient is a very poor historian and has difficult to get much detailed history. Past Medical History Hypertension congestive heart failure pacemaker COPD DVT asthma Past Surgical History c Sections Family History: Cardiovascular disease G8 FATHER Family History Noncontributory Social History Noncontributory history of smoking and drinking in the past Allergies: Coded Allergies: Atenolol (Unverified Allergy, Unknown, 07/13/24) Lisinopril (Unverified Allergy, Unknown, 07/13/24) Penicillins (Unverified Allergy, Unknown, 07/13/24) Home Meds No Active Prescriptions or Reported Meds Current Medications Current Medications Medications (Trade) Dose Ordered Sig/[place] Route PRN Reason Start Time Stop Time Status Last Admin Levofloxacin 50 ml @ 50 mls/hr DAILY IV 10/11/24 10:00 10/11/24 09:28 Guaifenesin (Robitussin Plain Liquid) 200 mg Q6HP PRN PO FOR COUGH 10/11/24 12:00 Review of Systems Noncontributory Vital Signs Vital Signs Date Time Temp Pulse Resp B/P (MAP) Pulse Ox O2 Delivery O2 Flow Rate FiO2 10/11/24 16:06 66 16 100 10/11/24 16:00 Nasal Cannula* 2 28 10/11/24 12:54 97.5 125/57 (79) 97.5 Physical Exam Moderately built and nourished female on oxygen vital signs stable HEENT examination mild pallor no icterus neck was supple no lymphadenopathy chest was bilaterally symmetrical lungs are clear lungs but scattered scattered rales cardiovascular unremarkable abdomen was soft mild tenderness in both lower quadrants no rigidity no guarding no masses bowel sounds are normal extremities no edema no varicosities no clubbing Scan showed no gross abnormalities but it was done without contrast. Hemoglobin is 9.9 Labs/Diagnostic Data Labs Test 10/11/24 06:29 10/10/24 12:01 10/09/24 12:20 10/08/24 22:39 Range/Units White Blood Count 9.5 4.4-10.8 10^3/uL Red Blood Count 2.62 L 4.0-5.20 10^6/uL Hemoglobin 7.9 L 12.2-16.2 g/dL Hematocrit 24.3 #L 36.0-46.0 % Mean Corpuscular Volume 92.8 80.0-100.0 fL Mean Corpuscular Hemoglobin 30.2 28.0-32.0 pg Mean Corpuscular Hemoglobin Concent 32.5 32.0-36.0 g/dL Red Cell Distribution Width 20.5 H 11.8-14.3 % Platelet Count 262 140-450 10^3/uL Mean Platelet Volume 7.4 6.9-10.8 fL Neutrophils (%) (Auto) 85.2 H 37.0-80.0 % Lymphocytes (%) (Auto) 6.3 L 10.0-50.0 % Monocytes (%) (Auto) 6.9 0.0-12.0 % Eosinophils (%) (Auto) 1.2 0.0-7.0 % Basophils (%) (Auto) 0.4 0.0-2.0 % Neutrophils # (Auto) 8.1 1.6-8.6 10 ^3/uL Lymphocytes # (Auto) 0.6 0.4-5.4 10 ^3/uL Monocytes # (Auto) 0.7 0-1.3 10 ^3/uL Eosinophils # (Auto) 0.1 0-0.8 10 ^3/uL Basophils # (Auto) 0 0-0.2 10 ^3/uL Nucleated Red Blood Cells 0.2 % Sodium Level 148 H 136-145 mmol/L Potassium Level 2.5 *L 3.5-5.1 mmol/L Chloride Level 119 H 98-107 mmol/L Carbon Dioxide Level 16 L 20-31 mmol/L Anion Gap 13 5-15 Blood Urea Nitrogen 13 9-23 mg/dL Creatinine 0.71 0.550-1.02 mg/dL Glomerular Filtration Rate Calc 86 >90 mL/min BUN/Creatinine Ratio 18.3 10.0-20.0 Serum Glucose 74 74-106 mg/dL Calcium Level 9.5 8.7-10.4 mg/dL Platelet Estimate Adequate Anisocytosis (manual) Slight Tear Drop Cells Few Total Bilirubin 0.2 0.2-1.0 mg/dL Aspartate Amino Transferase (AST) 158 H 13-40 U/L Alanine Aminotransferase (ALT) 89 H 7-40 U/L Alkaline Phosphatase 111 46-116 U/L Total Protein 6.2 5.7-8.2 g/dL Albumin 3.5 3.2-4.8 g/dL Urine Color Colorless Yellow Urine Clarity Turbid H Clear Urine pH 6.0 5.0-9.0 Urine Specific [place] 1.012 1.001-1.035 Urine Protein Trace H Negative Urine Ketones 1+ H Negative Urine Blood 3+ H Negative /uL Urine Nitrite Negative Negative Urine Bilirubin Negative Negative Urine Urobilinogen Normal Negative mg/dL Urine Leukocyte Esterase 3+ Negative /uL Urine RBC 43 0 - 4 /hpf Urine Microscopic WBC 543 H 0-5 /HPF Urine Squamous Epithelial Cells None seen <5 /hpf Urine Bacteria Few H None Seen /hpf Urine Mucus Few None Seen Urine Glucose Normal Normal mg/dL Lactic Acid Level 0.5 0.4-2.0 mmol/L Lipase 20 12-53 U/L Test 10/06/24 03:30 10/05/24 20:24 Range/Units Prothrombin Time 16.1 H 9.3-11.8 sec Prothrombin Time INR 1.59 H 0.9-1.15 Activated Partial Thromboplast Time 38.6 H 24.5-34.5 SEC Iron Level 47 L 50-170 ug/dL Total Iron Binding Capacity 233 L 250-425 ug/dL Percent Iron Saturation 20.2 15-50 % B-Type Natriuretic Peptide 92.77 0-100 pg/mL Microbiology Date/Time Source Procedure Growth Status 10/08/24 22:39 Blood Blood Culture - Preliminary NO GROWTH AFTER 72 HOURS OF INCUBATION. Resulted 10/08/24 12:20 Voided Urine Urine Culture - Final Complete Assessment 79-year-old female with a history of hypertension congestive heart failure pacemaker DVT on oxygen and Xarelto with the anemia asthma and abdominal pain some hematochezia any or even hematuria Clinical improved physical examination was unremarkable except patient is on oxygen and mild tenderness in both lower quadrants patient is on hemoglobin is 9.9 CT scan showed no gross abnormalities patient is on Xarelto possibilities possible diverticular disease or other pathology Other colon lesion can not be excluded Plan/Recommendation We will recommend to follow the hemoglobin closely We will recommend a repeat CT scan of the abdomen and pelvis with oral contrast to check if any colonic problems since the last one was without oral contrast He is not a candidate for colonoscopy at this time because of the fact that she is on Xarelto and he is on she is on some home oxygen and unstable at this time We will recommend to stop the Xarelto if continued bleeding Thank you Dr Adam Plan discussed with: Patient WANDA ADAM MD Oct 11, 2024 17:43
[2024-10-11 18:34] LABS: Hematocrit 30.0 % (36.0-46.0); Hemoglobin 9.7 g/dL (12.2-16.2)
[2024-10-12] VITALS (7 sets, daily range): BP systolic 103–157; BP diastolic 50–61; PULSE 65–66; RESP 16–19; TEMP 97–98.3; O2SAT 94–98
[2024-10-12 07:00] LABS: COVID19 ANTIGEN SOFIA FIA POSITIVE (NEGATIVE)
[2024-10-12] MEDS ORDERED: REMDESIVIR PER PHARMACY 0 ML IV SCH (07:30)
[2024-10-12] MEDS: POTASSIUM CHL 20 Meq TABLET PO ONE (09:44)
[2024-10-12 11:39] LABS: Albumin 3.3 g/dL (3.2-4.8); Alkaline Phosphatase 111 U/L (46-116); Anion Gap 11 (5-15); BUN/Creatinine Ratio 17.7 (10.0-20.0); Blood Urea Nitrogen 11 mg/dL (9-23); Calcium 10.0 mg/dL (8.7-10.4); Potassium 3.8 mmol/L (3.5-5.1); Total Protein 6.1 g/dL (5.7-8.2)
[2024-10-12 11:40] LABS: Bilirubin, Total 0.3 mg/dL (0.2-1.0)
[2024-10-12 11:47] LABS: Carbon Dioxide 16 mmol/L (20-31); Chloride 121 mmol/L (98-107); Glucose 70 mg/dL (74-106); Sodium 148 mmol/L (136-145)
[2024-10-12 11:48] LABS: Alanine Aminotransferase 69 U/L (7-40)
[2024-10-12] MEDS: REMDESIVIR 200mg in NS 210mL LOADING DOSE ADULT IV ONE (11:49)
[2024-10-12] MEDS ORDERED: GICOCKTAIL GT (14:55)
[2024-10-12] MEDS ORDERED: ACET-1882 PO (14:55)
[2024-10-12] MEDS ORDERED: LEVO25TA6 PO (14:55)
[2024-10-12] MEDS ORDERED: AMIO200T13 PO (14:55)
[2024-10-12] MEDS ORDERED: NIFE1TAB31 PO (14:55)
[2024-10-12] MEDS ORDERED: DONE5TAB80 PO (14:55)
[2024-10-12] MEDS ORDERED: GUA200LQ PO (14:55)
[2024-10-12] MEDS ORDERED: RIV20T PO (14:55)
[2024-10-12] MEDS ORDERED: NIRM1TAB7 PO (14:55)
[2024-10-12] MEDS ORDERED: PANT40T PO (14:55)
--- NOTE | 2024-10-12 19:54 | DVHDSRES ---
Discharge Summary Date of Admission Resident Creating Document: RHINA HUBBARD RESIDENT Oct 06, 2024 at 00:09 Date of Discharge: Oct 12, 2024 Labs/Diagnostic Data: Laboratory Results Test 10/12/24 11:00 10/11/24 18:10 10/11/24 06:29 10/11/24 05:05 Sodium Level 148 mmol/L (136-145) Potassium Level 3.8 mmol/L (3.5-5.1) Chloride Level 121 mmol/L (98-107) Carbon Dioxide Level 16 mmol/L (20-31) Anion Gap 11 (5-15) Blood Urea Nitrogen 11 mg/dL (9-23) Creatinine 0.62 mg/dL (0.550-1.02) Glomerular Filtration Rate Calc 91 mL/min (>90) BUN/Creatinine Ratio 17.7 (10.0-20.0) Serum Glucose 70 mg/dL (74-106) Calcium Level 10.0 mg/dL (8.7-10.4) Total Bilirubin 0.3 mg/dL (0.2-1.0) Aspartate Amino Transferase (AST) 95 U/L (13-40) Alanine Aminotransferase (ALT) 69 U/L (7-40) Alkaline Phosphatase 111 U/L (46-116) Total Protein 6.1 g/dL (5.7-8.2) Albumin 3.3 g/dL (3.2-4.8) Hemoglobin 9.7 g/dL (12.2-16.2) Hematocrit 30.0 % (36.0-46.0) White Blood Count 9.5 10^3/uL (4.4-10.8) Red Blood Count 2.62 10^6/uL (4.0-5.20) Mean Corpuscular Volume 92.8 fL (80.0-100.0) Mean Corpuscular Hemoglobin 30.2 pg (28.0-32.0) Mean Corpuscular Hemoglobin Concent 32.5 g/dL (32.0-36.0) Red Cell Distribution Width 20.5 % (11.8-14.3) Platelet Count 262 10^3/uL (140-450) Mean Platelet Volume 7.4 fL (6.9-10.8) Neutrophils (%) (Auto) 85.2 % (37.0-80.0) Lymphocytes (%) (Auto) 6.3 % (10.0-50.0) Monocytes (%) (Auto) 6.9 % (0.0-12.0) Eosinophils (%) (Auto) 1.2 % (0.0-7.0) Basophils (%) (Auto) 0.4 % (0.0-2.0) Neutrophils # (Auto) 8.1 10 ^3/uL (1.6-8.6) Lymphocytes # (Auto) 0.6 10 ^3/uL (0.4-5.4) Monocytes # (Auto) 0.7 10 ^3/uL (0-1.3) Eosinophils # (Auto) 0.1 10 ^3/uL (0-0.8) Basophils # (Auto) 0 10 ^3/uL (0-0.2) Nucleated Red Blood Cells 0.2 % Influenza Type A Antigen Negative (Negative) Influenza Type B Antigen Negative (Negative) SARS-CoV-2 Antigen (Rapid) Positive (NEGATIVE) Test 10/10/24 12:01 10/09/24 12:20 10/08/24 22:39 10/06/24 03:30 Platelet Estimate Adequate Anisocytosis (manual) Slight Tear Drop Cells Few Urine Color Colorless (Yellow) Urine Clarity Turbid (Clear) Urine pH 6.0 (5.0-9.0) Urine Specific [place] 1.012 (1.001-1.035) Urine Protein Trace (Negative) Urine Ketones 1+ (Negative) Urine Blood 3+ /uL (Negative) Urine Nitrite Negative (Negative) Urine Bilirubin Negative (Negative) Urine Urobilinogen Normal mg/dL (Negative) Urine Leukocyte Esterase 3+ /uL (Negative) Urine RBC 43 /hpf (0 - 4) Urine Microscopic WBC 543 /HPF (0-5) Urine Squamous Epithelial Cells None seen /hpf (<5) Urine Bacteria Few /hpf (None Seen) Urine Mucus Few (None Seen) Urine Glucose Normal mg/dL (Normal) Lactic Acid Level 0.5 mmol/L (0.4-2.0) Lipase 20 U/L (12-53) Test 10/05/24 20:24 Prothrombin Time 16.1 sec (9.3-11.8) Prothrombin Time INR 1.59 (0.9-1.15) Activated Partial Thromboplast Time 38.6 SEC (24.5-34.5) Iron Level 47 ug/dL (50-170) Total Iron Binding Capacity 233 ug/dL (250-425) Percent Iron Saturation 20.2 % (15-50) B-Type Natriuretic Peptide 92.77 pg/mL (0-100) Other Laboratory Tests 10/12/24 11:00 10/11/24 18:10 10/11/24 06:29 Brief Hx & Hospital Course: 79-year-old female with history of hypertension, CHF, hypothyroidism, dual sequential pacemaker, COPD with 2 L, DVT on Xarelto, home oxygen, anemia, asthma, DANNI, CHF presents to the ER with complaints of blood mixed stool and blood in the urine reported by the caregiver. The patient herself did not observe any hematochezia or hematuria. The patient denies any shortness of breath, chest pain, lightheadedness, dizziness, palpitations, weakness, urinary symptoms or any other complaints. The patient is a poor historian and no one was accompanying the patient. Most of the past medical history have been obtained from previous documentations. Hospital course: Initial lab work shows leukocytosis with urinary tract infection and treated with levofloxacin and IV fluid concurrently hold Xarelto. GI recommendation due to hemoglobin 9.9 , patient is on Xarelto possible due to diverticular disease or other pathology. patient is not a candidate for colonoscopy at this time because she is on Xarelto, will follow-up outpatient. CT abdomen and pelvis shows gallbladder surgically removed, 15-16 mm cortical irregularity of left kidney does not taper simple cyst. ultrasound kidney shows simple cyst in left kidney. ECHO shows ejection fraction 55 . Anticoagulant hold due to possible GI bleeding. Patient UA shows hematuria but after holding anticoagulant hematuria improved. No active signs symptoms of bleeding. Patient currently denies any fever cough, SOB, chest pain, headache, dysuria or any acute distress. Blood culture 10/08/2024 negative x two times. Patient having episode of fever during hospitalization and COVID and influenza tested. COVID- 19 became positive on 10/12/2024 patient currently on 2 L home oxygen which she used at home. Patient will be benefitted with halfway care facilities with physical therapy. Patient discharged with Paxlovid for 7 days. Past Medical history: Hypertension, CHF, hypothyroidism, dual sequential pacemaker, COPD with 2 L, DVT on Xarelto, home oxygen, anemia, asthma, DANNI, CHF Past surgical history: sections Home medications: Xarelto, vitamin-D, donepezil, folic acid metoprolol succinate, amiodarone, levothyroxine, docusate sodium, ipratropium Allergies: Atenolol, lisinopril, penicillins Smoking history: 42 pack years. Quit 20 years ago Alcohol: Quit 20 years ago. Used to drink occasionally Drugs: Never PCP: Dr. Birch Physical Examination (PE): GENERAL APPEARANCE: Well developed, well nourished, alert and cooperative, currently on 2 L oxygen via nasal cannula, currently lying on bed EYES: PERRL, EOMI. Fundi normal, vision is grossly intact. EARS: External auditory canals and tympanic membranes clear, CARDIAC: Normal S1 and S2. No S3, S4 or murmurs. Rhythm is regular. There is no peripheral edema, cyanosis or pallor. Extremities are warm and well perfused. Capillary refill is less than 2 seconds. No carotid bruits. LUNGS: Clear to auscultation and percussion without rales, rhonchi, wheezing or diminished breath sounds. ABDOMEN: Positive bowel sounds. Soft, nondistended, nontender. MUSKULOSKELETAL: Gait instability BACK: decreased range of motion or muscular spasm.. NEUROLOGICAL: CN II-XII intact. SKIN: Skin normal color, texture and turgor with no lesions or eruptions. Diagnosis: COVID gastroenteritis Questionable lower GI bleed UTI with Hematuria Normocytic anemia with elevated ferritin DANNI hemodynamically mediated (VMN) - Resolved Left kidney cyst History of DVT - discontinue Rivaroxaban HFpEF with no exacerbation History of non-affiliated arrhythmia - s/p permanent dual chamber pacemaker placement Decubitus sacral ulcer stage II- present on presentation Hypertension Hypothyroidism Hypokalemia Mild hypernatremia COPD on home oxygen (2/min) Asthma Frailty Constipation post diarrhea Goals of care discussed with patient for over 18 minutes: Full code status Discussed case with Dr. Vasquez, patient, family and nurses. Cosigning senior Resident: Sharmila Rucker, agree with discharge summary Operations or Procedures Exam: CT CT AB PEL WO CON-NO ORAL OR IV History: abd pain, GI bleed Comparison Study: None TECHNIQUE: Multidetector CT of the abdomen was performed from lung bases to pubic symphysis. Imaging was performed without IV contrast. Axial, coronal and sagittal multiplanar reformats were obtained from the axial data set by the technologist. Radiation Dose Information: CT Dose: CTDI volume is 5.77 mGy. Dose-length product is 297.62 mGy*cm FINDINGS: Evaluation of solid organs is limited due to lack of intravenous contrast use. Findings: Lung Bases: No acute or significant lung base finding. Normal heart size. No pleural or pericardial effusion. Liver: The liver is normal in size. No focal lesions. Gallbladder and Biliary Tree: Gallbladder has been surgically removed. Spleen: Unremarkable Pancreas: The pancreas is grossly normal in appearance. Adrenal Glands: Unremarkable Kidneys: 15-16 mm cortical irregularity left kidney noticed on series 2, image [address] with IV contrast or renal ultrasound for further evaluation. Punctate calculus right kidney without hydronephrosis. Bladder: Grossly unremarkable for degree of distention. Bowel: The stomach is grossly normal in appearance. Small bowel and colon are normal in caliber and distribution. The appendix is not visualized; however, no secondary findings of acute appendicitis identified. Ascites: Absent Lymphadenopathy: No mesenteric, retroperitoneal or periportal lymphadenopathy. Abdominal Wall and Mesentery: Unremarkable. Vasculature: The visualized abdominal aorta is normal in size and caliber. Evaluation of abdominal and pelvic vessels is limited due to lack of intravenous contrast. Pelvic Organs: Unremarkable Musculoskeletal: No aggressive focal bony lesions, acute fractures or dislocation. Soft tissues: Unremarkable IMPRESSION: 1. Gallbladder has been surgically removed. 2. 15-16 mm cortical irregularity left kidney does not appear to be a simple cyst recommend repeat CT with IV contrast or renal ultrasound for further evaluation. Radiation optimization: All CT scans at this facility use at least one of these dose optimization techniques: automated exposure control mA and/or kV adjustment per patient size (includes targeted exams where dose is matched to clinical indication) or iterative reconstruction. ATED BY: MARILOU SORENSEN Jr., DO DICTATED DATE/TIME: 10/05/242116 ORDERING PHYSICIAN: WILFREDO RUIZ PROCEDURE(s): KIDUS - KIDNEY REASON: Renal cortical irregularity ORDER NUMBER(s): [id number], ACCESSION NUMBER(s): [id number] INDICATION: Renal cortical irregularity TECHNIQUE: Multiple real-time sonographic images of the kidneys and bladder were obtained. COMPARISON: None FINDINGS: RIGHT KIDNEY: Measures 9.1 cm. Increased in echogenicity. No mass. No urinary stones. No hydronephrosis. Decreased cortex. LEFT KIDNEY: Measures 8.6 cm. Increased in echogenicity. No mass. No urinary stones. No hydronephrosis. Decreased cortex. 1.7 x 1.8 x 1.7 cm cysts within the left kidney. BLADDER: Contracted IMPRESSION: 1. Medical renal disease. Decreased bilateral renal cortex. 2. Simple cyst within the left kidney. 3. Empty bladder. ATED BY: TAE RUIZ MD DICTATED DATE/TIME: 10/06/24 0430 Condition at Discharge: Stable Final Diagnosis/Problems List COVID gastroenteritis Questionable lower GI bleed UTI with Hematuria Normocytic anemia with elevated ferritin DANNI hemodynamically mediated (VMN) - Resolved Left kidney cyst History of DVT - discontinue Rivaroxaban HFpEF with no exacerbation History of non-affiliated arrhythmia - s/p permanent dual chamber pacemaker placement Decubitus sacral ulcer stage II- present on presentation Hypertension Hypothyroidism Hypokalemia Mild hypernatremia COPD on home oxygen (2/min) Asthma Frailty Constipation post diarrhea [facility] Discharge Instruct/Medications Diet: Cardiac 2g Na,low cholest, Renal Activity: No Restrictions, As Tolerated Follow Up/Referral: PCP (Dr Birch) Discharge clinic in 7 days Medications: Paxlovid for 7 days Rest of home medication Scheduled Amiodarone HCl (Amiodarone HCl), 200 MG PO DAILY Donepezil Hydrochloride (Donepezil Hcl), 5 MG PO HS Levothyroxine Sodium (Levothyroxine Sodium), 75 MCG PO QAM@0600 Nifedipine (Nifedipine Er), 60 MG PO DAILY Nirmatrelvir/Ritonavir (PAXLOVID 10 x 150 MG & 10 x 100MG), 1 TAB PO BID Pantoprazole Sodium Sesquihydr (Pantoprazole Sodium), 40 MG PO DAILY Scheduled PRN Acetaminophen (Acetaminophen), 650 MG PO Q6HP PRN Alum & Mag Hydrox-Simethicone (Gi Cocktail), 15 ML GT [id number] PRN Guaifenesin (Guaifenesin), 200 MG PO Q6HP PRN Discharge Statement: "Patient was advised to return to the ER or call 911 if any headaches, dizziness, shortness of breath, chest pain, abdominal pain, bleeding, fevers, or worsening of medical condition. Patient was counseled about treatment plan, medications, possible side effects, patientverbalized understanding. All questions were answered to the best of my ability. This discharge took greater then 30 minutes in planning, reviewing documentation, counseling the patient, and discussing with other team members." ASSESSMENT ASSESSMENT Assessment COVID gastroenteritis Date of Service: Oct 12, 2024 Billing Provider: GINA VASQUEZ MD Common Visit Codes: 68030-KJQ/OBS DISCH DAY >30min RHINA HUBBARD RESIDENT Oct 12, 2024 19:54 SHARMILA RUCKER RESIDENT Oct 13, 2024 23:44 GINA VASQUEZ MD Oct 15, 2024 22:42
[2024-10-13] VITALS (9 sets, daily range): BP systolic 133–159; BP diastolic 51–65; PULSE 64–67; RESP 16–20; TEMP 97.8–98.9; O2SAT 95–100
[2024-10-13] MEDS: LACTULOSE 20Gm/30ML SOLN PO ONE (11:00)
[2024-10-13] MEDS ORDERED: REMDESIVIR 100mg in NS 230mL (5 DAY REGIMEN) IV SCH (15:00)
[2024-10-13 15:18] LABS: Hematocrit 25.2 % (36.0-46.0); Hemoglobin 8.3 g/dL (12.2-16.2); Mean Corpuscular Hemoglobin 29.9 pg (28.0-32.0); Mean Corpuscular Volume 90.6 fL (80.0-100.0); Nucleated Red Blood Cells % 0.0 %
[2024-10-13 15:29] LABS: Anion Gap 10 (5-15); BUN/Creatinine Ratio 21.9 (10.0-20.0); Blood Urea Nitrogen 14 mg/dL (9-23); Calcium 9.6 mg/dL (8.7-10.4); Glucose 89 mg/dL (74-106)
[2024-10-13 15:30] LABS: Alanine Aminotransferase 58 U/L (7-40); Albumin 2.8 g/dL (3.2-4.8); Alkaline Phosphatase 119 U/L (46-116); Bilirubin, Total 0.2 mg/dL (0.2-1.0); Carbon Dioxide 19 mmol/L (20-31); Chloride 119 mmol/L (98-107); Potassium 2.6 mmol/L (3.5-5.1); Sodium 148 mmol/L (136-145); Total Protein 5.5 g/dL (5.7-8.2)
[2024-10-13 15:33] LABS: Ferritin 688.7 ng/mL (10-291)
[2024-10-13] MEDS: REMDESIVIR 100mg in NS 230mL (3 DAY REGIMEN) IV SCH (16:24)
[2024-10-13] MEDS: POTASSIUM EFFERVESENT TAB 25 MEQ PO ONE (22:10)
[2024-10-13] MEDS: POTASSIUM EFFERVESENT TAB 25 MEQ GT ONE (22:11)
[2024-10-13] MEDS: LACTULOSE 20Gm/30ML SOLN PO SCH (22:11)
--- NOTE | 2024-10-13 22:13 | DVHPNRES ---
Progress Note Date Seen: Oct 13, 2024 Resident Creating Document: PATRICK RUCKER RESIDENT Medical Necessity Reason Pt with a Central, PICC or Fol: Yes The following are medically ne: Jackson Catheter Subjective Review of Systems Neeta Tate a 79-year-old female presents to the ER with complaints of blood mixed stool and blood in the urine reported by the caregiver. The patient herself did not observe any hematochezia or hematuria. The patient denies any shortness of breath, chest pain, lightheadedness, dizziness, palpitations, weakness, urinary symptoms or any other complaints. The patient is a poor historian and no one was accompanying the patient. Most of the past medical history have been obtained from previous documentations. 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 Past surgical history: sections, cholecystectomy, permanent pacemaker placement Family history: Noncontributory Social history: Lives in [place] with caregiver (she is only part-time, does not have a 24 hour caregiver), her granddaughter takes care of her. Ex tobacco abuse (42 pack-year history of smoking) quit 20 years ago. Occasionally drinks alcohol. Denies current tobacco, alcohol and other drug abuse. Allergies: Atenolol, lisinopril, penicillins Home medications: Xarelto, vitamin-D, donepezil, folic acid, metoprolol succinate, amiodarone, levothyroxine, docusate sodium, ipratropium PCP: Dr. Birch Patient seen and examined at bedside. Currently she has no new complaints, she is still did not have a bowel movement. Increase laxatives and have ordered Fleet enema. Patient was on full liquid diet, advanced to mechanical soft diet and promoting nutrition with ensure. Awaiting placement in SNF once bed is available for COVID positive patient. Patient refuses to ambulate with physical therapy, have placed Jackson catheter since patient has a rash from having a diaper. Objective vital signs Vital Sign Date Time Temp Pulse Resp B/P (MAP) Pulse Ox O2 Delivery O2 Flow Rate FiO2 10/13/24 21:00 97.9 65 20 143/59 (87) 99 97.9 8/26/25 10:00 Nasal Cannula* 2 28 Total Intake and Output 10/12/24 10/12/24 10/13/24 15:00 23:00 07:00 Intake Total 200 ml 400 ml Balance 200 ml 400 ml medications Current Medications Medications Dose Ordered Sig/[place] Route Start Time Stop Time Status Last Admin Dose Admin Sodium Chloride 10 ml Q8HR IV 10/06/24 06:00 10/13/24 14:00 10 ML Donepezil HCl 5 mg HS PO 10/06/24 22:00 10/12/24 22:13 5 MG Levothyroxine Sodium 75 mcg QAM@0600 PO 10/07/24 06:00 10/13/24 06:24 75 MCG Amiodarone HCl 200 mg DAILY PO 10/07/24 10:00 10/13/24 09:46 200 MG Acetaminophen 650 mg Q6HP PRN PO 10/07/24 23:30 10/11/24 04:28 650 MG Nifedipine 60 mg DAILY PO 10/09/24 10:00 10/11/24 09:28 60 MG Pantoprazole Sodium 40 mg BID IV 10/08/24 22:00 10/13/24 09:46 40 MG Al Hydrox/Mg Hydrox/Simethicone 15 ml [id number] PRN GT 10/08/24 19:15 10/10/24 10:58 15 ML Morphine Sulfate 1 mg Q4HP PRN IV 10/08/24 19:15 10/10/24 16:42 1 MG Sodium Chloride 1,000 ml @ 125 mls/hr Q8H IV 10/09/24 10:45 10/13/24 19:00 125 MLS/HR Levofloxacin 50 ml @ 50 mls/hr DAILY IV 10/11/24 10:00 10/13/24 09:46 50 MLS/HR Guaifenesin 200 mg Q6HP PRN PO 10/11/24 12:00 10/12/24 09:58 200 MG Remdesivir 0 ml @ 0 mls/hr PER PHARMACY IV 10/12/24 07:30 10/14/24 07:31 Remdesivir 100 mg/ Sodium Chloride 250 ml @ 250 mls/hr DAILY@1500 IV 10/13/24 15:00 10/14/24 15:59 10/13/24 16:24 250 MLS/HR Lactulose 30 ml BID PO 10/13/24 22:00 Examination Patient lying in bed, in no acute distress General: Lucid, frail, afebrile, mucosae are moist Cardiovascular: Normal S1 and S2. No murmurs, gallops or rubs Respiratory: Normal ventilation mechanics. Clear lung sounds on auscultation Abdomen: Soft, nontender, no organomegaly, normal bowel sounds. Additional retinal exam shows no stool in rectal vault, no hemorrhoids were palpated. MSK/skin: Mobilizes 4 limbs. Skin is dry and warm. Decubitus Sacral ulcer stage II. Mild erythema in vulvar area. Neurological: Oriented in 3 spheres. No motor no sensitive deficits. Pupils are isocoric and reactive laboratory and microbiology Laboratory Tests 10/13/24 14:59 Test 10/13/24 14:59 Range/Units Serum Glucose 89 74-106 mg/dL Microbiology Date/Time Source Procedure Growth Status 10/08/24 22:39 Blood Blood Culture - Preliminary NO GROWTH AFTER 72 HOURS OF INCUBATION. Resulted 10/08/24 12:20 Voided Urine Urine Culture - Final Complete Problem List/Assessment/Plan Problem List/Assessment/Plan ASSESSMENT COVID gastroenteritis Questionable lower GI bleed UTI with Hematuria Normocytic anemia with elevated ferritin DANNI hemodynamically mediated (VMN) - Resolved Left kidney cyst History of DVT - discontinue Rivaroxaban HFpEF with no exacerbation History of non-affiliated arrhythmia - s/p permanent dual chamber pacemaker placement Decubitus sacral ulcer stage II- present on presentation Hypertension Hypothyroidism Hypokalemia Mild hypernatremia COPD on home oxygen (2/min) Asthma Frailty Constipation post diarrhea PLAN Completed abdomen and pelvis CT which showed gallbladder surgically removed and 15-60 mm cortical irregularity of left kidney, obtain later ultrasound of kidney which showed simple cyst on left kidney. Consulted GI specialist who recommended falling H&H and if deemed necessary to complete abdomen and pelvis CT with oral and IV contrast. Still pending stool sample to evaluate stool occult blood. Completed digital rectal exam with showed empty rectal vault, no hemorrhoids. Patient currently completing remdesivir treatment (already received two out of three infusions). We will complete IV course, or if not we will continue with p.o. course if SNF bed is available. Completed echocardiogram which showed LVEF of 55% and normal RV function, left atrium is mildly enlarged in she has aortic sclerosis. Currently patient is off blood thinners due to anemia (she previously was on rivaroxaban due to provoked DVTs from being bed-bound). Have explained risk of doing so, which includes presenting DVT and PE. Patient is on SCDs. Ordered PT sessions, but patient is refusing at the moment. Have addressed decision to family member. Planning discharge to SNF for physical therapy sessions, pending bed availability for COVID positive patient Patient's urine analysis shows values compatible with UTI and microscopic hematuria, urine culture showed less than [id number] colonies. We will complete course of levofloxacin (we will complete five days on 10/16/2024) No indication for iron since ferritin level is elevated. Patient is currently now constipated, have indicated laxative treatment, if this fails enema. Progress diet from full liquid to mechanical soft and added ensure. Goals of care discussed with patient for over 18 minutes: Full code status Discussed plan with Dr. Vasquez, patient, family and nurses: Planning discharge to SNF once bed is available for COVID positive patient, planning to complete physical therapy sessions. Patient is not willing to cooperate with PT sessions at this point. Currently completing remdesivir and levofloxacin treatment for COVID gastroenteritis and UTI, remdesivir we will be completed on 10/15/2024 and Levaquin we will be completed in 10/16/2024. Patient has poor prognosis. Plan discussed with: Patient, Daughter (Ann Marie (stepdaughter)), Other (Nurses) My Orders My Orders Orders - PATRICK RUCKER RESIDENT Procedure Category Date Status Time Insert Jackson Catheter ABENA 10/13/24 In Process 11:00 Lactulose Oral PHA 10/13/24 In Process 22:00 Potassium Effervesent PHA 10/13/24 In Process Tab (Klor-Con/Ef) 22:15 Complete Blood Count LAB 10/14/24 Verified 04:00 Comprehensive LAB 10/14/24 Verified Metabolic Panel 04:00 Ammonia LAB 10/14/24 Verified 04:00 Magnesium LAB 10/14/24 Verified 04:00 Phosphorus LAB 10/14/24 Verified 04:00 PTPTT LAB 10/14/24 Verified 04:00 Fleet Enema Adult PHA 10/13/24 In Process 22:15 Acute Hepatitis Panel LAB 10/13/24 Logged 22:07 Wound Culture W/ Gs LAURI 10/13/24 Uncollected 22:09 Dietary Evaluation Review Comments: Nutrition Recommendation 1) Consider Ensure High Protein 240ml BID if PO intake <50% 2) [place]on 1 pk BID, MVI w/ minerals 1 tab daily, VitC 500mg BID, Zinc sulfate 220mg BID x 10 days 3) Monitor PO intake, lab values, weight trend, and I/O Expected Outcomes/Goals: To meet >75% estimated needs Wound to improve Fu 3-5 days Date of Service: Oct 13, 2024 Billing Provider: GINA VASQUEZ MD Common Visit Codes: [id number] INP/OBS CARE(HIGH) PATRICK RUCKER RESIDENT Oct 13, 2024 22:13 GINA VASQUEZ MD Oct 20, 2024 21:26
[2024-10-13] MEDS: FLEET ENEMA(ADULT) 135 ML PR ONE (22:15)
[2024-10-14] VITALS (9 sets, daily range): BP systolic 129–152; BP diastolic 32–92; PULSE 63–81; RESP 18–20; TEMP 97.3–98.1; O2SAT 95–100
[2024-10-14 04:43] LABS: Urine Protein, UAD 1+ (Negative); Urine WBC Clumps PRESENT /hpf (None Seen)
[2024-10-14] MEDS: Ensure HIGH Protein Chocolate 8oz Bottle PO SCH (08:18)
[2024-10-14 08:55] LABS: Hematocrit 34.4 % (36.0-46.0); Hemoglobin 10.1 g/dL (12.2-16.2); Mean Corpuscular Hemoglobin 29.9 pg (28.0-32.0); Mean Corpuscular Volume 102.4 fL (80.0-100.0); Nucleated Red Blood Cells % 0.4 %
[2024-10-14 09:10] LABS: Albumin 3.2 g/dL (3.2-4.8); Anion Gap 10 (5-15); BUN/Creatinine Ratio 12.1 (10.0-20.0); Calcium 10.1 mg/dL (8.7-10.4); Glucose 83 mg/dL (74-106); Magnesium 1.8 mg/dL (1.6-2.6); Potassium 4.1 mmol/L (3.5-5.1); Total Protein 5.9 g/dL (5.7-8.2)
[2024-10-14 09:17] LABS: Alanine Aminotransferase 75 U/L (7-40); Alkaline Phosphatase 139 U/L (46-116); Bilirubin, Total 0.3 mg/dL (0.2-1.0); Blood Urea Nitrogen 8 mg/dL (9-23); Carbon Dioxide 17 mmol/L (20-31); Chloride 120 mmol/L (98-107); Sodium 147 mmol/L (136-145)
[2024-10-14 14:33] LABS: Hepatitis B Surface Antigen Negative (Negative)
[2024-10-14 14:55] LABS: Hepatitis C Antibody Negative (Negative)
--- NOTE | 2024-10-14 20:17 | DVHPNRES ---
Progress Note Date Seen: Oct 14, 2024 Resident Creating Document: RHINA HUBBARD RESIDENT Medical Necessity Reason Pt with a Central, PICC or Fol: Yes The following are medically ne: Jackson Catheter Subjective Review of Systems Neeta Amosis a 79-year-old female presents to the ER with complaints of blood mixed stool and blood in the urine reported by the caregiver. The patient herself did not observe any hematochezia or hematuria. The patient denies any shortness of breath, chest pain, lightheadedness, dizziness, palpitations, weakness, urinary symptoms or any other complaints. The patient is a poor historian and no one was accompanying the patient. Most of the past medical history have been obtained from previous documentations. 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 Past surgical history: sections, cholecystectomy, permanent pacemaker placement Family history: Noncontributory Social history: [place] (she is only part-time, does not have a 24 hour caregiver), her granddaughter takes care of her. Ex tobacco abuse (42 pack-year history of smoking) quit 20 years ago. Occasionally drinks alcohol. Denies current tobacco, alcohol and other drug abuse. Allergies: Atenolol, lisinopril, penicillins Home medications: Xarelto, vitamin-D, donepezil, folic acid, metoprolol succinate, amiodarone, levothyroxine, docusate sodium, ipratropium PCP: Dr. Birch Patient seen and examined at bedside. Patient denies acute distress. Awaiting placement in SNF once bed is available for COVID positive patient.Jackson catheter since patient has a rash from having a diaper. Hemoglobin 8.3, no signs symptoms of active bleeding. Stool for occult blood test [id number] and repeated twice FOBT came back negative. Patient denies any fever cough, abdominal pain, dysuria or any acute distress. Currently on 2 L oxygen via nasal cannula. Objective vital signs Vital Sign Date Time Temp Pulse Resp B/P (MAP) Pulse Ox O2 Delivery O2 Flow Rate FiO2 10/14/24 17:00 97.3 63 18 152/76 (101) 100 97.3 10/14/24 10:00 Nasal Cannula* 2 28 Total Intake and Output 10/13/24 10/13/24 10/14/24 15:00 23:00 07:00 Intake Total 50 ml 650 ml 150 ml Output Total 100 ml 200 ml Balance 50 ml 550 ml -50 ml medications Current Medications Medications Dose Ordered Sig/Austin Route Start Time Stop Time Status Last Admin Dose Admin Sodium Chloride 10 ml Q8HR IV 10/06/24 06:00 10/14/24 14:08 10 ML Donepezil HCl 5 mg HS PO 10/06/24 22:00 10/13/24 22:11 5 MG Levothyroxine Sodium 75 mcg QAM@0600 PO 10/07/24 06:00 10/14/24 06:11 75 MCG Amiodarone HCl 200 mg DAILY PO 10/07/24 10:00 10/14/24 10:39 200 MG Acetaminophen 650 mg Q6HP PRN PO 10/07/24 23:30 10/11/24 04:28 650 MG Nifedipine 60 mg DAILY PO 10/09/24 10:00 10/14/24 10:38 60 MG Pantoprazole Sodium 40 mg BID IV 10/08/24 22:00 10/14/24 10:38 40 MG Al Hydrox/Mg Hydrox/Simethicone 15 ml [id number] PRN GT 10/08/24 19:15 10/10/24 10:58 15 ML Morphine Sulfate 1 mg Q4HP PRN IV 10/08/24 19:15 10/10/24 16:42 1 MG Levofloxacin 50 ml @ 50 mls/hr DAILY IV 10/11/24 10:00 10/14/24 10:37 50 MLS/HR Guaifenesin 200 mg Q6HP PRN PO 10/11/24 12:00 10/14/24 10:38 200 MG Lactulose 30 ml BID PO 10/13/24 22:00 10/13/24 22:11 30 ML Enteral Nutritional Formula 240 ml TIDWM PO 10/14/24 08:00 10/14/24 18:12 240 ML Examination Patient lying in bed, in no acute distress Jackson catheter in place and urine color clear. General: Lucid, frail, afebrile, mucosae are moist Cardiovascular: Normal S1 and S2. No murmurs, gallops or rubs Respiratory: Normal ventilation mechanics. Clear lung sounds on auscultation Abdomen: Soft, nontender, no organomegaly, normal bowel sounds. Additional retinal exam shows no stool in rectal vault, no hemorrhoids were palpated. MSK/skin: Mobilizes 4 limbs. Skin is dry and warm. Decubitus Sacral ulcer stage II. Mild erythema in vulvar area. Neurological: Oriented in 3 spheres. No motor no sensitive deficits. Pupils are isocoric and reactive laboratory and microbiology Laboratory Tests 10/14/24 08:38 Test 10/14/24 08:38 Range/Units Serum Glucose 83 74-106 mg/dL Microbiology Date/Time Source Procedure Growth Status 10/08/24 22:39 Blood Blood Culture - Final NO GROWTH AFTER 5 DAYS OF INCUBATION. Complete 10/08/24 12:20 Voided Urine Urine Culture - Final Complete Problem List/Assessment/Plan Problem List/Assessment/Plan ASSESSMENT COVID gastroenteritis Questionable lower GI bleed UTI with Hematuria Normocytic anemia with elevated ferritin DANNI hemodynamically mediated (VMN) - Resolved Left kidney cyst History of DVT - discontinue Rivaroxaban HFpEF with no exacerbation History of non-affiliated arrhythmia - s/p permanent dual chamber pacemaker placement Decubitus sacral ulcer stage II- present on presentation Hypertension Hypothyroidism Hypokalemia Mild hypernatremia COPD on home oxygen (2/min) Asthma Frailty Constipation post diarrhea Anemia Hypo magnesemia Transaminitis PLAN Completed abdomen and pelvis CT which showed gallbladder surgically removed and 15-60 mm cortical irregularity of left kidney, obtain later ultrasound of kidney which showed simple cyst on left kidney. Consulted GI specialist who recommended falling H&H and if deemed necessary to complete abdomen and pelvis CT with oral and IV contrast. Still pending stool sample to evaluate stool occult blood. Completed digital rectal exam with showed empty rectal vault, no hemorrhoids. Patient currently completing remdesivir treatment (already received two out of three infusions). We will complete IV course, or if not we will continue with p.o. course if SNF bed is available. Completed echocardiogram which showed LVEF of 55% and normal RV function, left atrium is mildly enlarged in she has aortic sclerosis. Currently patient is off blood thinners due to anemia (she previously was on rivaroxaban due to provoked DVTs from being bed-bound). Have explained risk of doing so, which includes presenting DVT and PE. Patient is on SCDs. Ordered PT sessions, but patient is refusing at the moment. Have addressed decision to family member. Planning discharge to SNF for physical therapy sessions, pending bed availability for COVID positive patient Patient's urine analysis shows values compatible with UTI and microscopic hematuria, urine culture showed less than [id number] colonies. We will complete course of levofloxacin (we will complete five days on 10/16/2024) No indication for iron since ferritin level is elevated. Patient is currently now constipated, have indicated laxative treatment, if this fails enema. Progress diet from full liquid to mechanical soft and added ensure. Bowel or bed today. Jackson catheter in place. Goals of care discussed with patient for over 21 minutes: Full code status Discussed plan with Dr. Vasquez. Waiting for placement SNF. Cosigned by Dr Nugent, PGY2 Resident Plan discussed with: Patient, Other (nurses) Dietary Evaluation Review Comments: Nutrition Recommendation 1) Consider Ensure High Protein 240ml BID if PO intake <50% 2) Laron 1 pk BID, MVI w/ minerals 1 tab daily, VitC 500mg BID, Zinc sulfate 220mg BID x 10 days 3) Monitor PO intake, lab values, weight trend, and I/O Expected Outcomes/Goals: To meet >75% estimated needs Wound to improve Fu 3-5 days Date of Service: Oct 14, 2024 Billing Provider: GINA VASQUEZ MD Common Visit Codes: [id number] INP/OBS CARE(MOD) RHINA HUBBARD RESIDENT Oct 14, 2024 20:16 WILFREDO HILARIO RESIDENT Oct 15, 2024 07:54 GINA VASQUEZ MD Oct 20, 2024 21:40
[2024-10-14 21:28] LABS: INR 1.18 (0.9-1.15); Partial Thromboplastin Time 31.7 SEC (24.5-34.5); Prothrombin Time 12.3 sec (9.3-11.8)
[2024-10-15] VITALS (8 sets, daily range): BP systolic 127–148; BP diastolic 51–91; PULSE 65–86; RESP 16–18; TEMP 97.6–98.6; O2SAT 95–99
--- NOTE | 2024-10-15 19:18 | DVHPNRES ---
Progress Note Date Seen: Oct 15, 2024 Resident Creating Document: RHINA HUBBARD RESIDENT Medical Necessity Reason Pt with a Central, PICC or Fol: No The following are medically ne: Jackson Catheter Subjective Review of Systems Neeta Amct a 79-year-old female presents to the ER with complaints of blood mixed stool and blood in the urine reported by the caregiver. The patient herself did not observe any hematochezia or hematuria. The patient denies any shortness of breath, chest pain, lightheadedness, dizziness, palpitations, weakness, urinary symptoms or any other complaints. The patient is a poor historian and no one was accompanying the patient. Most of the past medical history have been obtained from previous documentations. 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 Past surgical history: sections, cholecystectomy, permanent pacemaker placement Family history: Noncontributory Social history: Lives in [place] with caregiver (she is only part-time, does not have a 24 hour caregiver), her granddaughter takes care of her. Ex tobacco abuse (42 pack-year history of smoking) quit 20 years ago. Occasionally drinks alcohol. Denies current tobacco, alcohol and other drug abuse. Allergies: Atenolol, lisinopril, penicillins Home medications: Xarelto, vitamin-D, donepezil, folic acid, metoprolol succinate, amiodarone, levothyroxine, docusate sodium, ipratropium PCP: Dr. Birch Patient seen on bedside, not in acute distress. Patient on lying position and encourage for ambulation. Awaiting placement in SNF once bed is available for COVID positive patient.Jackson catheter since patient has a rash from having a diaper. Patient denies any fever cough, abdominal pain, dysuria or any acute distress. Currently on 2 L oxygen via nasal cannula. Called daughter (Anastacio Jesus) and explained pt current medical conditions, verbally understand whatever discussed.([phone]) Patient explained, she will be benefitted with physical therapy. Objective vital signs Vital Sign Date Time Temp Pulse Resp B/P (MAP) Pulse Ox O2 Delivery O2 Flow Rate FiO2 10/15/24 16:38 97.6 86 16 127/63 (84) 97 97.6 10/15/24 12:13 Nasal Cannula 2.0 10/15/24 12:13 28 Total Intake and Output 10/14/24 10/14/24 10/15/24 15:00 23:00 07:00 Intake Total 490 ml 100 ml Output Total 400 ml 450 ml Balance 90 ml -350 ml medications Current Medications Medications Dose Ordered Sig/Austin Route Start Time Stop Time Status Last Admin Dose Admin Sodium Chloride 10 ml Q8HR IV 10/06/24 06:00 10/15/24 13:20 10 ML Donepezil HCl 5 mg HS PO 10/06/24 22:00 10/14/24 21:27 5 MG Levothyroxine Sodium 75 mcg QAM@0600 PO 10/07/24 06:00 10/15/24 05:05 75 MCG Amiodarone HCl 200 mg DAILY PO 10/07/24 10:00 10/15/24 10:19 200 MG Acetaminophen 650 mg Q6HP PRN PO 10/07/24 23:30 10/11/24 04:28 650 MG Nifedipine 60 mg DAILY PO 10/09/24 10:00 10/15/24 10:19 60 MG Pantoprazole Sodium 40 mg BID IV 10/08/24 22:00 10/15/24 10:18 40 MG Al Hydrox/Mg Hydrox/Simethicone 15 ml [id number] PRN GT 10/08/24 19:15 10/10/24 10:58 15 ML Morphine Sulfate 1 mg Q4HP PRN IV 10/08/24 19:15 10/10/24 16:42 1 MG Levofloxacin 50 ml @ 50 mls/hr DAILY IV 10/11/24 10:00 10/15/24 10:18 50 MLS/HR Guaifenesin 200 mg Q6HP PRN PO 10/11/24 12:00 10/14/24 21:34 200 MG Lactulose 30 ml BID PO 10/13/24 22:00 10/15/24 10:19 30 ML Enteral Nutritional Formula 240 ml TIDWM PO 10/14/24 08:00 10/15/24 17:58 240 ML Examination Patient lying in bed, in no acute distress Jackson catheter in place and urine color clear. General: Lucid, frail, afebrile, mucosae are moist Cardiovascular: Normal S1 and S2. No murmurs, gallops or rubs Respiratory: Normal ventilation mechanics. Clear lung sounds on auscultation Abdomen: Soft, nontender, no organomegaly, normal bowel sounds. Additional retinal exam shows no stool in rectal vault, no hemorrhoids were palpated. MSK/skin: Mobilizes 4 limbs. Skin is dry and warm. Decubitus Sacral ulcer stage II. Mild erythema in vulvar area. Neurological: Oriented in 3 spheres. No motor no sensitive deficits. Pupils are i reactive laboratory and microbiology Laboratory Tests 10/14/24 08:38 Test 10/14/24 08:38 Range/Units Serum Glucose 83 74-106 mg/dL Microbiology Date/Time Source Procedure Growth Status 10/08/24 22:39 Blood Blood Culture - Final NO GROWTH AFTER 5 DAYS OF INCUBATION. Complete 10/08/24 12:20 Voided Urine Urine Culture - Final Complete Problem List/Assessment/Plan Problem List/Assessment/Plan ASSESSMENT COVID gastroenteritis Questionable lower GI bleed UTI with Hematuria Normocytic anemia with elevated ferritin DANNI hemodynamically mediated (VMN) - Resolved Left kidney cyst History of DVT - discontinue Rivaroxaban HFpEF with no exacerbation History of non-affiliated arrhythmia - s/p permanent dual chamber pacemaker placement Decubitus sacral ulcer stage II- present on presentation Hypertension Hypothyroidism Hypokalemia 2.9 Mild hypernatremia COPD on home oxygen (2/min) Asthma Frailty Constipation post diarrhea Anemia Hypo magnesemia Transaminitis Hyperammomia Report and image: Completed abdomen and pelvis CT which showed gallbladder surgically removed and 15-60 mm cortical irregularity of left kidney, obtain later ultrasound of kidney which showed simple cyst on left kidney. Consulted GI specialist who recommended falling H&H and if deemed necessary to complete abdomen and pelvis CT with oral and IV contrast. Still pending stool sample to evaluate stool occult blood. Completed digital rectal exam with showed empty rectal vault, no hemorrhoids. Completed echocardiogram which showed LVEF of 55% and normal RV function, left atrium is mildly enlarged in she has aortic sclerosis. PLAN Acetaminophen 650 mg p.o. q.6 p.r.n. Maalox 15 mL through G-tube q.12h p.r.n. Amiodarone 200 mg p.o. daily Donepezil 5 mg p.o. daily Guaifenesin liquid 200 mg p.o. q.6 p.r.n. for cough Lactulose 30 mL p.o. b.i.d. Levofloxacin 250 mg IV daily Levothyroxine 75 mcg p.o. q.a.m. Nifedipine 60 mg p.o. daily Nutritional supplement daily Pantoprazole 40 mg po b.i.d. K IV 40 mEq Currently patient is off blood thinners due to anemia (she previously was on rivaroxaban due to provoked DVTs from being bed-bound). Have explained risk of doing so, which includes presenting DVT and PE. Patient is on SCDs. Ordered PT sessions, but patient is refusing at the moment. Have addressed decision to family member. Planning discharge to SNF for physical therapy sessions, pending bed availability for COVID positive patient Patient's urine analysis shows values compatible with UTI and microscopic hematuria, urine culture showed less than [id number] colonies. We will complete course of levofloxacin (we will complete five days on 10/16/2024) No indication for iron since ferritin level is elevated. Patient currently completing remdesivir treatment (already received two out of three infusions). We will complete IV course, or if not we will continue with p.o. course if SNF bed is available. Patient is currently now constipated, have indicated laxative treatment, if this fails enema. Progress diet from full liquid to mechanical soft and added ensure. Bowel or bed today. Jackson catheter in place. Goals of care discussed with patient for over 19 minutes: Full code status Cosigned by Dr Nugent, PGY2, resident Discussed plan with Dr. Vasquez. Waiting for placement SNF. Plan discussed with: Patient, Other (Nurse) My Orders My Orders Orders - RHINA HUBBARD RESIDENT Procedure Category Date Status Time Pt Request For Service PT 10/15/24 Logged 18:55 Dietary Evaluation Review Comments: Nutrition Recommendation 1) Consider Ensure High Protein 240ml BID if PO intake <50% 2) Laron 1 pk BID, MVI w/ minerals 1 tab daily, VitC 500mg BID, Zinc sulfate 220mg BID x 10 days 3) Monitor PO intake, lab values, weight trend, and I/O Expected Outcomes/Goals: To meet >75% estimated needs Wound to improve Fu 3-5 days Date of Service: Oct 15, 2024 Billing Provider: GINA VASQUEZ MD Common Visit Codes: [id number] INP/OBS CARE(HIGH) RHINA HUBBARD RESIDENT Oct 15, 2024 19:18 WILFREDO HILARIO RESIDENT Oct 15, 2024 23:13 PATRICK RUCKER RESIDENT Oct 16, 2024 21:35 GINA VASQUEZ MD Oct 23, 2024 21:01
[2024-10-15 20:34] LABS: Hematocrit 25.3 % (36.0-46.0)
[2024-10-15 20:35] LABS: Hemoglobin 8.1 g/dL (12.2-16.2); Mean Corpuscular Hemoglobin 29.8 pg (28.0-32.0); Mean Corpuscular Volume 92.6 fL (80.0-100.0); Nucleated Red Blood Cells % 0.5 %
[2024-10-15 20:51] LABS: Anion Gap 11 (5-15); BUN/Creatinine Ratio 27.8 (10.0-20.0); Bilirubin, Total 0.3 mg/dL (0.2-1.0); Blood Urea Nitrogen 20 mg/dL (9-23); Calcium 9.6 mg/dL (8.7-10.4)
[2024-10-15 20:52] LABS: Alanine Aminotransferase 74 U/L (7-40); Albumin 2.7 g/dL (3.2-4.8); Alkaline Phosphatase 137 U/L (46-116); Carbon Dioxide 19 mmol/L (20-31); Chloride 119 mmol/L (98-107); Glucose 126 mg/dL (74-106); Potassium 2.9 mmol/L (3.5-5.1); Sodium 149 mmol/L (136-145); Total Protein 5.3 g/dL (5.7-8.2)
[2024-10-16] VITALS (7 sets, daily range): BP systolic 113–140; BP diastolic 45–74; PULSE 64–66; RESP 17–20; TEMP 97–98.2; O2SAT 99–100
[2024-10-16] MEDS: POTASSIUM CHL 20MEQ/100ML 100 ML IV SCH (00:03)
[2024-10-16] MEDS: PANTOPRAZOLE 40 MG TAB PO SCH (05:10)
[2024-10-16] MEDS ORDERED: SOD CHL 0.45% 500 ML IV ONE (06:30)
[2024-10-16 18:06] LABS: Hematocrit 26.4 % (36.0-46.0); Hemoglobin 8.5 g/dL (12.2-16.2); Mean Corpuscular Hemoglobin 28.7 pg (28.0-32.0); Mean Corpuscular Volume 88.6 fL (80.0-100.0); Nucleated Red Blood Cells % 0.1 %
[2024-10-16 19:38] LABS: Potassium 3.7 mmol/L (3.5-5.1)
[2024-10-16 19:39] LABS: Anion Gap 9 (5-15); Carbon Dioxide 21 mmol/L (20-31)
[2024-10-16 19:40] LABS: Calcium 10.2 mg/dL (8.7-10.4)
[2024-10-16 19:44] LABS: Glucose 101 mg/dL (74-106)
[2024-10-16 19:45] LABS: BUN/Creatinine Ratio 32.4 (10.0-20.0); Blood Urea Nitrogen 22 mg/dL (9-23)
[2024-10-16 19:51] LABS: Chloride 119 mmol/L (98-107); Sodium 149 mmol/L (136-145)
--- NOTE | 2024-10-16 21:20 | DVHPNRES ---
Progress Note Date Seen: Oct 16, 2024 Resident Creating Document: RHINA HUBBARD RESIDENT Medical Necessity Reason Pt with a Central, PICC or Fol: No The following are medically ne: Jackson Catheter Subjective Review of Systems Neeta Amosis a 79-year-old female presents to the ER with complaints of blood mixed stool and blood in the urine reported by the caregiver. The patient herself did not observe any hematochezia or hematuria. The patient denies any shortness of breath, chest pain, lightheadedness, dizziness, palpitations, weakness, urinary symptoms or any other complaints. The patient is a poor historian and no one was accompanying the patient. Most of the past medical history have been obtained from previous documentations. 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 Past surgical history: sections, cholecystectomy, permanent pacemaker placement Family history: Noncontributory Social history: Lives in [place] with caregiver (she is only part-time, does not have a 24 hour caregiver), her granddaughter takes care of her. Ex tobacco abuse (42 pack-year history of smoking) quit 20 years ago. Occasionally drinks alcohol. Denies current tobacco, alcohol and other drug abuse. Allergies: Atenolol, lisinopril, penicillins Home medications: Xarelto, vitamin-D, donepezil, folic acid, metoprolol succinate, amiodarone, levothyroxine, docusate sodium, ipratropium PCP: Dr. Birch Patient seen on bedside, not in acute distress. Patient on lying position and encourage for ambulation. Patient denies any fever cough, abdominal pain, dysuria or any acute distress. Currently on 2 L oxygen via nasal cannula. Patient explained, she will be benefitted with physical therapy. Family wishes to place the patient in intermediate facility but if it is getting difficult to place. Patient will be discharge at home. Contact isolation due to COVID-19 positive. Awaiting placement in SNF once bed is available for COVID positive patient.Jackson catheter since patient has a rash from having a diaper. Objective vital signs Vital Sign Date Time Temp Pulse Resp B/P (MAP) Pulse Ox O2 Delivery O2 Flow Rate FiO2 10/16/24 17:00 98.2 65 20 140/74 (96) 100 98.2 10/16/24 10:00 Nasal Cannula 2.0 10/16/24 10:00 28 Total Intake and Output 10/15/24 10/15/24 10/16/24 15:00 23:00 07:00 Intake Total 50 ml 620 ml 337 ml Output Total 40 ml 175 ml Balance 50 ml 580 ml 162 ml medications Current Medications Medications Dose Ordered Sig/Austin Route Start Time Stop Time Status Last Admin Dose Admin Donepezil HCl 5 mg HS PO 10/06/24 22:00 10/15/24 22:10 5 MG Levothyroxine Sodium 75 mcg QAM@0600 PO 10/07/24 06:00 10/16/24 05:10 75 MCG Amiodarone HCl 200 mg DAILY PO 10/07/24 10:00 10/16/24 10:56 200 MG Acetaminophen 650 mg Q6HP PRN PO 10/07/24 23:30 10/11/24 04:28 650 MG Nifedipine 60 mg DAILY PO 10/09/24 10:00 10/16/24 10:57 60 MG Al Hydrox/Mg Hydrox/Simethicone 15 ml [id number] PRN GT 10/08/24 19:15 10/10/24 10:58 15 ML Morphine Sulfate 1 mg Q4HP PRN IV 10/08/24 19:15 10/10/24 16:42 1 MG Levofloxacin 50 ml @ 50 mls/hr DAILY IV 10/11/24 10:00 10/16/24 10:56 50 MLS/HR Guaifenesin 200 mg Q6HP PRN PO 10/11/24 12:00 10/14/24 21:34 200 MG Enteral Nutritional Formula 240 ml TIDWM PO 10/14/24 08:00 10/16/24 17:39 240 ML Pantoprazole Sodium 40 mg BID@0600,1700 PO 10/16/24 06:00 10/16/24 17:39 40 MG Examination Patient lying in bed, in no acute distress Jackson catheter in place and urine color clear. General: Lucid, frail, afebrile, mucosae are moist Cardiovascular: Normal S1 and S2. No murmurs, gallops or rubs Respiratory: Normal ventilation mechanics. Clear lung sounds on auscultation, oxygen via NC Abdomen: Soft, nontender, no organomegaly, normal bowel sounds. Additional retinal exam shows no stool in rectal vault, no hemorrhoids were palpated. MSK/skin: Mobilizes 4 limbs. Skin is dry and warm. Decubitus Sacral ulcer stage II. Mild erythema in vulvar area. Neurological: Oriented in 3 spheres. No motor no sensitive deficits. Pupils are i reactive laboratory and microbiology Laboratory Tests 10/16/24 19:11 10/16/24 17:50 Test 10/16/24 19:11 Range/Units Serum Glucose 101 74-106 mg/dL Microbiology Date/Time Source Procedure Growth Status 10/08/24 22:39 Blood Blood Culture - Final NO GROWTH AFTER 5 DAYS OF INCUBATION. Complete 10/08/24 12:20 Voided Urine Urine Culture - Final Complete Problem List/Assessment/Plan Problem List/Assessment/Plan ASSESSMENT COVID gastroenteritis Questionable lower GI bleed UTI with Hematuria Normocytic anemia with elevated ferritin DANNI hemodynamically mediated (VMN) - Resolved Left kidney cyst History of DVT - discontinue Rivaroxaban HFpEF with no exacerbation History of non-affiliated arrhythmia - s/p permanent dual chamber pacemaker placement Decubitus sacral ulcer stage II- present on presentation Hypertension Hypothyroidism Hypokalemia Mild hypernatremia COPD on home oxygen (2/min) Asthma Frailty Constipation post diarrhea Anemia Hypo magnesemia Transaminitis Hyperammomia Report and image: Completed abdomen and pelvis CT which showed gallbladder surgically removed and 15-60 mm cortical irregularity of left kidney, obtain later ultrasound of kidney which showed simple cyst on left kidney. Consulted GI specialist who recommended falling H&H and if deemed necessary to complete abdomen and pelvis CT with oral and IV contrast. Still pending stool sample to evaluate stool occult blood. Completed digital rectal exam with showed empty rectal vault, no hemorrhoids. Completed echocardiogram which showed LVEF of 55% and normal RV function, left atrium is mildly enlarged in she has aortic sclerosis. PLAN Acetaminophen 650 mg p.o. q.6 p.r.n. Maalox 15 mL through G-tube q.12h p.r.n. Amiodarone 200 mg p.o. daily Donepezil 5 mg p.o. daily Guaifenesin liquid 200 mg p.o. q.6 p.r.n. for cough Lactulose 30 mL p.o. b.i.d. Levofloxacin 250 mg IV daily Levothyroxine 75 mcg p.o. q.a.m. Nifedipine 60 mg p.o. daily Nutritional supplement daily Pantoprazole 40 mg po b.i.d. Currently patient is off blood thinners due to anemia (she previously was on rivaroxaban due to provoked DVTs from being bed-bound). Have explained risk of doing so, which includes presenting DVT and PE. Patient is on SCDs. Ordered PT sessions, but patient is refusing at the moment. Have addressed decision to family member. Planning discharge to SNF for physical therapy sessions, pending bed availability for COVID positive patient Patient's urine analysis shows values compatible with UTI and microscopic hematuria, urine culture showed less than [id number] colonies. We will complete course of levofloxacin (we will complete five days on 10/16/2024) No indication for iron since ferritin level is elevated. Patient currently completing remdesivir treatment (already received two out of three infusions). We will complete IV course, or if not we will continue with p.o. course if SNF bed is available. Patient is currently now constipated, have indicated laxative treatment, if this fails enema. Progress diet from full liquid to mechanical soft and added ensure. Bowel or bed today. Jackson catheter in place. Contact isolation due to COVID positive Goals of care discussed with patient for over 26 minutes: Full code status Discussed plan with Dr. Vasquez. Waiting for placement SNF. Plan discussed with: Patient, Other (Nurse) Dietary Evaluation Review Comments: Nutrition Recommendation 1) Consider Ensure High Protein 240ml BID if PO intake <50% 2) Laron 1 pk BID, MVI w/ minerals 1 tab daily, VitC 500mg BID, Zinc sulfate 220mg BID x 10 days 3) Monitor PO intake, lab values, weight trend, and I/O Expected Outcomes/Goals: To meet >75% estimated needs Wound to improve Fu 3-5 days Date of Service: Oct 16, 2024 Billing Provider: GINA VASQUEZ MD Common Visit Codes: [id number] INP/OBS CARE(HIGH) RHINA HUBBARD RESIDENT Oct 16, 2024 21:20 PATRICK RUCKER RESIDENT Oct 16, 2024 21:38 GINA VASQUEZ MD Oct 23, 2024 21:32
[2024-10-17] VITALS (8 sets, daily range): BP systolic 108–136; BP diastolic 46–80; PULSE 65–66; RESP 16–19; TEMP 97.6–97.9; O2SAT 97–100
--- NOTE | 2024-10-17 04:03 | DVH ---
INDICATION: Transaminitis and hyperammonemia TECHNIQUE: Multiple real-time sonographic images were obtained of the right upper quadrant. COMPARISON: US KIDNEY on DOS: 10/06/24, CT CT AB PEL WO CON-NO ORAL OR IV on DOS: 10/05/24 FINDINGS: The liver demonstrates diffusely increased echotexture without focal mass lesions. The live r measures 17.4 cm. Normal hepatopetal portal venous flow. No evidence of pleural effusion or abdomi nal ascites. There is no intrahepatic or extrahepatic ductal dilatation. The common duct measures 0.6 cm. The gallbladder is surgically absent. Negative sonographic vargas's sign. The right kidney measures 9.6 cm. The right kidney is normal in contour, size, and shape. The echogen icity is normal with mild cortical thinning. There is no hydronephrosis. The pancreas is not well visualized due to overlying bowel gas. IMPRESSION: 1. Hepatomegaly and hepatic steatosis. 2. Mild right renal cortical thinning. 3. Status post cholecystectomy.
[2024-10-17] MEDS: LACTULOSE 20Gm/30ML SOLN PO SCH (09:45)
--- NOTE | 2024-10-17 13:25 | DVHPNRES ---
Progress Note Date Seen: Oct 17, 2024 Resident Creating Document: WILFREDO RUIZ RESIDENT Medical Necessity Reason Pt with a Central, PICC or Fol: No The following are medically ne: Jackson Catheter Subjective Review of Systems Neeta Amct a 79-year-old female presents to the ER with complaints of blood mixed stool and blood in the urine reported by the caregiver. The patient herself did not observe any hematochezia or hematuria. The patient denies any shortness of breath, chest pain, lightheadedness, dizziness, palpitations, weakness, urinary symptoms or any other complaints. The patient is a poor historian and no one was accompanying the patient. Most of the past medical history have been obtained from previous documentations. 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 Past surgical history: sections, cholecystectomy, permanent pacemaker placement Family history: Noncontributory Social history: Lives in [place] with caregiver (she is only part-time, does not have a 24 hour caregiver), her granddaughter takes care of her. Ex tobacco abuse (42 pack-year history of smoking) quit 20 years ago. Occasionally drinks alcohol. Denies current tobacco, alcohol and other drug abuse. Allergies: Atenolol, lisinopril, penicillins Home medications: Xarelto, vitamin-D, donepezil, folic acid, metoprolol succinate, amiodarone, levothyroxine, docusate sodium, ipratropium PCP: Dr. Birch The patient was seen and examined at bedside. Overnight events were reviewed. She denies any chest pain, shortness of breath, fever or any other complaints today. Objective vital signs Vital Sign Date Time Temp Pulse Resp B/P (MAP) Pulse Ox O2 Delivery O2 Flow Rate FiO2 10/17/24 12:36 97.6 65 19 124/80 (95) 99 97.6 10/17/24 10:00 Nasal Cannula* 1 24 Total Intake and Output 10/16/24 10/16/24 10/17/24 15:00 23:00 07:00 Intake Total 125 ml 778 ml 500 ml Output Total 600 ml 550 ml Balance 125 ml 178 ml -50 ml medications Current Medications Medications Dose Ordered Sig/Austin Route Start Time Stop Time Status Last Admin Dose Admin Donepezil HCl 5 mg HS PO 10/06/24 22:00 10/16/24 21:44 5 MG Levothyroxine Sodium 75 mcg QAM@0600 PO 10/07/24 06:00 10/17/24 05:18 75 MCG Amiodarone HCl 200 mg DAILY PO 10/07/24 10:00 10/17/24 09:45 200 MG Acetaminophen 650 mg Q6HP PRN PO 10/07/24 23:30 10/11/24 04:28 650 MG Nifedipine 60 mg DAILY PO 10/09/24 10:00 10/17/24 09:45 60 MG Al Hydrox/Mg Hydrox/Simethicone 15 ml [id number] PRN GT 10/08/24 19:15 10/10/24 10:58 15 ML Morphine Sulfate 1 mg Q4HP PRN IV 10/08/24 19:15 10/10/24 16:42 1 MG Guaifenesin 200 mg Q6HP PRN PO 10/11/24 12:00 10/14/24 21:34 200 MG Enteral Nutritional Formula 240 ml TIDWM PO 10/14/24 08:00 10/17/24 12:23 240 ML Pantoprazole Sodium 40 mg BID@0600,1700 PO 10/16/24 06:00 10/17/24 05:17 40 MG Levofloxacin 50 ml @ 50 mls/hr DAILY IV 10/17/24 10:00 10/17/24 20:00 10/17/24 09:44 50 MLS/HR Lactulose 30 ml DAILY PO 10/17/24 10:00 10/17/24 09:45 30 ML Examination Patient lying in bed, in no acute distress Jackson catheter in place and urine color clear. General: Lucid, frail, afebrile, mucosae are moist Cardiovascular: Normal S1 and S2. No murmurs, gallops or rubs Respiratory: Normal ventilation mechanics. Clear lung sounds on auscultation, oxygen via NC Abdomen: Soft, nontender, no organomegaly, normal bowel sounds. Additional rectal exam shows no stool in rectal vault, no hemorrhoids were palpated. MSK/skin: Mobilizes 4 limbs. Skin is dry and warm. Decubitus Sacral ulcer stage II. Mild erythema in vulvar area. Neurological: Oriented in 3 spheres. No motor no sensitive deficits. Pupils are i reactive laboratory and microbiology Laboratory Tests 10/16/24 19:11 10/16/24 17:50 Test 10/16/24 19:11 Range/Units Serum Glucose 101 74-106 mg/dL Microbiology Date/Time Source Procedure Growth Status 10/08/24 22:39 Blood Blood Culture - Final NO GROWTH AFTER 5 DAYS OF INCUBATION. Complete 10/08/24 12:20 Voided Urine Urine Culture - Final Complete Labs and/or images reviewed: Labs reviewed by me, Image(s) reviewed by me Problem List/Assessment/Plan Problem List/Assessment/Plan #Acute viral Gastroenteritis related to COVID 19 Continue Remdesivir treatment (2 of 3 infusions completed). Transition to oral course if SNF bed is available. Monitor hydration and electrolytes. Progress diet from full liquid to mechanical soft; add Ensure. #Questionable Lower GI Bleed Suspected GI bleeding with falling hemoglobin and hematocrit. Consider abdomen/pelvis CT with oral and IV contrast and GI consult as outpatient Stool occult blood test: positive Digital rectal exam showed empty vault, no hemorrhoids. #UTI with Hematuria Continue Levofloxacin IV (5-day course ending 10/16/2024). Monitor for resolution of symptoms. Urine culture showed <10,000 colonies. #Normocytic Anemia due to chronic disease No iron supplementation indicated. #DANNI due to VMN Monitor renal function. Maintain adequate hydration and hemodynamic stability. Left Kidney Cyst Simple cyst found on ultrasound. No intervention needed unless symptomatic. Monitor with follow-up imaging if clinically indicated. History of DVT Prior provoked DVT due to immobility. Discontinue Rivaroxaban due to anemia. Use SCDs for DVT prophylaxis. Discuss risks with patient and family. HFpEF (Heart Failure with Preserved Ejection Fraction) Continue monitoring. Echocardiogram shows LVEF 55%, mild left atrial enlargement, aortic sclerosis. History of Arrhythmia sp Permanent dual chamber pacemaker in place. Continue Amiodarone 200 mg daily. Decubitus Sacral Ulcer Stage II Wound care management. Pressure relief strategies. Monitor for signs of infection. Hypertension Continue Nifedipine 60 mg daily. Hypothyroidism Continue Levothyroxine 75 mcg daily. Hypokalemia Supplement as needed. Mild Hypernatremia Monitor sodium levels. Ensure adequate hydration. COPD on Home Oxygen Continue home oxygen (21 min/day). Monitor respiratory status. Asthma Continue current management. Frailty Discharge to SNF for physical therapy: but now family wants to go home, possible DC tomorrow PT ordered but patient currently refusing; family informed. Constipation Post-Diarrhea Likely due to GI illness and medications. Initiate laxatives. Enema if laxatives fail. Monitor bowel movements. Hypomagnesemia Supplement magnesium. Monitor levels. Transaminitis Monitor liver function tests. Hyperammonemia Continue Lactulose 30 mL BID. Goals of care discussed with patient for over 26 minutes: Full code status Discussed plan with Dr. Vasquez. Waiting for DC home Plan discussed with: Patient, Other (RN) Dietary Evaluation Review Comments: Nutrition Recommendation 1) Consider Ensure High Protein 240ml BID if PO intake <50% 2) Laron 1 pk BID, MVI w/ minerals 1 tab daily, VitC 500mg BID, Zinc sulfate 220mg BID x 10 days 3) Monitor PO intake, lab values, weight trend, and I/O Expected Outcomes/Goals: To meet >75% estimated needs Wound to improve Fu 3-5 days Date of Service: Oct 17, 2024 Billing Provider: GINA VASQUEZ MD Common Visit Codes: [id number] INP/OBS CARE(HIGH) WILFREDO RUIZ RESIDENT Oct 17, 2024 13:25 WILFREDO HILARIO RESIDENT Oct 19, 2024 06:27 GINA VASQUEZ MD Oct 23, 2024 21:59
[2024-10-17 14:46] LABS: Hematocrit 26.0 % (36.0-46.0); Hemoglobin 8.5 g/dL (12.2-16.2); Mean Corpuscular Hemoglobin 28.9 pg (28.0-32.0); Mean Corpuscular Volume 88.3 fL (80.0-100.0)
[2024-10-17 15:02] LABS: Anion Gap 10 (5-15); BUN/Creatinine Ratio 30.8 (10.0-20.0); Blood Urea Nitrogen 20 mg/dL (9-23); Calcium 10.2 mg/dL (8.7-10.4); Potassium 3.5 mmol/L (3.5-5.1); Total Protein 6.0 g/dL (5.7-8.2)
[2024-10-17 15:14] LABS: Total Cells Counted 100.0 (100)
[2024-10-17 15:17] LABS: Alanine Aminotransferase 62 U/L (7-40); Albumin 2.8 g/dL (3.2-4.8); Alkaline Phosphatase 148 U/L (46-116); Bilirubin, Total 0.3 mg/dL (0.2-1.0); Carbon Dioxide 20 mmol/L (20-31); Chloride 119 mmol/L (98-107); Glucose 124 mg/dL (74-106); Magnesium 1.5 mg/dL (1.6-2.6); Sodium 149 mmol/L (136-145)
[2024-10-18] VITALS (7 sets, daily range): BP systolic 123–139; BP diastolic 46–69; PULSE 65; RESP 16–18; TEMP 97.5–98.6; O2SAT 95–100
[2024-10-18 13:37] LABS: Hematocrit 24.6 % (36.0-46.0); Hemoglobin 7.8 g/dL (12.2-16.2); Mean Corpuscular Hemoglobin 29.3 pg (28.0-32.0); Mean Corpuscular Volume 92.1 fL (80.0-100.0); Nucleated Red Blood Cells % 0.1 %
[2024-10-18 13:46] LABS: Anion Gap 8 (5-15); Carbon Dioxide 21 mmol/L (20-31)
[2024-10-18 13:47] LABS: Calcium 10.0 mg/dL (8.7-10.4)
[2024-10-18 13:48] LABS: Chloride 119 mmol/L (98-107); Potassium 3.3 mmol/L (3.5-5.1); Sodium 148 mmol/L (136-145)
[2024-10-18 13:51] LABS: BUN/Creatinine Ratio 22.2 (10.0-20.0); Blood Urea Nitrogen 14 mg/dL (9-23); Glucose 131 mg/dL (74-106)
--- NOTE | 2024-10-18 14:51 | DVHPNRES ---
Progress Note Date Seen: Oct 18, 2024 Resident Creating Document: RHINA HUBBARD RESIDENT Medical Necessity Reason Pt with a Central, PICC or Fol: No The following are medically ne: Jackson Catheter Subjective Review of Systems Neeta Amct a 79-year-old female presents to the ER with complaints of blood mixed stool and blood in the urine reported by the caregiver. The patient herself did not observe any hematochezia or hematuria. The patient denies any shortness of breath, chest pain, lightheadedness, dizziness, palpitations, weakness, urinary symptoms or any other complaints. The patient is a poor historian and no one was accompanying the patient. Most of the past medical history have been obtained from previous documentations. 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 Past surgical history: sections, cholecystectomy, permanent pacemaker placement Family history: Noncontributory Social history: Lives in [place] with caregiver (she is only part-time, does not have a 24 hour caregiver), her granddaughter takes care of her. Ex tobacco abuse (42 pack-year history of smoking) quit 20 years ago. Occasionally drinks alcohol. Denies current tobacco, alcohol and other drug abuse. Allergies: Atenolol, lisinopril, penicillins Home medications: Xarelto, vitamin-D, donepezil, folic acid, metoprolol succinate, amiodarone, levothyroxine, docusate sodium, ipratropium PCP: Dr. Birch Patient seen on bedside. Currently denies any acute distress. Patient having bowel movement and denies any nausea vomiting, abdominal pain, chest pain, SOB, headache, fever. Patient hemodynamically stable for discharge. Called stepdaughter Ann Marie Chaves [phone] but unable to reach. Finally reach caregiver Radha([phone]) who is available at home to receive the patient. Transportation scheduled approximately 3:30 p.m.. Objective vital signs Vital Sign Date Time Temp Pulse Resp B/P (MAP) Pulse Ox O2 Delivery O2 Flow Rate FiO2 10/18/24 13:30 98.1 65 16 123/69 (87) 95 98.1 10/18/24 10:00 Nasal Cannula* 1 24 Total Intake and Output 10/17/24 10/17/24 10/18/24 15:00 23:00 07:00 Intake Total 50 ml 340 ml 800 ml Output Total 375 ml 700 ml Balance 50 ml -35 ml 100 ml medications Current Medications Medications Dose Ordered Sig/Austin Route Start Time Stop Time Status Last Admin Dose Admin Donepezil HCl 5 mg HS PO 10/06/24 22:00 10/17/24 21:43 5 MG Levothyroxine Sodium 75 mcg QAM@0600 PO 10/07/24 06:00 10/18/24 05:28 75 MCG Amiodarone HCl 200 mg DAILY PO 10/07/24 10:00 10/18/24 10:08 200 MG Acetaminophen 650 mg Q6HP PRN PO 10/07/24 23:30 10/11/24 04:28 650 MG Nifedipine 60 mg DAILY PO 10/09/24 10:00 10/18/24 10:09 60 MG Al Hydrox/Mg Hydrox/Simethicone 15 ml [id number] PRN GT 10/08/24 19:15 10/10/24 10:58 15 ML Morphine Sulfate 1 mg Q4HP PRN IV 10/08/24 19:15 10/10/24 16:42 1 MG Guaifenesin 200 mg Q6HP PRN PO 10/11/24 12:00 10/14/24 21:34 200 MG Enteral Nutritional Formula 240 ml TIDWM PO 10/14/24 08:00 10/18/24 13:02 240 ML Pantoprazole Sodium 40 mg BID@0600,1700 PO 10/16/24 06:00 10/18/24 05:28 40 MG Lactulose 30 ml DAILY PO 10/17/24 10:00 10/17/24 09:45 30 ML Examination Patient lying in bed, in no acute distress Jackson catheter in place and urine color clear. General: Lucid, frail, afebrile, mucosae are moist Cardiovascular: Normal S1 and S2. No murmurs, gallops or rubs Respiratory: Normal ventilation mechanics. Clear lung sounds on auscultation, oxygen via NC Abdomen: Soft, nontender, no organomegaly, normal bowel sounds. Additional retinal exam shows no stool in rectal vault, no hemorrhoids were palpated. MSK/skin: Mobilizes 4 limbs. Skin is dry and warm. Decubitus Sacral ulcer stage II. Mild erythema in vulvar area. Neurological: Oriented in 3 spheres. No motor no sensitive deficits. Pupils are i reactive laboratory and microbiology Laboratory Tests 10/18/24 13:20 Test 10/18/24 13:20 Range/Units Serum Glucose 131 H 74-106 mg/dL Microbiology Date/Time Source Procedure Growth Status 10/08/24 22:39 Blood Blood Culture - Final NO GROWTH AFTER 5 DAYS OF INCUBATION. Complete 10/08/24 12:20 Voided Urine Urine Culture - Final Complete Problem List/Assessment/Plan Problem List/Assessment/Plan # COVID Gastroenteritis Assessment: COVID-related gastrointestinal symptoms. Continue Remdesivir treatment (2 of 3 infusions completed). Transition to oral course if SNF bed is available. Monitor hydration and electrolytes. Progress diet from full liquid to mechanical soft; add Ensure. Family agree to placed patient at home as SNF bed is not available due to COVID- 19 positive #Questionable Lower GI Bleed Assessment: Suspected GI bleeding with falling hemoglobin and hematocrit GI consult completed. Consider abdomen/pelvis CT with oral and IV contrast if needed. Stool occult blood test pending. Digital rectal exam showed empty vault, no hemorrhoids. # UTI with Hematuria Assessment: Urinary tract infection with microscopic hematuria. Continue Levofloxacin IV (5-day course ending 10/16/2024). Monitor for resolution of symptoms Urine culture showed <10,000 colonies. # Normocytic Anemia with Elevated Ferritin Assessment: Anemia not due to iron deficiency. No iron supplementation indicated. Monitor hemoglobin and hematocrit. Evaluate for chronic disease or inflammation. #DANNI due to vasomotor nephropathy Assessment: Acute kidney injury resolved. Monitor renal function. Maintain adequate hydration and hemodynamic stability. # Left Kidney Cyst Assessment: Simple cyst found on ultrasound. No intervention needed unless symptomatic. Monitor with follow-up imaging if clinically indicated. #History of DVT Assessment: Prior provoked DVT due to immobility. Discontinue Rivaroxaban due to anemia. Use SCDs for DVT prophylaxis. Discuss risks with patient and family. # HFpEF (Heart Failure with Preserved Ejection Fraction) Assessment: No current exacerbation. Continue monitoring. Echocardiogram shows LVEF 55%, mild left atrial enlargement, aortic sclerosis. # History of Arrhythmia Assessment: Non-affiliated arrhythmia. Permanent dual chamber pacemaker in place. Continue Amiodarone 200 mg daily. # Decubitus Sacral Ulcer Stage II Assessment: Present on admission. Wound care management. Pressure relief strategies. Monitor for signs of infection. #. Essentially Hypertension Assessment: Chronic condition. Continue Nifedipine 60 mg daily. Monitor blood pressure. #. Hypothyroidism Assessment: Chronic condition. Continue Levothyroxine 75 mcg daily. Monitor TSH levels. # Hypokalemia Assessment: Low potassium levels. Monitor electrolytes. Supplement as needed. #. Mild Hypernatremia Assessment: Slightly elevated sodium. Monitor sodium levels. Ensure adequate hydration. #COPD on Home Oxygen #Asthma with no exacerbation Assessment: Chronic obstructive pulmonary disease. Continue home oxygen (21 min/day). Monitor respiratory status. # Frailty Assessment: General physical decline. Discharge to SNF for physical therapy. PT ordered but patient currently refusing; family informed. # Constipation Post-Diarrhea Initiate laxatives. Enema if laxatives fail. Monitor bowel movements. # Anemia of chronic disease Assessment: Multifactorial, possibly chronic disease-related. Monitor CBC. No iron due to elevated ferritin. # Hypomagnesemia Assessment: Low magnesium. Supplement magnesium. Monitor levels. # Transaminitis Assessment: Elevated liver enzymes. Monitor liver function tests. Evaluate for underlying causes. #Hyperammonemia Assessment: Elevated ammonia levels. Continue Lactulose 30 mL BID. Monitor mental status and ammonia levels. Goals of care discussed with patient for over 22 minutes: Full code status . Patient hemodynamically stable for discharge and scheduled transportation afternoon. Spoke to caregiver-Radha [phone]. And confirm her presence at home when the patient we will arrive. Discussed plan with Dr. Vasquez. Waiting for placement SNF. Plan discussed with: Patient, Other (Nurse) My Orders My Orders Orders - RHINA HUBBARD RESIDENT Procedure Category Date Status Time Discharge DISCHARGE 10/18/24 Transmitted 12:49 Dietary Evaluation Review Comments: Nutrition Recommendation 1) Consider Ensure High Protein 240ml BID if PO intake <50% 2) Laron 1 pk BID, MVI w/ minerals 1 tab daily, VitC 500mg BID, Zinc sulfate 220mg BID x 10 days 3) Monitor PO intake, lab values, weight trend, and I/O Expected Outcomes/Goals: To meet >75% estimated needs Wound to improve Fu 3-5 days Date of Service: Oct 18, 2024 Billing Provider: GINA VASQUEZ MD Common Visit Codes: [id number] INP/OBS CARE(HIGH) RHINA HUBBARD RESIDENT Oct 18, 2024 14:51 GINA VASQUEZ MD Oct 23, 2024 22:05
== END 2024-10-18 16:32 | disposition home health service (06) | DRG 393 ==
LOC: ER 19:49 → EDBD 19:49 → OVERFLOW 10-06 00:09 → WEST WING 10-06 21:54
PROVIDERS: ADMIT Student in an Organized Health Care Education/Training Program; ATTEND Student in an Organized Health Care Education/Training Program
PROC: 05H933Z Insertion of Infusion Device into Right Brachial Vein, Percutaneous Approach (ICD-10-PCS; 2024-10-09)
PROC: B54MZZA Ultrasonography of Right Upper Extremity Veins, Guidance (ICD-10-PCS; 2024-10-09)
PROC: XW033E5 Introduction of Remdesivir Anti-infective into Peripheral Vein, Percutaneous Approach, New Technology Group 5 (ICD-10-PCS; principal; 2024-10-13)
DX: K64.8 Other hemorrhoids (principal); K57.31 Diverticulosis of large intestine without perforation or abscess with bleeding; N17.0 Acute kidney failure with tubular necrosis; U07.1 COVID-19; J44.0 Chronic obstructive pulmonary disease with (acute) lower respiratory infection; E87.0 Hyperosmolality and hypernatremia; E87.6 Hypokalemia; N28.1 Cyst of kidney, acquired; E83.42 Hypomagnesemia; R74.01 Elevation of levels of liver transaminase levels; E03.9 Hypothyroidism, unspecified; I11.0 Hypertensive heart disease with heart failure; I50.9 Heart failure, unspecified; D50.9 Iron deficiency anemia, unspecified; L89.152 Pressure ulcer of sacral region, stage 2; K59.00 Constipation, unspecified; A08.4 Viral intestinal infection, unspecified; R31.29 Other microscopic hematuria; Z88.8 Allergy status to other drugs, medicaments and biological substances; Z88.0 Allergy status to penicillin; Z79.01 Long term (current) use of anticoagulants; Z90.49 Acquired absence of other specified parts of digestive tract; Z95.0 Presence of cardiac pacemaker; Z87.891 Personal history of nicotine dependence; Z82.49 Family history of ischemic heart disease and other diseases of the circulatory system; Z79.899 Other long term (current) drug therapy; D64.9 Anemia, unspecified
CPT/HCPCS: 36415; 71045; 74176; 76705; 76775; 80048; 80053; 80074; 81001; 82140; 82270; 82728; 82746; 83540; 83550; 83605; 83690; 83735; 83880; 84100; 84132; 84439; 84443; 84480; 85007; 85014; 85018; 85025; 85027; 85045; 85048; 85610; 85730; 86850; 86900; 86901; 87040; 87086; 87177; 87426; 87804; 93005; 93306; 94640; 94668; 97110; 97116; 97163; 97530; 99291; G0378; J1956; J2003; J2470; J3480; Q0162

== ENCOUNTER 2024-10-23 10:56 | Inpatient (IN) | payer OTHER, MEDICAID ==
[2024-10-23] VITALS (7 sets, daily range): BP systolic 133–142; BP diastolic 56–67; PULSE 65–66; RESP 10–19; TEMP 97.7–97.8; O2SAT 98–100
[~2024-10-23] VITALS: Ht 160 cm; Wt 145.9 kg
[~2024-10-23 10:56] MED LIST: ACET-1882 PO; AMIO200T13 PO; DONE5TAB80 PO; GICOCKTAIL GT; GUA200LQ PO; LEVO25TA6 PO; NIFE1TAB31 PO; NIRM1TAB7 PO; PANT40T PO
--- NOTE | 2024-10-23 11:20 | ED.PDOC ---
History of Present Illness HPI Comments 79-year-old female BIBA with prior medical history of anemia, asthma, CHF, COPD, home O2, in, hypothyroidism, DANNI, DVT, PNA: Surgical history of pacemaker and a chief complaint of generalized weakness. EMS report that the family called them due from the patient is sitting in the chair slumped over. Family reports that the patient has had similar symptoms to prior experiences and would get a blood transfusion. Note the patient is A/Ox3. Denies chills, fever, N/V/D, SOB, CP. No other associated symptoms, modifiers, recent injuries or sick contacts present at this time. Chief Complaint: General Weakness Time Seen by MD: 11:15 Reviewed Notes: Nurses Notes, Inspector Poising Notes, Medications, Allergies Allergies: Coded Allergies: Atenolol (Unverified Allergy, Unknown, 07/13/24) Lisinopril (Unverified Allergy, Unknown, 07/13/24) Penicillins (Unverified Allergy, Unknown, 07/13/24) Home Meds Active Scripts Pantoprazole Sodium Sesquihydr (Pantoprazole Sodium) 40 Mg Tab, 40 MG PO DAILY for 30 Days, #30 TAB Prov:PATRICK RUCKER [facility] 10/12/24 Nirmatrelvir/Ritonavir (PAXLOVID 10 x 150 MG & 10 x 100MG) 1 Tab Tab, 1 TAB PO BID for 7 Days, #14 TAB Prov:PATRICK RUCKER [facility] 10/12/24 Nifedipine (Nifedipine Er) 30 Mg Tab, 60 MG PO DAILY for 30 Days, #60 TAB Prov:PATRICK RUCKER [facility] 10/12/24 Levothyroxine Sodium (Levothyroxine Sodium) 25 Mcg Tab, 75 MCG PO QAM@0600 for 30 Days, #30 TAB Prov:PATRICK RUCKER [facility] 10/12/24 Guaifenesin (Guaifenesin) 100 Mg/5 Ml Syp, 200 MG PO Q6HP PRN for 30 Days, #10 SYP Prov:PATRICK RUCKER [facility] 10/12/24 Donepezil Hydrochloride (DONEPEZIL HCL) 5 Mg Tab, 5 MG PO HS for 30 Days, #30 TAB Prov:PATRICK RUCKER [facility] 10/12/24 Amiodarone HCl (Amiodarone HCl) 200 Mg Tab, 200 MG PO DAILY for 30 Days, #30 TAB Prov:PATRICK RUCKER 10/12/24 Alum & Mag Hydrox-Simethicone (Gi Cocktail) 55 Ml Ss, 15 ML GT [id number] PRN for 10 Days, #10 ML Prov:PATRICK URCKER 10/12/24 Acetaminophen (Acetaminophen) 325 Mg Tab, 650 MG PO Q6HP PRN for 20 Days, #160 TAB Prov:PATRICK RUCKER 10/12/24 Information Source: Emergency Med Personnel Mode of Arrival: EMS Severity: Moderate Timing: Minutes Duration: Since onset, Minutes Prehospital treatment: None Past Medical History PAST MEDICAL HISTORY: Anemia, Asthma, CHF, COPD (Has O2 at home), HTN, Thyroid (Hypothyroid) Past Medical History (Other): DANNI, DVT, PNA Surgical History: Pacemaker BANQUET COOK History: No Pertinent BANQUET COOK History Family History Family History: Reviewed,noncontributory to illness, Unknown Social History Smoker: Non-Smoker Alcohol: Denies ETOH Use Drugs: Denies Drug Use Lives In: Home, Assisted Care Constitutional: reports: weakness; denies: chills, diaphoresis, fatigue, fever, malaise, sweats, others EENTM: denies: blurred vision, double vision, ear bleeding, ear discharge, ear drainage, ear pain, ear ringing, eye pain, eye redness, hearing loss, mouth pain, mouth swelling, nasal discharge, nose bleeding, nose congestion, nose pain, photophobia, tearing, throat pain, throat swelling, voice changes, others Respiratory: denies: cough, hemoptysis, orthopnea, SOB at rest, shortness of breath, SOB with excertion, stridor, wheezing, others Cardiovascular: denies: chest pain, dizzy spells, diaphoresis, Dyspnea on exertion, edema, irregular heart beat, left arm pain, lightheadedness, palpitations, PND, syncope, others Gastrointestinal: denies: abdomen distended, abdominal pain, blood streaked bowels, constipated, diarrhea, dysphagia, difficulty swallowing, hematemesis, melena, nausea, poor appetite, poor fluid intake, rectal bleeding, rectal pain, vomiting, others Genitourinary: denies: abnormal vagina bleeding, burning, dyspareunia, dysuria, flank pain, frequency, hematuria, incontinence, pain, , vagina discharge, urgency, others Neurological: denies: dizziness, fainting, headache, left sided numbness, left sided weakness, numbness, paresthesia, pre-existing deficit, right sided numbness, right sided weakness, seizure, speech problems, tingling, tremors, weakness, others Musculoskeletal: denies: back pain, gout, joint pain, joint swelling, muscle pain, muscle stiffness, neck pain, others Integumetry: denies: bruises, change in color, change in hair/nails, dryness, laceration, lesions, lumps, rash, wounds, others Allergic/Immunocompromised: denies: Difficulty Healing, Frequent Infections, Hives, Itching, others Hematologic/Lymphatic: denies: anemia, blood clots, easy bleeding, easy bruising, swollen glands, others Endocrine: denies: excessive hunger, excessive sweating, excessive thirst, excessive urination, flushing, intolerance to cold, intolerance to heat, unexplained weight gain, unexplained weight loss, others Psychiatric: denies: anxiety, bipolar disorder, depression, hopeless, panic disorder, schizophrenia, sleepless, suicidal, others All Other Systems: Reviewed and Negative Physical Exam Exam Comments Patient sees uncomfortable General Appearance: No Apparent Distress, Normal HEENT: Normal ENT Inspection, Pharynx Normal, TMs Normal Neck: Full Range of Motion, Non-Tender, Normal, Normal Inspection Respiratory: Chest Non-Tender, Lungs Clear, No Accessory Muscle Use, No Respiratory Distress, Normal Breath Sounds Cardiovascular: No Edema, No JVD, No Murmur, No Gallop, Normal Peripheral Pulses, Regular Rate/Rhythm Breast Exam: Deferred Gastrointestinal: No Organomegaly, Non Tender, No Pulsatile Mass, Normal Bowel Sounds, Soft Genitalia: Deferred Pelvic: Deferred Rectal: Deferred Extremities: No calf tenderness, Normal capillary refill, Normal inspection, Normal range of motion, Non-tender, No pedal edema Musculoskeletal : Apperance: Normal Neurologic: Alert, drum puller II-XII nml as Tested, No Motor Deficits, Normal Affect, Normal Mood, No Sensory Deficits Cerebellar Function: Normal Reflexes: Normal Skin: Dry, Normal Color, Warm Lymphatic: No Adenopathy Was a procedure done? Was a procedure done?: No X-Ray, Labs, Meds, VS Vital Signs Date Time Temp Pulse Resp B/P (MAP) Pulse Ox O2 Delivery O2 Flow Rate FiO2 10/23/24 11:03 98.9 96 18 159/139 100 98.9 Time of 1ST Reevaluation: 11:45 Reevaluation 1ST: Unchanged Patient Education/Counseling: Diagnosis, Treatment, Prognosis Family Education/Counseling: No Family Present SEPSIS Sepsis Screen Date sepsis recognized/suspect: Oct 23, 2024 Time Sepsis recognized/suspect: 1103 Recent Procedure: No On Antibiotic Therapy: No Respiratory Rate >20: No Heart Rate >90: Yes Temp<36 C (96.8 F) or >38.3 C: No SBP <90 or MAP <65 mmHG: No New Acute Mental Status Change: No Is the patient on CPAP, BIPAP,: No Physician Orders Electrocardigram (10/23/24 11:12) Vital Signs Date Time Temp Pulse Resp B/P (MAP) Pulse Ox O2 Delivery O2 Flow Rate FiO2 10/23/24 11:03 98.9 96 18 159/139 100 98.9 Critical Care Note Critical Care Time?: No Stability Stability form required: No I personally scribed for JOSEFA ASKEW MD ([email or web address]) on 10/23/24 at 11:20. Elec tronically submitted by Pj Mills ([email or web address]). JOSEFA ASKEW MD Oct 23, 2024 11:20
--- NOTE | 2024-10-23 13:02 | DVH ---
EXAM: XY CHEST PORTABLE Indication: weakness Technique: Single frontal view of the chest was obtained Comparison: XY CHEST XRAY 1 VIEW on DOS: 10/11/24, XY CHEST XRAY 1 VIEW on DOS: 10/06/24, XY CHEST PORT ABLE on DOS: 09/28/24, XY CHEST PORTABLE on DOS: 07/13/24 FINDINGS: Lines and Tubes: Cardiac pacemaker projects over left chest wall. Lungs: Right upper lung consolidative opacity. Pleura: No effusion. No pneumothorax. Cardiomediastinal contours: Unremarkable Bones: No acute osseous abnormality. IMPRESSION: Right upper lung consolidative opacities.
[2024-10-23 13:25] LABS: Nucleated Red Blood Cells % 0.0 %
[2024-10-23 13:27] LABS: Hematocrit 27.7 % (36.0-46.0); Hemoglobin 8.3 g/dL (12.2-16.2); Mean Corpuscular Hemoglobin 29.9 pg (28.0-32.0); Mean Corpuscular Volume 99.5 fL (80.0-100.0)
[2024-10-23 13:30] LABS: Potassium 3.7 mmol/L (3.5-5.1); Sodium 141 mmol/L (136-145)
[2024-10-23 13:31] LABS: Anion Gap 12 (5-15); Calcium 9.7 mg/dL (8.7-10.4)
[2024-10-23 13:32] LABS: Carbon Dioxide 15 mmol/L (20-31); Chloride 114 mmol/L (98-107)
[2024-10-23 13:36] LABS: BUN/Creatinine Ratio 24.4 (10.0-20.0); Blood Urea Nitrogen 21 mg/dL (9-23)
[2024-10-23 13:37] LABS: Glucose 128 mg/dL (74-106)
[2024-10-23] MEDS: IOHEXOL 300 MG/ML 100ML BOTTLE IJ ONE ×2 (17:22→17:23)
--- NOTE | 2024-10-23 18:21 | DVH ---
Exam: CT CT AB PEL WITH IV CON ONLY History: abdominal pain, gi bleed Comparison Study: CT abdomen and pelvis 10/05/2024 TECHNIQUE: Multidetector CT of the abdomen and pelvis with IV contrast. Axial, coronal and sagittal m ultiplanar reformats were obtained from the axial data set by the technologist. Radiation Dose Information: CT Dose: CTDI volume is 14.97 mGy. Dose-length product is 2.47 mGy*cm FINDINGS: Bibasilar ground-glass opacities with emphysematous changes and scarring. Partially visualized heart is unremarkable. Mild intrahepatic biliary ductal dilatation. Mild hepatomegaly. Calcified granulomas within the splee n. Otherwise, liver, spleen, pancreas and adrenal glands unremarkable. Status post cholecystectomy. 1.8 cm left renal upper pole hypodense lesion which does not measure as simple fluid with additional 1.5 cm left renal cyst and multiple subcentimeter hypodense bilateral renal lesions that are too smal l to characterize. Mild left renal pelviectasis with no obstructing calculus noted. The urinary bladd er is unremarkable. Uterus and adnexa unremarkable. Small hiatal hernia. Mild gastric wall thickening which is most likely from inadequate distention. Sm all bowel loops unremarkable. Appendix is not definitely visualized. Sigmoid diverticulosis without d iverticulitis. Small to moderate amount of fecal material within the colon. No evidence of intraperitoneal free air . Mild nonspecific presacral edema. No evidence of aortic aneurysm. Heavy atherosclerotic calcification of the aorta and bilateral iliac s. No significant lymphadenopathy. The soft tissues unremarkable. Multiple small lytic lesions within the visualized spine and sacrum wi thin the visualized pelvic bones. Sclerosis of bilateral femoral heads with linear lucencies consiste nt with avascular necrosis. IMPRESSION: Sigmoid diverticulosis without diverticulitis. Small to moderate amount of fecal material within the colon. Mild left renal pelviectasis with no obstructing calculus noted. Small left renal cyst with 1.8 cm left renal upper pole hypodense lesion which does not measure simpl e fluid and additional multiple subcentimeter hypodense bilateral renal lesions that are too small to characterize. Renal ultrasound is recommended for further evaluation. Small hiatal hernia. Mild nonspecific presacral edema. Multiple small lytic lesions within the visualized osseous structures. Correlate for Metastasis/mult iple myeloma. Avascular necrosis of bilateral femoral heads. Additional findings as above.
[2024-10-23] MEDS ORDERED: ONDANSETRON HCL 4 MG/2 ML VIAL IV PRN (20:45)
[2024-10-23] MEDS ORDERED: ALBUTEROL SULF 2.5 MG/0.5ML(0.5%) NEB SOLN NEB PRN (20:45)
[2024-10-23] MEDS ORDERED: ACETAMINOPHEN 500 MG TAB or CAP PO PRN (20:45)
[2024-10-23] MEDS ORDERED: MORPHINE SULFATE INJ 2 MG/ml SYRG IV PRN (20:45)
[2024-10-23] MEDS ORDERED: IPRATROPIUM BROM 0.5 MG/2.5ML INH SOL NEB PRN (20:45)
[2024-10-23] MEDS ORDERED: NITROGLYCERIN 0.4 MG SL TAB SL PRN (20:45)
--- NOTE | 2024-10-23 20:56 | DVHHP2 ---
History of Present Illness Reason for Visit: Generalized weakness History of Present Illness The patient is a 79-year-old female with multiple past medical history including anemia, CHF, COPD, thyroid disease, and DVT who presented to [facility] ED with complaint of generalized weakness. As reported by EMS, family member called to change in patient's condition when his slumped over the chair. Family reports that he had similar symptoms to prior experienced and was transfused blood. Patient was seen and evaluated in the ED, laboratory data shows WBC 11.2, hemoglobin 8.3, hematocrit 27.7, platelets 348, sodium 141, potassium 3.7, BUN 21, creatinine 0.86, glucose 128, calcium 9.7, troponin five, blood pressure 133/67, heart rate 65, temperature 98.0 F, O2 saturation 99% on oxygen. Abdomen/pelvis CT revealing sigmoid diverticulosis without diverticulitis, small to moderate amount of fecal material within the colon; small hiatal hernia, multiple small lytic lesions within the visualized osseous structures, correlate for metastasis/multiple myeloma. Chest x-ray revealing right upper lung consolidative opacities. Please see medication orders section in the computer. On my assessment, patient denied chest pain, no headache, no dizziness, currently on oxygen, no diarrhea, no nausea, no vomiting, no fever, no chills. Patient was admitted further evaluation and medical management. Past Medical History Anemia, Asthma, CHF, COPD (Has O2 at home), HTN, Thyroid (Hypothyroid), DANNI, DVT, PNA Past Surgical History Pacemaker Family History Reviewed, noncontributory to the management of this case. Past Social History The patient lives at home, denies smoking, alcohol or illicit drugs abuse. Review of Systems Constitutional: Yes: Weakness; No: Fever, Chills, Sweats, Malaise, Other Eyes: No: Pain, Vision change, Conjunctivae inflammation, Eyelid inflammation, Other, Redness ENT: No: Ear pain, Ear discharge, Nose pain, Nose discharge, Nose congestion, Mouth pain, Mouth swelling, Throat pain, Throat swelling, Other Respiratory: No: Cough, Dry, Shortness of breath, SOB with excertion, Wheezing, Hemoptysis, Pleuritic Pain, Sputum, Wheezing, Other Cardiovascular: No: Chest Pain, Palpitations, Orthopnea, Paroxysmal Noc. Dyspnea, Edema, Lt Headedness, Other Gastrointestinal: No: Nausea, Vomiting, Abdominal Pain, Diarrhea, Constipation, Melena, Hematochezia, Other Genitourinary: No Dysuria, No Frequency, No Incontinence, No Hematuria, No Retention, No Other Musculoskeletal: No: other, neck pain, shoulder pain, arm pain, back pain, hand pain, leg pain, foot pain Skin: No: Rash, Lesions, Jaundice, Bruising, Other Neurological: No: Weakness, Numbness, Incoordination, Change in speech, Confusion, Seizures, Other Allergies: Coded Allergies: Atenolol (Unverified Allergy, Unknown, 07/13/24) Lisinopril (Unverified Allergy, Unknown, 07/13/24) Penicillins (Unverified Allergy, Unknown, 07/13/24) Exam Vital Signs Vital Signs Date Time Temp Pulse Resp B/P (MAP) Pulse Ox O2 Delivery O2 Flow Rate FiO2 10/23/24 19:29 97.7 65 18 133/67 (89) 100 97.7 10/23/24 19:29 Nasal Cannula* 2 28 General Appearance: Alert, Oriented X3, Cooperative, No acute distress HEENT: Atraumatic, PERRLA, EOMI, Mucous membr. moist/pink Respiratory: Normal air movement, Other (Diminished breath sounds) Cardiovascular: Regular rate, Normal S1, Normal S2, No murmurs Abdominal: Normal bowel sounds, Soft, No tenderness, No hepatospenomegaly, No masses Extremities: No clubbing, No cyanosis, No edema, Normal pulses, No tenderness/swelling Skin: No rashes, No significant lesion Neuro: Normal speech, Normal tone, Sensation intact, Cranial nerves 3-12 NL, Reflexes 2+, Other (Generalized weakness) Psych/Mental Status: Mental status NL, Mood NL Labs/Xrays Labs Test 10/23/24 16:55 10/23/24 13:03 Range/Units Troponin I High Sensitivity 5 </=34 ng/L White Blood Count 11.2 H 4.4-10.8 10^3/uL Red Blood Count 2.79 L 4.0-5.20 10^6/uL Hemoglobin 8.3 L 12.2-16.2 g/dL Hematocrit 27.7 #L 36.0-46.0 % Mean Corpuscular Volume 99.5 # 80.0-100.0 fL Mean Corpuscular Hemoglobin 29.9 28.0-32.0 pg Mean Corpuscular Hemoglobin Concent 30.1 L 32.0-36.0 g/dL Red Cell Distribution Width 21.0 H 11.8-14.3 % Platelet Count 348 140-450 10^3/uL Mean Platelet Volume 7.6 6.9-10.8 fL Neutrophils (%) (Auto) 87.0 H 37.0-80.0 % Lymphocytes (%) (Auto) 6.8 L 10.0-50.0 % Monocytes (%) (Auto) 4.6 0.0-12.0 % Eosinophils (%) (Auto) 1.2 0.0-7.0 % Basophils (%) (Auto) 0.4 0.0-2.0 % Neutrophils # (Auto) 9.7 H 1.6-8.6 10 ^3/uL Lymphocytes # (Auto) 0.8 0.4-5.4 10 ^3/uL Monocytes # (Auto) 0.5 0-1.3 10 ^3/uL Eosinophils # (Auto) 0.1 0-0.8 10 ^3/uL Basophils # (Auto) 0 0-0.2 10 ^3/uL Nucleated Red Blood Cells 0.0 % Sodium Level 141 # 136-145 mmol/L Potassium Level 3.7 3.5-5.1 mmol/L Chloride Level 114 H 98-107 mmol/L Carbon Dioxide Level 15 L 20-31 mmol/L Anion Gap 12 5-15 Blood Urea Nitrogen 21 9-23 mg/dL Creatinine 0.86 # 0.550-1.02 mg/dL Glomerular Filtration Rate Calc 69 >90 mL/min BUN/Creatinine Ratio 24.4 H 10.0-20.0 Serum Glucose 128 H 74-106 mg/dL Calcium Level 9.7 8.7-10.4 mg/dL PATIENT: KENNETH MULLER ACCT: [id number] UNIT: [id number] : 1945 LOC: ER ROOM / BED: / AGE / SEX: 79 / F ADM STATUS: REG ER SERVICE 1553 ORDERING PHYSICIAN: JOSEFA ASKEW MD PROCEDURE(s): ABPLIV - CT AB PEL WITH IV CON ONLY REASON: abdominal pain, gi bleed ORDER NUMBER(s): [id number], ACCESSION NUMBER(s): [id number] Exam: CT CT AB PEL WITH IV CON ONLY History: abdominal pain, gi bleed Comparison Study: CT abdomen and pelvis 10/05/2024 TECHNIQUE: Multidetector CT of the abdomen and pelvis with IV contrast. Axial, coronal and sagittal multiplanar reformats were obtained from the axial data set by the technologist. Radiation Dose Information: CT Dose: CTDI volume is 14.97 mGy. Dose-length product is 2.47 mGy*cm FINDINGS: Bibasilar ground-glass opacities with emphysematous changes and scarring. Partially visualized heart is unremarkable. Mild intrahepatic biliary ductal dilatation. Mild hepatomegaly. Calcified granulomas within the spleen. Otherwise, liver, spleen, pancreas and adrenal glands unremarkable. Status post cholecystectomy. 1.8 cm left renal upper pole hypodense lesion which does not measure as simple fluid with additional 1.5 cm left renal cyst and multiple subcentimeter hypodense bilateral renal lesions that are too small to characterize. Mild left renal pelviectasis with no obstructing calculus noted. The urinary bladder is unremarkable. Uterus and adnexa unremarkable. Small hiatal hernia. Mild gastric wall thickening which is most likely from inadequate distention. Small bowel loops unremarkable. Appendix is not definitely visualized. Sigmoid diverticulosis without diverticulitis. Small to moderate amount of fecal material within the colon. No evidence of intraperitoneal free air . Mild nonspecific presacral edema. No evidence of aortic aneurysm. Heavy atherosclerotic calcification of the aorta and bilateral iliacs. No significant lymphadenopathy. The soft tissues unremarkable. Multiple small lytic lesions within the visualized spine and sacrum within the visualized pelvic bones. Sclerosis of bilateral femoral heads with linear lucencies consistent with avascular necrosis. IMPRESSION: Sigmoid diverticulosis without diverticulitis. Small to moderate amount of fecal material within the colon. Mild left renal pelviectasis with no obstructing calculus noted. Small left renal cyst with 1.8 cm left renal upper pole hypodense lesion which does not measure simple fluid and additional multiple subcentimeter hypodense bilateral renal lesions that are too small to characterize. Renal ultrasound is recommended for further evaluation. Small hiatal hernia. Mild nonspecific presacral edema. Multiple small lytic lesions within the visualized osseous structures. Correlate for Metastasis/multiple myeloma. Avascular necrosis of bilateral femoral heads. Additional findings as above. ORDERING PHYSICIAN: JOSEFA ASKEW MD PROCEDURE(s): CXRP - CHEST PORTABLE REASON: weakness ORDER NUMBER(s): [id number], ACCESSION NUMBER(s): [id number] EXAM: XY CHEST PORTABLE Indication: weakness Technique: Single frontal view of the chest was obtained Comparison: XY CHEST XRAY 1 VIEW on DOS: 10/11/24, XY CHEST XRAY 1 VIEW on DOS: 10/06/24, XY CHEST PORTABLE on DOS: 09/28/24, XY CHEST PORTABLE on DOS: 07/13/24 FINDINGS: Lines and Tubes: Cardiac pacemaker projects over left chest wall. Lungs: Right upper lung consolidative opacity. Pleura: No effusion. No pneumothorax. Cardiomediastinal contours: Unremarkable Bones: No acute osseous abnormality. IMPRESSION: Right upper lung consolidative opacities. SEPSIS Sepsis Screen Date sepsis recognized/suspect: Oct 23, 2024 Time Sepsis recognized/suspect: 1928 Recent Procedure: No On Antibiotic Therapy: No Respiratory Rate >20: No Heart Rate >90: No Temp<36 C (96.8 F) or >38.3 C: No SBP <90 or MAP <65 mmHG: No New Acute Mental Status Change: No Is the patient on CPAP, BIPAP,: No Physician Orders Stool Occult Blood (10/23/24 15:48) Ct Ab Pel With Iv Con Only (10/23/24 15:53) Thyroid Stimulating Hormone (10/23/24 20:44) Hemoglobin A1c (10/23/24 20:44) Hydralazine Injection (Apresoline Inject (10/23/24 20:45) Levothyroxine Tablet (Synthroid Tablet) (10/24/24 06:00) Levofloxacin Levaquin (10/24/24 10:00) Levofloxacin Levaquin (10/23/24 20:45) Albuterol Medneb (Ventolin Medneb) (10/23/24 20:45) Ipratropium Medneb (Atrovent Medneb) (10/23/24 20:45) Admit (10/23/24 20:44) Allergies (10/23/24 20:44) Code Status (10/23/24 20:44) Sodium Chloride Lock (Saline Lock Ns) (10/23/24 22:00) Oxygen Per Hour (10/23/24 20:44) Hydrocodone-Acet 5/325mg Tab ([place] 32 (10/23/24 20:45) Ondansetron Hcl (Zofran) (10/23/24 20:45) Docusate Sodium Capsule (Colace Capsule) (10/23/24 20:45) Fall Risk Precautions In Place QSHIFT (10/23/24 20:44) Complete Blood Count (10/24/24 04:00) Comprehensive Metabolic Panel (10/24/24 04:00) Cardiac Diet-2gna,Lofat,Lochol (10/24/24 Breakfast) Condition: Serious (10/23/24 20:44) Acetaminophen Tablet (Tylenol Tablet) (10/23/24 20:45) Maintain Bed Rest (10/23/24 20:44) Sequential Compression Device (10/23/24 ) Nitroglycerin Sublingual (Ntrostat Subli (10/23/24 20:45) Morphine Sulfate Injection (10/23/24 20:45) Stat Ekg For Chest Pain (10/23/24 20:44) Notify Md Of Changes From Base (10/23/24 20:44) Photographs Curator For 24 Hours (10/23/24 20:44) Emergency Dysrhythmia Protocol (10/23/24 20:44) Rhythm Strips Once Every Shift (10/23/24 20:44) Oxygen By Nasal Cannula (10/23/24 20:44) Vital Signs Date Time Temp Pulse Resp B/P (MAP) Pulse Ox O2 Delivery O2 Flow Rate FiO2 10/23/24 19:29 97.7 65 18 133/67 (89) 100 97.7 10/23/24 19:29 100 Nasal Cannula* 2 28 10/23/24 18:54 98.0 65 11 146/59 (88) 100 98.0 10/23/24 16:00 95.7 65 13 129/61 (83) 95 95.7 10/23/24 14:00 97.6 65 10 140/60 (86) 100 97.6 Laboratory Tests Test 10/23/24 13:03 White Blood Count 11.2 10^3/uL (4.4-10.8) H Assessment/Plan Assessment/Plan Generalized weakness Metastatic disease Anemia, unspecified Acute respiratory distress Leukocytosis, unspecified Pneumonia, unspecified organism Plan 1. Admit to telemetry unit 2. Breathing treatment 3. Pain control management 4. IV antibiotic management 5. Management of fluids and electrolytes 6. Consultation for hospitalist 7. Diagnostic test abdomen/pelvis CT 8. DVT prophylaxis-on SCDs 9. Repeat labs CBC, CMP in a.m. 10. Home medication reviewed and reconciled 11. Continue with current medical management 12. Treatment plan discussed with patient and RN. Patient verbalized understanding. Plan discussed with: Patient, Other (RN) My Orders Orders - ZEYNEP BRUCE DNP Procedure Category Date Status Time Thyroid Stimulating LAB 10/23/24 Transmitted Hormone 20:44 Hemoglobin A1c LAB 10/23/24 Transmitted 20:44 Hydralazine Injection PHA 10/23/24 Transmitted (Apresoline Inject 20:45 Levothyroxine Tablet PHA 10/24/24 Transmitted (Synthroid Tablet) 06:00 Levofloxacin Levaquin PHA 10/24/24 Transmitted 10:00 Levofloxacin Levaquin PHA 10/23/24 Transmitted 20:45 Albuterol Medneb PHA 10/23/24 Transmitted (Ventolin Medneb) 20:45 Ipratropium Medneb PHA 10/23/24 Transmitted (Atrovent Medneb) 20:45 Admit ADMIT 10/23/24 Transmitted 20:44 Allergies ABENA 10/23/24 In Process 20:44 Code Status CODE 10/23/24 Transmitted 20:44 Sodium Chloride Lock PHA 10/23/24 Transmitted (Saline Lock Ns) 22:00 Oxygen Per Hour RT 10/23/24 Transmitted 20:44 Hydrocodone-Acet PHA 10/23/24 Transmitted 5/325mg Tab ([place] 20:45 Ondansetron Hcl PHA 10/23/24 Transmitted (Zofran) 20:45 Docusate Sodium PHA 10/23/24 Transmitted Capsule (Colace 20:45 Fall Risk Precautions ABENA 10/23/[address] 20:44 Complete Blood Count LAB 10/24/24 Verified 04:00 Comprehensive LAB 10/24/24 Verified Metabolic Panel 04:00 Cardiac DIET 10/24/24 Transmitted Diet-2gna,Lofat,Lochol Breakfast Condition: Serious ABENA 10/23/24 In Process 20:44 Acetaminophen Tablet PHA 10/23/24 Transmitted (Tylenol Tablet) 20:45 Maintain Bed Rest ABENA 10/23/24 In Process 20:44 Sequential ABENA 10/23/24 In Process Compression Device Nitroglycerin [facility] 10/23/24 Transmitted Sublingual (Ntrostat 20:45 Morphine Sulfate PHA 10/23/24 Transmitted Injection 20:45 Stat Ekg For Chest [facility] 10/23/24 In Process Pain 20:44 Notify Md Of Changes [facility] 10/23/24 In Process From Base 20:44 Photographs Curator For [facility] 10/23/24 In Process 24 Hours 20:44 Emergency Dysrhythmia [facility] 10/23/24 In Process Protocol 20:44 Rhythm Strips Once [facility] 10/23/24 In Process Every Shift 20:44 Oxygen By Nasal 10/23/24 Transmitted Cannula 20:44 Problem List: (1) Generalized weakness (2) Metastatic disease (3) Anemia, unspecified (4) Acute respiratory distress (5) Leukocytosis, unspecified (6) Pneumonia, unspecified organism Date of Service: Oct 23, 2024 Billing Provider: ZEYNEP BRUCE DNP Common Visit Codes: [id number] INP/OBS CARE (HIGH) ZEYNEP BRUCE DNP Oct 23, 2024 20:56
[2024-10-23] MEDS: SODIUM CHLOR 0.9% PF (SALINE LOCK) 10ML VIAL/SYR IV SCH (22:06)
[2024-10-23 22:28] LABS: COVID19 ANTIGEN SOFIA FIA NEGATIVE (NEGATIVE)
[2024-10-24] VITALS (10 sets, daily range): BP systolic 107–149; BP diastolic 62–78; PULSE 64–67; RESP 16–20; TEMP 97.4–98.5; O2SAT 97–100
[2024-10-24] MEDS: HYDROcodone-ACET 5/325MG TAB PO PRN (01:28)
[2024-10-24] MEDS ORDERED: VANCOMYCIN PER PHARMACY 0 MG IV SCH (04:45)
[2024-10-24] MEDS: LEVOTHYROXINE SODIUM 25 MCG TAB PO SCH (06:17)
--- NOTE | 2024-10-24 15:34 | DVHPN2 ---
Subjective The patient is seen and examined at bedside. No complaint today. Still remained very weak. Reviewed: Care Plan, H&P, Labs, Medications, Previous Orders Changes from previous H/P or p: No Changes Eyes: No Pain, No Vision change, No Conjunctivae inflammation, No Eyelid inflammation, No Other, No Redness ENT: No Ear pain, No Ear discharge, No Nose pain, No Nose discharge, No Nose congestion, No Mouth pain, No Mouth swelling, No Throat pain, No Throat swelling, No Other Cardiovascular: No Chest Pain, No Palpitations, No Orthopnea, No Paroxysmal Noc. Dyspnea, No Edema, No Lt Headedness, No Other Respiratory: No Cough, No Dry, No Shortness of breath, No SOB with excertion, No Wheezing, No Hemoptysis, No Pleuritic Pain, No Sputum, No Other Gastrointestinal: No Nausea, No Vomiting, No Abdominal Pain, No Diarrhea, No Constipation, No Melena, No Hematochezia, No Other Genitourinary: No Dysuria, No Frequency, No Incontinence, No Hematuria, No Retention, No Other Musculoskeletal: No other, No neck pain, No shoulder pain, No arm pain, No back pain, No hand pain, No leg pain, No foot pain Skin: No Rash, No Lesions, No Jaundice, No Bruising, No Other Objective Vitals Vital Signs Date Time Temp Pulse Resp B/P (MAP) Pulse Ox O2 Delivery O2 Flow Rate FiO2 10/24/24 13:00 97.7 64 17 131/62 (85) 100 97.7 10/24/24 10:54 Nasal Cannula 2.0 10/24/24 10:54 28 Intake/Output Intake and Output 10/24/24 07:00 Intake Total 280 ml Balance 280 ml Intake Oral 180 ml IV Total 100 ml # Voids 1 General Appearance: Alert, Cooperative, No acute distress HEENT: Atraumatic, PERRLA, EOMI, Mucous membr. moist/pink Neck: Supple Lungs: Clear to auscultation, Normal air movement Cardiovascular: Regular rate, Normal S1, Normal S2, No murmurs, Gallops, Rubs Abdomen: Normal bowel sounds, Soft, No tenderness Neuro: Cranial nerves 3-12 NL Psych/Mental Status: Mental status NL Medications Current Medications Medications Dose Ordered Sig/[place] Route Start Time Stop Time Status Last Admin Dose Admin Hydralazine HCl 10 mg Q6HP PRN IV 9/5/25 20:45 Levothyroxine Sodium 25 mcg QAM@0600 PO 10/24/24 06:00 10/24/24 06:17 25 MCG Levofloxacin/ Dextrose 100 ml @ 100 mls/hr DAILY@2100 IV 10/24/24 21:00 Albuterol 2.5 mg Q4HPRN PRN NEB 10/23/24 20:45 Ipratropium [place] 0.5 mg Q4HPRN PRN NEB 10/23/24 20:45 Sodium Chloride 10 ml Q8HR IV 10/23/24 22:00 10/24/24 06:17 10 ML Acetaminophen/ Hydrocodone Bitart 1 tab Q4HP PRN PO 10/23/24 20:45 10/24/24 01:28 1 TAB Ondansetron HCl 4 mg Q4HP PRN IV 10/23/24 20:45 Docusate Sodium 100 mg BIDPRN PRN PO 10/23/24 20:45 Acetaminophen 500 mg Q6HP PRN PO 10/23/24 20:45 Nitroglycerin 0.4 mg Q5MINP PRN SL 10/23/24 20:45 Morphine Sulfate 2 mg Q30M PRN IV 10/23/24 20:45 Vancomycin HCl 0 ml @ 0 mls/hr UD IV 10/24/24 04:45 Laboratory Results Laboratory Tests 10/23/24 13:03 HgA1c, TSH Test 10/23/24 16:55 Thyroid Stimulating Hormone (TSH) 0.30 uIU/mL (0.55-4.78) L Urinalysis Test 10/23/24 22:01 Urine Color Pending Urine Clarity Pending Urine pH Pending Urine Specific [place] Pending Urine Protein Pending Urine Ketones Pending Urine Blood Pending Urine Nitrite Pending Urine Bilirubin Pending Urine Urobilinogen Pending Urine Leukocyte Esterase Pending Urine RBC Pending Urine Microscopic WBC Pending Urine Squamous Epithelial Cells Pending Urine Bacteria Pending Urine Glucose Pending Microbiology Microbiology Date/Time Source Procedure Growth Status 10/24/24 04:02 Nose MRSA Screen - Final Complete Assessment/Plan Assessment/Plan Generalized weakness Metastatic disease Anemia, unspecified Acute respiratory distress Leukocytosis, unspecified Pneumonia, unspecified organism Congestive heart failure COPD Continuing current management. Continuing with IV antibiotic. Continuing with Lasix. Encouraged the patient to be out of bed and ambulate. This medical document was created using an electronic medical record system with [employer] direct computerized dictation system. Although this document has been carefully reviewed, there may still be some phonetic and typographical errors. These areas are purely typographical due to imperfections of the software programs, and do not reflect any compromise in the patient's medical care. Plan discussed with: Patient, Other (RN) Date of Service: Oct 24, 2024 Billing Provider: DONTAE BENEDICT MD Common Visit Codes: [id number] INP/OBS CARE(HIGH) DONTAE BENEDICT MD Oct 24, 2024 15:34
[2024-10-24 16:31] LABS: Hematocrit 25.8 % (36.0-46.0); Hemoglobin 7.9 g/dL (12.2-16.2); Mean Corpuscular Hemoglobin 29.7 pg (28.0-32.0); Mean Corpuscular Volume 96.3 fL (80.0-100.0); Nucleated Red Blood Cells % 0.1 %
[2024-10-24 16:46] LABS: Alanine Aminotransferase 34 U/L (7-40); Anion Gap 10 (5-15); BUN/Creatinine Ratio 25.0 (10.0-20.0); Bilirubin, Total 0.3 mg/dL (0.2-1.0); Blood Urea Nitrogen 18 mg/dL (9-23); Calcium 9.9 mg/dL (8.7-10.4); Potassium 4.0 mmol/L (3.5-5.1); Sodium 143 mmol/L (136-145); Total Protein 6.1 g/dL (5.7-8.2)
[2024-10-24 16:49] LABS: Albumin 2.8 g/dL (3.2-4.8); Alkaline Phosphatase 118 U/L (46-116); Carbon Dioxide 18 mmol/L (20-31); Chloride 115 mmol/L (98-107); Glucose 67 mg/dL (74-106)
--- NOTE | 2024-10-24 19:25 | ECG ---
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
[2024-10-25] VITALS (10 sets, daily range): BP systolic 116–156; BP diastolic 63–88; PULSE 64–66; RESP 15–20; TEMP 97.4–98.4; O2SAT 95–100
--- NOTE | 2024-10-25 11:24 | DVHPN2 ---
Subjective The patient is seen and examined at bedside. No complaint today. Still remained very weak. Reviewed: Care Plan, H&P, Labs, Medications, Previous Orders Changes from previous H/P or p: No Changes Eyes: No Pain, No Vision change, No Conjunctivae inflammation, No Eyelid inflammation, No Other, No Redness ENT: No Ear pain, No Ear discharge, No Nose pain, No Nose discharge, No Nose congestion, No Mouth pain, No Mouth swelling, No Throat pain, No Throat swelling, No Other Cardiovascular: No Chest Pain, No Palpitations, No Orthopnea, No Paroxysmal Noc. Dyspnea, No Edema, No Lt Headedness, No Other Respiratory: No Cough, No Dry, No Shortness of breath, No SOB with excertion, No Wheezing, No Hemoptysis, No Pleuritic Pain, No Sputum, No Other Gastrointestinal: No Nausea, No Vomiting, No Abdominal Pain, No Diarrhea, No Constipation, No Melena, No Hematochezia, No Other Genitourinary: No Dysuria, No Frequency, No Incontinence, No Hematuria, No Retention, No Other Musculoskeletal: No other, No neck pain, No shoulder pain, No arm pain, No back pain, No hand pain, No leg pain, No foot pain Skin: No Rash, No Lesions, No Jaundice, No Bruising, No Other Objective Vitals Vital Signs Date Time Temp Pulse Resp B/P (MAP) Pulse Ox O2 Delivery O2 Flow Rate FiO2 10/25/24 09:00 97.4 65 20 144/63 (90) 100 97.4 10/25/24 08:05 Nasal Cannula* 2 28 Intake/Output Intake and Output 10/25/24 07:00 Intake Total 437 ml Output Total 150 ml Balance 287 ml Intake Oral 437 ml Output Urine Total 150 ml # Voids 1 General Appearance: Alert, Cooperative, No acute distress HEENT: Atraumatic, PERRLA, EOMI, Mucous membr. moist/pink Neck: Supple Lungs: Clear to auscultation, Normal air movement Cardiovascular: Regular rate, Normal S1, Normal S2, No murmurs, Gallops, Rubs Abdomen: Normal bowel sounds, Soft, No tenderness Neuro: Cranial nerves 3-12 NL Psych/Mental Status: Mental status NL Medications Current Medications Medications Dose Ordered Sig/[place] Route Start Time Stop Time Status Last Admin Dose Admin Hydralazine HCl 10 mg Q6HP PRN IV 10/23/24 20:45 Levothyroxine Sodium 25 mcg QAM@0600 PO 10/24/24 06:00 10/25/24 05:49 25 MCG Levofloxacin/ Dextrose 100 ml @ 100 mls/hr DAILY@2100 IV 10/24/24 21:00 Albuterol 2.5 mg Q4HPRN PRN NEB 10/23/24 20:45 Ipratropium [place] 0.5 mg Q4HPRN PRN NEB 10/23/24 20:45 Sodium Chloride 10 ml Q8HR IV 10/23/24 22:00 10/24/24 06:17 10 ML Acetaminophen/ Hydrocodone Bitart 1 tab Q4HP PRN PO 10/23/24 20:45 10/24/24 23:55 1 TAB Ondansetron HCl 4 mg Q4HP PRN IV 10/23/24 20:45 Docusate Sodium 100 mg BIDPRN PRN PO 10/23/24 20:45 Acetaminophen 500 mg Q6HP PRN PO 10/23/24 20:45 Nitroglycerin 0.4 mg Q5MINP PRN SL 10/23/24 20:45 Morphine Sulfate 2 mg Q30M PRN IV 10/23/24 20:45 Vancomycin HCl 0 ml @ 0 mls/hr UD IV 10/24/24 04:45 Laboratory Results Laboratory Tests 10/24/24 16:21 Chemistry Test 10/24/24 16:21 Albumin 2.8 g/dL (3.2-4.8) L Calcium Level 9.9 mg/dL (8.7-10.4) Total Protein 6.1 g/dL (5.7-8.2) LFT Test 10/24/24 16:21 Alanine Aminotransferase (ALT) 34 U/L (7-40) Alkaline Phosphatase 118 U/L (46-116) H Aspartate Amino Transferase (AST) 58 U/L (13-40) H Total Bilirubin 0.3 mg/dL (0.2-1.0) Urinalysis Test 10/23/24 22:01 Urine Color Pending Urine Clarity Pending Urine pH Pending Urine Specific [place] Pending Urine Protein Pending Urine Ketones Pending Urine Blood Pending Urine Nitrite Pending Urine Bilirubin Pending Urine Urobilinogen Pending Urine Leukocyte Esterase Pending Urine RBC Pending Urine Microscopic WBC Pending Urine Squamous Epithelial Cells Pending Urine Bacteria Pending Urine Glucose Pending Microbiology Microbiology Date/Time Source Procedure Growth Status 10/24/24 04:02 Nose MRSA Screen - Final Complete Labs and/or images reviewed: Labs reviewed by me Assessment/Plan Assessment/Plan Generalized weakness Metastatic disease Anemia, unspecified Acute respiratory distress Leukocytosis, unspecified Pneumonia, unspecified organism Congestive heart failure COPD Continuing current management. Continuing with IV antibiotic. Continuing with Lasix. Encouraged the patient to be out of bed and ambulate. We will consulted physical therapist. This medical document was created using an electronic medical record system with [email or web address] computerized dictation system. Although this document has been carefully reviewed, there may still be some phonetic and typographical errors. These areas are purely typographical due to imperfections of the software programs, and do not reflect any compromise in the patient's medical care. Plan discussed with: Patient My Orders Orders - DONTAE BENEDICT MD Procedure Category Date Status Time Insert Midline ORDERS 10/24/24 Transmitted 16:06 Date of Service: Oct 25, 2024 Billing Provider: DONTAE BENEDICT MD Common Visit Codes: [id number] INP/OBS CARE(HIGH) DONTAE BENEDICT MD Oct 25, 2024 11:24
[2024-10-25] MEDS: VANCOMYCIN 500mg/100mL 100 ML IV SCH (21:09)
[2024-10-26] VITALS (8 sets, daily range): BP systolic 129–157; BP diastolic 50–76; PULSE 64–67; RESP 16–20; TEMP 97.2–98.7; O2SAT 91–100
[2024-10-26] MEDS: VANCOMYCIN 500mg/100mL 100 ML IV SCH (09:00)
--- NOTE | 2024-10-26 12:13 | DVHPN2 ---
Subjective The patient is seen and examined at bedside. No complaint today. Still remained very weak. Reviewed: Care Plan, H&P, Labs, Medications, Previous Orders Changes from previous H/P or p: No Changes Eyes: No Pain, No Vision change, No Conjunctivae inflammation, No Eyelid inflammation, No Other, No Redness ENT: No Ear pain, No Ear discharge, No Nose pain, No Nose discharge, No Nose congestion, No Mouth pain, No Mouth swelling, No Throat pain, No Throat swelling, No Other Cardiovascular: No Chest Pain, No Palpitations, No Orthopnea, No Paroxysmal Noc. Dyspnea, No Edema, No Lt Headedness, No Other Respiratory: No Cough, No Dry, No Shortness of breath, No SOB with excertion, No Wheezing, No Hemoptysis, No Pleuritic Pain, No Sputum, No Other Gastrointestinal: No Nausea, No Vomiting, No Abdominal Pain, No Diarrhea, No Constipation, No Melena, No Hematochezia, No Other Genitourinary: No Dysuria, No Frequency, No Incontinence, No Hematuria, No Retention, No Other Musculoskeletal: No other, No neck pain, No shoulder pain, No arm pain, No back pain, No hand pain, No leg pain, No foot pain Skin: No Rash, No Lesions, No Jaundice, No Bruising, No Other Objective Vitals Vital Signs Date Time Temp Pulse Resp B/P (MAP) Pulse Ox O2 Delivery O2 Flow Rate FiO2 10/26/24 09:12 97.2 67 20 137/75 (95) 91 97.2 10/26/24 08:10 Nasal Cannula* 2 28 Intake/Output Intake and Output 10/26/24 07:00 Intake Total 525 ml Balance 525 ml Intake Oral 325 ml IV Total 200 ml # Voids 3 General Appearance: Alert, Cooperative, No acute distress HEENT: Atraumatic, PERRLA, EOMI, Mucous membr. moist/pink Neck: Supple Lungs: Clear to auscultation, Normal air movement Cardiovascular: Regular rate, Normal S1, Normal S2, No murmurs, Gallops, Rubs Abdomen: Normal bowel sounds, Soft, No tenderness Neuro: Cranial nerves 3-12 NL Psych/Mental Status: Mental status NL Medications Current Medications Medications Dose Ordered Sig/[place] Route Start Time Stop Time Status Last Admin Dose Admin Hydralazine HCl 10 mg Q6HP PRN IV 10/23/24 20:45 Levothyroxine Sodium 25 mcg QAM@0600 PO 10/24/24 06:00 10/26/24 05:53 25 MCG Levofloxacin/ Dextrose 100 ml @ 100 mls/hr DAILY@2100 IV 10/24/24 21:00 10/25/24 22:50 100 MLS/HR Albuterol 2.5 mg Q4HPRN PRN NEB 10/23/24 20:45 Cancel Ipratropium [place] 0.5 mg Q4HPRN PRN NEB 10/23/24 20:45 Cancel Sodium Chloride 10 ml Q8HR IV 10/23/24 22:00 10/26/24 05:53 10 ML Acetaminophen/ Hydrocodone Bitart 1 tab Q4HP PRN PO 10/23/24 20:45 10/24/24 23:55 1 TAB Ondansetron HCl 4 mg Q4HP PRN IV 10/23/24 20:45 Docusate Sodium 100 mg BIDPRN PRN PO 10/23/24 20:45 Acetaminophen 500 mg Q6HP PRN PO 10/23/24 20:45 Nitroglycerin 0.4 mg Q5MINP PRN SL 10/23/24 20:45 Morphine Sulfate 2 mg Q30M PRN IV 10/23/24 20:45 Vancomycin HCl 0 ml @ 0 mls/hr UD IV 10/24/24 04:45 Vancomycin HCl 100 ml @ 200 mls/hr Q12H IV 10/26/24 09:00 10/26/24 09:00 200 MLS/HR Laboratory Results Laboratory Tests 10/24/24 16:21 Microbiology Microbiology Date/Time Source Procedure Growth Status 10/24/24 04:02 Nose MRSA Screen - Final Complete Labs and/or images reviewed: Labs reviewed by me Assessment/Plan Assessment/Plan Generalized weakness Metastatic disease Anemia, unspecified Acute respiratory distress Leukocytosis, unspecified Pneumonia, unspecified organism Congestive heart failure COPD Continuing current management. Continuing with IV antibiotic. Continuing with Lasix. Encouraged the patient to be out of bed and ambulate. We will consulted physical therapist. This medical document was created using an electronic medical record system with [employer] direct computerized dictation system. Although this document has been carefully reviewed, there may still be some phonetic and typographical errors. These areas are purely typographical due to imperfections of the software programs, and do not reflect any compromise in the patient's medical care. Plan discussed with: Patient My Orders Orders - DONTAE BENEDICT MD Procedure Category Date Status Time Basic Metabolic Panel LAB 10/26/24 Logged 04:00 Date of Service: Oct 26, 2024 Billing Provider: DONTAE BENEDICT MD Common Visit Codes: [id number] INP/OBS CARE(HIGH) DONTAE BENEDICT MD Oct 26, 2024 12:13
--- NOTE | 2024-10-26 13:32 | MEDREC ---
[facility] Intervention Section I [facility] Intervention: Review courses of therapy (MRSA negative, vancomycin no longer indicated for pneumonia coverage. Please consider d/c vancomycin) ZAY DANIEL [facility] RESIDENT Oct 26, 2024 13:32
[2024-10-26 13:59] LABS: Hematocrit 23.8 % (36.0-46.0); Hemoglobin 7.3 g/dL (12.2-16.2); Mean Corpuscular Hemoglobin 29.5 pg (28.0-32.0); Mean Corpuscular Volume 96.2 fL (80.0-100.0); Nucleated Red Blood Cells % 0.1 %
[2024-10-26 14:05] LABS: Potassium 3.7 mmol/L (3.5-5.1)
[2024-10-26 14:06] LABS: Anion Gap 10 (5-15); Calcium 9.9 mg/dL (8.7-10.4); Carbon Dioxide 17 mmol/L (20-31); Chloride 119 mmol/L (98-107); Sodium 146 mmol/L (136-145)
[2024-10-26 14:11] LABS: BUN/Creatinine Ratio 29.6 (10.0-20.0); Blood Urea Nitrogen 21 mg/dL (9-23); Glucose 86 mg/dL (74-106)
[2024-10-27] VITALS (11 sets, daily range): BP systolic 124–155; BP diastolic 55–77; PULSE 65–83; RESP 14–18; TEMP 97.4–98.5; O2SAT 95–100
[2024-10-27 10:51] LABS: Hematocrit 21.4 % (36.0-46.0); Mean Corpuscular Hemoglobin 29.9 pg (28.0-32.0); Mean Corpuscular Volume 92.6 fL (80.0-100.0); Nucleated Red Blood Cells % 0.2 %
[2024-10-27 10:58] LABS: Potassium 3.8 mmol/L (3.5-5.1)
[2024-10-27 10:59] LABS: Anion Gap 9 (5-15); Chloride 118 mmol/L (98-107); Sodium 147 mmol/L (136-145)
[2024-10-27 11:00] LABS: Calcium 10.0 mg/dL (8.7-10.4)
[2024-10-27 11:04] LABS: BUN/Creatinine Ratio 23.9 (10.0-20.0); Blood Urea Nitrogen 16 mg/dL (9-23); Glucose 94 mg/dL (74-106)
[2024-10-27 11:07] LABS: Carbon Dioxide 20 mmol/L (20-31)
[2024-10-27] MEDS ORDERED: CEPH250C PO (11:15)
--- NOTE | 2024-10-27 11:17 | DVHDS2 ---
Discharge Summary Date of Admission Oct 23, 2024 at 20:44 Date of Discharge: Oct 27, 2024 Labs/Diagnostic Data: Laboratory Results Test 10/27/24 10:20 10/26/24 13:33 10/25/24 05:51 10/24/24 16:21 Sodium Level 147 mmol/L (136-145) Potassium Level 3.8 mmol/L (3.5-5.1) Chloride Level 118 mmol/L (98-107) Carbon Dioxide Level 20 mmol/L (20-31) Anion Gap 9 (5-15) Blood Urea Nitrogen 16 mg/dL (9-23) Creatinine 0.67 mg/dL (0.550-1.02) Glomerular Filtration Rate Calc 89 mL/min (>90) BUN/Creatinine Ratio 23.9 (10.0-20.0) Serum Glucose 94 mg/dL (74-106) Calcium Level 10.0 mg/dL (8.7-10.4) Vancomycin Level Trough 17.9 ug/mL (5-10) Eosinophils (%) (Auto) 3.1 % (0.0-7.0) Eosinophils # (Auto) 0.3 10 ^3/uL (0-0.8) Basophils # (Auto) 0.1 10 ^3/uL (0-0.2) Nucleated Red Blood Cells 0.1 % Random Vancomycin Level 13.5 ug/mL (5-10) Total Bilirubin 0.3 mg/dL (0.2-1.0) Aspartate Amino Transferase (AST) 58 U/L (13-40) Alanine Aminotransferase (ALT) 34 U/L (7-40) Alkaline Phosphatase 118 U/L (46-116) Total Protein 6.1 g/dL (5.7-8.2) Albumin 2.8 g/dL (3.2-4.8) Test 10/23/24 22:01 10/23/24 21:38 10/23/24 16:55 Stool Occult Blood Negative (Negative) Stool Occult Blood Sample #3 (Negative) Influenza Type A Antigen Negative (Negative) Influenza Type B Antigen Negative (Negative) SARS-CoV-2 Antigen (Rapid) Negative (NEGATIVE) Troponin I High Sensitivity 5 ng/L (</=34) Thyroid Stimulating Hormone (TSH) 0.30 uIU/mL (0.55-4.78) Other Laboratory Tests 10/27/24 10:20 Final Diagnosis/Problems List Deconditioning Discharge Disposition: Home Discharge Instruct/Medications Diet: Regular Activity: No Restrictions, As Tolerated Follow Up/Referral: pcp 1-2 weeks Scheduled Amiodarone HCl (Amiodarone HCl), 200 MG PO DAILY Cephalexin (Keflex Capsule), 1 CAP PO BID Donepezil Hydrochloride (Donepezil Hcl), 5 MG PO HS Levothyroxine Sodium (Levothyroxine Sodium), 75 MCG PO QAM@0600 Nifedipine (Nifedipine Er), 60 MG PO DAILY Nirmatrelvir/Ritonavir (PAXLOVID 10 x 150 MG & 10 x 100MG), 1 TAB PO BID Pantoprazole Sodium Sesquihydr (Pantoprazole Sodium), 40 MG PO DAILY Scheduled PRN Acetaminophen (Acetaminophen), 650 MG PO Q6HP PRN Alum & Mag Hydrox-Simethicone (Gi Cocktail), 15 ML GT [id number] PRN Guaifenesin (Guaifenesin), 200 MG PO Q6HP PRN Discharge Statement: "Patient was advised to return to the ER or call 911 if any headaches, dizziness, shortness of breath, chest pain, abdominal pain, bleeding, fevers, or worsening of medical condition. Patient was counseled about treatment plan, medications, possible side effects, patientverbalized understanding. All questions were answered to the best of my ability. This discharge took greater then 30 minutes in planning, reviewing documentation, counseling the patient, and discussing with other team members." ASSESSMENT ASSESSMENT Assessment Deconditioning DONTAE BENEDICT MD Oct 27, 2024 11:16
[2024-10-27 11:33] LABS: Hemoglobin 6.9 g/dL (12.2-16.2)
[2024-10-27] MEDS: DOCUSATE SOD 100 MG CAP PO PRN (20:17)
[2024-10-27] MEDS: hydrALAZINE HCL 20 MG/ML VL IV PRN (21:31)
--- NOTE | 2024-10-27 22:26 | DVHPN2 ---
Subjective The patient is seen and examined at bedside. No complaint today. The patient stated she feel better today. Still remained very weak. Reviewed: Care Plan, H&P, Labs, Medications, Previous Orders Changes from previous H/P or p: No Changes Eyes: No Pain, No Vision change, No Conjunctivae inflammation, No Eyelid inflammation, No Other, No Redness ENT: No Ear pain, No Ear discharge, No Nose pain, No Nose discharge, No Nose congestion, No Mouth pain, No Mouth swelling, No Throat pain, No Throat swelling, No Other Cardiovascular: No Chest Pain, No Palpitations, No Orthopnea, No Paroxysmal Noc. Dyspnea, No Edema, No Lt Headedness, No Other Respiratory: No Cough, No Dry, No Shortness of breath, No SOB with excertion, No Wheezing, No Hemoptysis, No Pleuritic Pain, No Sputum, No Other Gastrointestinal: No Nausea, No Vomiting, No Abdominal Pain, No Diarrhea, No Constipation, No Melena, No Hematochezia, No Other Genitourinary: No Dysuria, No Frequency, No Incontinence, No Hematuria, No Retention, No Other Musculoskeletal: No other, No neck pain, No shoulder pain, No arm pain, No back pain, No hand pain, No leg pain, No foot pain Skin: No Rash, No Lesions, No Jaundice, No Bruising, No Other Objective Vitals Vital Signs Date Time Temp Pulse Resp B/P (MAP) Pulse Ox O2 Delivery O2 Flow Rate FiO2 10/27/24 21:31 154/70 10/27/24 21:08 98.0 66 17 98.0 10/27/24 21:00 100 10/27/24 08:00 Nasal Cannula* 2 28 Intake/Output Intake and Output 10/27/24 07:00 Intake Total 1250 ml Balance 1250 ml Intake Oral 950 ml IV Total 300 ml # Voids 7 General Appearance: Alert, Cooperative, No acute distress HEENT: Atraumatic, PERRLA, EOMI, Mucous membr. moist/pink Neck: Supple Lungs: Clear to auscultation, Normal air movement Cardiovascular: Regular rate, Normal S1, Normal S2, No murmurs, Gallops, Rubs Abdomen: Normal bowel sounds, Soft, No tenderness Neuro: Cranial nerves 3-12 NL Psych/Mental Status: Mental status NL Medications Current Medications Medications Dose Ordered Sig/[place] Route Start Time Stop Time Status Last Admin Dose Admin Hydralazine HCl 10 mg Q6HP PRN IV 10/23/24 20:45 10/27/24 21:31 10 MG Levothyroxine Sodium 25 mcg QAM@0600 PO 10/24/24 06:00 10/27/24 05:20 25 MCG Levofloxacin/ Dextrose 100 ml @ 100 mls/hr DAILY@2100 IV 10/24/24 21:00 10/27/24 20:17 100 MLS/HR Albuterol 2.5 mg Q4HPRN PRN NEB 10/23/24 20:45 Cancel Ipratropium [place] 0.5 mg Q4HPRN PRN NEB 10/23/24 20:45 Cancel Sodium Chloride 10 ml Q8HR IV 10/23/24 22:00 10/27/24 21:48 10 ML Acetaminophen/ Hydrocodone Bitart 1 tab Q4HP PRN PO 10/23/24 20:45 10/27/24 21:32 1 TAB Ondansetron HCl 4 mg Q4HP PRN IV 10/23/24 20:45 Docusate Sodium 100 mg BIDPRN PRN PO 10/23/24 20:45 10/27/24 20:17 100 MG Acetaminophen 500 mg Q6HP PRN PO 10/23/24 20:45 Nitroglycerin 0.4 mg Q5MINP PRN SL 10/23/24 20:45 Morphine Sulfate 2 mg Q30M PRN IV 10/23/24 20:45 Vancomycin HCl 0 ml @ 0 mls/hr UD IV 10/24/24 04:45 Vancomycin HCl 100 ml @ 200 mls/hr Q12H IV 10/28/24 00:00 Laboratory Results Laboratory Tests 10/27/24 10:20 Chemistry Test 10/27/24 10:20 Calcium Level 10.0 mg/dL (8.7-10.4) Microbiology Microbiology Date/Time Source Procedure Growth Status 10/24/24 04:02 Nose MRSA Screen - Final Complete Labs and/or images reviewed: Labs reviewed by me Assessment/Plan Assessment/Plan Generalized weakness Metastatic disease Anemia, unspecified Acute respiratory distress Leukocytosis, unspecified Pneumonia, unspecified organism Congestive heart failure COPD Continuing current management. Continuing with IV antibiotic. Continuing with Lasix. Encouraged the patient to be out of bed and ambulate. We will consulted physical therapist. Hemoglobin today 6.9. I will type and cross and transfuse one packed red blood cell. This medical document was created using an electronic medical record system with [employer] computerized dictation system. Although this document has been carefully reviewed, there may still be some phonetic and typographical errors. These areas are purely typographical due to imperfections of the software programs, and do not reflect any compromise in the patient's medical care. Plan discussed with: Patient, Other (Rn) My Orders Orders - DONTAE BENEDICT MD Procedure Category Date Status Time Complete Blood Count LAB 10/28/24 Verified 05:00 Complete Blood Count LAB 10/29/24 Verified 05:00 Complete Blood Count LAB 10/30/24 Verified 05:00 Complete Blood Count LAB 10/31/24 Verified 05:00 Basic Metabolic Panel LAB 10/28/24 Verified 05:00 Basic Metabolic Panel LAB 10/29/24 Verified 05:00 Basic Metabolic Panel LAB 10/30/24 Verified 05:00 Basic Metabolic Panel LAB 10/31/24 Verified 05:00 Date of Service: Oct 27, 2024 Billing Provider: DONTAE BENEDICT MD Common Visit Codes: [id number] INP/OBS CARE(HIGH) DONTAE BENEDICT MD Oct 27, 2024 22:26
[2024-10-28] VITALS (7 sets, daily range): BP systolic 118–160; BP diastolic 65–80; PULSE 60–88; RESP 16–18; TEMP 97.5–98.2; O2SAT 98–100
[2024-10-28] MEDS: VANCOMYCIN 500mg/100mL 100 ML IV SCH ×2 (02:37→15:34)
[2024-10-28 07:30] LABS: Hematocrit 26.6 % (36.0-46.0); Hemoglobin 9.0 g/dL (12.2-16.2); Mean Corpuscular Hemoglobin 29.7 pg (28.0-32.0); Mean Corpuscular Volume 88.4 fL (80.0-100.0); Nucleated Red Blood Cells % 0.1 %
[2024-10-28 07:41] LABS: Anion Gap 11 (5-15)
[2024-10-28 07:42] LABS: Calcium 10.2 mg/dL (8.7-10.4)
[2024-10-28 07:45] LABS: Carbon Dioxide 17 mmol/L (20-31); Chloride 117 mmol/L (98-107); Potassium 2.8 mmol/L (3.5-5.1); Sodium 145 mmol/L (136-145)
[2024-10-28 07:46] LABS: BUN/Creatinine Ratio 16.9 (10.0-20.0); Blood Urea Nitrogen 11 mg/dL (9-23)
[2024-10-28 07:47] LABS: Glucose 72 mg/dL (74-106)
--- NOTE | 2024-10-28 10:50 | DVHDS2 ---
Discharge Summary Date of Admission Oct 23, 2024 at 20:44 Date of Discharge: Oct 28, 2024 Admitting Diagnosis Generalized weakness Metastatic disease Anemia, unspecified Acute respiratory distress Leukocytosis, unspecified Pneumonia, unspecified organism Congestive heart failure COPD Labs/Diagnostic Data: Laboratory Results Test 10/28/24 07:13 10/27/24 10:20 10/25/24 05:51 10/24/24 16:21 White Blood Count 8.9 10^3/uL (4.4-10.8) Red Blood Count 3.01 10^6/uL (4.0-5.20) Hemoglobin 9.0 g/dL (12.2-16.2) Hematocrit 26.6 % (36.0-46.0) Mean Corpuscular Volume 88.4 fL (80.0-100.0) Mean Corpuscular Hemoglobin 29.7 pg (28.0-32.0) Mean Corpuscular Hemoglobin Concent 33.6 g/dL (32.0-36.0) Red Cell Distribution Width 17.2 % (11.8-14.3) Platelet Count 327 10^3/uL (140-450) Mean Platelet Volume 7.6 fL (6.9-10.8) Neutrophils (%) (Auto) 73.0 % (37.0-80.0) Lymphocytes (%) (Auto) 13.9 % (10.0-50.0) Monocytes (%) (Auto) 8.3 % (0.0-12.0) Eosinophils (%) (Auto) 3.6 % (0.0-7.0) Basophils (%) (Auto) 1.2 % (0.0-2.0) Neutrophils # (Auto) 6.5 10 ^3/uL (1.6-8.6) Lymphocytes # (Auto) 1.2 10 ^3/uL (0.4-5.4) Monocytes # (Auto) 0.7 10 ^3/uL (0-1.3) Eosinophils # (Auto) 0.3 10 ^3/uL (0-0.8) Basophils # (Auto) 0.1 10 ^3/uL (0-0.2) Nucleated Red Blood Cells 0.1 % Sodium Level 145 mmol/L (136-145) Potassium Level 2.8 mmol/L (3.5-5.1) Chloride Level 117 mmol/L (98-107) Carbon Dioxide Level 17 mmol/L (20-31) Anion Gap 11 (5-15) Blood Urea Nitrogen 11 mg/dL (9-23) Creatinine 0.65 mg/dL (0.550-1.02) Glomerular Filtration Rate Calc 90 mL/min (>90) BUN/Creatinine Ratio 16.9 (10.0-20.0) Serum Glucose 72 mg/dL (74-106) Calcium Level 10.2 mg/dL (8.7-10.4) Vancomycin Level Trough 17.9 ug/mL (5-10) Random Vancomycin Level 13.5 ug/mL (5-10) Total Bilirubin 0.3 mg/dL (0.2-1.0) Aspartate Amino Transferase (AST) 58 U/L (13-40) Alanine Aminotransferase (ALT) 34 U/L (7-40) Alkaline Phosphatase 118 U/L (46-116) Total Protein 6.1 g/dL (5.7-8.2) Albumin 2.8 g/dL (3.2-4.8) Test 10/23/24 22:01 10/23/24 21:38 10/23/24 16:55 Stool Occult Blood Negative (Negative) Stool Occult Blood Sample #3 (Negative) Influenza Type A Antigen Negative (Negative) Influenza Type B Antigen Negative (Negative) SARS-CoV-2 Antigen (Rapid) Negative (NEGATIVE) Troponin I High Sensitivity 5 ng/L (</=34) Thyroid Stimulating Hormone (TSH) 0.30 uIU/mL (0.55-4.78) Other Laboratory Tests 10/28/24 07:13 Brief Hx & Hospital Course: This is a 79 years old female with multiple past medical history including multiple myeloma with metastasis, anemia, congestive heart failure, COPD, thyroid disease, and DVT come to emergency department because of generalized weakness. Per report by EMS family member called because she change condition. She was found to slumped over the chair. The patient reports that she had a similar symptoms before and was found to have anemic and required transfusions. The patient had history of metastatic and multiple myeloma. Chest x-ray showed right upper lobe consolidation opacity. The patient was admitted. The patient was treated with vancomycin and Levaquin. The patient was found to have anemia with hemoglobin of 6.8. The patient received one packed red blood cell transfusions. Her hemoglobin is stable today at night. I am going to discharge the patient home. Advised the patient to follow up with primary care physician 1-2 weeks. Follow up with her oncologist per schedule. Activity as tolerated. Diet per home diet. Physical exam: HEENT: Normocephalic atraumatic pupils equal react to light and accommodation. Extraocular muscles intact, conjunctiva pink, oropharynx moist, no thrush, no exudate. Lymphatic: No lymphadenopathy Cardiovascular exam: S1, S2 was heard. No murmurs, rubs, gallops Lung: Clear on auscultation bilaterally, no wheeze, rale, rhonchi. GI: Abdominal soft, nondistended, nontenderness, positive bowel sounds. Extremity: No crepitus, cyanosis, edema. Pedal pulses present bilateral. Full range of motion. Skin: Normal turgor, no rash. Psych: Alert, oriented x3. Neurology: No focal deficits, cranial nerve II to XII grossly intact. This medical document was created using an electronic medical record system with [employer] computerized dictation system. Although this document has been carefully reviewed, there may still be some phonetic and typographical errors. These areas are purely typographical due to imperfections of the software programs, and do not reflect any compromise in the patient's medical care. Condition at Discharge: Stable Final Diagnosis/Problems List Deconditioning Generalized weakness Metastatic disease Anemia, unspecified Acute respiratory distress Leukocytosis, unspecified Pneumonia, Gram-positive pneumonia Congestive heart failure COPD Discharge Disposition: Home Discharge Instruct/Medications Diet: Regular Activity: No Restrictions, As Tolerated Follow Up/Referral: pcp 1-2 weeks Medications: resume home med Scheduled Amiodarone HCl (Amiodarone HCl), 200 MG PO DAILY Cephalexin (Keflex Capsule), 1 CAP PO BID Donepezil Hydrochloride (Donepezil Hcl), 5 MG PO HS Levothyroxine Sodium (Levothyroxine Sodium), 75 MCG PO QAM@0600 Nifedipine (Nifedipine Er), 60 MG PO DAILY Pantoprazole Sodium Sesquihydr (Pantoprazole Sodium), 40 MG PO DAILY Scheduled PRN Acetaminophen (Acetaminophen), 650 MG PO Q6HP PRN Alum & Mag Hydrox-Simethicone (Gi Cocktail), 15 ML GT [id number] PRN Guaifenesin (Guaifenesin), 200 MG PO Q6HP PRN Discontinued Medications Nirmatrelvir/Ritonavir (PAXLOVID 10 x 150 MG & 10 x 100MG), 1 TAB PO BID Discharge Statement: "Patient was advised to return to the ER or call 911 if any headaches, dizziness, shortness of breath, chest pain, abdominal pain, bleeding, fevers, or worsening of medical condition. Patient was counseled about treatment plan, medications, possible side effects, patientverbalized understanding. All questions were answered to the best of my ability. This discharge took greater then 30 minutes in planning, reviewing documentation, counseling the patient, and discussing with other team members." ASSESSMENT ASSESSMENT Assessment Deconditioning Date of Service: Oct 28, 2024 Billing Provider: DONTAE BENEDICT MD Common Visit Codes: [id number] DISCH DAY >30min DONTAE BENEDICT MD Oct 28, 2024 10:50
[2024-10-28] MEDS: POTASSIUM CHL 20 Meq TABLET PO ONE (13:28)
== END 2024-10-28 18:30 | disposition home or self-care (01) | DRG 843 ==
LOC: ER 10:56 → EDBD 10:56 → OVERFLOW 20:44 → TELE-WESTW 23:03
PROVIDERS: ADMIT Internal Medicine; ATTEND Internal Medicine
PROC: 30233N1 Transfusion of Nonautologous Red Blood Cells into Peripheral Vein, Percutaneous Approach (ICD-10-PCS; principal; 2024-10-27)
DX: C79.89 Secondary malignant neoplasm of other specified sites (principal); J15.9 Unspecified bacterial pneumonia; J44.0 Chronic obstructive pulmonary disease with (acute) lower respiratory infection; C90.00 Multiple myeloma not having achieved remission; I11.0 Hypertensive heart disease with heart failure; I50.9 Heart failure, unspecified; Z99.81 Dependence on supplemental oxygen; E03.9 Hypothyroidism, unspecified; R06.03 Acute respiratory distress; Z20.822 Contact with and (suspected) exposure to COVID-19; K57.30 Diverticulosis of large intestine without perforation or abscess without bleeding; D63.0 Anemia in neoplastic disease; D72.829 Elevated white blood cell count, unspecified; Z88.0 Allergy status to penicillin; Z95.0 Presence of cardiac pacemaker; Z86.718 Personal history of other venous thrombosis and embolism
CPT/HCPCS: 36415; 71045; 74177; 80048; 80053; 80202; 82270; 84443; 84484; 85025; 86850; 86900; 86901; 86920; 87081; 87426; 87804; 93005; 96365; G0378; J1956

== ENCOUNTER 2024-11-11 10:27 | Inpatient (IN) | payer MEDICARE, MEDICAID ==
[2024-11-11] VITALS (12 sets, daily range): BP systolic 137–172; BP diastolic 45–72; PULSE 65–69; RESP 10–19; TEMP 97.4–97.8; O2SAT 100
[~2024-11-11] VITALS: Ht 157.5 cm; Wt 63.2 kg
[~2024-11-11 10:27] MED LIST changes: +ASCO500T6 PO; +CALC500T53 PO; +CEPH250C PO; +CETI-120 PO; +CHOL1TAB30 PO; +DONE1TAB88 PO; +FERR325T20 PO; +IBUP-1455 PO; +IPRA0.00 NEB; +METO25TA93 PO; -NIRM1TAB7 PO; +OMEP1CAP70 PO; +POTA-220 PO; +RIV20T PO
--- NOTE | 2024-11-11 10:40 | ED.PDOC ---
Musculoskeletal HPI Comments Discharge diagnosis from 10/28/24 Deconditioning Generalized weakness Metastatic disease Anemia, unspecified Acute respiratory distress Leukocytosis, unspecified Pneumonia, Gram-positive pneumonia Congestive heart failure COPD HPI: 79 year old female presents to the emergency department via EMS with a chief complaint of wound check. Per EMS, patient has a chronic wound to LT heel, wound care nurse went this morning, noticed wound was worsening, called PCP, Dr. Birch, recommended to bring patient to ED. Patient has been dealing with this wound for the past 3-4 months. EMS states patient also has wound on LT buttock region. Patient is non-verbal, complains of pain. No other symptoms or modifying factors present at this time. Per EMS: Patient is nonverbal, patient is bed ridden. Initial Vitals BP: 124/50 HR: 65 RR: 18 O2 Sat: 98% Temp: 98.0 F Past Medical history: anemia, asthma, CHF, COPD, HTN, thyroid disease, nonverbal Past Surgical history: pacemaker Medications: Xarelto Social History: Denies smoking, ETOH, and drug use. Allergies: Penicillin, Atenolol, Lisinopril HPI: Poor Historian. REVIEW OF SYSTEMS: CONSTITUTIONAL: Denies acute: fever, diaphoresis, chills, generalized weakness. HEAD: Denies acute: headache, photophobia Eyes: Denies acute: Double vision, vision loss, eye pain, eye discharge. EARS: Denies acute: tinnitus, hearing loss, ear discharge, ear pain, THROAT: Denies acute: sore throat, swelling, difficulty swallowing , pain with swallowing, change in voice. NECK: Denies acute: neck pain, neck swelling, stiff neck. HEART: Denies acute : chest pain, palpitations, LUNGS: Denies acute: SOB, wheezing, cough, hemoptysis ABDOMEN: Denies acute: abdominal pain, Nausea, Vomiting, diarrhea, melena , hematemesis, hematochezia SKIN: Denies acute: rash, redness, lesions, itchiness. EXTREMITIES: Denies acute: calf pain, numbness, tingling, weakness, Denies acute: Low back pain. Neuro: Denies acute: focal neurological deficit, motor or sensory focal neurological deficit, tremors, seizure like activity, confusion, dizziness, change in mental status, loss of bowel or bladder function, cauda equina like symptoms. : Denies acute: dysuria, hematuria, flank pain, increase in urinary frequency. PSYCH: Denies acute: hallucination, suicidal ideation, homicidal ideation. FEMALE: Denies acute: abnormal vaginal bleeding, foul odor, unusual discharge. PHYSICAL EXAM: General: ----mild----acute distress, awake and alert. Head: normocephalic, atraumatic. Neck: supple, trachea is midline, no swelling. Throat: Normal phonation. Eyes:, no erythema, no purulent discharge, no proptosis, no icterus. Heart: regular rate, regular rhythm, no significant murmur appreciated. Lungs: no apparent respiratory distress, Able to speak in full sentences. No wheezing, no rhonchi, no crackles. No stridors Clear to auscultation bilaterally. Abdomen: non tender to palpation, non distended, soft, no guarding, no rebound, + bowel sounds. 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 Does not appear to be infected. Not deep. Neuro: Awake, Alert, oriented to name, self, situation, follows commands GCS=15. Speech is normal. Skin: no petechia, no purpura, no cyanosis, non-pale, not jaundice. Lower extremities: --no - Pitting edema no deformity, no focal swelling, no calf TTP. Evaluation of the area of complaint of the left lower extremity: Left he will chronic dried wound proximally 5 cm in diameter without associated erythema or swelling. The heel is slightly tender to palpation. Patient is stated that the pain has been there for awhile. EMS suggested it was at least for 3-4 months. Patient is neurovascularly intact in the affected extremity. Pedal pulses palpable. Sensory and motor are present. Makes eye contact. moves all four extremities. Face: no apparent facial droop. Pedal pulses are palpable. ED COURSE: DISCLAIMER: This medical document was created using an electronic medical record system with voice recognition software and computerized dictation system. Although this document has been carefully reviewed, there might still be some phonetic and typographical errors. Occasional wrong-word or "sound-alike" substitutions may have occurred due to the inherent limitations of voice recognition software. These areas are purely typographical due to imperfections of the software programs and do not reflect any compromise in the patient's medical care. Please read the chart carefully and recognize, using context, where these substitutions have occurred. Chief Complaint: Fall Injury Time Seen by MD: 10:30 Reviewed Notes: Medications, Allergies Allergies: Coded Allergies: Atenolol (Unverified Allergy, Unknown, 07/13/24) Lisinopril (Unverified Allergy, Unknown, 07/13/24) Penicillins (Unverified Allergy, Unknown, 07/13/24) Home Meds Active Scripts Cephalexin (KEFLEX CAPSULE) 250 Mg Cp, 1 CAP PO BID, #14 CAP Prov:DONTAE BENEDICT MD 10/27/24 Nifedipine (Nifedipine Er) 30 Mg Tab, 60 MG PO DAILY for 30 Days, #60 TAB Prov:PATRICK RUCKER RESIDENT 10/12/24 Levothyroxine Sodium (Levothyroxine Sodium) 25 Mcg Tab, 75 MCG PO QAM@0600 for 30 Days, #30 TAB Prov:PATRICK RUCKER RESIDENT 10/12/24 Amiodarone HCl (Amiodarone HCl) 200 Mg Tab, 200 MG PO DAILY for 30 Days, #30 TAB Prov:PATRICK RUCKER RESIDENT 10/12/24 Reported Medications Calcium Carbonate (Calcium Carbonate) 1,250 Mg Tab, 1 TAB PO DAILY for 30 Days, #30 11/12/24 Ipratropium-Albuterol (Ipratropium [place]/Albut) 1 Lis Lis, 1 VIAL NEB QID for 30 Days, #360 11/12/24 Potassium Chloride (Klor-Con M20) 20 Meq Tab, 1 TAB PO DAILY for 90 Days, #90 11/12/24 Rivaroxaban (Xarelto Tablet) 20 Mg Tb, 1 TAB PO QPM for 30 Days, #30 11/12/24 Cholecalciferol (Gnp Vitamin D) 1,000 Unit Tab, 1 TAB PO DAILY for 30 Days, #30 11/12/24 Ferrous Sulfate (Ferosul) 325 Mg Tab, 1 TAB PO DAILY for 30 Days, #30 11/12/24 Cetirizine HCl (Cetirizine Hydrochloride) 10 Mg Tab, 2 TAB PO DAILY for ITCH for 30 Days, #60 11/12/24 Ascorbic Acid (Gnp Vitamin C W/Rosalia Hips) 500 Mg Tab, 1 TAB PO DAILY for 90 Days, #90 11/12/24 Ibuprofen Micronized (Ibuprofen) 800 Mg Tab, 1 TAB PO Q4-6HR for 15 Days, #90 11/12/24 Omeprazole (Omeprazole Dr) 20 Mg Cap, 1 CAP PO DAILY for 90 Days, #90 11/12/24 Metoprolol Succinate (Metoprolol Succinate Er) 25 Mg Tab, 1 TAB PO DAILY for 90 Days, #90 11/12/24 Donepezil Hydrochloride (DONEPEZIL HCL) 10 Mg Tab, 1 TAB PO DAILY for 30 Days, #30 11/12/24 Information Source: Patient, Emergency Med Personnel Mode of Arrival: EMS Location: Left Extremity Location: Foot Timing: Months Prehospital treatment: None Severity: Moderate Able to Move Extremity: Yes Bear Weight: Limited Pain: Moderate Mechanism: Other Circumstances: Preceding Wound Onset of Symptoms: After Trauma Symptoms: Pain DVT Risk Factors: CHF Past Medical History PAST MEDICAL HISTORY: Anemia, Asthma, CHF, COPD, HTN, Thyroid Surgical History: Pacemaker CHARGE ACCOUNTS AUDIT CLERK History: No Pertinent CHARGE ACCOUNTS AUDIT CLERK History Family History Family History: Reviewed,noncontributory to illness, Unknown Social History Smoker: Non-Smoker Alcohol: Denies ETOH Use Drugs: Denies Drug Use Lives In: Home, Assisted Care Was a procedure done? Was a procedure done?: No Differential Diagnosis EXT Differential Diagnosis: Cellulitis, Septic (Osteomyelitis, necrotizing fasciitis,), Other X-Ray, Labs, Meds, VS Vital Signs Date Time Temp Pulse Resp B/P (MAP) Pulse Ox O2 Delivery O2 Flow Rate FiO2 11/11/24 15:00 65 13 143/55 (84) 100 11/11/24 14:00 65 13 148/47 (80) 100 11/11/24 13:00 65 12 157/124 (135) 100 11/11/24 12:00 66 14 100 Nasal Cannula* 2 28 11/11/24 12:00 97.4 66 14 150/56 (87) 100 97.4 11/11/24 10:37 98.0 65 18 124/50 98 98.0 Lab Test 11/11/24 11:52 Range/Units White Blood Count 13.7 H 4.4-10.8 10^3/uL Red Blood Count 1.88 L 4.0-5.20 10^6/uL Hemoglobin 5.8 *L 12.2-16.2 g/dL Hematocrit 18.2 L 36.0-46.0 % Mean Corpuscular Volume 96.8 80.0-100.0 fL Mean Corpuscular Hemoglobin 30.6 28.0-32.0 pg Mean Corpuscular Hemoglobin Concent 31.6 L 32.0-36.0 g/dL Red Cell Distribution Width 19.1 H 11.8-14.3 % Platelet Count 428 140-450 10^3/uL Mean Platelet Volume 7.3 6.9-10.8 fL Neutrophils (%) (Auto) 77.4 37.0-80.0 % Lymphocytes (%) (Auto) 15.2 10.0-50.0 % Monocytes (%) (Auto) 5.2 0.0-12.0 % Eosinophils (%) (Auto) 1.6 0.0-7.0 % Basophils (%) (Auto) 0.6 0.0-2.0 % Neutrophils # (Auto) 10.6 H 1.6-8.6 10 ^3/uL Lymphocytes # (Auto) 2.1 0.4-5.4 10 ^3/uL Monocytes # (Auto) 0.7 0-1.3 10 ^3/uL Eosinophils # (Auto) 0.2 0-0.8 10 ^3/uL Basophils # (Auto) 0.1 0-0.2 10 ^3/uL Nucleated Red Blood Cells 0.4 % Platelet Estimate Adequate Anisocytosis (manual) Slight Ovalocytes Erythrocyte Sedimentation Rate 128 H 0-20 mm/hr Reticulocyte Count (auto) 7.70 H 0.5-1.5 % Sodium Level 140 136-145 mmol/L Potassium Level 3.7 3.5-5.1 mmol/L Chloride Level 116 H 98-107 mmol/L Carbon Dioxide Level 14 L 20-31 mmol/L Anion Gap 10 5-15 Blood Urea Nitrogen 32 H 9-23 mg/dL Creatinine 1.22 H 0.550-1.02 mg/dL Glomerular Filtration Rate Calc 45 >90 mL/min BUN/Creatinine Ratio 26.2 H 10.0-20.0 Serum Glucose 102 74-106 mg/dL Lactic Acid Level 2.0 0.4-2.0 mmol/L Calcium Level 11.2 H 8.7-10.4 mg/dL Phosphorus Level 2.5 2.4-5.1 mg/dL Magnesium Level 2.3 1.6-2.6 mg/dL Lactate Dehydrogenase 232 120-246 U/L C-Reactive Protein High Sensitivity 2.00 H <1.0 mg/dL [place] [id number] Ph: [phone] DIAGNOSTIC IMAGING Diagnostic Imaging Report : [id number] Signed PATIENT: KENNETH MULLER ACCT: [id number] UNIT: [id number] : 1945 LOC: ER ROOM / BED: / AGE / SEX: 79 / F ADM STATUS: REG ER SERVICE [id number] ORDERING PHYSICIAN: CINTIA FARR DO PROCEDURE(s): LANK2 - L ANKLE 2 VIEW XRAY REASON: chronic heel wound ORDER NUMBER(s): [id number], ACCESSION NUMBER(s): [id number] CLINICAL INDICATION: chronic heel wound TECHNIQUE: 3 radiographic views of the left ankle were obtained. Comparison: XY L HIP COMPLETE XRAY on DOS: 07/29/24, XY L ANKLE 2 VIEW XRAY on DOS: 06/12/24, XY R ANKLE 2 VIEW XRAY on DOS: 06/12/24, XY R HIP COMPLETE XRAY on DOS: 05/18/24, XY R FOOT 3 VIEW XRAY on DOS: 10/28/23 FINDINGS/IMPRESSION: There is no evidence of acute fracture or dislocation. Heterotopic calcification left fibular head. Small plantar calcaneal enthesophyte. ATED BY: MONCHO GODDARD MD DICTATED DATE/TIME: 11/11/241203 SIGNED BY: MONCHO GODDARD MD SIGNED DATE/TIME: 11/11/241203 CC: [place] [id number] Ph: [phone] DIAGNOSTIC IMAGING Diagnostic Imaging Report : [id number] Signed PATIENT: KENNETH MULLER ACCT: [id number] UNIT: [id number] : 1945 [facility]GE / SEX: 79 / F ADM STATUS: ADM IN SERVICE 1556 ORDERING PHYSICIAN: FRITZ BUSH PROCEDURE(s): CXR1 - CHEST XRAY 1 VIEW REASON: SOB ORDER NUMBER(s): [id number], ACCESSION NUMBER(s): [id number] CHEST RADIOGRAPH Indication: SOB Technique: Single frontal view of the chest was obtained COMPARISON: XY CHEST PORTABLE on DOS: 10/23/24, XY CHEST XRAY 1 VIEW on DOS: 10/11/24, XY CHEST XRAY 1 VIEW on DOS: 10/06/24, XY CHEST PORTABLE on DOS: 09/28/24, XY CHEST PORTABLE on DOS: 08/28/24 FINDINGS: Lines and Tubes: Left chest pacemaker. Lungs: Patchy airspace opacities in the right upper lobe. Pleura: No effusion. No pneumothorax. Cardiomediastinal contours: Unremarkable Bones: Unremarkable IMPRESSION: Patchy airspace opacities in the right lung apex may represent scarring or pneumonia. Clinical correlation advised. This is increased since 10/23/2024. ATED BY: ELVIN RHODES MD DICTATED DATE/TIME: 11/11/241647 SIGNED BY: ELVIN RHODES MD SIGNED DATE/TIME: 11/11/241647 CC: [place] [id number] Ph: [phone] DIAGNOSTIC IMAGING Diagnostic Imaging Report : [id number] Signed PATIENT: KENNETH MULLER ACCT: [id number] UNIT: [id number] : 1945 [facility] AGE / SEX: 79 / F ADM STATUS: ADM IN SERVICE 165 ORDERING PHYSICIAN: FRITZ BUSH PROCEDURE(s): LFTCT - CT L FOOT WO CONTRAST REASON: rule out osteomyelitis ORDER NUMBER(s): [id number], ACCESSION NUMBER(s): [id number] EXAM: CT CT L FOOT WO CONTRAST INDICATION: rule out osteomyelitis TECHNIQUE: Axial images of left foot without contrast have been obtained along with coronal and sagittal reformatted images. All CT scans at this facility use dose modulation, iterative reconstruction, and/or weight based dosing when appropriate to reduce radiation dose to as low as reasonably achievable. COMPARISON: XY L ANKLE 2 VIEW XRAY on DOS: 11/11/24 FINDINGS: BONES: No CT evidence of an acute fracture or aggressive osseous lesion. bridging ossification across the ankle syndesmosis. Diffusely decreased bone mineralization. Curvilinear extension of ossification along the fibula. In regards to the clinical question, no definitive osseous erosion to suggest d efinitive evidence of osteomyelitis however maintain elevated suspicion given deep soft tissue ulceration along the plantar aspect of the heel. MUSCLES: Fatty atrophy of the intrinsic musculature JOINT SPACES: No joint effusion. TENDONS/LIGAMENTS: Intact. OTHER: None. IMPRESSION: 1. No definitive CT evidence of osteomyelitis however maintain elevated suspicion given deep soft tissue ulceration and phlegmon suspected particularly overlying the posterior heel. ATED BY: BRIGIDA KENYON MD DICTATED DATE/TIME: 11/11/241844 SIGNED BY: BRIGIDA KENYON MD SIGNED DATE/TIME: 11/11/241844 CC: Time of 1ST Reevaluation: 11:00 Reevaluation 1ST: Unchanged Patient Education/Counseling: Diagnosis, Treatment Family Education/Counseling: No Family Present Comments MDM: patient presented with the above HPI.-chronic wound-----workup was initi ated. patient was found with the above mentioned diagnosis. the following medications were ordered: please refer to order lists of meds and tests obtained by myself Dr. Farr. Patient ED course and VS have been stabilized. Patient has been reassessed in the ED and remained in a stable condition. Pertinent incidental findings were discussed with the patient and/or family. Patient/family voices understanding and is agreeable with plan. Patient has been observed in the ED adequate length of time to insure improvement/stability. Escalation of care considered: Consideration of escalation to observation or admission Patient was found with recurrent anemia. Patient was ADMITTED to the medicine team for further evaluation and treatment of their presentation. All the reports of any imaging studies that were ordered by myself were reviewed by myself. Departure 1 Departure Time of Disposition: 12:17 Impression: Primary Impression: Anemia, unspecified Additional Impression: Chronic wound Disposition: ADMITTED INPATIENT Admit to: Tele Condition: Guarded Discharged With: Self Critical Care Note Critical Care Time?: Yes (35 min-critical care time only) I personally scribed for CINTIA FARR DO ([email or web address]) on 11/11/24 at 10:40. Electronically submitted by Liz Joshua ([email or web address]). I personally scribed for CINTIA FARR DO ([email or web address]) on 11/11/24 at 10:52. Electronically submitted by Liz Joshua ([email or web address]). I personally scribed for CINTIA FARR DO ([email or web address]) on 11/11/24 at 11:19. Electronically submitted by Liz Joshua ([email or web address]). I personally scribed for CINTIA FARR DO ([email or web address]) on 11/11/24 at 12:35. Electronically submitted by Liz Joshua ([email or web address]). CINTIA FARR DO Nov 11, 2024 10:40
--- NOTE | 2024-11-11 12:07 | DVH ---
CLINICAL INDICATION: chronic heel wound TECHNIQUE: 3 radiographic views of the left ankle were obtained. Comparison: XY L HIP COMPLETE XRAY on DOS: 07/29/24, XY L ANKLE 2 VIEW XRAY on DOS: 06/12/24, XY R ANKL E 2 VIEW XRAY on DOS: 06/12/24, XY R HIP COMPLETE XRAY on DOS: 05/18/24, XY R FOOT 3 VIEW XRAY on DOS: 10/28/23 FINDINGS/IMPRESSION: There is no evidence of acute fracture or dislocation. Heterotopic calcification left fibular head. Small plantar calcaneal enthesophyte.
[2024-11-11 12:09] LABS: Hematocrit 18.2 % (36.0-46.0); Mean Corpuscular Hemoglobin 30.6 pg (28.0-32.0); Mean Corpuscular Volume 96.8 fL (80.0-100.0); Nucleated Red Blood Cells % 0.4 %
[2024-11-11 12:14] LABS: Potassium 3.7 mmol/L (3.5-5.1); Sodium 140 mmol/L (136-145)
[2024-11-11 12:15] LABS: Anion Gap 10 (5-15)
[2024-11-11 12:16] LABS: Hemoglobin 5.8 g/dL (12.2-16.2)
[2024-11-11 12:20] LABS: BUN/Creatinine Ratio 26.2 (10.0-20.0); Glucose 102 mg/dL (74-106)
[2024-11-11 12:21] LABS: Blood Urea Nitrogen 32 mg/dL (9-23); Calcium 11.2 mg/dL (8.7-10.4); Carbon Dioxide 14 mmol/L (20-31); Chloride 116 mmol/L (98-107)
[2024-11-11 13:34] LABS: Anisocytosis Slight
[2024-11-11] MEDS ORDERED: VANCOMYCIN PER PHARMACY 0 MG IV SCH (16:00)
[2024-11-11] MEDS ORDERED: LACTATED RINGER'S 1,000 ML IV ONE (16:00)
--- NOTE | 2024-11-11 16:51 | DVH ---
CHEST RADIOGRAPH Indication: SOB Technique: Single frontal view of the chest was obtained COMPARISON: XY CHEST PORTABLE on DOS: 10/23/24, XY CHEST XRAY 1 VIEW on DOS: 10/11/24, XY CHEST XRAY 1 V IEW on DOS: 10/06/24, XY CHEST PORTABLE on DOS: 09/28/24, XY CHEST PORTABLE on DOS: 08/28/24 FINDINGS: Lines and Tubes: Left chest pacemaker. Lungs: Patchy airspace opacities in the right upper lobe. Pleura: No effusion. No pneumothorax. Cardiomediastinal contours: Unremarkable Bones: Unremarkable IMPRESSION: Patchy airspace opacities in the right lung apex may represent scarring or pneumonia. Clinical corre lation advised. This is increased since 10/23/2024.
[2024-11-11] MEDS: VANCOMYCIN 1GM/250ML KIT 250 ML IV ONE (17:05)
[2024-11-11] MEDS: PANTOPRAZOLE 40 MG/10 ML VIAL INJ IV ONE (17:05)
[2024-11-11] MEDS: AMIODARONE HCL 200 MG TAB PO ONE (17:07)
[2024-11-11 17:09] LABS: Magnesium 2.3 mg/dL (1.6-2.6)
[2024-11-11] MEDS: SODIUM CHLORIDE 0.9% 1,000 ML IV ONE (17:10)
[2024-11-11] MEDS: LEVALBUTEROL HCL 1.25 MG/3 ML NEB ONE (17:53)
[2024-11-11] MEDS: IPRATROPIUM BROM 0.5 MG/2.5ML INH SOL ONE (17:54)
[2024-11-11] MEDS: IPRATROPIUM BROM 0.5 MG/2.5ML INH SOL NEB SCH (18:11)
[2024-11-11] MEDS: LEVALBUTEROL HCL 1.25 MG/3 ML NEB NEB SCH (18:11)
--- NOTE | 2024-11-11 18:47 | DVH ---
EXAM: CT CT L FOOT WO CONTRAST INDICATION: rule out osteomyelitis TECHNIQUE: Axial images of left foot without contrast have been obtained along with coronal and sagit joseph reformatted images. All CT scans at this facility use dose modulation, iterative reconstruction, and/or weight based dosing when appropriate to reduce radiation dose to as low as reasonably achievab le. COMPARISON: XY L ANKLE 2 VIEW XRAY on DOS: 11/11/24 FINDINGS: BONES: No CT evidence of an acute fracture or aggressive osseous lesion. bridging ossification across the ankle syndesmosis. Diffusely decreased bone mineralization. Curvilinear extension of ossificatio n along the fibula. In regards to the clinical question, no definitive osseous erosion to suggest def initive evidence of osteomyelitis however maintain elevated suspicion given deep soft tissue ulcerati on along the plantar aspect of the heel. MUSCLES: Fatty atrophy of the intrinsic musculature JOINT SPACES: No joint effusion. TENDONS/LIGAMENTS: Intact. OTHER: None. IMPRESSION: 1. No definitive CT evidence of osteomyelitis however maintain elevated suspicion given deep soft tis shelby ulceration and phlegmon suspected particularly overlying the posterior heel.
--- NOTE | 2024-11-11 20:05 | DVHHPRES ---
History of Present Illness Resident Creating Document: RACHELLEFRITZ RESIDENT History of Present Illness Patient is a 79-year-old female with a medical history of COPD on 2 L home oxygen, ?Dementia, hypertension, DVT left upper extremity, rheumatoid arthritis, avascular necrosis bilateral hip, bed-bound for the last 4 months was brought to the hospital via EMS with a chief complaint of left foot ulcer. Patient was not alert and oriented and could not respond to questions, on talking to patient's daughter Alee who is the POA, she had from that the patient has been on the bed for a few months because of back pain, hip pain and weakness. She has a caregiver in a nurse came today and reported that in the left foot ulcer was looking bad following which EMS were called and patient was brought to the hospital for further evaluation. Reportedly patient has also been getting weaker lately, has altered mental status, decreased eating since the last week. Daughter reports noticing some black stools as well but denied any diarrhea. Patient also has been reporting worsening pain in the foot, back and her hip area. Medical history: COPD on 2 L home oxygen, ?Dementia, hypertension, DVT left upper extremity, rheumatoid arthritis, avascular necrosis bilateral hip No recent surgeries Social history: Patient lives at home and has a caregiver Home medications: Amiodarone 200 mg daily, nifedipine 30 mg daily, Levothyroxin 75 mcg daily Review of Systems Review of Systems Patient complained of pain in her stomach and the pelvic region Allergies: Coded Allergies: Atenolol (Unverified Allergy, Unknown, 07/13/24) Lisinopril (Unverified Allergy, Unknown, 07/13/24) Penicillins (Unverified Allergy, Unknown, 07/13/24) Medications Current Medications Medications Dose Ordered Sig/[place] Route Start Time Stop Time Status Last Admin Dose Admin Pantoprazole Sodium 40 mg BID IV 11/11/24 22:00 Vancomycin HCl 0 ml @ 0 mls/hr UD IV 11/11/24 16:00 Morphine Sulfate 2 mg Q6HPRN PRN IV 11/11/24 16:15 Acetaminophen/ Hydrocodone Bitart 1 tab Q6HPRN PRN PO 11/11/24 16:15 Nifedipine 30 mg DAILY PO 11/12/24 10:00 Levothyroxine Sodium 75 mcg QAM@0600 PO 11/12/24 06:00 Amiodarone HCl 200 mg DAILY PO 11/12/24 10:00 Levalbuterol HCl 0.625 mg Q6HWA NEB 11/11/24 18:00 11/11/24 18:11 0.625 MG Ipratropium [place] 0.5 mg Q6HWA [facility] 11/11/24 18:00 11/11/24 18:11 0.5 MG Exam Vital Signs Vital Signs Date Time Temp Pulse Resp B/P (MAP) Pulse Ox O2 Delivery O2 Flow Rate FiO2 11/11/24 18:59 97.5 65 12 139/46 97.5 11/11/24 18:19 100 11/11/24 18:11 Nasal Cannula 3.0 11/11/24 18:11 32 Exam Gen - mild conjunctival pallor, no icterus, no LAD, no edema . Skin - Patients skin is warm and dry. HEENT - normocephalic, atraumatic, dry mucous membranes. Neck - full ROM, no LAD, no JVD Pulmonary - B/L equal breath sounds, no crackles, no wheezing cardiovascular - regular S1,S2 heard, no added sounds, no murmurs heard. GI - soft abdomen. no hepatospleenomegaly. Bowel sounds normoactive Neurological - Patient is A/O X 1 . Was not able to follow commands Labs/Xrays Labs Test 11/11/24 16:34 11/11/24 11:52 Range/Units White Blood Count 13.7 H 4.4-10.8 10^3/uL Red Blood Count 1.88 L 4.0-5.20 10^6/uL Hemoglobin 5.8 *L 12.2-16.2 g/dL Hematocrit 18.2 L 36.0-46.0 % Mean Corpuscular Volume 96.8 80.0-100.0 fL Mean Corpuscular Hemoglobin 30.6 28.0-32.0 pg Mean Corpuscular Hemoglobin Concent 31.6 L 32.0-36.0 g/dL Red Cell Distribution Width 19.1 H 11.8-14.3 % Platelet Count 428 140-450 10^3/uL Mean Platelet Volume 7.3 6.9-10.8 fL Neutrophils (%) (Auto) 77.4 37.0-80.0 % Lymphocytes (%) (Auto) 15.2 10.0-50.0 % Monocytes (%) (Auto) 5.2 0.0-12.0 % Eosinophils (%) (Auto) 1.6 0.0-7.0 % Basophils (%) (Auto) 0.6 0.0-2.0 % Neutrophils # (Auto) 10.6 H 1.6-8.6 10 ^3/uL Lymphocytes # (Auto) 2.1 0.4-5.4 10 ^3/uL Monocytes # (Auto) 0.7 0-1.3 10 ^3/uL Eosinophils # (Auto) 0.2 0-0.8 10 ^3/uL Basophils # (Auto) 0.1 0-0.2 10 ^3/uL Nucleated Red Blood Cells 0.4 % Platelet Estimate Adequate Anisocytosis (manual) Slight Ovalocytes Erythrocyte Sedimentation Rate 128 H 0-20 mm/hr Reticulocyte Count (auto) 7.70 H 0.5-1.5 % Sodium Level 140 136-145 mmol/L Potassium Level 3.7 3.5-5.1 mmol/L Chloride Level 116 H 98-107 mmol/L Carbon Dioxide Level 14 L 20-31 mmol/L Anion Gap 10 5-15 Blood Urea Nitrogen 32 H 9-23 mg/dL Creatinine 1.22 H 0.550-1.02 mg/dL Glomerular Filtration Rate Calc 45 >90 mL/min BUN/Creatinine Ratio 26.2 H 10.0-20.0 Serum Glucose 102 74-106 mg/dL Lactic Acid Level 2.0 0.4-2.0 mmol/L Calcium Level 11.2 H 8.7-10.4 mg/dL Phosphorus Level 2.5 2.4-5.1 mg/dL Magnesium Level 2.3 1.6-2.6 mg/dL Lactate Dehydrogenase 232 120-246 U/L C-Reactive Protein High Sensitivity 2.00 H <1.0 mg/dL SEPSIS Sepsis Screen Date sepsis recognized/suspect: Nov 11, 2024 Time Sepsis recognized/suspect: 1200 Recent Procedure: No On Antibiotic Therapy: No Respiratory Rate >20: No Heart Rate >90: No Temp<36 C (96.8 F) or >38.3 C: No SBP <90 or MAP <65 mmHG: No New Acute Mental Status Change: No Is the patient on CPAP, BIPAP,: No Physician Orders Type And Screen (11/11/24 12:17) Jackson Catheters (11/11/24 ) Admit (11/11/24 15:56) Oxygen By Nasal Cannula (11/11/24 15:56) Stat Ekg For Chest Pain (11/11/24 15:56) Notify Md Of Changes From Base (11/11/24 15:56) Iron Panel (11/11/24 15:56) Ferritin (11/11/24 15:56) Vitamin B12 (11/11/24 15:56) Folate (Folic Acid) (11/11/24 15:56) Wound Culture W/ Gs (11/11/24 15:56) Blood Culture (11/11/24 15:56) Urine Bacterial Culture (11/11/24 15:56) Insert Jackson Catheter QSHIFT (11/11/24 15:56) Chest Xray 1 View (11/11/24 15:56) Pantoprazole (Protonix) (11/11/24 22:00) Stool Occult Blood (11/11/24 15:56) Lactic Acid W/ Reflex Order (11/11/24 15:56) Covid19 Antigen Lizbeth (11/11/24 ) Rapid Influenza A&B (11/11/24 15:56) Mrsa Screen (11/11/24 15:56) PTPTT (11/11/24 15:56) * Gi Dvh Grease Buffer (11/11/24 15:56) Vancomycin Per Pharmacy (11/11/24 16:00) * Swallow Request (11/11/24 16:10) Pureed (11/11/24 Dinner) Urinalysis (11/11/24 16:11) Morphine Sulfate Injection (11/11/24 16:15) Hydrocodone-Acet 5/325mg Tab ([place] 5/32 (11/11/24 16:15) Nifedipine Er (Procardia Xl (Time-Releas (11/12/24 10:00) Levothyroxine Tablet (Synthroid Tablet) (11/12/24 06:00) Amiodarone Tablet (Cordarone Tablet) (11/12/24 10:00) Sodium Chloride 0.9% (11/11/24 16:30) Complete Blood Count (11/12/24 04:00) Creatinine (11/12/24 04:00) Vancomycin,Random (11/12/24 04:00) Ct L Foot Wo Contrast (11/11/24 16:52) Levalbuterol Hcl (Xopenex Medneb) (11/11/24 18:00) Ipratropium Medneb (Atrovent Medneb) (11/11/24 18:00) Zosyn Extended Infusion (11/11/24 22:00) Comprehensive Metabolic Panel (11/12/24 04:00) Vital Signs Date Time Temp Pulse Resp B/P (MAP) Pulse Ox O2 Delivery O2 Flow Rate FiO2 11/11/24 18:59 97.5 65 12 139/46 97.5 11/11/24 18:19 65 13 100 11/11/24 18:11 100 Nasal Cannula 3.0 11/11/24 18:11 100 Nasal Cannula* 3 32 11/11/24 18:11 65 14 100 11/11/24 16:00 65 11/11/24 14:00 65 13 148/47 (80) 100 11/11/24 13:00 65 12 157/124 (135) 100 11/11/24 12:00 66 14 100 Nasal Cannula* 2 28 11/11/24 12:00 97.4 66 14 150/56 (87) 100 97.4 Laboratory Tests Test 11/11/24 11:52 Lactic Acid Level 2.0 mmol/L (0.4-2.0) White Blood Count 13.7 10^3/uL (4.4-10.8) H Medications Medications Dose Ordered Sig/[place] Route Start Time Stop Time Status Last Admin Dose Admin Amiodarone HCl 200 mg ONCE ONCE PO 11/11/24 17:00 11/11/24 17:01 DC 11/11/24 17:07 200 MG Ipratropium [place] 0.5 mg Q6HWA NEB 11/11/24 18:00 11/11/24 18:11 0.5 MG Ipratropium [place] 0.5 mg STK-MED ONCE .ROUTE 11/11/24 17:39 11/11/24 17:35 DC 11/11/24 17:54 0.5 MG Levalbuterol HCl 0.625 mg Q6HWA NEB 11/11/24 18:00 11/11/24 18:11 0.625 MG Levalbuterol HCl 1.25 mg STK-MED ONCE .ROUTE 11/11/24 17:40 11/11/24 17:36 DC 11/11/24 17:53 1.25 MG Pantoprazole Sodium 40 mg ONCE ONCE IV 11/11/24 16:00 11/11/24 16:19 DC 11/11/24 17:05 40 MG Sodium Chloride 1,000 ml @ 250 mls/hr Q4H ONCE IV 11/11/24 16:30 11/11/24 20:29 11/11/24 17:10 250 MLS/HR Vancomycin HCl 250 ml @ 200 mls/hr ONCE ONCE IV 11/11/24 16:30 11/11/24 17:44 DC 11/11/24 17:05 200 MLS/HR Assessment/Plan Assessment/Plan Acute metabolic encephalopathy likely due to sepsis History of dementia - on IV antibiotics - IV fluids possible pneumonia, left upper lobe likely d/t gram +/ bacteria - on iv antibiotics History of arrhythmia Possible paroxysmal Atrial flutter - on amiodarone 200 mg daily COPD, not in exacerbation - duo nebs q.6 hours - on 2 L home oxygen Normocytic normochromic anemia Possible multiple myeloma H/o GI bleed H/o gastritis - stool occult blood pending - elevated creatinine, elevated calcium, anemia - lytic bone lesions seen on CT abdomen pelvis recent admission - elevated ESR - serum protein electrophoresis and urine protein electrophoresis ordered - 1 unit PRBC transfused, recheck H&H and if less than 7 transfuse 1 more unit - Protonix 40 mg IV b.i.d. - avoid NSAIDs Left foot wound, possible osteomyelitis - No definitive CT evidence of osteomyelitis however maintain elevated suspicion given deep soft tissue ulceration and phlegmon suspected particularly overlying the posterior heel - on vancomycin, cefepime and metronidazole Bilateral hip avascular necrosis Bed-bound hypothyroidism - continued on levothyroxine 75 mcg PUD prophylaxis: Protonix DVT prophylaxis: Not indicated Anemia Goals of care discussed with the patient's daughter Alee over the phone for over 35 minutes. Full code Plan discussed with Dr. Harrison Plan discussed with: Daughter (alee, PATRICIA) My Orders Orders - FRITZ BUSH RESIDENT Procedure Category Date Status Time Admit ADMIT 11/11/24 Transmitted 15:56 Oxygen By Nasal RT 11/11/24 Transmitted Cannula 15:56 Stat Ekg For Chest ABENA 11/11/24 In Process Pain 15:56 Notify Of Changes ABENA 11/11/24 In Process From Base 15:56 Iron Panel LAB 11/11/24 Logged 15:56 Ferritin LAB 11/11/24 Logged 15:56 Vitamin B12 LAB 11/11/24 Logged 15:56 Folate (Folic Acid) LAB 11/11/24 Logged 15:56 Wound Culture W/ Gs LAURI 11/11/24 Logged 15:56 Blood Culture LAURI 11/11/24 Logged 15:56 Urine Bacterial LAURI 11/11/24 Logged Culture 15:56 Insert Jackson Catheter ABENA 11/11/24 In Process 15:56 Chest Xray 1 View XY 11/11/24 Resulted 15:56 Pantoprazole PHA 11/11/24 In Process (Protonix) 22:00 Stool Occult Blood LAB 11/11/24 In Process 15:56 Lactic Acid W/ Reflex LAB 11/11/24 Logged Order 15:56 Covid19 Antigen Lizbeth LAB 11/11/24 Logged Rapid Influenza A&B LAB 11/11/24 Logged 15:56 Mrsa Screen LAURI 11/11/24 Logged 15:56 PTPTT LAB 11/11/24 Logged 15:56 * Gi Dvh Grease Buffer CONS 11/11/24 Transmitted 15:56 Vancomycin Per PHA 11/11/24 In Process Pharmacy 16:00 * Swallow Request ST 11/11/24 Transmitted 16:10 Pureed DIET 11/11/24 Transmitted Dinner Urinalysis LAB 11/11/24 Logged 16:11 Morphine Sulfate PHA 11/11/24 In Process Injection 16:15 Hydrocodone-Acet PHA 11/11/24 In Process 5/325mg Tab ([place] 16:15 Nifedipine Er PHA 11/12/24 In Process (Procardia Xl 10:00 Levothyroxine Tablet PHA 11/12/24 In Process (Synthroid Tablet) 06:00 Amiodarone Tablet PHA 11/12/24 In Process (Cordarone Tablet) 10:00 Sodium Chloride 0.9% PHA 11/11/24 In Process 16:30 Complete Blood Count LAB 11/12/24 Verified 04:00 Creatinine LAB 11/12/24 Verified 04:00 Vancomycin,Random LAB 11/12/24 Verified 04:00 Ct L Foot Wo Contrast CT 11/11/24 Resulted 16:52 Levalbuterol Hcl PHA 11/11/24 In Process (Xopenex Medneb) 18:00 Ipratropium Medneb PHA 11/11/24 In Process (Atrovent Medneb) 18:00 Zosyn Extended PHA 11/11/24 Verified Infusion 22:00 Comprehensive LAB 11/12/24 Verified Metabolic Panel 04:00 Date of Service: Nov 11, 2024 Billing Provider: MARICRUZ HARRISON MD Common Visit Codes: [id number] INP/OBS CARE (HIGH) Secondary Visit Codes: [id number] CARE PLAN 30 MINUTES FRITZ BUSH RESIDENT Nov 11, 2024 20:05 MARICRUZ HARRISON MD Nov 14, 2024 00:40
[2024-11-11] MEDS: HYDROcodone-ACET 5/325MG TAB PO PRN (21:25)
[2024-11-11] MEDS ORDERED: PIPERACILLIN-TAZOB 3.375GM 100 ML IV SCH (22:00)
[2024-11-11] MEDS: PANTOPRAZOLE 40 MG/10 ML VIAL INJ IV SCH (23:48)
[2024-11-11] MEDS: CEFEPIME 1GM/50ML 50 ML IV ONE (23:59)
[2024-11-12] VITALS (14 sets, daily range): BP systolic 105–164; BP diastolic 55–80; PULSE 64–80; RESP 16–20; TEMP 97.3–98.1; O2SAT 94–100
[2024-11-12 02:10] LABS: INR 1.0 (0.9-1.15); Partial Thromboplastin Time 20.5 SEC (24.5-34.5); Prothrombin Time 10.6 sec (9.3-11.8)
[2024-11-12 02:14] LABS: Anion Gap 11 (5-15); BUN/Creatinine Ratio 34.1 (10.0-20.0); Calcium 10.3 mg/dL (8.7-10.4); Glucose 76 mg/dL (74-106); Sodium 143 mmol/L (136-145); Total Protein 5.8 g/dL (5.7-8.2)
[2024-11-12 02:16] LABS: Alanine Aminotransferase 51 U/L (7-40); Albumin 2.8 g/dL (3.2-4.8); Alkaline Phosphatase 124 U/L (46-116); Bilirubin, Total 0.2 mg/dL (0.2-1.0); Blood Urea Nitrogen 30 mg/dL (9-23); Carbon Dioxide 13 mmol/L (20-31); Chloride 119 mmol/L (98-107); Potassium 3.4 mmol/L (3.5-5.1)
[2024-11-12 02:30] LABS: Iron 58.0 ug/dL (50-170)
[2024-11-12 02:33] LABS: Total Iron Binding Capacity 242.0 ug/dL (250-425)
[2024-11-12 02:49] LABS: Ferritin 211.0 ng/mL (10-291)
[2024-11-12 05:27] LABS: Hematocrit 26.2 % (36.0-46.0); Hemoglobin 8.6 g/dL (12.2-16.2); Mean Corpuscular Hemoglobin 30.7 pg (28.0-32.0); Mean Corpuscular Volume 93.3 fL (80.0-100.0); Nucleated Red Blood Cells % 0.7 %
[2024-11-12] MEDS: LEVOTHYROXINE SODIUM 25 MCG TAB PO SCH (06:57)
[2024-11-12] MEDS: AMIODARONE HCL 200 MG TAB PO SCH (10:54)
[2024-11-12] MEDS: CEFEPIME 1GM/50ML 50 ML IV SCH (10:57)
[2024-11-12] MEDS: POTASSIUM EFFERVESENT TAB 25 MEQ PO ONE (10:57)
[2024-11-12] MEDS: ONDANSETRON HCL 4 MG/2 ML VIAL IV PRN (13:46)
[2024-11-12 13:51] LABS: Urine Budding Yeast OCCASIONAL /hpf (None Seen); Urine Protein, UAD TRACE (Negative)
[2024-11-12 14:24] LABS: Anion Gap 12 (5-15); BUN/Creatinine Ratio 26.7 (10.0-20.0); Glucose 75 mg/dL (74-106); Potassium 4.0 mmol/L (3.5-5.1); Total Protein 6.5 g/dL (5.7-8.2)
--- NOTE | 2024-11-12 14:36 | DVHINCON2 ---
GI Consult Consult Note GI consult note Date of Consultation: 11/12/2024 Chief Complaint: Severe anemia Referring Physician: H&P: 79-year-old female who is bed-bound presented with complains of left foot ulcer. Patient also was altered. But able to answer questions at this time. Denies abdominal pain. No nausea or vomiting. No melena or red blood in stool. Although per chart patient daughter had noticed some black stools Status post EGD 07/22/2024 Pathology shows no dysplasia or malignancy Mild chronic active gastritis Squamocolumnar mucosa with chronic inflammation and reactive changes Past Medical History: COPD on 2 L home oxygen, ?Dementia, hypertension, DVT left upper extremity, rheumatoid arthritis, avascular necrosis bilateral hip Past Surgical History: Social History: NO smoking, drinking ETOH and use of illegal drugs. Family History: Noncontributory Review of Systems: Constitutional: no fever, chill, weight loss HEENT: no eye pain, no hearing loss, no oral lesion, no scleral icterus Heart: no chest pain, no chest pressure Lung: no cough, no dyspnea with exertion Abdomen: see HPI Physical exam: General: NAD, AAOX3 Chest: lung raman clear to auscultation Heart: RRR, no murmur Abdomen: non-distended, no tenderness to palpation, +BS Labs: Labs Test 11/12/24 13:45 11/12/24 08:51 11/12/24 04:00 11/12/24 01:45 Range/Units Random Vancomycin Level 14.7 H 5-10 ug/mL White Blood Count 13.0 H 4.4-10.8 10^3/uL Red Blood Count 2.81 L 4.0-5.20 10^6/uL Hemoglobin 8.6 #L 12.2-16.2 g/dL Hematocrit 26.2 #L 36.0-46.0 % Mean Corpuscular Volume 93.3 80.0-100.0 fL Mean Corpuscular Hemoglobin 30.7 28.0-32.0 pg Mean Corpuscular Hemoglobin Concent 33.0 32.0-36.0 g/dL Red Cell Distribution Width 16.6 H 11.8-14.3 % Platelet Count 341 140-450 10^3/uL Mean Platelet Volume 7.9 6.9-10.8 fL Neutrophils (%) (Auto) 82.2 H 37.0-80.0 % Lymphocytes (%) (Auto) 12.2 10.0-50.0 % Monocytes (%) (Auto) 3.3 0.0-12.0 % Eosinophils (%) (Auto) 1.7 0.0-7.0 % Basophils (%) (Auto) 0.6 0.0-2.0 % Neutrophils # (Auto) 10.7 H 1.6-8.6 10 ^3/uL Lymphocytes # (Auto) 1.6 0.4-5.4 10 ^3/uL Monocytes # (Auto) 0.4 0-1.3 10 ^3/uL Eosinophils # (Auto) 0.2 0-0.8 10 ^3/uL Basophils # (Auto) 0.1 0-0.2 10 ^3/uL Nucleated Red Blood Cells 0.7 % Platelet Estimate [place] Clumped Platelets Few Large Platelets Few Prothrombin Time 10.6 9.3-11.8 sec Prothrombin Time INR 1.00 0.9-1.15 Activated Partial Thromboplast Time 20.5 L 24.5-34.5 SEC Lactic Acid Level 0.9 0.4-2.0 mmol/L Iron Level 58 50-170 ug/dL Total Iron Binding Capacity 242 L 250-425 ug/dL Percent Iron Saturation 24.0 15-50 % Ferritin 211.0 10-291 ng/mL Vitamin B12 Level 1636 H 211-911 pg/mL Folic Acid > 24.00 >5.38 ng/mL Test 11/11/24 16:34 11/11/24 16:11 11/11/24 11:52 Range/Units Stool Occult Blood Positive Negative Stool Occult Blood Sample #3 Negative Urine Color Light-yellow Yellow Urine Clarity Clear Clear Urine pH 6.0 5.0-9.0 Urine Specific [place] 1.015 1.001-1.035 Urine Protein Trace H Negative Urine Ketones Negative Negative Urine Blood Negative Negative /uL Urine Nitrite Negative Negative Urine Bilirubin Negative Negative Urine Urobilinogen Normal Negative mg/dL Urine Leukocyte Esterase 2+ Negative /uL Urine RBC 3 0 - 4 /hpf Urine Microscopic WBC 15 H 0-5 /HPF Urine Squamous Epithelial Cells None seen <5 /hpf Urine Bacteria None seen None Seen /hpf Urine Yeast ([place]) Occasional None Seen /hpf Urine Glucose Normal Normal mg/dL Anisocytosis (manual) Slight Ovalocytes Erythrocyte Sedimentation Rate 128 H 0-20 mm/hr Reticulocyte Count (auto) 7.70 H 0.5-1.5 % Phosphorus Level 2.5 2.4-5.1 mg/dL Magnesium Level 2.3 1.6-2.6 mg/dL Lactate Dehydrogenase 232 120-246 U/L C-Reactive Protein High Sensitivity 2.00 H <1.0 mg/dL Imaging: Assessment: Normocytic normochromic anemia Acute metabolic encephalopathy Sepsis Gastritis Possible GI bleed Plan: Discussed with Dr. Jeet Crandall for occult blood Monitor labs Protonix and Zofran We will continue to monitor patient's Thank you for this consult Date of Service: Nov 12, 2024 Billing Provider: GUANAKO ABEBE Common Visit Codes: CONSULT ONLY Consultation Codes: [id number] CONSULT <45MIN GUANAKO ABEBE Nov 12, 2024 14:36
[2024-11-12 14:50] LABS: Alanine Aminotransferase 51 U/L (7-40); Albumin 3.1 g/dL (3.2-4.8); Alkaline Phosphatase 127 U/L (46-116); Bilirubin, Total 0.2 mg/dL (0.2-1.0); Blood Urea Nitrogen 24 mg/dL (9-23); Calcium 10.7 mg/dL (8.7-10.4); Carbon Dioxide 14 mmol/L (20-31); Chloride 119 mmol/L (98-107); Sodium 145 mmol/L (136-145)
--- NOTE | 2024-11-12 15:29 | DVHPNRES ---
Progress Note Date Seen: Nov 12, 2024 Resident Creating Document: MARYAM WILLIS Medical Necessity Reason Pt with a Central, PICC or Fol: Yes The following are medically ne: Jackson Catheter Subjective Review of Systems Patient is a 79-year-old female with past medical history of COPD on 2L home oxygen, hypertension, possible dementia, DVT of the left upper extremity, rheumatoid arthritis, and bilateral avascular necrosis of the hips presented to [facility] ED with complaint of left foot ulcer. She has been bed- bound for the past 4 months due to chronic back and hip pain and generalized weakness. The patient was brought to the hospital via EMS after her caregiver and visiting nurse noted worsening appearance of a left foot ulcer. On arrival, the patient was not alert and oriented and unable to respond to questions. Information was obtained from her daughter, Ann Marie, who is her power of stretch machine operator. Her daughter reports that the patient has been progressively weaker over the past week, with decreased oral intake and altered mental status. She also noted black stools recently, though denied any diarrhea. The patient has been complaining of worsening pain in her foot, back, and hips. On initial evaluation in the ED, the patient was altered but later became more responsive and able to answer questions. She denied abdominal pain, nausea, vomiting, melena, or hematochezia. Past medical history: COPD on 2L home oxygen, hypertension, possible dementia, DVT of the left upper extremity, rheumatoid arthritis, and bilateral avascular necrosis of the hips Past surgical history: No recent surgeries Social & Personal history: NO smoking, drinking ETOH and use of illegal drugs. Family History: Noncontributory Allergies: Coded Allergies: Atenolol (Unverified Allergy, Unknown, 07/13/24) Lisinopril (Unverified Allergy, Unknown, 07/13/24) Penicillins (Unverified Allergy, Unknown, 07/13/24) Patient seen and examined at bedside. Eyes: No Pain, No Vision change, No Conjunctivae inflammation, No Eyelid inflammation, No Other, No Redness ENT: No Ear pain, No Ear discharge, No Nose pain, No Nose discharge, No Nose congestion, No Mouth pain, No Mouth swelling, No Throat pain, No Throat swelling, No Other Cardiovascular: No Chest Pain, No Palpitations, No Orthopnea, No Paroxysmal No Dyspnea, No Edema, No Lt Headedness, No Other Respiratory: No Cough, No Dry, No Shortness of breath, No SOB with exertion, No Wheezing, No Hemoptysis, No Pleuritic Pain, No Sputum, No Other Gastrointestinal: Abdominal Pain. No Nausea, No Vomiting, No Diarrhea, No Constipation, No Melena, No Hematochezia, No Other Genitourinary: No Dysuria, No Frequency, No Incontinence, No Hematuria, No Retention, No Other Musculoskeletal: Hip pain, leg pain, foot pain. No other, No neck pain, No shoulder pain, No arm pain, back pain, No hand pain, Skin: No Rash, No Lesions, No Jaundice, No Bruising, No Other Objective vital signs Vital Sign Date Time Temp Pulse Resp B/P (MAP) Pulse Ox O2 Delivery O2 Flow Rate FiO2 11/12/24 12:46 97.5 65 18 121/63 (82) 100 97.5 11/12/24 07:13 Nasal Cannula 3.0 11/12/24 07:13 32 Total Intake and Output 11/11/24 11/11/24 11/12/24 15:00 23:00 07:00 Intake Total 1050 ml 0 ml Output Total 600 ml Balance 1050 ml -600 ml medications Current Medications Medications Dose Ordered Sig/[place] Route Start Time Stop Time Status Last Admin Dose Admin Pantoprazole Sodium 40 mg BID IV 11/11/24 22:00 11/12/24 10:57 40 MG Vancomycin HCl 0 ml @ 0 mls/hr UD IV 11/11/24 16:00 Morphine Sulfate 2 mg Q6HPRN PRN IV 11/11/24 16:15 Acetaminophen/ Hydrocodone Bitart 1 tab Q6HPRN PRN PO 11/11/24 16:15 11/11/24 21:25 1 TAB Nifedipine 30 mg DAILY PO 11/12/24 10:00 11/12/24 11:04 30 MG Levothyroxine Sodium 75 mcg QAM@0600 PO 11/12/24 06:00 11/12/24 06:57 75 MCG Amiodarone HCl 200 mg DAILY PO 11/12/24 10:00 11/12/24 10:54 200 MG Levalbuterol HCl 0.625 mg Q6HWA NEB 11/11/24 18:00 11/12/24 11:37 0.625 MG Ipratropium [place] 0.5 mg Q6HWA [facility] 11/11/24 18:00 11/12/24 11:37 0.5 MG Cefepime HCl 50 ml @ 12.5 mls/hr Q12HR IV 11/12/24 10:00 11/12/24 10:57 12.5 MLS/HR Metronidazole 100 ml @ 100 mls/hr Q8H IV 11/11/24 21:00 11/12/24 13:46 100 MLS/HR Ondansetron HCl 4 mg Q4HPRN PRN IV 11/12/24 13:30 11/12/24 13:46 4 MG Examination General Appearance: mild conjunctival pallor, no icterus, no LAD, no edema . Head Exam: Normal inspection Neck Exam: Normal inspection. Non-tender. Normal alignment Pulmonary/Respiratory: Chest non-tender. Clear bilateral breath sounds, no crackles, no wheezing. Cardiovascular/Chest: Regular rate and rhythm. No murmurs. No JVD. Peripheral Pulses: 2+ Radial (R). 2+ Radial (L). 2+ Pedal (R). 2+ Pedal (L) Abdominal Exam: Normal bowel sounds. Soft. normal abdomen, no visible veins, Nontender. No hepatospenomegaly. No masses Ankle Exam: Negative ankle edema Lower extremities: Negative lower extremity edema Neuro/Mental Status: Patient is A/O X 1 . Was not able to follow commands Thoughts/Psych: Normal thought pattern. Appropriate mood and affect. Good judgement and insight Skin Exam: Normal inspection. Normal color. Warm. Dry laboratory and microbiology Laboratory Tests 11/12/24 13:45 11/12/24 04:00 Test 11/12/24 13:45 Range/Units Serum Glucose 75 74-106 mg/dL Labs and/or images reviewed: Labs reviewed by me, Image(s) reviewed by me Problem List/Assessment/Plan Problem List/Assessment/Plan Left heel wound, possible osteomyelitis - CT Left Foot: No definitive CT evidence of osteomyelitis however maintain elevated suspicion given deep soft tissue ulceration and phlegmon suspected particularly overlying the posterior heel. - Ankle X-Ray: There is no evidence of acute fracture or dislocation. Heterotopic calcification left fibular head. Small plantar calcaneal enthesophyte. - on vancomycin, cefepime and metronidazole - Morphine - [place] Acute metabolic encephalopathy likely due to sepsis History of dementia - on IV antibiotics - IV fluids possible pneumonia, left upper lobe likely d/t gram +/ bacteria - on iv antibiotics History of arrhythmia Possible paroxysmal Atrial flutter - on amiodarone 200 mg daily COPD, not in exacerbation - duo nebs q.6 hours - on 2 L home oxygen Normocytic normochromic anemia Possible multiple myeloma H/o GI bleed H/o gastritis - stool occult blood pending - elevated creatinine, elevated calcium, anemia - lytic bone lesions seen on CT abdomen pelvis recent admission - elevated ESR - serum protein electrophoresis and urine protein electrophoresis ordered - 1 unit PRBC transfused, recheck H&H and if less than 7 transfuse 1 more unit - Protonix 40 mg IV b.i.d. - avoid NSAIDs Bilateral hip avascular necrosis Bed-bound hypothyroidism - continued on levothyroxine 75 mcg PUD prophylaxis: Protonix 40 mg DVT prophylaxis: Not indicated Anemia Goals of care: Full code, discussed for >16 minutes on 11/12/24 Plan discussed with patient Plan discussed with Dr. Harrison Plan discussed with: Patient My Orders My Orders Orders - MARYAM WILLIS Procedure Category Date Status Time * Wound Consult CONS 11/12/24 Transmitted Date of Service: Nov 12, 2024 Billing Provider: MARICRUZ HARRISON MD Common Visit Codes: [id number] INP/OBS CARE(HIGH) MARYAM WILLIS Nov 12, 2024 15:29 MARICRUZ HARRISON MD Nov 14, 2024 00:39
[2024-11-12] MEDS: VANCOMYCIN 500mg/100mL 100 ML IV SCH (17:46)
[2024-11-13] VITALS (13 sets, daily range): BP systolic 120–146; BP diastolic 40–70; PULSE 62–66; RESP 14–20; TEMP 97–98.1; O2SAT 98–100
[2024-11-13 10:47] LABS: Potassium 3.5 mmol/L (3.5-5.1)
[2024-11-13 10:48] LABS: Anion Gap 12 (5-15); Calcium 10.0 mg/dL (8.7-10.4)
[2024-11-13 10:53] LABS: BUN/Creatinine Ratio 19.0 (10.0-20.0); Blood Urea Nitrogen 16 mg/dL (9-23); Glucose 103 mg/dL (74-106)
[2024-11-13 10:56] LABS: Carbon Dioxide 14 mmol/L (20-31); Chloride 121 mmol/L (98-107); Sodium 147 mmol/L (136-145)
--- NOTE | 2024-11-13 11:57 | DVHCONRES ---
Date Seen: Nov 13, 2024 Reason for Consultation Left heel wound History of Present Illness Patient is a 79-year-old female with a medical history of COPD on 2 L home oxygen, ?Dementia, hypertension, DVT left upper extremity, rheumatoid arthritis, avascular necrosis bilateral hip, bed-bound for the last 4 months was brought to the hospital via EMS with a chief complaint of left foot ulcer. Patient was not alert and oriented and could not respond to questions, on talking to patient's daughter Ann Marie who is the POA, she had from that the patient has been on the bed for a few months because of back pain, hip pain and weakness. She has a caregiver in a nurse came today and reported that in the left foot ulcer was looking bad following which EMS were called and patient was brought to the hospital for further evaluation. Reportedly patient has also been getting weaker lately, has altered mental status, decreased eating since the last week. Daughter reports noticing some black stools as well but denied any diarrhea. Patient also has been reporting worsening pain in the foot, back and her hip area. Past Medical History See H&P Past Surgical History See H&P Family History: Cardiovascular disease G8 FATHER Allergies: Coded Allergies: Atenolol (Unverified Allergy, Unknown, 07/13/24) Lisinopril (Unverified Allergy, Unknown, 07/13/24) Penicillins (Unverified Allergy, Unknown, 07/13/24) Home Meds Active Scripts Cephalexin (KEFLEX CAPSULE) 250 Mg Cp, 1 CAP PO BID, #14 CAP Prov:DONTAE BENEDICT MD 10/27/24 Nifedipine (Nifedipine Er) 30 Mg Tab, 60 MG PO DAILY for 30 Days, #60 TAB Prov:PATRICK RUCKER RESIDENT 10/12/24 Levothyroxine Sodium (Levothyroxine Sodium) 25 Mcg Tab, 75 MCG PO QAM@0600 for 30 Days, #30 TAB Prov:PATRICK RUCKER 10/12/24 Amiodarone HCl (Amiodarone HCl) 200 Mg Tab, 200 MG PO DAILY for 30 Days, #30 TAB Prov:PATRICK RUCKER RESIDENT 10/12/24 Reported Medications Calcium Carbonate (Calcium Carbonate) 1,250 Mg Tab, 1 TAB PO DAILY for 30 Days, #30 11/12/24 Ipratropium-Albuterol (Ipratropium [place]/Albut) 1 Lis Lis, 1 VIAL NEB QID for 30 Days, #360 11/12/24 Potassium Chloride (Klor-Con M20) 20 Meq Tab, 1 TAB PO DAILY for 90 Days, #90 11/12/24 Rivaroxaban (Xarelto Tablet) 20 Mg Tb, 1 TAB PO QPM for 30 Days, #30 11/12/24 Cholecalciferol ([facility] Vitamin D) 1,000 Unit Tab, 1 TAB PO DAILY for 30 Days, #30 11/12/24 Ferrous Sulfate (Ferosul) 325 Mg Tab, 1 TAB PO DAILY for 30 Days, #30 11/12/24 Cetirizine HCl (Cetirizine Hydrochloride) 10 Mg Tab, 2 TAB PO DAILY for ITCH for 30 Days, #60 11/12/24 Ascorbic Acid ([facility] Vitamin C W/Rosalia Hips) 500 Mg Tab, 1 TAB PO DAILY for 90 Days, #90 11/12/24 Ibuprofen Micronized (Ibuprofen) 800 Mg Tab, 1 TAB PO Q4-6HR for 15 Days, #90 11/12/24 Omeprazole (Omeprazole Dr) 20 Mg Cap, 1 CAP PO DAILY for 90 Days, #90 11/12/24 Metoprolol Succinate (Metoprolol Succinate Er) 25 Mg Tab, 1 TAB PO DAILY for 90 Days, #90 11/12/24 Donepezil Hydrochloride (DONEPEZIL HCL) 10 Mg Tab, 1 TAB PO DAILY for 30 Days, #30 11/12/24 Current Medications Current Medications Medications (Trade) Dose Ordered Sig/[place] Route PRN Reason Start Time Stop Time Status Last Admin Ondansetron HCl (Zofran) 4 mg Q4HPRN PRN IV NAUSEA / VOMITING 11/12/24 13:30 11/12/24 13:46 Vancomycin HCl 100 ml @ 200 mls/hr Q12H IV 11/12/24 17:00 11/13/24 05:29 Vital Signs Vital Signs Date Time Temp Pulse Resp B/P (MAP) Pulse Ox O2 Delivery O2 Flow Rate FiO2 11/13/24 09:10 131/63 11/13/24 08:59 97.3 65 16 100 97.3 11/13/24 07:35 Nasal Cannula* 1 24 Physical Exam Dermatological: Skin is dry with mild erythema and some maceration around the wound site No gross deformities noted Mild non-pitting edema present bilaterally Left heel eschar Vascular: Dorsalis pedis and posterior tibial pulses are 1+ bilaterally Capillary refill is under 2 seconds Skin temperature is warm bilaterally Neurologic: Protective sensation is absent on the plantar forefoot bilaterally Monofilament testing reveals decreased sensation in multiple plantar sites Musculoskeletal: Range of motion at the ankle and MTP joints is within normal limits. Strength is 5/5 in all tested muscle groups. Gait is antalgic due to offloading of the affected limb. Labs/Diagnostic Data Labs Test 11/13/24 10:22 11/12/24 13:45 11/12/24 08:51 11/12/24 04:00 Range/Units Sodium Level 147 H 136-145 mmol/L Potassium Level 3.5 3.5-5.1 mmol/L Chloride Level 121 H 98-107 mmol/L Carbon Dioxide Level 14 L 20-31 mmol/L Anion Gap 12 5-15 Blood Urea Nitrogen 16 9-23 mg/dL Creatinine 0.84 0.550-1.02 mg/dL Glomerular Filtration Rate Calc 71 >90 mL/min BUN/Creatinine Ratio 19.0 10.0-20.0 Serum Glucose 103 74-106 mg/dL Calcium Level 10.0 8.7-10.4 mg/dL Total Bilirubin 0.2 0.2-1.0 mg/dL Aspartate Amino Transferase (AST) 90 H 13-40 U/L Alanine Aminotransferase (ALT) 51 H 7-40 U/L Alkaline Phosphatase 127 H 46-116 U/L Random Vancomycin Level 14.7 H 5-10 ug/mL Urine Total Protein 64.8 H 1-14 mg/dL Eosinophils (%) (Auto) 1.7 0.0-7.0 % Eosinophils # (Auto) 0.2 0-0.8 10 ^3/uL Basophils # (Auto) 0.1 0-0.2 10 ^3/uL Nucleated Red Blood Cells 0.7 % Platelet Estimate [place] Clumped Platelets Few Large Platelets Few Test 11/12/24 01:45 11/11/24 16:34 11/11/24 16:11 11/11/24 11:52 Range/Units Prothrombin Time 10.6 9.3-11.8 sec Prothrombin Time INR 1.00 0.9-1.15 Activated Partial Thromboplast Time 20.5 L 24.5-34.5 SEC Lactic Acid Level 0.9 0.4-2.0 mmol/L Iron Level 58 50-170 ug/dL Total Iron Binding Capacity 242 L 250-425 ug/dL Percent Iron Saturation 24.0 15-50 % Ferritin 211.0 10-291 ng/mL Vitamin B12 Level 1636 H 211-911 pg/mL Folic Acid > 24.00 >5.38 ng/mL Stool Occult Blood Positive Negative Stool Occult Blood Sample #3 Negative Urine Color Light-yellow Yellow Urine Clarity Clear Clear Urine pH 6.0 5.0-9.0 Urine Specific [place] 1.015 1.001-1.035 Urine Protein Trace H Negative Urine Ketones Negative Negative Urine Blood Negative Negative /uL Urine Nitrite Negative Negative Urine Bilirubin Negative Negative Urine Urobilinogen Normal Negative mg/dL Urine Leukocyte Esterase 2+ Negative /uL Urine RBC 3 0 - 4 /hpf Urine Microscopic WBC 15 H 0-5 /HPF Urine Squamous Epithelial Cells None seen <5 /hpf Urine Bacteria None seen None Seen /hpf Urine Yeast (Budding) Occasional None Seen /hpf Urine Glucose Normal Normal mg/dL Anisocytosis (manual) Slight Ovalocytes Erythrocyte Sedimentation Rate 128 H 0-20 mm/hr Reticulocyte Count (auto) 7.70 H 0.5-1.5 % Phosphorus Level 2.5 2.4-5.1 mg/dL Magnesium Level 2.3 1.6-2.6 mg/dL Lactate Dehydrogenase 232 120-246 U/L C-Reactive Protein High Sensitivity 2.00 H <1.0 mg/dL Microbiology Date/Time Source Procedure Growth Status 11/12/24 01:45 Blood Blood Culture - Preliminary NO GROWTH AFTER 24 HOURS OF INCUBATION. Resulted Problems(with codes): (1) Hypoxemia (2) Chest pain (3) Abnormal EKG (4) CHF exacerbation (5) Near syncope (6) Symptomatic anemia (7) GI bleed (8) Acute renal injury (9) Generalized weakness (10) Acute respiratory distress (11) Pneumonia, unspecified organism (12) Leukocytosis, unspecified (13) Metastatic disease (14) Syncope and collapse (15) Suspected malignant neoplasm (16) Anemia, unspecified Plan/Recommendation ASSESSMENT: Patient is a 79 year old seen on the floor for a worsening ulcer PLAN: - The patients chart was reviewed, clinical findings were discussed with the patient, the etiologies of the conditions were discussed in detail, and a treatment plan was agreed to at this time, with both oral and written instructions provided. - reviewed advanced imaging - we will hold off on MRI] - not concern for osteomyelitis at this point based off wound presentation - offload the heels - dressed with Betadine to keep dry - continue outpatient wound care with nurse All questions were answered and concerns addressed to the patient's satisfaction. The patient was given the phone number to the clinic and was told how to make contact with the clinic should any concerns or questions arise. Patient understands that if any questions or concerns arise prior to the next appointment, we should be contacted immediately. FOLLOW-UP: Continue to follow while inpatient Plan discussed with: Patient Visit Coding Podiatry Date of Service if different f: Nov 13, 2024 Billing Provider: PREET LANDIS DPM Podiatry Common Visit Codes: CONSULT ONLY Podiatry Consult Codes: 20121-DN/OBS CONSLTJ NEW/EST HI 80 PREET LANDIS DPM Nov 13, 2024 11:57
--- NOTE | 2024-11-13 12:44 | DVHPN2 ---
Progress Note - Dictate Date Seen: Nov 13, 2024 Medical Necessity Reason Pt with a Central, PICC or Fol: Yes The following are medically ne: [place] Catheter Subjective No new complaints Hb improved to 8.6 after 1 unit PRBC Stool for occult blood positive vital signs Vital Sign Date Time Temp Pulse Resp B/P (MAP) Pulse Ox O2 Delivery O2 Flow Rate FiO2 11/13/24 12:17 65 18 100 11/13/24 09:10 131/63 11/13/24 08:59 97.3 97.3 11/13/24 07:35 Nasal Cannula* 1 24 Total Intake and Output 11/12/24 11/12/24 11/13/24 15:00 23:00 07:00 Intake Total 150 ml 110 ml 310 ml Output Total 550 ml 350 ml Balance 150 ml -440 ml -40 ml medications Current Medications Medications Dose Ordered Sig/[place] Route Start Time Stop Time Status Last Admin Dose Admin Pantoprazole Sodium 40 mg BID IV 11/11/24 22:00 11/13/24 09:08 40 MG Vancomycin HCl 0 ml @ 0 mls/hr UD IV 11/11/24 16:00 Morphine Sulfate 2 mg Q6HPRN PRN IV 11/11/24 16:15 Acetaminophen/ Hydrocodone Bitart 1 tab Q6HPRN PRN PO 11/11/24 16:15 11/12/24 23:04 1 TAB Nifedipine 30 mg DAILY PO 11/12/24 10:00 11/13/24 09:10 30 MG Levothyroxine Sodium 75 mcg QAM@0600 PO 11/12/24 06:00 11/13/24 06:12 75 MCG Amiodarone HCl 200 mg DAILY PO 11/12/24 10:00 11/13/24 09:08 200 MG Levalbuterol HCl 0.625 mg Q6HWA NEB 11/11/24 18:00 11/13/24 12:06 0.625 MG Ipratropium [place] 0.5 mg Q6HWA NEB 11/11/24 18:00 11/13/24 12:06 0.5 MG Cefepime HCl 50 ml @ 12.5 mls/hr Q12HR IV 11/12/24 10:00 11/13/24 09:08 12.5 MLS/HR Metronidazole 100 ml @ 100 mls/hr Q8H IV 11/11/24 21:00 11/13/24 06:08 100 MLS/HR Ondansetron HCl 4 mg Q4HPRN PRN IV 11/12/24 13:30 11/12/24 13:46 4 MG Vancomycin HCl 100 ml @ 200 mls/hr Q12H IV 11/12/24 17:00 11/13/24 05:29 200 MLS/HR objective General: NAD, AAOX3 Chest: lung raman clear to auscultation Heart: RRR, no murmur Abdomen: non-distended, no tenderness to palpation, +BS laboratory and microbiology Laboratory Tests 11/13/24 10:22 Test 11/13/24 10:22 Range/Units Serum Glucose 103 74-106 mg/dL Problems(with codes): (1) Symptomatic anemia (2) COPD (chronic obstructive pulmonary disease) (3) Foot ulcer, left Prognosis Plan Advance diet as tolerated Continue supportive care for now Patient likely would benefit from an elective colonoscopy However patient will need to hold her blood thinners and also get cardiac clearance I can likely arrange this early next week or possibly as an outpatient if discharged Maintain on Protonix 40 mg p.o. daily for history of gastritis Differential diagnosis in this bleeding could include occult GI blood loss from arteriovenous malformations Plan discussed with: Other (Alpa Patel) CHINTAN MAHONEY MD Nov 13, 2024 12:44
[2024-11-13 13:21] LABS: Hematocrit 27.5 % (36.0-46.0); Hemoglobin 8.3 g/dL (12.2-16.2)
[2024-11-13 13:22] LABS: Mean Corpuscular Hemoglobin 30.5 pg (28.0-32.0); Mean Corpuscular Volume 100.8 fL (80.0-100.0); Nucleated Red Blood Cells % 0.2 %
[2024-11-13] MEDS: MORPHINE SULFATE INJ 2 MG/ml SYRG IV PRN (13:50)
--- NOTE | 2024-11-13 14:12 | DVHPNRES ---
Progress Note Date Seen: Nov 13, 2024 Resident Creating Document: MARYAM WILLIS Medical Necessity Reason Pt with a Central, PICC or Fol: Yes The following are medically ne: Crisostomo Catheter Reason for crisostomo catheter: Strict I&O Subjective Review of Systems Patient is a 79-year-old female with past medical history of COPD on 2L home oxygen, hypertension, possible dementia, DVT of the left upper extremity, rheumatoid arthritis, and bilateral avascular necrosis of the hips presented to [facility] ED with complaint of left foot ulcer. She has been bed- bound for the past 4 months due to chronic back and hip pain and generalized weakness. The patient was brought to the hospital via EMS after her caregiver and visiting nurse noted worsening appearance of a left foot ulcer. On arrival, the patient was not alert and oriented and unable to respond to questions. Information was obtained from her daughter, Ann Marie, who is her power of disability attorney. Her daughter reports that the patient has been progressively weaker over the past week, with decreased oral intake and altered mental status. She also noted black stools recently, though denied any diarrhea. The patient has been complaining of worsening pain in her foot, back, and hips. On initial evaluation in the ED, the patient was altered but later became more responsive and able to answer questions. She denied abdominal pain, nausea, vomiting, melena, or hematochezia. The patient reports no new complaints today. She feels stable following the recent transfusion. Patient denies dizziness, chest pain, shortness of breath, or abdominal discomfort reported. Appetite and energy levels unchanged. No new bleeding symptoms noted. Objective vital signs Vital Sign Date Time Temp Pulse Resp B/P (MAP) Pulse Ox O2 Delivery O2 Flow Rate FiO2 11/13/24 13:50 65 16 135/70 11/13/24 12:57 97.8 100 97.8 11/13/24 07:35 Nasal Cannula* 1 24 Total Intake and Output 11/12/24 11/12/24 11/13/24 15:00 23:00 07:00 Intake Total 150 ml 110 ml 310 ml Output Total 550 ml 350 ml Balance 150 ml -440 ml -40 ml medications Current Medications Medications Dose Ordered Sig/[place] Route Start Time Stop Time Status Last Admin Dose Admin Pantoprazole Sodium 40 mg BID IV 11/11/24 22:00 11/13/24 09:08 40 MG Vancomycin HCl 0 ml @ 0 mls/hr UD IV 11/11/24 16:00 Morphine Sulfate 2 mg Q6HPRN PRN IV 11/11/24 16:15 11/13/24 13:50 2 MG Acetaminophen/ Hydrocodone Bitart 1 tab Q6HPRN PRN PO 11/11/24 16:15 11/12/24 23:04 1 TAB Nifedipine 30 mg DAILY PO 11/12/24 10:00 11/13/24 09:10 30 MG Levothyroxine Sodium 75 mcg QAM@0600 PO 11/12/24 06:00 11/13/24 06:12 75 MCG Amiodarone HCl 200 mg DAILY PO 11/12/24 10:00 11/13/24 09:08 200 MG Levalbuterol HCl 0.625 mg Q6HWA [facility] 11/11/24 18:00 11/13/24 12:06 0.625 MG Ipratropium [place] 0.5 mg Q6HWA [facility] 11/11/24 18:00 11/13/24 12:06 0.5 MG Cefepime HCl 50 ml @ 12.5 mls/hr Q12HR IV 11/12/24 10:00 11/13/24 09:08 12.5 MLS/HR Metronidazole 100 ml @ 100 mls/hr Q8H IV 11/11/24 21:00 11/13/24 13:04 100 MLS/HR Ondansetron HCl 4 mg Q4HPRN PRN IV 11/12/24 13:30 11/12/24 13:46 4 MG Vancomycin HCl 100 ml @ 200 mls/hr Q12H IV 11/12/24 17:00 11/13/24 05:29 200 MLS/HR Examination General Appearance: mild conjunctival pallor, no icterus, no LAD, no edema . Head Exam: Normal inspection Neck Exam: Normal inspection. Non-tender. Normal alignment Pulmonary/Respiratory: Chest non-tender. Clear bilateral breath sounds, no crackles, no wheezing. Cardiovascular/Chest: Regular rate and rhythm. No murmurs. No JVD. Peripheral Pulses: 2+ Radial (R). 2+ Radial (L). 2+ Pedal (R). 2+ Pedal (L) Abdominal Exam: Normal bowel sounds. Soft. normal abdomen, no visible veins, Nontender. No hepatosplenomegaly. No masses Ankle Exam: Negative ankle edema Lower extremities: Left lower extremity tenderness. Left heel wound. Negative lower extremity edema Neuro/Mental Status: Patient is A/O X 3 . Was not able to follow commands Thoughts/Psych: Normal thought pattern. Appropriate mood and affect. Good judgement and insight Skin Exam: Normal inspection. Normal color. Warm. Dry laboratory and microbiology Laboratory Tests 11/13/24 12:46 11/13/24 10:22 Test 11/13/24 10:22 Range/Units Serum Glucose 103 74-106 mg/dL Microbiology Date/Time Source Procedure Growth Status 11/12/24 01:45 Blood Blood Culture - Preliminary NO GROWTH AFTER 24 HOURS OF INCUBATION. Resulted Labs and/or images reviewed: Labs reviewed by me, Image(s) reviewed by me Problem List/Assessment/Plan Problem List/Assessment/Plan Left heel wound, possible osteomyelitis - CT Left Foot: No definitive CT evidence of osteomyelitis however maintain elevated suspicion given deep soft tissue ulceration and phlegmon suspected particularly overlying the posterior heel. - Ankle X-Ray: There is no evidence of acute fracture or dislocation. Heterotopic calcification left fibular head. Small plantar calcaneal enthesophyte. - on vancomycin, cefepime and metronidazole - Morphine - [facility] - Wound consult Acute metabolic encephalopathy likely due to sepsis History of dementia - on IV antibiotics - IV fluids possible pneumonia, left upper lobe likely d/t gram +/ bacteria - on iv antibiotics History of arrhythmia Possible paroxysmal Atrial flutter - on amiodarone 200 mg daily COPD, not in exacerbation - duo nebs q.6 hours - on 2 L home oxygen Normocytic normochromic anemia Possible multiple myeloma H/o GI bleed H/o gastritis - stool occult blood pending - elevated creatinine, elevated calcium, anemia - lytic bone lesions seen on CT abdomen pelvis recent admission - elevated ESR - serum protein electrophoresis and urine protein electrophoresis ordered - 1 unit PRBC transfused, recheck H&H and if less than 7 transfuse 1 more unit - Protonix 40 mg IV b.i.d. - avoid NSAIDs Bilateral hip avascular necrosis Bed-bound hypothyroidism - continued on levothyroxine 75 mcg PUD prophylaxis: Protonix 40 mg DVT prophylaxis: Not indicated Anemia Goals of care: Full code, discussed for 20 minutes on 11/13/24 Plan discussed with patient Plan discussed with Dr. Arndt Plan discussed with: Patient, Other (Nurse) My Orders My Orders Orders - MARYAM WILLIS Procedure Category Date Status Time Initiate Vte ABENA 11/12/24 In Process Prophylaxis 15:45 * Dietary Consult CONS 11/12/24 Transmitted 15:45 * Wound Consult CONS 11/12/24 Transmitted 15:45 Dietary Evaluation Review Comments: Laron BID for wound healing PO supplementation, Ensure HP 240ml BID Expected Outcomes/Goals: Gradually healed wounds Date of Service: Nov 13, 2024 Billing Provider: JAIR ARNDT MD Common Visit Codes: [id number] INP/OBS CARE(HIGH) Secondary Visit Codes: 12867-[id number] CARE PLAN 30 MINUTES (20 minutes) Addendum Addendum Addendum I was physically present for the velez portions of the service provided to patient by THE RESIDENT. I have reviewed the documentation, discussed the case with resident and agree with the resident's documentation except as noted. Also the patient's clinical case was discussed with the patient's nurse. This medical document was created using an electronic medical record system with computerized dictation system. Although this document has been carefully reviewed, there might still be some phonetic and typographical errors. These areas are purely typographical due to imperfections of the software programs, and do not reflect any compromise in the patient's medical care. Late signature. MARYAM WILLIS Nov 13, 2024 14:12 JAIR ARNDT MD Nov 16, 2024 10:53
--- NOTE | 2024-11-13 17:14 | DVH ---
Bilateral lower extremity venous duplex Clinical History: Left lower extremity pain Comparison: XY L ANKLE 2 VIEW XRAY on DOS: 11/11/24, US LT UPPER DVT on DOS: 08/01/24, CT PELVIS WO CON TRAST on DOS: 07/29/24, XY L ANKLE 2 VIEW XRAY on DOS: 06/12/24, XY R ANKLE 2 VIEW XRAY on DOS: 06/12/24 Technique: Duplex Doppler evaluation of the deep venous systems of both lower extremities from the common femora l veins to the popliteal veins including color Doppler and spectral/pulsed waveform analysis was perf ormed. Findings: RIGHT SIDE: Nonocclusive thrombus is present from the right common femoral vein to the popliteal vein. Trifurcation and posterior tibial vein are patent. LEFT SIDE: The common femoral vein demonstrates appropriate compressibility and waveform variability. There is compressibility/patency of the great saphenous vein at the proximal thigh. The femoral vein demonstrates appropriate compressibility and waveform variability. The deep femoral vein demonstrates appropriate compressibility and waveform variability. The popliteal vein demonstrates appropriate compressibility and waveform variability. There is normal compressibility at the tibioperoneal trunk. Impression: Nonocclusive thrombus is present from the right common femoral vein to the popliteal vein. No left femoropopliteal venous thrombosis.
[2024-11-13] MEDS: Ensure HIGH Protein Chocolate 8oz Bottle PO SCH (18:39)
[2024-11-14] VITALS (16 sets, daily range): BP systolic 107–131; BP diastolic 46–76; PULSE 62–70; RESP 16–20; TEMP 97.1–98.2; O2SAT 94–100
[2024-11-14 11:27] LABS: Hematocrit 24.0 % (36.0-46.0); Hemoglobin 7.5 g/dL (12.2-16.2); Mean Corpuscular Hemoglobin 30.9 pg (28.0-32.0); Mean Corpuscular Volume 98.6 fL (80.0-100.0); Nucleated Red Blood Cells % 0.1 %
[2024-11-14 11:46] LABS: Anion Gap 10 (5-15); Calcium 9.5 mg/dL (8.7-10.4)
[2024-11-14 11:51] LABS: BUN/Creatinine Ratio 20.7 (10.0-20.0); Blood Urea Nitrogen 17 mg/dL (9-23); Glucose 90 mg/dL (74-106)
[2024-11-14 11:52] LABS: Carbon Dioxide 15 mmol/L (20-31); Chloride 120 mmol/L (98-107); Potassium 3.4 mmol/L (3.5-5.1); Sodium 145 mmol/L (136-145)
[2024-11-14] MEDS: POTASSIUM CHLORIDE 40 MEQ, LIDOCAINE 1% (LOCAL ANESTH.) 4 ML in SODIUM CHL 0.9% 250 ML IV ONE (14:33)
--- NOTE | 2024-11-14 15:46 | DVHPNRES ---
Progress Note Date Seen: Nov 14, 2024 Resident Creating Document: WILFREDO RUIZ Medical Necessity Reason Pt with a Central, PICC or Fol: Yes The following are medically ne: Crisostomo Catheter Reason for crisostomo catheter: Strict I&O Subjective Review of Systems Patient is a 79-year-old female with past medical history of COPD on 2L home oxygen, hypertension, possible dementia, DVT of the left upper extremity, rheumatoid arthritis, and bilateral avascular necrosis of the hips presented to [facility] ED with complaint of left foot ulcer. She has been bed- bound for the past 4 months due to chronic back and hip pain and generalized weakness. The patient was brought to the hospital via EMS after her caregiver and visiting nurse noted worsening appearance of a left foot ulcer. On arrival, the patient was not alert and oriented and unable to respond to questions. Information was obtained from her daughter, Ann Marie, who is her power of assistant district attorney. Her daughter reports that the patient has been progressively weaker over the past week, with decreased oral intake and altered mental status. She also noted black stools recently, though denied any diarrhea. The patient has been complaining of worsening pain in her foot, back, and hips. On initial evaluation in the ED, the patient was altered but later became more responsive and able to answer questions. She denied abdominal pain, nausea, vomiting, melena, or hematochezia. Ms. Neeta Chaves was seen and examined at the bedside today. The patient reports experiencing pain in the left lower heel, at the site of ulcer. She denies any chest pain, shortness of breath, fever or any other complaints today. The patient expressed desire to feel better soon and go home. Objective vital signs Vital Sign Date Time Temp Pulse Resp B/P (MAP) Pulse Ox O2 Delivery O2 Flow Rate FiO2 11/14/24 12:31 97.6 66 18 107/57 (74) 98 97.6 11/14/24 11:43 Nasal Cannula* 1 24 Total Intake and Output 11/13/24 11/13/24 11/14/24 15:00 23:00 07:00 Intake Total 330 ml 1400 ml 400 ml Output Total 500 ml Balance 330 ml 900 ml 400 ml medications Current Medications Medications Dose Ordered Sig/[place] Route Start Time Stop Time Status Last Admin Dose Admin Pantoprazole Sodium 40 mg BID IV 11/11/24 22:00 11/14/24 08:46 40 MG Morphine Sulfate 2 mg Q6HPRN PRN IV 11/11/24 16:15 11/14/24 10:12 2 MG Acetaminophen/ Hydrocodone Bitart 1 tab Q6HPRN PRN PO 11/11/24 16:15 11/12/24 23:04 1 TAB Nifedipine 30 mg DAILY PO 11/12/24 10:00 11/14/24 08:46 30 MG Levothyroxine Sodium 75 mcg QAM@0600 PO 11/12/24 06:00 11/14/24 05:43 75 MCG Amiodarone HCl 200 mg DAILY PO 11/12/24 10:00 11/14/24 08:45 200 MG Levalbuterol HCl 0.625 mg Q6HWA [facility] 11/11/24 18:00 11/14/24 11:44 0.625 MG Ipratropium [place] 0.5 mg Q6HWA [facility] 11/11/24 18:00 11/14/24 11:43 0.5 MG Cefepime HCl 50 ml @ 12.5 mls/hr Q12HR IV 11/12/24 10:00 11/14/24 08:46 12.5 MLS/HR Metronidazole 100 ml @ 100 mls/hr Q8H IV 11/11/24 21:00 11/14/24 12:59 100 MLS/HR Ondansetron HCl 4 mg Q4HPRN PRN IV 11/12/24 13:30 11/12/24 13:46 4 MG Enteral Nutritional Formula 240 ml BIDWM PO 11/13/24 18:00 11/14/24 08:05 240 ML Examination Pt is lying on bed General Appearance: Alert, Oriented X3, Cooperative, Mild distress HEENT: Atraumatic, Mucous membranes moist/pink Respiratory: Clear to auscultation, Normal air movement, No added sounds Cardiovascular: Regular rate, Normal S1, Normal S2, No murmurs Abdominal/ : Active bowel sounds, Soft, no distention, no tenderness Extremities: No edema, Normal pulses, No tenderness/swelling, currently SCDs in place, previous examination: left heel eschar, maceration at the wound site. Skin: No Significant rash, except past surgical scars Neuro: Normal speech, sensorimotor deficits none Psych/Mental Status: Mental status NL, Mood NL Nurse was there as acrobatic rigger during examination laboratory and microbiology Laboratory Tests 11/14/24 11:07 Test 11/14/24 11:07 Range/Units Serum Glucose 90 74-106 mg/dL Microbiology Date/Time Source Procedure Growth Status 11/12/24 01:45 Blood Blood Culture - Preliminary NO GROWTH AFTER 48 HOURS OF INCUBATION. Resulted Labs and/or images reviewed: Labs reviewed by me, Image(s) reviewed by me Problem List/Assessment/Plan Problem List/Assessment/Plan Sepsis due to infected left heel wound, possible osteomyelitis - CT Left Foot: No definitive CT evidence of osteomyelitis however maintain elevated suspicion given deep soft tissue ulceration and phlegmon suspected particularly overlying the posterior heel. - Ankle X-Ray: There is no evidence of acute fracture or dislocation. Heterotopic calcification left fibular head. Small plantar calcaneal enthesophyte. - on vancomycin, cefepime and metronidazole - Morphine - [place] - Wound consult -podiatry does not recommend MRI given no concern for osteomyelitis at this moment, wound care and follow up outpatient. DVT Lower extremity duplex ultrasound: Nonocclusive thrombus is present from the right common femoral vein to the popliteal vein. Anticoagulation on hold due to concern for severe anemia Interventional radiologist consulted for IVC filter placement Acute metabolic encephalopathy likely due to sepsis History of dementia - on IV antibiotics cefepime and vancomycin - IV fluids possible pneumonia, left upper lobe likely d/t gram +/ bacteria - on iv antibiotics cefepime and vancomycin History of arrhythmia Possible paroxysmal Atrial flutter - on amiodarone 200 mg daily COPD, not in exacerbation - duo nebs q.6 hours - on 2 L home oxygen Normocytic normochromic anemia Possible multiple myeloma H/o GI bleed H/o gastritis - stool occult blood pending - elevated creatinine, elevated calcium, anemia - lytic bone lesions seen on CT abdomen pelvis recent admission - elevated ESR - serum protein electrophoresis and urine protein electrophoresis ordered - 1 unit PRBC transfused, recheck H&H and if less than 7 transfuse 1 more unit - Protonix 40 mg IV b.i.d. - avoid NSAIDs Bilateral hip avascular necrosis Bed-bound hypothyroidism - continued on levothyroxine 75 mcg PUD prophylaxis: Protonix 40 mg DVT prophylaxis: Held due to anemia Discussed with Dr. Arndt Plan discussed with: Patient, Other (RN) Dietary Evaluation Review Comments: [place] BID for wound healing PO supplementation, Ensure HP 240ml BID Expected Outcomes/Goals: Gradually healed wounds Date of Service: Nov 14, 2024 Billing Provider: JAIR ARNDT MD Common Visit Codes: [id number] INP/OBS CARE(HIGH) Addendum Addendum Addendum I was physically present for the velez portions of the service provided to patient by THE RESIDENT. I have reviewed the documentation, discussed the case with resident and agree with the resident's documentation except as noted. Also the patient's clinical case was discussed with the patient's nurse. This medical document was created using an electronic medical record system with computerized dictation system. Although this document has been carefully reviewed, there might still be some phonetic and typographical errors. These areas are purely typographical due to imperfections of the software programs, and do not reflect any compromise in the patient's medical care. Late signature. WILFREDO RUIZ RESIDENT Nov 14, 2024 15:46 JAIR ARNDT MD Nov 16, 2024 11:19
[2024-11-14] MEDS ORDERED: ACETAMINOPHEN 325 MG TAB PO PRN (16:00)
[2024-11-14] MEDS ORDERED: ACETAMINOPHEN 325 MG TAB PO ONE (16:00)
[2024-11-15] VITALS (17 sets, daily range): BP systolic 108–146; BP diastolic 46–58; PULSE 59–67; RESP 16–20; TEMP 97.4–98.3; O2SAT 97–100
[2024-11-15 09:00] LABS: COVID19 ANTIGEN SOFIA FIA NEGATIVE (NEGATIVE)
[2024-11-15 11:26] LABS: Nucleated Red Blood Cells % 0.1 %
[2024-11-15 11:28] LABS: Hematocrit 21.3 % (36.0-46.0); Mean Corpuscular Hemoglobin 31.2 pg (28.0-32.0); Mean Corpuscular Volume 98.1 fL (80.0-100.0)
[2024-11-15 11:31] LABS: Hemoglobin 6.8 g/dL (12.2-16.2)
[2024-11-15 11:36] LABS: Anion Gap 9 (5-15); Calcium 9.5 mg/dL (8.7-10.4)
[2024-11-15 11:41] LABS: BUN/Creatinine Ratio 22.0 (10.0-20.0); Blood Urea Nitrogen 18 mg/dL (9-23)
[2024-11-15 11:44] LABS: Carbon Dioxide 14 mmol/L (20-31); Chloride 125 mmol/L (98-107); Glucose 134 mg/dL (74-106); Potassium 3.5 mmol/L (3.5-5.1); Sodium 148 mmol/L (136-145)
[2024-11-15] MEDS ORDERED: VANCOMYCIN PER PHARMACY 0 MG IV SCH (12:00)
[2024-11-15] MEDS: LACTULOSE 20Gm/30ML SOLN PO ONE (13:02)
--- NOTE | 2024-11-15 16:10 | DVHPNRES ---
Progress Note Date Seen: Nov 15, 2024 Resident Creating Document: MARYAM WILLIS Medical Necessity Reason Pt with a Central, PICC or Fol: Yes The following are medically ne: Crisostomo Catheter Reason for crisostomo catheter: Strict I&O Subjective Review of Systems Patient is a 79-year-old female with past medical history of COPD on 2L home oxygen, hypertension, possible dementia, DVT of the left upper extremity, rheumatoid arthritis, and bilateral avascular necrosis of the hips presented to [facility] ED with complaint of left foot ulcer. She has been bed- bound for the past 4 months due to chronic back and hip pain and generalized weakness. The patient was brought to the hospital via EMS after her caregiver and visiting nurse noted worsening appearance of a left foot ulcer. On arrival, the patient was not alert and oriented and unable to respond to questions. Information was obtained from her daughter, Ann Marie, who is her power of criminal defense attorney. Her daughter reports that the patient has been progressively weaker over the past week, with decreased oral intake and altered mental status. She also noted black stools recently, though denied any diarrhea. The patient has been complaining of worsening pain in her foot, back, and hips. On initial evaluation in the ED, the patient was altered but later became more responsive and able to answer questions. She denied abdominal pain, nausea, vomiting, melena, or hematochezia. Ms. Neeta Chaves was seen and examined at the bedside today. The patient reports experiencing pain in the left lower heel, at the site of ulcer. She denies any chest pain, shortness of breath, fever or any other complaints today. The patient expressed desire to feel better soon and go home. 11/15- Patient was seen and examined at bedside. Overnight events were reviewed. The patient reports improvement in her symptoms. Hemoglobin was found to be critically low at 6.8 g/dL. One unit of packed red blood cells (PRBC) was requested for transfusion. Attempted to contact the patient's daughter, but was unable to reach her. Objective vital signs Vital Sign Date Time Temp Pulse Resp B/P (MAP) Pulse Ox O2 Delivery O2 Flow Rate FiO2 11/15/24 15:15 97.6 64 18 126/46 97.6 11/15/24 12:37 97 11/15/24 12:30 Room Air* 0 21 Total Intake and Output 11/14/24 11/14/24 11/15/24 14:59 22:59 06:59 Intake Total 150 ml 50 ml 600 ml Output Total 850 ml Balance 150 ml -800 ml 600 ml medications Current Medications Medications Dose Ordered Sig/[place] Route Start Time Stop Time Status Last Admin Dose Admin Pantoprazole Sodium 40 mg BID IV 11/11/24 22:00 11/15/24 09:10 40 MG Morphine Sulfate 2 mg Q6HPRN PRN IV 11/11/24 16:15 11/14/24 10:12 2 MG Acetaminophen/ Hydrocodone Bitart 1 tab Q6HPRN PRN PO 11/11/24 16:15 11/15/24 09:24 1 TAB Nifedipine 30 mg DAILY PO 11/12/24 10:00 11/15/24 09:11 30 MG Levothyroxine Sodium 75 mcg QAM@0600 PO 11/12/24 06:00 11/15/24 05:41 75 MCG Amiodarone HCl 200 mg DAILY PO 11/12/24 10:00 11/15/24 09:10 200 MG Levalbuterol HCl 0.625 mg Q6HWA [facility] 11/11/24 18:00 11/15/24 12:25 0.625 MG Ipratropium [place] 0.5 mg Q6HWA [facility] 11/11/24 18:00 11/15/24 12:25 0.5 MG Cefepime HCl 50 ml @ 12.5 mls/hr Q12HR IV 11/12/24 10:00 11/15/24 09:09 12.5 MLS/HR Metronidazole 100 ml @ 100 mls/hr Q8H IV 11/11/24 21:00 11/15/24 13:02 100 MLS/HR Ondansetron HCl 4 mg Q4HPRN PRN IV 11/12/24 13:30 11/12/24 13:46 4 MG Enteral Nutritional Formula 240 ml BIDWM PO 11/13/24 18:00 11/15/24 09:10 240 ML Vancomycin HCl 0 ml @ 0 mls/hr UD IV 11/15/24 12:00 Lactulose 15 ml DAILY PO 11/16/24 10:00 Examination General Appearance: Alert, Oriented X3, Cooperative, Mild distress HEENT: Atraumatic, Mucous membranes moist/pink Respiratory: Clear to auscultation, Normal air movement, No added sounds Cardiovascular: Regular rate, Normal S1, Normal S2, No murmurs Abdominal/ : Active bowel sounds, Soft, no distention, no tenderness Extremities: No edema, Normal pulses, No tenderness/swelling, currently SCDs in place, previous examination: left heel eschar, maceration at the wound site. Skin: No Significant rash, except past surgical scars Neuro: Normal speech, sensorimotor deficits none Psych/Mental Status: Mental status NL, Mood NL Nurse was there as editor greeting card during examination laboratory and microbiology Laboratory Tests 11/15/24 11:12 Test 11/15/24 11:12 Range/Units Serum Glucose 134 H 74-106 mg/dL Microbiology Date/Time Source Procedure Growth Status 11/14/24 13:15 Nose MRSA Screen - Final Complete 11/12/24 01:45 Blood Blood Culture - Preliminary NO GROWTH AFTER 72 HOURS OF INCUBATION. Resulted Labs and/or images reviewed: Labs reviewed by me, Image(s) reviewed by me Problem List/Assessment/Plan Problem List/Assessment/Plan Sepsis due to infected left heel wound, possible osteomyelitis - CT Left Foot: No definitive CT evidence of osteomyelitis however maintain elevated suspicion given deep soft tissue ulceration and phlegmon suspected particularly overlying the posterior heel. - Ankle X-Ray: There is no evidence of acute fracture or dislocation. Heterotopic calcification left fibular head. Small plantar calcaneal enthesophyte. - on vancomycin, cefepime and metronidazole - Morphine - [place] - Wound consult Acute metabolic encephalopathy likely due to sepsis History of dementia - on IV antibiotics - IV fluids possible pneumonia, left upper lobe likely d/t gram +/ bacteria - on iv antibiotics History of arrhythmia Possible paroxysmal Atrial flutter - on amiodarone 200 mg daily COPD, not in exacerbation - duo nebs q.6 hours - on 2 L home oxygen Normocytic normochromic anemia Possible multiple myeloma H/o GI bleed H/o gastritis - stool occult blood pending - elevated creatinine, elevated calcium, anemia - lytic bone lesions seen on CT abdomen pelvis recent admission - elevated ESR - serum protein electrophoresis and urine protein electrophoresis ordered - 1 unit PRBC transfused, recheck H&H and if less than 7 transfuse 1 more unit; hemoglobin this morning 6.8 so will transfuse 1 unit - Protonix 40 mg IV b.i.d. - avoid NSAIDs Bilateral hip avascular necrosis Bed-bound hypothyroidism - continued on levothyroxine 75 mcg To arrange for family meeting on Saturday to discuss management and plan including comfort/palliative/hospice care PUD prophylaxis: Protonix 40 mg DVT prophylaxis: Not indicated Anemia Goals of care: Full code Plan discussed with patient Plan discussed with Dr. Arndt Plan discussed with: Patient, Other (Nurse) Dietary Evaluation Review Comments: [place] BID for wound healing PO supplementation, Ensure HP 240ml BID Expected Outcomes/Goals: Gradually healed wounds Date of Service: Nov 15, 2024 Billing Provider: JAIR ARNDT MD Common Visit Codes: [id number] INP/OBS CARE(HIGH) Addendum Addendum Addendum I was physically present for the velez portions of the service provided to patient by THE RESIDENT. I have reviewed the documentation, discussed the case with resident and agree with the resident's documentation except as noted. Also the patient's clinical case was discussed with the patient's nurse. This medical document was created using an electronic medical record system with computerized dictation system. Although this document has been carefully reviewed, there might still be some phonetic and typographical errors. These areas are purely typographical due to imperfections of the software programs, and do not reflect any compromise in the patient's medical care. Late signature. AMRYAM WILLIS Nov 15, 2024 16:10 JAIR ARNDT MD Nov 16, 2024 11:26
[2024-11-15] MEDS: VANCOMYCIN 1GM/250ML KIT 250 ML IV ONE (18:44)
[2024-11-16] VITALS (13 sets, daily range): BP systolic 102–155; BP diastolic 52–77; PULSE 63–69; RESP 8–19; TEMP 97.4–98.6; O2SAT 96–100
[2024-11-16 06:48] LABS: Hematocrit 27.3 % (36.0-46.0); Hemoglobin 9.1 g/dL (12.2-16.2); Mean Corpuscular Hemoglobin 31.2 pg (28.0-32.0); Mean Corpuscular Volume 93.5 fL (80.0-100.0); Nucleated Red Blood Cells % 0.1 %
[2024-11-16 07:02] LABS: Anion Gap 11 (5-15)
[2024-11-16 07:04] LABS: Calcium 9.5 mg/dL (8.7-10.4)
[2024-11-16 07:06] LABS: Carbon Dioxide 14 mmol/L (20-31); Chloride 121 mmol/L (98-107); Potassium 3.4 mmol/L (3.5-5.1); Sodium 146 mmol/L (136-145)
[2024-11-16 07:08] LABS: Glucose 105 mg/dL (74-106)
[2024-11-16 07:09] LABS: BUN/Creatinine Ratio 19.8 (10.0-20.0); Blood Urea Nitrogen 16 mg/dL (9-23)
[2024-11-16] MEDS: LACTULOSE 20Gm/30ML SOLN PO SCH (09:41)
--- NOTE | 2024-11-16 12:31 | DVHPNRES ---
Progress Note Date Seen: Nov 16, 2024 Resident Creating Document: MARYAM WILLIS Medical Necessity Reason Pt with a Central, PICC or Fol: Yes The following are medically ne: Crisostomo Catheter Reason for crisostomo catheter: Strict I&O Subjective Review of Systems Patient is a 79-year-old female with past medical history of COPD on 2L home oxygen, hypertension, possible dementia, DVT of the left upper extremity, rheumatoid arthritis, and bilateral avascular necrosis of the hips presented to [facility] ED with complaint of left foot ulcer. She has been bed- bound for the past 4 months due to chronic back and hip pain and generalized weakness. The patient was brought to the hospital via EMS after her caregiver and visiting nurse noted worsening appearance of a left foot ulcer. On arrival, the patient was not alert and oriented and unable to respond to questions. Information was obtained from her daughter, Ann Marie, who is her power of banking attorney. Her daughter reports that the patient has been progressively weaker over the past week, with decreased oral intake and altered mental status. She also noted black stools recently, though denied any diarrhea. The patient has been complaining of worsening pain in her foot, back, and hips. On initial evaluation in the ED, the patient was altered but later became more responsive and able to answer questions. She denied abdominal pain, nausea, vomiting, melena, or hematochezia. Ms. Neeta Chaves was seen and examined at the bedside today. The patient reports experiencing pain in the left lower heel, at the site of ulcer. She denies any chest pain, shortness of breath, fever or any other complaints today. The patient expressed desire to feel better soon and go home. 11/15- Patient was seen and examined at bedside. Overnight events were reviewed. The patient reports improvement in her symptoms. Hemoglobin was found to be critically low at 6.8 g/dL. One unit of packed red blood cells (PRBC) was requested for transfusion. Attempted to contact the patient's daughter, but was unable to reach her. 11/16- Patient was seen and examined at bedside. Overnight events were reviewed. Patient complains of lower abdominal pain. She denies any chest pain, shortness of breath, fever or any other complains today. Contact was made with the patients daughter, and the plan of care was discussed; she agreed with the recommendations. Objective vital signs Vital Sign Date Time Temp Pulse Resp B/P (MAP) Pulse Ox O2 Delivery O2 Flow Rate FiO2 11/16/24 12:29 65 8 100 11/16/24 12:23 Room Air 11/16/24 12:23 0 21 11/16/24 09:44 129/58 11/16/24 09:00 98.6 98.6 Total Intake and Output 11/15/24 11/15/24 11/16/24 15:00 23:00 07:00 Intake Total 930 ml 1730 ml 950 ml Output Total 850 ml 1250 ml Balance 930 ml 880 ml -300 ml medications Current Medications Medications Dose Ordered Sig/[place] Route Start Time Stop Time Status Last Admin Dose Admin Pantoprazole Sodium 40 mg BID IV 11/11/24 22:00 11/16/24 09:42 40 MG Morphine Sulfate 2 mg Q6HPRN PRN IV 11/11/24 16:15 11/14/24 10:12 2 MG Acetaminophen/ Hydrocodone Bitart 1 tab Q6HPRN PRN PO 11/11/24 16:15 11/16/24 09:55 1 TAB Nifedipine 30 mg DAILY PO 11/12/24 10:00 11/16/24 09:44 30 MG Levothyroxine Sodium 75 mcg QAM@0600 PO 11/12/24 06:00 11/16/24 05:00 75 MCG Amiodarone HCl 200 mg DAILY PO 11/12/24 10:00 11/16/24 09:44 200 MG Levalbuterol HCl 0.625 mg Q6HWA [facility] 11/11/24 18:00 11/16/24 12:23 0.625 MG Ipratropium [place] 0.5 mg Q6HWA [facility] 11/11/24 18:00 11/16/24 12:23 0.5 MG Cefepime HCl 50 ml @ 12.5 mls/hr Q12HR IV 11/12/24 10:00 11/16/24 09:42 12.5 MLS/HR Ondansetron HCl 4 mg Q4HPRN PRN IV 11/12/24 13:30 11/12/24 13:46 4 MG Enteral Nutritional Formula 240 ml BIDWM PO 11/13/24 18:00 11/16/24 08:27 240 ML Vancomycin HCl 0 ml @ 0 mls/hr UD IV 11/15/24 12:00 Lactulose 15 ml DAILY PO 11/16/24 10:00 11/16/24 09:41 15 ML Examination General Appearance: Alert, Oriented X3, Cooperative, Mild distress HEENT: Atraumatic, Mucous membranes moist/pink Respiratory: Clear to auscultation, Normal air movement, No added sounds Cardiovascular: Regular rate, Normal S1, Normal S2, No murmurs Abdominal/ : Active bowel sounds, Soft, no distention, no tenderness Extremities: No edema, Normal pulses, No tenderness/swelling, currently SCDs in place, previous examination: left heel eschar, maceration at the wound site. Skin: No Significant rash, except past surgical scars Neuro: Normal speech, sensorimotor deficits none Psych/Mental Status: Mental status NL, Mood NL Nurse was there as franchise specialist during examination laboratory and microbiology Laboratory Tests 11/16/24 06:00 Test 11/16/24 06:00 Range/Units Serum Glucose 105 74-106 mg/dL Microbiology Date/Time Source Procedure Growth Status 11/14/24 13:15 Nose MRSA Screen - Final Complete 11/12/24 01:45 Blood Blood Culture - Preliminary NO GROWTH AFTER 72 HOURS OF INCUBATION. Resulted Labs and/or images reviewed: Labs reviewed by me, Image(s) reviewed by me Problem List/Assessment/Plan Problem List/Assessment/Plan Left heel wound, possible osteomyelitis - CT Left Foot: No definitive CT evidence of osteomyelitis however maintain elevated suspicion given deep soft tissue ulceration and phlegmon suspected particularly overlying the posterior heel. - Ankle X-Ray: There is no evidence of acute fracture or dislocation. Heterotopic calcification left fibular head. Small plantar calcaneal enthesophyte. - IVC filter scheduled -scheduled in [employer] for 11/17/24 for procedure - on vancomycin, cefepime and metronidazole - Morphine - [place] - Wound consult Acute metabolic encephalopathy likely due to sepsis History of dementia - on IV antibiotics - IV fluids possible pneumonia, left upper lobe likely d/t gram +/ bacteria - on iv antibiotics - MRSA nares finalized and is negative. MRSA nares has high negative predictive value for MRSA pneumonia History of arrhythmia Possible paroxysmal Atrial flutter - on amiodarone 200 mg daily COPD, not in exacerbation - duo nebs q.6 hours - on 2 L home oxygen Normocytic normochromic anemia Possible multiple myeloma H/o GI bleed H/o gastritis - stool occult blood positive - Cardiology consult for colonoscopy - colonoscopy scheduled - elevated creatinine, elevated calcium, anemia - lytic bone lesions seen on CT abdomen pelvis recent admission - elevated ESR - serum protein electrophoresis and urine protein electrophoresis ordered - 1 unit PRBC transfused, recheck H&H and if less than 7 transfuse 1 more unit - Protonix 40 mg IV b.i.d. - avoid NSAIDs Bilateral hip avascular necrosis Bed-bound hypothyroidism - continued on levothyroxine 75 mcg Diet: Pureed PUD prophylaxis: Protonix 40 mg DVT prophylaxis: Not indicated Anemia Goals of care: Full code, discussed for >16 minutes on 11/16/24 Plan discussed with patient Plan discussed with Dr. Harrison Plan discussed with: Daughter Dietary Evaluation Review Comments: [place] BID for wound healing PO supplementation, Ensure HP 240ml BID Expected Outcomes/Goals: Gradually healed wounds Date of Service: Nov 16, 2024 Billing Provider: MARICRUZ HARRISON MD Common Visit Codes: [id number] INP/OBS CARE(HIGH) MARYAM WILLIS RESIDENT Nov 16, 2024 12:31 MARICRUZ HARRISON MD Nov 17, 2024 18:50
--- NOTE | 2024-11-16 13:07 | DVHPN2 ---
Progress Note Date Seen: Nov 16, 2024 Resident Creating Document: ANGIE MASON RESIDENT Medical Necessity Reason Pt with a Central, PICC or Fol: Yes The following are medically ne: Crisostomo Catheter Reason for crisostomo catheter: Strict I&O Subjective Review of Systems Patient seen and examined at bedside remains AO times 1-2, minimally verbal Continues to complain of abdominal pain No nausea or vomiting Per patient she has not been able to pass gas Decreased oral intake Last bowel movement 11/11/2024 Objective vital signs Vital Sign Date Time Temp Pulse Resp B/P (MAP) Pulse Ox O2 Delivery O2 Flow Rate FiO2 11/16/24 12:29 65 8 100 11/16/24 12:23 Room Air 11/16/24 12:23 0 21 11/16/24 09:44 129/58 11/16/24 09:00 98.6 98.6 Total Intake and Output 11/15/24 11/15/24 11/16/24 15:00 23:00 07:00 Intake Total 930 ml 1730 ml 950 ml Output Total 850 ml 1250 ml Balance 930 ml 880 ml -300 ml medications Current Medications Medications Dose Ordered Sig/[place] Route Start Time Stop Time Status Last Admin Dose Admin Pantoprazole Sodium 40 mg BID IV 11/11/24 22:00 11/16/24 09:42 40 MG Morphine Sulfate 2 mg Q6HPRN PRN IV 11/11/24 16:15 11/14/24 10:12 2 MG Acetaminophen/ Hydrocodone Bitart 1 tab Q6HPRN PRN PO 11/11/24 16:15 11/16/24 09:55 1 TAB Nifedipine 30 mg DAILY PO 11/12/24 10:00 11/16/24 09:44 30 MG Levothyroxine Sodium 75 mcg QAM@0600 PO 11/12/24 06:00 11/16/24 05:00 75 MCG Amiodarone HCl 200 mg DAILY PO 11/12/24 10:00 11/16/24 09:44 200 MG Levalbuterol HCl 0.625 mg Q6HWA NEB 11/11/24 18:00 11/16/24 12:23 0.625 MG Ipratropium [place] 0.5 mg Q6HWA NEB 11/11/24 18:00 11/16/24 12:23 0.5 MG Cefepime HCl 50 ml @ 12.5 mls/hr Q12HR IV 11/12/24 10:00 11/16/24 09:42 12.5 MLS/HR Ondansetron HCl 4 mg Q4HPRN PRN IV 11/12/24 13:30 11/12/24 13:46 4 MG Enteral Nutritional Formula 240 ml BIDWM PO 11/13/24 18:00 11/16/24 08:27 240 ML Vancomycin HCl 0 ml @ 0 mls/hr UD IV 11/15/24 12:00 Lactulose 15 ml DAILY PO 11/16/24 10:00 11/16/24 09:41 15 ML Examination General Appearance: Cooperative. Well developed. Well nourished. NAD Pulmonary/Respiratory: Equal bilateral air entry Cardiovascular/Chest: Regular rate and rhythm. No murmurs. No JVD. Abdominal Exam: Hypoactive bowel sounds. Soft. normal abdomen, no visible veins, Nontender. No hepatospenomegaly. No masses Neuro/Mental Status: A&O x 1-2. In coherent Skin Exam: Normal inspection. Normal color. Warm. Dry laboratory and microbiology Laboratory Tests 11/16/24 06:00 Test 11/16/24 06:00 Range/Units Serum Glucose 105 74-106 mg/dL Microbiology Date/Time Source Procedure Growth Status 11/14/24 13:15 Nose MRSA Screen - Final Complete 11/12/24 01:45 Blood Blood Culture - Preliminary NO GROWTH AFTER 72 HOURS OF INCUBATION. Resulted Labs and/or images reviewed: Labs reviewed by me, Image(s) reviewed by me Problem List/Assessment/Plan Problem List/Assessment/Plan Constipation, slow transit versus ileus Symptomatic anemia Positive stool occult blood COPD Left heel ulcer, questionable osteomyelitis Acute on chronic metabolic encephalopathy Sepsis due to above Questionable multiple myeloma Plan: Ordered KUB Consider adding MiraLax and/or lactulose once KUB resulted Patient would likely benefit from elective colonoscopy, we will schedule once cardiology clearance has been obtained Protonix 40 mg p.o. daily Continue antibiotics Thank you so much for the opportunity to consult on your patient. GI team will follow the patient. In case of any questions or concerns please feel free to reach out. Plan discussed with Dr. Marcano Plan discussed with: Other (RN) Dietary Evaluation Review Comments: Laron BID for wound healing PO supplementation, Ensure HP 240ml BID Expected Outcomes/Goals: Gradually healed wounds ANGIE MASON RESIDENT Nov 16, 2024 13:07
[2024-11-16] MEDS: MORPHINE SULFATE 4 MG/ML SYR/VIAL IV PRN (14:36)
--- NOTE | 2024-11-16 15:24 | MEDREC ---
[facility] Intervention Section I [facility] Intervention: Review courses of therapy (MRSA nares finalized and is negative. MRSA nares has high negative predictive value for MRSA pneumonia. May consider d/cing vancomycin if/when clinically appropriate.) RUIZ CLEMENTS [facility] RESIDENT Nov 16, 2024 15:24
[2024-11-16] MEDS ORDERED: LACTULOSE 20Gm/30ML SOLN PO PRN (16:45)
--- NOTE | 2024-11-16 18:28 | DVH ---
Date: 11/16/2024 04:20 PM Examination: XY KUB ABDOMEN SINGLE VIEW History: r/o sbo ileus Comparison: XY KUB ABDOMEN SINGLE VIEW on DOS: 09/04/24 TECHNIQUE: Frontal views of the abdomen was obtained. FINDINGS: Bowel gas pattern is unremarkable. Fecal impaction No findings of bowel obstruction. The lung bases are unremarkable. No acute osseous abnormality identified. IMPRESSION: 1. Nonobstructive bowel gas pattern. 2. Findings suggest fecal impaction recommend correlation with physical examination.
--- NOTE | 2024-11-16 20:24 | DVHINCON2 ---
Date of service: Nov 16, 2024 Referring Physician Yamila Reason for Consultation Cardiac clearance History of Present Illness This is a 79 year old female with a PMH of anemia, asthma, CHF, COPD, HTN, thyroid disease, nonverbal who was brought in by EMS with complaint of wound check. Per EMS, patient has a chronic wound to left heel. Patient has been dealing with this wound for the past 3-4 months. EMS states patient also has wound on left buttock region. Patient is non-verbal, complains of pain. Left ankle x-ray shows no evidence of acute fracture or dislocation. Heterotopic calcification left fibular head. Small plantar calcaneal enthesophyte. Chest x- ray shows patchy airspace opacities in the right lung apex may represent scarring or pneumonia. Patient was admitted to the hospital. I am asked to consult on this patient. Family History: Cardiovascular disease G8 FATHER Allergies: Coded Allergies: Atenolol (Unverified Allergy, Unknown, 07/13/24) Lisinopril (Unverified Allergy, Unknown, 07/13/24) Penicillins (Unverified Allergy, Unknown, 07/13/24) Home Meds Active Scripts Cephalexin (KEFLEX CAPSULE) 250 Mg Cp, 1 CAP PO BID, #14 CAP Prov:DONTAE BENEDICT MD 10/27/24 Nifedipine (Nifedipine Er) 30 Mg Tab, 60 MG PO DAILY for 30 Days, #60 TAB Prov:PATRICK RUCKER RESIDENT 10/12/24 Levothyroxine Sodium (Levothyroxine Sodium) 25 Mcg Tab, 75 MCG PO QAM@0600 for 30 Days, #30 TAB Prov:PATRICK RUCKER RESIDENT 10/12/24 Amiodarone HCl (Amiodarone HCl) 200 Mg Tab, 200 MG PO DAILY for 30 Days, #30 TAB Prov:PATRICK RUCKER RESIDENT 10/12/24 Reported Medications Calcium Carbonate (Calcium Carbonate) 1,250 Mg Tab, 1 TAB PO DAILY for 30 Days, #30 11/12/24 Ipratropium-Albuterol (Ipratropium [place]/Albut) 1 Lis Lis, 1 VIAL NEB QID for 30 Days, #360 11/12/24 Potassium Chloride (Klor-Con M20) 20 Meq Tab, 1 TAB PO DAILY for 90 Days, #90 11/12/24 Rivaroxaban (Xarelto Tablet) 20 Mg Tb, 1 TAB PO QPM for 30 Days, #30 11/12/24 Cholecalciferol ([facility] Vitamin D) 1,000 Unit Tab, 1 TAB PO DAILY for 30 Days, #30 11/12/24 Ferrous Sulfate (Ferosul) 325 Mg Tab, 1 TAB PO DAILY for 30 Days, #30 11/12/24 Cetirizine HCl (Cetirizine Hydrochloride) 10 Mg Tab, 2 TAB PO DAILY for ITCH for 30 Days, #60 11/12/24 Ascorbic Acid ([facility] Vitamin C W/Rosalia Hips) 500 Mg Tab, 1 TAB PO DAILY for 90 Days, #90 11/12/24 Ibuprofen Micronized (Ibuprofen) 800 Mg Tab, 1 TAB PO Q4-6HR for 15 Days, #90 11/12/24 Omeprazole (Omeprazole Dr) 20 Mg Cap, 1 CAP PO DAILY for 90 Days, #90 11/12/24 Metoprolol Succinate (Metoprolol Succinate Er) 25 Mg Tab, 1 TAB PO DAILY for 90 Days, #90 11/12/24 Donepezil Hydrochloride (DONEPEZIL HCL) 10 Mg Tab, 1 TAB PO DAILY for 30 Days, #30 11/12/24 Current Medications Current Medications Medications (Trade) Dose Ordered Sig/[place] Route PRN Reason Start Time Stop Time Status Last Admin Lactulose 15 ml DAILY PO 11/16/24 10:00 11/16/24 16:44 DC 11/16/24 09:41 Morphine Sulfate 2 mg Q6HPRN PRN IV SEVERE PAIN (7-10 PAIN SCALE) 11/16/24 13:15 11/16/24 14:36 Lactulose 30 ml BIDPRN PRN PO FOR CONSTIPATION 11/16/24 16:45 11/16/24 18:30 DC Polyethylene Glycol (Miralax 17GM Powder) 17 gm DAILY PO 11/17/24 10:00 Review of Systems Constitutional: no fever, chill, weight loss HEENT: no eye pain, no hearing loss, no oral lesion, no scleral icterus Heart: no chest pain, no chest pressure Lung: no cough, no dyspnea with exertion Abdomen: see HPI Vital Signs Vital Signs Date Time Temp Pulse Resp B/P (MAP) Pulse Ox O2 Delivery O2 Flow Rate FiO2 11/16/24 19:02 99 Room Air 11/16/24 19:02 65 18 11/16/24 19:02 0 21 21 11/16/24 17:35 97.4 111/61 (78) 97.4 Physical Exam GENERAL: Confused. EYES: PERRL, EOMI. Anicteric. HENT: Moist mucous membranes. LUNGS: Clear to auscultation bilaterally. CARDIOVASCULAR: Regular rate and rhythm. ABDOMEN: Soft, hypoactive bowel sounds. EXTREMITIES: No edema. SKIN: Warm, dry. Left heel ulcer, Labs/Diagnostic Data Labs Test 11/16/24 06:00 11/15/24 07:00 11/14/24 11:07 11/13/24 12:46 Range/Units White Blood Count 13.7 H 4.4-10.8 10^3/uL Red Blood Count 2.92 L 4.0-5.20 10^6/uL Hemoglobin 9.1 #L 12.2-16.2 g/dL Hematocrit 27.3 #L 36.0-46.0 % Mean Corpuscular Volume 93.5 # 80.0-100.0 fL Mean Corpuscular Hemoglobin 31.2 28.0-32.0 pg Mean Corpuscular Hemoglobin Concent 33.3 32.0-36.0 g/dL Red Cell Distribution Width 18.8 H 11.8-14.3 % Platelet Count 311 140-450 10^3/uL Mean Platelet Volume 7.3 6.9-10.8 fL Neutrophils (%) (Auto) 79.1 37.0-80.0 % Lymphocytes (%) (Auto) 9.6 L 10.0-50.0 % Monocytes (%) (Auto) 8.4 0.0-12.0 % Eosinophils (%) (Auto) 2.4 0.0-7.0 % Basophils (%) (Auto) 0.5 0.0-2.0 % Neutrophils # (Auto) 10.8 H 1.6-8.6 10 ^3/uL Lymphocytes # (Auto) 1.3 0.4-5.4 10 ^3/uL Monocytes # (Auto) 1.1 0-1.3 10 ^3/uL Eosinophils # (Auto) 0.3 0-0.8 10 ^3/uL Basophils # (Auto) 0.1 0-0.2 10 ^3/uL Nucleated Red Blood Cells 0.1 % Sodium Level 146 H 136-145 mmol/L Potassium Level 3.4 L 3.5-5.1 mmol/L Chloride Level 121 H 98-107 mmol/L Carbon Dioxide Level 14 L 20-31 mmol/L Anion Gap 11 5-15 Blood Urea Nitrogen 16 9-23 mg/dL Creatinine 0.81 0.550-1.02 mg/dL Glomerular Filtration Rate Calc 74 >90 mL/min BUN/Creatinine Ratio 19.8 10.0-20.0 Serum Glucose 105 74-106 mg/dL Calcium Level 9.5 8.7-10.4 mg/dL Random Vancomycin Level 30.8 H 5-10 ug/mL Influenza Type A Antigen Negative Negative Influenza Type B Antigen Negative Negative SARS-CoV-2 Antigen (Rapid) Negative NEGATIVE Vancomycin Level Trough 31.2 *H 5-10 ug/mL Test 11/12/24 13:45 11/12/24 08:51 11/12/24 04:00 11/12/24 01:45 Range/Units Total Bilirubin 0.2 0.2-1.0 mg/dL Aspartate Amino Transferase (AST) 90 H 13-40 U/L Alanine Aminotransferase (ALT) 51 H 7-40 U/L Alkaline Phosphatase 127 H 46-116 U/L Urine Total Protein 64.8 H 1-14 mg/dL Platelet Estimate [place] Clumped Platelets Few Large Platelets Few Prothrombin Time 10.6 9.3-11.8 sec Prothrombin Time INR 1.00 0.9-1.15 Activated Partial Thromboplast Time 20.5 L 24.5-34.5 SEC Lactic Acid Level 0.9 0.4-2.0 mmol/L Iron Level 58 50-170 ug/dL Total Iron Binding Capacity 242 L 250-425 ug/dL Percent Iron Saturation 24.0 15-50 % Ferritin 211.0 10-291 ng/mL Vitamin B12 Level 1636 H 211-911 pg/mL Folic Acid > 24.00 >5.38 ng/mL Test 11/11/24 16:34 11/11/24 16:11 11/11/24 11:52 Range/Units Stool Occult Blood Positive Negative Stool Occult Blood Sample #3 Negative Urine Color Light-yellow Yellow Urine Clarity Clear Clear Urine pH 6.0 5.0-9.0 Urine Specific [place] 1.015 1.001-1.035 Urine Protein Trace H Negative Urine Ketones Negative Negative Urine Blood Negative Negative /uL Urine Nitrite Negative Negative Urine Bilirubin Negative Negative Urine Urobilinogen Normal Negative mg/dL Urine Leukocyte Esterase 2+ Negative /uL Urine RBC 3 0 - 4 /hpf Urine Microscopic WBC 15 H 0-5 /HPF Urine Squamous Epithelial Cells None seen <5 /hpf Urine Bacteria None seen None Seen /hpf Urine Yeast (Budding) Occasional None Seen /hpf Urine Glucose Normal Normal mg/dL Anisocytosis (manual) Slight Ovalocytes Erythrocyte Sedimentation Rate 128 H 0-20 mm/hr Reticulocyte Count (auto) 7.70 H 0.5-1.5 % Phosphorus Level 2.5 2.4-5.1 mg/dL Magnesium Level 2.3 1.6-2.6 mg/dL Lactate Dehydrogenase 232 120-246 U/L C-Reactive Protein High Sensitivity 2.00 H <1.0 mg/dL Microbiology Date/Time Source Procedure Growth Status 11/14/24 13:15 Nose MRSA Screen - Final Complete 11/12/24 01:45 Blood Blood Culture - Preliminary NO GROWTH AFTER 72 HOURS OF INCUBATION. Resulted Assessment Left heel wound. Acute metabolic encephalopathy. History of dementia. History of arrhythmia. Possible paroxysmal Atrial flutter. COPD. Normocytic normochromic anemia. Possible multiple myeloma. H/o GI bleed. H/o gastritis. Bilateral hip avascular necrosis. Bed-bound. Hypothyroidism. Plan/Recommendation I agree with your ongoing assessment and care of plan. Morphine and [place] for pain. Amiodarone. IV antibiotics as ordered. Nifedipine. GI prophylactics. Additional plan as per the hospital course. A total of 45 minutes was spent reviewing the patient record, examining the patient, making a diagnostic and therapeutic plan, discussing this plan with medical personnel, following up on diagnostic studies and following the patient for clinical stability excluding any and all procedures. At least 50% of this time was spent in direct, [id number] contact. Plan discussed with: CORNELIA Florian MD Nov 16, 2024 20:24
[2024-11-16] MEDS: POLYETHYLENE GLYCOL 17 GM PWDR PO ONE (21:45)
[2024-11-17] VITALS (13 sets, daily range): BP systolic 118–144; BP diastolic 50–69; PULSE 64–66; RESP 12–19; TEMP 97.4–98.5; O2SAT 94–100
--- NOTE | 2024-11-17 06:51 | ECG ---
[facility] Test Date: 2024-11-17 Test Time: 06:05:30 Pat Name: KENNETH MULLER Department: Room: 0279T A Gender: F Offal Baler: KAMRON : 1945 Requested By: YAHAIRA JACOBO Order Number: [id number] Reading MD: Dileep Urrutia Measurements Intervals [place] Rate: 65 P: 0 NM: 185 QRS: -3 QRSD: 101 T: 52 QT: 463 QTc: 482 Interpretive Statements Atrial-paced rhythm Electronically Signed On 11-19-2024 21:08:24 PDT by Dileep Urrutia Please click the below link to view image of tracing.
[2024-11-17] MEDS: POTASSIUM CHL 20MEQ/100ML 100 ML IV ONE (08:44)
[2024-11-17] MEDS: IODIXANOL 320MG/ML 100ML BTL IV ONE (09:27)
[2024-11-17] MEDS: LIDOCAINE 2%HCL (LOCAL ANESTH.) INJ 20ML MDV ONE (09:39)
[2024-11-17] MEDS: fentaNYL CITRATE 100 MCG/2 ML VL ONE (09:39)
[2024-11-17] MEDS: MIDAZOLAM HCL 2MG/2ML 2ml VIAL (1mg/ml) ONE (09:39)
[2024-11-17 09:53] LABS: Anion Gap 10 (5-15); Calcium 9.5 mg/dL (8.7-10.4)
[2024-11-17 09:56] LABS: Carbon Dioxide 18 mmol/L (20-31); Chloride 121 mmol/L (98-107); Potassium 3.1 mmol/L (3.5-5.1); Sodium 149 mmol/L (136-145)
[2024-11-17 09:58] LABS: BUN/Creatinine Ratio 25.4 (10.0-20.0); Blood Urea Nitrogen 18 mg/dL (9-23)
[2024-11-17 09:59] LABS: Glucose 72 mg/dL (74-106)
[2024-11-17 10:04] LABS: Hematocrit 27.8 % (36.0-46.0); Hemoglobin 9.2 g/dL (12.2-16.2); Mean Corpuscular Hemoglobin 30.6 pg (28.0-32.0); Mean Corpuscular Volume 92.5 fL (80.0-100.0); Nucleated Red Blood Cells % 0.1 %
[2024-11-17 10:39] LABS: INR 1.18 (0.9-1.15); Partial Thromboplastin Time 31.3 SEC (24.5-34.5); Prothrombin Time 12.3 sec (9.3-11.8)
--- NOTE | 2024-11-17 11:36 | DVHPN2 ---
Progress Note Date Seen: Nov 17, 2024 Resident Creating Document: KRYSTLE TONY RESIDENT Medical Necessity Reason Pt with a Central, PICC or Fol: Yes The following are medically ne: Crisostomo Catheter Reason for crisostomo catheter: Strict I&O Subjective Review of Systems This is a 79 year old female with a PMH of anemia, asthma, CHF, COPD, HTN, thyroid disease, nonverbal who was brought in by EMS with complaint of wound check. Per EMS, patient has a chronic wound to left heel. Patient has been dealing with this wound for the past 3-4 months. EMS states patient also has wound on left buttock region. Patient is non-verbal, complains of pain. Left ankle x-ray shows no evidence of acute fracture or dislocation. Heterotopic calcification left fibular head. Small plantar calcaneal enthesophyte. Chest x- ray shows patchy airspace opacities in the right lung apex may represent scarring or pneumonia. Patient was admitted to the hospital. Cardiology was consulted for preoperative clearance to proceed with a colonoscopy Objective vital signs Vital Sign Date Time Temp Pulse Resp B/P (MAP) Pulse Ox O2 Delivery O2 Flow Rate FiO2 11/17/24 11:15 66 16 144/51 (82) 96 11/17/24 08:42 97.4 97.4 11/17/24 07:38 Room Air* 0 21 Total Intake and Output 11/16/24 11/16/24 11/17/24 15:00 23:00 07:00 Intake Total 600 ml 200 ml Output Total 440 ml 500 ml Balance 160 ml -300 ml medications Current Medications Medications Dose Ordered Sig/[place] Route Start Time Stop Time Status Last Admin Dose Admin Pantoprazole Sodium 40 mg BID IV 11/11/24 22:00 11/16/24 21:45 40 MG Acetaminophen/ Hydrocodone Bitart 1 tab Q6HPRN PRN PO 11/11/24 16:15 11/16/24 09:55 1 TAB Nifedipine 30 mg DAILY PO 11/12/24 10:00 11/16/24 09:44 30 MG Levothyroxine Sodium 75 mcg QAM@0600 PO 11/12/24 06:00 11/17/24 06:00 75 MCG Amiodarone HCl 200 mg DAILY PO 11/12/24 10:00 11/16/24 09:44 200 MG Levalbuterol HCl 0.625 mg Q6HWA NEB 11/11/24 18:00 11/17/24 06:58 0.625 MG Ipratropium [place] 0.5 mg Q6HWA [facility] 11/11/24 18:00 11/17/24 06:58 0.5 MG Cefepime HCl 50 ml @ 12.5 mls/hr Q12HR IV 11/12/24 10:00 11/16/24 21:55 12.5 MLS/HR Ondansetron HCl 4 mg Q4HPRN PRN IV 11/12/24 13:30 11/12/24 13:46 4 MG Enteral Nutritional Formula 240 ml BIDWM PO 11/13/24 18:00 11/17/24 08:00 240 ML Vancomycin HCl 0 ml @ 0 mls/hr UD IV 11/15/24 12:00 Morphine Sulfate 2 mg Q6HPRN PRN IV 11/16/24 13:15 11/16/24 21:47 2 MG Polyethylene Glycol 17 gm DAILY PO 11/17/24 10:00 Examination Pt is lying on bed General Appearance: Alert, Oriented X3, Cooperative, Not in acute distress HEENT: Atraumatic, Mucous membranes moist/pink Respiratory: Clear to auscultation, Normal air movement, No added sounds Cardiovascular: Regular rate, Normal S1, Normal S2, No murmurs Abdominal: Active bowel sounds, Soft, no distention, no tenderness Extremities: left heel eschar, maceration at the wound site. Skin: left heel eschar, maceration at the wound site. Neuro: Deffered Nurse was there as circulating nurse during examination laboratory and microbiology Laboratory Tests 11/17/24 09:16 Test 11/17/24 09:16 Range/Units Serum Glucose 72 L 74-106 mg/dL Microbiology Date/Time Source Procedure Growth Status 11/14/24 13:15 Nose MRSA Screen - Final Complete 11/12/24 01:45 Blood Blood Culture - Final NO GROWTH AFTER 5 DAYS OF INCUBATION. Complete Labs and/or images reviewed: Labs reviewed by me, Image(s) reviewed by me Problem List/Assessment/Plan Problem List/Assessment/Plan Assessment Paroxysmal atrial flutter History of arrhythmia Left heel wound, possible osteomyelitis Acute metabolic encephalopathy likely due to sepsis History of dementia Possible G +/- PNA COPD Possible multiple myeloma GI bleed Gastritis Bilateral hip avascular necrosis. Bed-bound. Hypothyroidism. Plan/Recommendation We will continue with the following plan/recommendations (Dr. Berg): Cardiac risks: Low risk procedure ( low risk noncardiac procedure less than 1% risk of MACE). No further cardiac testing is required prior to colonoscopy. Ensure hemoglobin is stable prior to procedure and transfuse if indicated. Patient is cleared from Cardiology standpoint to proceed with colonoscopy. Continue amiodarone Continue statin Morphine and [place] for pain. IV antibiotics as ordered. Nifedipine. GI prophylaxis. Additional plan as per the hospital course. Case discussed with Thank you for allowing us to care for this patient. Plan discussed with: Patient, Other (rn) Dietary Evaluation Review Comments: Laron BID for wound healing PO supplementation, Ensure HP 240ml BID Expected Outcomes/Goals: Gradually healed wounds KRYSTLE TONY RESIDENT Nov 17, 2024 11:36
--- NOTE | 2024-11-17 11:51 | DVH ---
XY INFERIOR VENA CAVA FILTER, HISTORY: 79 F with GI bleed requiring 2 units pRBC and lower extremity DVT is unable to take anticoag ulation here for a retrievable IVC filter placement. PROCEDURE: Informed consent was obtained. The patient was placed on the fluoroscopic table in supine position. The right groin was prepped with chlorhexidine which was allowed to dry and draped in the u sual sterile fashion. Time out was performed. Following administration of 1% local lidocaine, the com mon femoral vein was accessed with a micropuncture set under ultrasound guidance, and an image docume nting patency sent to PACS. A 6 Belgian sheath was placed into the iliac vein and a venogram was perfo rmed. The catheter was exchanged for a 9.6 Belgian introducer sheath, and a Bard G2 Dori IVC filter was deployed in an infrarenal location. The introducer sheath was removed and the venotomy closed wi th manual compression. Post-deployment image was obtained. No immediate complication was identified. DAP 139 FLUOROSCOPY TIME: 1.2 minutes. CONTRAST USED: 15 mL. SEDATION: Dr. Eunice Casarez was personally responsible for the administration of moderate sedation during the procedure performed, including the use of an independent trained observer who had no other duties during the procedure. The drugs utilized were IV fentanyl and versed (see nursing log for details). The total time of supervision by the attending physician was approximately 30 minutes. FINDINGS: There is a patent single IVC visualized without intraluminal filling defect. No renal venou s anomaly is noted. Post-procedure image demonstrates good positioning of the IVC filter in an infrar enal position. IMPRESSION: Infra-renal IVC filter placement. PLAN: Consideration should be made for removal of this retrievable filter after and if medical necess ity for caval filtration is no longer present. If we in IR are unable to contact the patient in a jag dianna fashion, please contact our office, and we will attempt to arrange for filter retrieval at the ea rliest convenience.
[2024-11-17] MEDS ORDERED: VANCOMYCIN 750MG KIT 100 ML IV ONE (12:00)
[2024-11-17] MEDS: POLYETHYLENE GLYCOL 17 GM PWDR PO SCH (13:00)
--- NOTE | 2024-11-17 14:00 | DVHPN2 ---
Progress Note Date Seen: Nov 17, 2024 Resident Creating Document: ANGIE MASON RESIDENT Medical Necessity Reason Pt with a Central, PICC or Fol: Yes The following are medically ne: Crisostomo Catheter Reason for crisostomo catheter: Strict I&O Subjective Review of Systems Patient seen and examined at bedside S/p IVC filter placement Notes some improvement in abdominal pain since yesterday Objective vital signs Vital Sign Date Time Temp Pulse Resp B/P (MAP) Pulse Ox O2 Delivery O2 Flow Rate FiO2 11/17/24 11:15 66 16 144/51 (82) 96 11/17/24 08:42 97.4 97.4 11/17/24 07:38 Room Air* 0 21 Total Intake and Output 11/16/24 11/16/24 11/17/24 15:00 23:00 07:00 Intake Total 600 ml 200 ml Output Total 440 ml 500 ml Balance 160 ml -300 ml medications Current Medications Medications Dose Ordered Sig/[place] Route Start Time Stop Time Status Last Admin Dose Admin Pantoprazole Sodium 40 mg BID IV 11/11/24 22:00 11/16/24 21:45 40 MG Acetaminophen/ Hydrocodone Bitart 1 tab Q6HPRN PRN PO 11/11/24 16:15 11/16/24 09:55 1 TAB Nifedipine 30 mg DAILY PO 11/12/24 10:00 11/17/24 10:00 30 MG Levothyroxine Sodium 75 mcg QAM@0600 PO 11/12/24 06:00 11/17/24 06:00 75 MCG Amiodarone HCl 200 mg DAILY PO 11/12/24 10:00 11/17/24 13:01 200 MG Levalbuterol HCl 0.625 mg Q6HWA [facility] 11/11/24 18:00 11/17/24 06:58 0.625 MG Ipratropium [place] [address] [facility] 11/11/24 18:00 11/17/24 06:58 0.5 MG Cefepime HCl 50 ml @ 12.5 mls/hr Q12HR IV 11/12/24 10:00 11/16/24 21:55 12.5 MLS/HR Ondansetron HCl 4 mg Q4HPRN PRN IV 11/12/24 13:30 11/12/24 13:46 4 MG Enteral Nutritional Formula 240 ml BIDWM PO 11/13/24 18:00 11/17/24 08:00 240 ML Vancomycin HCl 0 ml @ 0 mls/hr UD IV 11/15/24 12:00 Morphine Sulfate 2 mg Q6HPRN PRN IV 11/16/24 13:15 11/16/24 21:47 2 MG Polyethylene Glycol 17 gm DAILY PO 11/17/24 10:00 11/17/24 13:00 17 GM Examination General Appearance: Cooperative. Well developed. Well nourished. NAD Pulmonary/Respiratory: Equal bilateral air entry Cardiovascular/Chest: Regular rate and rhythm. No murmurs. No JVD. Abdominal Exam: Hypoactive bowel sounds. Soft. normal abdomen, no visible veins, Nontender. No hepatospenomegaly. No masses Neuro/Mental Status: A&O x 1-2. In coherent Skin Exam: Normal inspection. Normal color. Warm. Dry laboratory and microbiology Laboratory Tests 11/17/24 09:16 Test 11/17/24 09:16 Range/Units Serum Glucose 72 L 74-106 mg/dL Microbiology Date/Time Source Procedure Growth Status 11/14/24 13:15 Nose MRSA Screen - Final Complete 11/12/24 01:45 Blood Blood Culture - Final NO GROWTH AFTER 5 DAYS OF INCUBATION. Complete Labs and/or images reviewed: Labs reviewed by me, Image(s) reviewed by me Problem List/Assessment/Plan Problem List/Assessment/Plan Constipation, slow transit versus ileus Symptomatic anemia likely of chronic disease, MCV 92.5 Positive stool occult blood COPD Left heel ulcer, questionable osteomyelitis Acute on chronic metabolic encephalopathy Sepsis due to above Questionable multiple myeloma Plan: Ordered KUB: Nonobstructive bowel gas pattern. Findings suggest fecal impaction recommend correlation with physical examination. Lactulose 30 cc b.i.d. MiraLax Consider enema Patient would likely benefit from elective colonoscopy, we will schedule once cardiology clearance has been obtained or patient can get it in the outpatient after family consent Ordered CEA Protonix 40 mg p.o. daily Continue antibiotics Thank you so much for the opportunity to consult on your patient. GI team will follow the patient. In case of any questions or concerns please feel free to reach out. Plan discussed with Dr. Marcano Plan discussed with: Other (RN) My Orders My Orders Orders - ANGIE MASON RESIDENT Procedure Category Date Status Time Kub Abdomen Single XY 11/16/24 Resulted View 16:13 Dietary Evaluation Review Comments: Laron BID for wound healing PO supplementation, Ensure HP 240ml BID Expected Outcomes/Goals: Gradually healed wounds ANGIE MASON RESIDENT Nov 17, 2024 14:00
[2024-11-17] MEDS: POTASSIUM EFFERVESENT TAB 25 MEQ PO ONE (16:18)
--- NOTE | 2024-11-17 19:09 | DVHPNRES ---
Progress Note Date Seen: Nov 17, 2024 Resident Creating Document: MARYAM WILLIS Medical Necessity Reason Pt with a Central, PICC or Fol: Yes The following are medically ne: Crisostomo Catheter Reason for crisostomo catheter: Strict I&O Subjective Review of Systems Patient is a 79-year-old female with past medical history of COPD on 2L home oxygen, hypertension, possible dementia, DVT of the left upper extremity, rheumatoid arthritis, and bilateral avascular necrosis of the hips presented to [facility] ED with complaint of left foot ulcer. She has been bed- bound for the past 4 months due to chronic back and hip pain and generalized weakness. The patient was brought to the hospital via EMS after her caregiver and visiting nurse noted worsening appearance of a left foot ulcer. On arrival, the patient was not alert and oriented and unable to respond to questions. Information was obtained from her daughter, Ann Marie, who is her power of disability attorney. Her daughter reports that the patient has been progressively weaker over the past week, with decreased oral intake and altered mental status. She also noted black stools recently, though denied any diarrhea. The patient has been complaining of worsening pain in her foot, back, and hips. On initial evaluation in the ED, the patient was altered but later became more responsive and able to answer questions. She denied abdominal pain, nausea, vomiting, melena, or hematochezia. Ms. Neeta Chaves was seen and examined at the bedside today. The patient reports experiencing pain in the left lower heel, at the site of ulcer. She denies any chest pain, shortness of breath, fever or any other complaints today. The patient expressed desire to feel better soon and go home. 11/15- Patient was seen and examined at bedside. Overnight events were reviewed. The patient reports improvement in her symptoms. Hemoglobin was found to be critically low at 6.8 g/dL. One unit of packed red blood cells (PRBC) was requested for transfusion. Attempted to contact the patient's daughter, but was unable to reach her. 11/16- Patient was seen and examined at bedside. Overnight events were reviewed. Patient complains of lower abdominal pain. She denies any chest pain, shortness of breath, fever or any other complains today. Contact was made with the patients daughter, and the plan of care was discussed; she agreed with the recommendations. 11/17- Patient was seen and examined at bedside. Overnight events were reviewed. Patient underwent IVC filter placement today. Post-procedure, patient received in [employer], awake and oriented. Cardiology was consulted for preoperative clearance to proceed with a colonoscopy. Objective vital signs Vital Sign Date Time Temp Pulse Resp B/P (MAP) Pulse Ox O2 Delivery O2 Flow Rate FiO2 11/17/24 18:32 99 Room Air* 0 21 21 11/17/24 16:52 97.7 65 19 126/54 (78) 97.7 Total Intake and Output 11/16/24 11/16/24 11/17/24 15:00 23:00 07:00 Intake Total 600 ml 200 ml Output Total 440 ml 500 ml Balance 160 ml -300 ml medications Current Medications Medications Dose Ordered Sig/[place] Route Start Time Stop Time Status Last Admin Dose Admin Pantoprazole Sodium 40 mg BID IV 11/11/24 22:00 11/16/24 21:45 40 MG Nifedipine 30 mg DAILY PO 11/12/24 10:00 11/17/24 10:00 30 MG Levothyroxine Sodium 75 mcg QAM@0600 PO 11/12/24 06:00 11/17/24 06:00 75 MCG Amiodarone HCl 200 mg DAILY PO 11/12/24 10:00 11/17/24 13:01 200 MG Levalbuterol HCl 0.625 mg Q6HWA [facility] 11/11/24 18:00 11/17/24 06:58 0.625 MG Ipratropium [place] 0.5 mg Q6HWA [facility] 11/11/24 18:00 11/17/24 06:58 0.5 MG Cefepime HCl 50 ml @ 12.5 mls/hr Q12HR IV 11/12/24 10:00 11/16/24 21:55 12.5 MLS/HR Ondansetron HCl 4 mg Q4HPRN PRN IV 11/12/24 13:30 11/12/24 13:46 4 MG Enteral Nutritional Formula 240 ml BIDWM PO 11/13/24 18:00 11/17/24 18:00 240 ML Vancomycin HCl 0 ml @ 0 mls/hr UD IV 11/15/24 12:00 Polyethylene Glycol 17 gm DAILY PO 11/17/24 10:00 11/17/24 13:00 17 GM Examination General Appearance: Alert, Oriented X3, Cooperative, Mild distress HEENT: Atraumatic, Mucous membranes moist/pink Respiratory: Clear to auscultation, Normal air movement, No added sounds Cardiovascular: Regular rate, Normal S1, Normal S2, No murmurs Abdominal/ : Active bowel sounds, Soft, no distention, no tenderness Extremities: No edema, Normal pulses, No tenderness/swelling, currently SCDs in place, previous examination: left heel eschar, maceration at the wound site. Skin: No Significant rash, except past surgical scars Neuro: Normal speech, sensorimotor deficits none Psych/Mental Status: Mental status NL, Mood NL laboratory and microbiology Laboratory Tests 11/17/24 14:50 11/17/24 09:16 Test 11/17/24 09:16 Range/Units Serum Glucose 72 L 74-106 mg/dL Microbiology Date/Time Source Procedure Growth Status 11/14/24 13:15 Nose MRSA Screen - Final Complete 11/12/24 01:45 Blood Blood Culture - Final NO GROWTH AFTER 5 DAYS OF INCUBATION. Complete Labs and/or images reviewed: Labs reviewed by me, Image(s) reviewed by me Problem List/Assessment/Plan Problem List/Assessment/Plan Left heel wound, possible osteomyelitis - CT Left Foot: No definitive CT evidence of osteomyelitis however maintain elevated suspicion given deep soft tissue ulceration and phlegmon suspected particularly overlying the posterior heel. - Ankle X-Ray: There is no evidence of acute fracture or dislocation. Heterotopic calcification left fibular head. Small plantar calcaneal enthesophyte. - IVC filter scheduled -scheduled in [employer] for 11/17/24 for procedure - on vancomycin, cefepime and metronidazole - Morphine - [place] - Wound consult Acute metabolic encephalopathy likely due to sepsis History of dementia - on IV antibiotics - IV fluids possible pneumonia, left upper lobe likely d/t gram +/ bacteria - on iv antibiotics - MRSA nares finalized and is negative. MRSA nares has high negative predictive value for MRSA pneumonia History of arrhythmia Possible paroxysmal Atrial flutter - on amiodarone 200 mg daily COPD, not in exacerbation - duo nebs q.6 hours - on 2 L home oxygen Normocytic normochromic anemia Possible multiple myeloma H/o GI bleed H/o gastritis - stool occult blood positive - Cardiology consult for colonoscopy - colonoscopy scheduled - elevated creatinine, elevated calcium, anemia - lytic bone lesions seen on CT abdomen pelvis recent admission - elevated ESR - serum protein electrophoresis and urine protein electrophoresis ordered - 1 unit PRBC transfused, recheck H&H and if less than 7 transfuse 1 more unit - Protonix 40 mg IV b.i.d. - avoid NSAIDs Bilateral hip avascular necrosis Bed-bound hypothyroidism - continued on levothyroxine 75 mcg Diet: Pureed PUD prophylaxis: Protonix 40 mg DVT prophylaxis: Not indicated Anemia Goals of care: Full code, discussed for >16 minutes on 11/17/24 Plan discussed with patient Plan discussed with Dr. Harrison Plan discussed with: Patient My Orders My Orders Orders - MARYAM WILLIS Procedure Category Date Status Time Inferior Vena Cava XY 11/17/24 Resulted Filter 11:30 Dietary Evaluation Review Comments: Laron BID for wound healing PO supplementation, Ensure HP 240ml BID Expected Outcomes/Goals: Gradually healed wounds Date of Service: Nov 17, 2024 Billing Provider: MARICRUZ HARRISON MD Common Visit Codes: [id number] INP/OBS CARE(HIGH) MARYAM WILLIS Nov 17, 2024 19:09 MARICRUZ HARRISON MD Nov 23, 2024 19:58
--- NOTE | 2024-11-17 22:47 | DVHPN2 ---
Progress Note - Dictate Date Seen: Nov 17, 2024 Medical Necessity Reason Pt with a Central, PICC or Fol: Yes The following are medically ne: Crisostomo Catheter Reason for crisostomo catheter: Strict I&O Subjective Patient was seen and evaluated in follow up. This is a 79 year old female with a PMH of anemia, asthma, CHF, COPD, HTN, thyroid disease, nonverbal who was brought in by EMS with complaint of wound check. Per EMS, patient has a chronic wound to left heel. Patient has been dealing with this wound for the past 3-4 months. EMS states patient also has wound on left buttock region. Patient is non-verbal, complains of pain. Left ankle x-ray shows no evidence of acute fracture or dislocation. Heterotopic calcification left fibular head. Small plantar calcaneal enthesophyte. Chest x-ray shows patchy airspace opacities in the right lung apex may represent scarring or pneumonia. Patient was admitted to the hospital. Cardiology was consulted for preoperative clearance to proceed with a colonoscopy vital signs Vital Sign Date Time Temp Pulse Resp B/P (MAP) Pulse Ox O2 Delivery O2 Flow Rate FiO2 11/17/24 21:00 97.5 66 16 118/50 (72) 98 97.5 11/17/24 18:32 Room Air* 0 21 21 Total Intake and Output 11/16/24 11/16/24 11/17/24 15:00 23:00 07:00 Intake Total 600 ml 200 ml Output Total 440 ml 500 ml Balance 160 ml -300 ml medications Current Medications Medications Dose Ordered Sig/[place] Route Start Time Stop Time Status Last Admin Dose Admin Pantoprazole Sodium 40 mg BID IV 11/11/24 22:00 11/17/24 21:47 40 MG Nifedipine 30 mg DAILY PO 11/12/24 10:00 11/17/24 10:00 30 MG Levothyroxine Sodium 75 mcg QAM@0600 PO 11/12/24 06:00 11/17/24 06:00 75 MCG Amiodarone HCl 200 mg DAILY PO 11/12/24 10:00 11/17/24 13:01 200 MG Levalbuterol HCl 0.625 mg Q6HWA [facility] 11/11/24 18:00 11/17/24 06:58 0.625 MG Ipratropium [place] 0.5 mg Q6HWA NE[facility] 11/11/24 18:00 11/17/24 06:58 0.5 MG Cefepime HCl 50 ml @ 12.5 mls/hr Q12HR IV 11/12/24 10:00 11/17/24 21:54 12.5 MLS/HR Ondansetron HCl 4 mg Q4HPRN PRN IV 11/12/24 13:30 11/12/24 13:46 4 MG Enteral Nutritional Formula 240 ml BIDWM PO 11/13/24 18:00 11/17/24 18:00 240 ML Vancomycin HCl 0 ml @ 0 mls/hr UD IV 11/15/24 12:00 Polyethylene Glycol 17 gm DAILY PO 11/17/24 10:00 11/17/24 13:00 17 GM objective General Appearance: Alert, Oriented X3, Cooperative, Not in acute distress HEENT: Atraumatic, Mucous membranes moist/pink Respiratory: Clear to auscultation, Normal air movement, No added sounds Cardiovascular: Regular rate, Normal S1, Normal S2, No murmurs Abdominal: Active bowel sounds, Soft, no distention, no tenderness Extremities: left heel eschar, maceration at the wound site. Skin: left heel eschar, maceration at the wound site. Neuro: Deffered laboratory and microbiology Laboratory Tests 11/17/24 14:50 11/17/24 09:16 Test 11/17/24 09:16 Range/Units Serum Glucose 72 L 74-106 mg/dL Problem List Paroxysmal atrial flutter. History of arrhythmia. Left heel wound, possible osteomyelitis. Acute metabolic encephalopathy likely due to sepsis. History of dementia. Possible G +/- PNA. COPD. Possible multiple myeloma. GI bleed. Gastritis. Bilateral hip avascular necrosis. Bed-bound. Hypothyroidism. Assessment/Plan Continued all current supportive medical care. Patient has been seen by Kallie Moreland, Resident on my behalf. We have discussed the plan with the patient. Cardiac risks: Low risk procedure ( low risk noncardiac procedure less than 1% risk of MACE). No further cardiac testing is required prior to colonoscopy. Ensure hemoglobin is stable prior to procedure and transfuse if indicated. Patient is cleared from Cardiology standpoint to proceed with colonoscopy. Amiodarone Statin Morphine and [place] for pain. IV antibiotics as ordered. Nifedipine. GI prophylaxis. Additional plan as per the hospital course. Dietary Evaluation Review Comments: Laron BID for wound healing PO supplementation, Ensure HP 240ml BID Expected Outcomes/Goals: Gradually healed wounds Plan discussed with: Patient CORNELIA BROWN MD Nov 17, 2024 22:47
[2024-11-18] VITALS (14 sets, daily range): BP systolic 118–138; BP diastolic 50–73; PULSE 64–71; RESP 12–19; TEMP 96.8–97.8; O2SAT 92–100
[2024-11-18 06:50] LABS: Hemoglobin 8.3 g/dL (12.2-16.2); Nucleated Red Blood Cells % 0.1 %
[2024-11-18 06:53] LABS: Hematocrit 24.4 % (36.0-46.0); Mean Corpuscular Hemoglobin 30.9 pg (28.0-32.0); Mean Corpuscular Volume 90.9 fL (80.0-100.0)
[2024-11-18 07:12] LABS: Calcium 9.4 mg/dL (8.7-10.4)
[2024-11-18 07:13] LABS: Anion Gap 11 (5-15); Carbon Dioxide 18 mmol/L (20-31); Chloride 120 mmol/L (98-107); Potassium 3.1 mmol/L (3.5-5.1); Sodium 149 mmol/L (136-145)
[2024-11-18 07:18] LABS: BUN/Creatinine Ratio 27.1 (10.0-20.0); Blood Urea Nitrogen 16 mg/dL (9-23)
[2024-11-18 07:20] LABS: Glucose 72 mg/dL (74-106)
--- NOTE | 2024-11-18 09:11 | DVHPN2 ---
Progress Note Date Seen: Nov 18, 2024 Resident Creating Document: ANGIE MASON RESIDENT Medical Necessity Reason Pt with a Central, PICC or Fol: Yes The following are medically ne: Crisostomo Catheter Reason for crisostomo catheter: Strict I&O Subjective Review of Systems Patient seen and examined at bedside Denies any nausea or vomiting Denies any abdominal pain Last bowel movement 12/16/2024 Objective vital signs Vital Sign Date Time Temp Pulse Resp B/P (MAP) Pulse Ox O2 Delivery O2 Flow Rate FiO2 11/18/24 08:58 97.3 64 18 138/73 (94) 100 97.3 11/17/24 20:00 Nasal Cannula* 2 28 Total Intake and Output 11/17/24 11/17/24 11/18/24 15:00 23:00 07:00 Intake Total 350 ml 280 ml Output Total 550 ml 525 ml Balance -200 ml -245 ml medications Current Medications Medications Dose Ordered Sig/[place] Route Start Time Stop Time Status Last Admin Dose Admin Pantoprazole Sodium 40 mg BID IV 11/11/24 22:00 11/17/24 21:47 40 MG Nifedipine 30 mg DAILY PO 11/12/24 10:00 11/17/24 10:00 30 MG Levothyroxine Sodium 75 mcg QAM@0600 PO 11/12/24 06:00 11/18/24 05:14 75 MCG Amiodarone HCl 200 mg DAILY PO 11/12/24 10:00 11/17/24 13:01 200 MG Levalbuterol HCl 0.625 mg Q6HWA [facility] 11/11/24 18:00 11/18/24 07:09 0.625 MG Ipratropium [place] 0.5 mg Q6HWA [facility] 11/11/24 18:00 11/18/24 07:09 0.5 MG Cefepime HCl 50 ml @ 12.5 mls/hr Q12HR IV 11/12/24 10:00 11/17/24 21:54 12.5 MLS/HR Ondansetron HCl 4 mg Q4HPRN PRN IV 11/12/24 13:30 11/12/24 13:46 4 MG Enteral Nutritional Formula 240 ml BIDWM PO 11/13/24 18:00 11/17/24 18:00 240 ML Vancomycin HCl 0 ml @ 0 mls/hr UD IV 11/15/24 12:00 Polyethylene Glycol 17 gm DAILY PO 11/17/24 10:00 11/17/24 13:00 17 GM Potassium Chloride 40 meq/ Dextrose 1,020 ml @ 100 mls/hr [id number] IV 11/18/24 08:30 11/18/24 18:30 UNV Examination General Appearance: Cooperative. Well developed. Well nourished. NAD Pulmonary/Respiratory: Equal bilateral air entry Cardiovascular/Chest: Regular rate and rhythm. No murmurs. No JVD. Abdominal Exam: Hypoactive bowel sounds. Soft. normal abdomen, no visible veins, Nontender. No hepatospenomegaly. No masses Neuro/Mental Status: A&O x 1-2. In coherent Skin Exam: Normal inspection. Normal color. Warm. Dry laboratory and microbiology Laboratory Tests 11/18/24 05:51 Test 11/18/24 05:51 Range/Units Serum Glucose 72 L 74-106 mg/dL Microbiology Date/Time Source Procedure Growth Status 11/14/24 13:15 Nose MRSA Screen - Final Complete 11/12/24 01:45 Blood Blood Culture - Final NO GROWTH AFTER 5 DAYS OF INCUBATION. Complete Labs and/or images reviewed: Labs reviewed by me, Image(s) reviewed by me Problem List/Assessment/Plan Problem List/Assessment/Plan Constipation, slow transit versus ileus Symptomatic anemia likely of chronic disease, MCV 92.5 Positive stool occult blood COPD Left heel ulcer, questionable osteomyelitis Acute on chronic metabolic encephalopathy Sepsis due to above Questionable multiple myeloma Plan: Ordered KUB: Nonobstructive bowel gas pattern. Findings suggest fecal impaction recommend correlation with physical examination. Lactulose 30 cc b.i.d. MiraLax 1 bottle of Mag citrate S/p soap water enema Tentatively scheduled for colonoscopy on Saturday11/20/2024, we will start patient on GoLYTELY colonoscopy preparation tomorrow on 11/19/2024. NPO on Saturday. Clear liquid diet Ordered CEA Protonix 40 mg p.o. daily Continue antibiotics Thank you so much for the opportunity to consult on your patient. GI team will follow the patient. In case of any questions or concerns please feel free to reach out. Plan discussed with Dr. Marcano Plan discussed with: Other (KEYSHAWN Garcia, KEYSHAWN Sera) Dietary Evaluation Review Comments: Laron BID for wound healing PO supplementation, Ensure HP 240ml BID Expected Outcomes/Goals: Gradually healed wounds MASON,EMAN RESIDENT Nov 18, 2024 09:11
--- NOTE | 2024-11-18 09:51 | DVH ---
Date: 11/18/2024 08:43 AM Examination: XY KUB ABDOMEN SINGLE VIEW History: abd pain, possible constipation Comparison: XY KUB ABDOMEN SINGLE VIEW on DOS: 11/16/24, US ABDOMEN LIMITED on DOS: 10/16/24, US KIDNEY on DOS: 10/06/24, CT CT AB PEL WO CON-NO ORAL OR IV on DOS: 10/05/24, XY KUB ABDOMEN SINGLE VIEW on DO S: 09/04/24 TECHNIQUE: Frontal views of the abdomen was obtained. FINDINGS: Bowel gas pattern is unremarkable. Moderate stool burden. The lung bases demonstrates left basilar opacity. Catheter projects over the pelvis. No acute osseous abnormality identified. 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 IMPRESSION: Moderate stool burden. Left basilar opacity.
[2024-11-18] MEDS: POTASSIUM EFFERVESENT TAB 25 MEQ PO ONE (10:26)
[2024-11-18] MEDS: VANCOMYCIN 750MG KIT 100 ML IV ONE (10:43)
--- NOTE | 2024-11-18 13:39 | DVHPNRES ---
Progress Note Date Seen: Nov 18, 2024 Resident Creating Document: MARYAM WILLIS Medical Necessity Reason Pt with a Central, PICC or Fol: Yes The following are medically ne: Crisostomo Catheter Reason for crisostomo catheter: Strict I&O Subjective Review of Systems Patient is a 79-year-old female with past medical history of COPD on 2L home oxygen, hypertension, possible dementia, DVT of the left upper extremity, rheumatoid arthritis, and bilateral avascular necrosis of the hips presented to [facility] ED with complaint of left foot ulcer. She has been bed- bound for the past 4 months due to chronic back and hip pain and generalized weakness. The patient was brought to the hospital via EMS after her caregiver and visiting nurse noted worsening appearance of a left foot ulcer. On arrival, the patient was not alert and oriented and unable to respond to questions. Information was obtained from her daughter, Ann Marie, who is her power of gambling cashier. Her daughter reports that the patient has been progressively weaker over the past week, with decreased oral intake and altered mental status. She also noted black stools recently, though denied any diarrhea. The patient has been complaining of worsening pain in her foot, back, and hips. On initial evaluation in the ED, the patient was altered but later became more responsive and able to answer questions. She denied abdominal pain, nausea, vomiting, melena, or hematochezia. Ms. Neeta Chaves was seen and examined at the bedside today. The patient reports experiencing pain in the left lower heel, at the site of ulcer. She denies any chest pain, shortness of breath, fever or any other complaints today. The patient expressed desire to feel better soon and go home. 11/15- Patient was seen and examined at bedside. Overnight events were reviewed. The patient reports improvement in her symptoms. Hemoglobin was found to be critically low at 6.8 g/dL. One unit of packed red blood cells (PRBC) was requested for transfusion. Attempted to contact the patient's daughter, but was unable to reach her. 11/16- Patient was seen and examined at bedside. Overnight events were reviewed. Patient complains of lower abdominal pain. She denies any chest pain, shortness of breath, fever or any other complains today. Contact was made with the patients daughter, and the plan of care was discussed; she agreed with the recommendations. 11/17- Patient was seen and examined at bedside. Overnight events were reviewed. Patient underwent IVC filter placement today. Post-procedure, patient received in Bundle Wrapper, awake and oriented. Cardiology was consulted for preoperative clearance to proceed with a colonoscopy. 11/18- Patient was seen and examined at bedside. Overnight events were reviewed. The patient has confusion after procedure. Patient complains of constipation, waiting for Cardiology clearance for colonoscopy. Objective vital signs Vital Sign Date Time Temp Pulse Resp B/P (MAP) Pulse Ox O2 Delivery O2 Flow Rate FiO2 11/18/24 11:19 68 14 100 11/18/24 11:11 Room Air* 0 21 11/18/24 09:31 138/73 11/18/24 08:58 97.3 97.3 Total Intake and Output 11/17/24 11/17/24 11/18/24 15:00 23:00 07:00 Intake Total 350 ml 280 ml Output Total 550 ml 525 ml Balance -200 ml -245 ml medications Current Medications Medications Dose Ordered Sig/[place] Route Start Time Stop Time Status Last Admin Dose Admin Pantoprazole Sodium 40 mg BID IV 11/11/24 22:00 11/18/24 09:28 40 MG Nifedipine 30 mg DAILY PO 11/12/24 10:00 11/18/24 09:31 30 MG Levothyroxine Sodium 75 mcg QAM@0600 PO 11/12/24 06:00 11/18/24 05:14 75 MCG Amiodarone HCl 200 mg DAILY PO 11/12/24 10:00 11/18/24 09:29 200 MG Levalbuterol HCl 0.625 mg Q6HWA [facility] 11/11/24 18:00 11/18/24 11:11 0.625 MG Ipratropium [place] 0.5 mg Q6HWA [facility] 11/11/24 18:00 11/18/24 11:11 0.5 MG Cefepime HCl 50 ml @ 12.5 mls/hr Q12HR IV 11/12/24 10:00 11/18/24 09:29 12.5 MLS/HR Ondansetron HCl 4 mg Q4HPRN PRN IV 11/12/24 13:30 11/12/24 13:46 4 MG Enteral Nutritional Formula 240 ml BIDWM PO 11/13/24 18:00 11/18/24 09:29 240 ML Vancomycin HCl 0 ml @ 0 mls/hr UD IV 11/15/24 12:00 Polyethylene Glycol 17 gm DAILY PO 11/17/24 10:00 11/18/24 09:29 17 GM Potassium Chloride 40 meq/ Dextrose 1,020 ml @ 100 mls/hr [id number] IV 11/18/24 08:30 11/18/24 18:30 Examination General Appearance: Alert, Oriented X3, Cooperative, Mild distress HEENT: Atraumatic, Mucous membranes moist/pink Respiratory: Clear to auscultation, Normal air movement, No added sounds Cardiovascular: Regular rate, Normal S1, Normal S2, No murmurs Abdominal/ : Active bowel sounds, Soft, no distention, no tenderness Extremities: No edema, Normal pulses, No tenderness/swelling, currently SCDs in place, previous examination: left heel eschar, maceration at the wound site. Skin: No Significant rash, except past surgical scars Neuro: Normal speech, sensorimotor deficits none Psych/Mental Status: Mental status NL, Mood NL laboratory and microbiology Laboratory Tests 11/18/24 05:51 Test 11/18/24 05:51 Range/Units Serum Glucose 72 L 74-106 mg/dL Microbiology Date/Time Source Procedure Growth Status 11/14/24 13:15 Nose MRSA Screen - Final Complete 11/12/24 01:45 Blood Blood Culture - Final NO GROWTH AFTER 5 DAYS OF INCUBATION. Complete Labs and/or images reviewed: Labs reviewed by me, Image(s) reviewed by me Problem List/Assessment/Plan Problem List/Assessment/Plan Left heel wound, possible osteomyelitis - CT Left Foot: No definitive CT evidence of osteomyelitis however maintain elevated suspicion given deep soft tissue ulceration and phlegmon suspected particularly overlying the posterior heel. - Ankle X-Ray: There is no evidence of acute fracture or dislocation. Heterotopic calcification left fibular head. Small plantar calcaneal enthesophyte. - IVC filter scheduled -scheduled in Bundle Wrapper for 11/17/24 for procedure - on vancomycin, cefepime and metronidazole - Morphine - [place] - Wound consult Constipation, slow transit versus ileus - Ordered KUB: Nonobstructive bowel gas pattern. Findings suggest fecal impaction recommend correlation with physical examination. - Lactulose 30 cc b.i.d. - MiraLax - Consider enema - Patient would likely benefit from elective colonoscopy, we will schedule once cardiology clearance has been obtained or patient can get it in the outpatient after family consent Acute metabolic encephalopathy likely due to sepsis History of dementia - on IV antibiotics - IV fluids possible pneumonia, left upper lobe likely d/t gram +/ bacteria - on iv antibiotics - MRSA nares finalized and is negative. MRSA nares has high negative predictive value for MRSA pneumonia History of arrhythmia Possible paroxysmal Atrial flutter - on amiodarone 200 mg daily COPD, not in exacerbation - duo nebs q.6 hours - on 2 L home oxygen Normocytic normochromic anemia Possible multiple myeloma H/o GI bleed H/o gastritis - stool occult blood positive - Cardiology consult for colonoscopy - colonoscopy scheduled on this Saturday (11/20/24) - elevated creatinine, elevated calcium, anemia - lytic bone lesions seen on CT abdomen pelvis recent admission - elevated ESR - serum protein electrophoresis and urine protein electrophoresis ordered - 1 unit PRBC transfused, recheck H&H and if less than 7 transfuse 1 more unit - Protonix 40 mg IV b.i.d. - avoid NSAIDs Bilateral hip avascular necrosis Bed-bound hypothyroidism - continued on levothyroxine 75 mcg Diet: Clear liquid PUD prophylaxis: Protonix 40 mg DVT prophylaxis: Not indicated Anemia Goals of care: Full code, discussed for >16 minutes on 11/18/24 Plan discussed with patient Plan discussed with Dr. Harrison Plan discussed with: Daughter Dietary Evaluation Review Comments: Laron BID for wound healing PO supplementation, Ensure HP 240ml BID Expected Outcomes/Goals: Gradually healed wounds Date of Service: Nov 18, 2024 Billing Provider: MARICRUZ HARRISON MD Common Visit Codes: [id number] INP/OBS CARE(HIGH) MARYAM WILLIS RESIDENT Nov 18, 2024 13:39 MARICRUZ HARRISON MD Nov 23, 2024 19:58
[2024-11-18] MEDS: POLYETHYLENE GLYCOL 17 GM PWDR PO ONE (14:15)
[2024-11-18] MEDS: POTASSIUM CHLORIDE 40 MEQ in D5W 5% 1,000 ML IV SCH (14:54)
[2024-11-18] MEDS: MAGNESIUM CITRATE SOLUTION 300 ML BTL PO ONE (16:28)
--- NOTE | 2024-11-18 23:33 | DVHPN2 ---
Progress Note - Dictate Date Seen: Nov 18, 2024 Medical Necessity Reason Pt with a Central, PICC or Fol: Yes The following are medically ne: Crisostomo Catheter Reason for crisostomo catheter: Strict I&O Subjective Patient was seen and evaluated in follow up. Patient underwent IVC filter placement today. Post-procedure, patient has confusion. Patient complains of constipation. WBC 11.8, HGB 8.3, HCT 24.4, NA 149, CO2 18, GLUC 78. KUB shows moderate stool burden and left basilar opacity. Telemetry reviewed. vital signs Vital Sign Date Time Temp Pulse Resp B/P (MAP) Pulse Ox O2 Delivery O2 Flow Rate FiO2 11/18/24 19:19 65 16 100 11/18/24 19:12 Room Air* 0 21 11/18/24 17:04 97.2 118/69 (85) 97.2 Total Intake and Output 11/17/24 11/17/24 11/18/24 15:00 23:00 07:00 Intake Total 350 ml 280 ml Output Total 550 ml 525 ml Balance -200 ml -245 ml medications Current Medications Medications Dose Ordered Sig/[place] Route Start Time Stop Time Status Last Admin Dose Admin Pantoprazole Sodium 40 mg BID IV 11/11/24 22:00 11/18/24 09:28 40 MG Nifedipine 30 mg DAILY PO 11/12/24 10:00 11/18/24 09:31 30 MG Levothyroxine Sodium 75 mcg QAM@0600 PO 11/12/24 06:00 11/18/24 05:14 75 MCG Amiodarone HCl 200 mg DAILY PO 11/12/24 10:00 11/18/24 09:29 200 MG Levalbuterol HCl 0.625 mg Q6HWA [facility] 11/11/24 18:00 11/18/24 19:14 0.625 MG Ipratropium [place] 0.5 mg Q6HWA [facility] 11/11/24 18:00 11/18/24 19:14 0.5 MG Cefepime HCl 50 ml @ 12.5 mls/hr Q12HR IV 11/12/24 10:00 11/18/24 09:29 12.5 MLS/HR Ondansetron HCl 4 mg Q4HPRN PRN IV 11/12/24 13:30 11/12/24 13:46 4 MG Enteral Nutritional Formula 240 ml BIDWM PO 11/13/24 18:00 11/18/24 18:00 240 ML Vancomycin HCl 0 ml @ 0 mls/hr UD IV 11/15/24 12:00 Polyethylene Glycol 17 gm DAILY PO 11/17/24 10:00 11/18/24 09:29 17 GM objective General Appearance: Alert, Oriented X3, Cooperative, Not in acute distress HEENT: Atraumatic, Mucous membranes moist/pink Respiratory: Clear to auscultation, Normal air movement, No added sounds Cardiovascular: Regular rate, Normal S1, Normal S2, No murmurs Abdominal: Active bowel sounds, Soft, no distention, no tenderness Extremities: left heel eschar, maceration at the wound site. Skin: left heel eschar, maceration at the wound site. Neuro: Deffered laboratory and microbiology Laboratory Tests 11/18/24 05:51 Test 11/18/24 05:51 Range/Units Serum Glucose 72 L 74-106 mg/dL Problem List Paroxysmal atrial flutter. History of arrhythmia. Left heel wound, possible osteomyelitis. Acute metabolic encephalopathy likely due to sepsis. History of dementia. Possible G +/- PNA. COPD. Possible multiple myeloma. GI bleed. Gastritis. Bilateral hip avascular necrosis. Bed-bound. Hypothyroidism. Assessment/Plan Continued all current supportive medical care. Amiodarone IV antibiotics as ordered. Nifedipine. GI prophylactics. Nebulized breathing treatments. Additional plan as per the hospital course. Dietary Evaluation Review Comments: Laron BID for wound healing PO supplementation, Ensure HP 240ml BID Expected Outcomes/Goals: Gradually healed wounds Plan discussed with: Other CORNELIA BROWN MD Nov 18, 2024 20:24
[2024-11-19] VITALS (14 sets, daily range): BP systolic 120–136; BP diastolic 53–63; PULSE 65–71; RESP 14–18; TEMP 97.7–98.6; O2SAT 95–100
[2024-11-19 07:18] LABS: Hematocrit 30.6 % (36.0-46.0); Hemoglobin 10.0 g/dL (12.2-16.2); Mean Corpuscular Hemoglobin 29.9 pg (28.0-32.0); Mean Corpuscular Volume 91.3 fL (80.0-100.0); Nucleated Red Blood Cells % 0.1 %
[2024-11-19 07:36] LABS: Anion Gap 12 (5-15); Potassium 3.7 mmol/L (3.5-5.1); Sodium 144 mmol/L (136-145)
[2024-11-19 07:37] LABS: Calcium 9.7 mg/dL (8.7-10.4)
[2024-11-19 07:42] LABS: BUN/Creatinine Ratio 24.2 (10.0-20.0); Blood Urea Nitrogen 15 mg/dL (9-23); Glucose 88 mg/dL (74-106)
[2024-11-19 07:44] LABS: Carbon Dioxide 18 mmol/L (20-31); Chloride 114 mmol/L (98-107)
--- NOTE | 2024-11-19 09:40 | DVHPN2 ---
Progress Note Date Seen: Nov 19, 2024 Resident Creating Document: ANGIE MASON RESIDENT Medical Necessity Reason Pt with a Central, PICC or Fol: Yes The following are medically ne: Crisostomo Catheter Reason for crisostomo catheter: Strict I&O Subjective Review of Systems Patient seen and examined at bedside Denies any further abdominal pain Last bowel movement overnight, explosive and watery Objective vital signs Vital Sign Date Time Temp Pulse Resp B/P (MAP) Pulse Ox O2 Delivery O2 Flow Rate FiO2 11/19/24 09:00 97.8 71 16 120/53 (75) 100 97.8 11/19/24 06:18 Room Air* 0 21 Total Intake and Output 11/18/24 11/18/24 11/19/24 15:00 23:00 07:00 Intake Total 150 ml 350 ml 150 ml Output Total 400 ml 550 ml Balance 150 ml -50 ml -400 ml medications Current Medications Medications Dose Ordered Sig/[place] Route Start Time Stop Time Status Last Admin Dose Admin Pantoprazole Sodium 40 mg BID IV 11/11/24 22:00 11/18/24 21:57 40 MG Nifedipine 30 mg DAILY PO 11/12/24 10:00 11/18/24 09:31 30 MG Levothyroxine Sodium 75 mcg QAM@0600 PO 11/12/24 06:00 11/19/24 06:19 75 MCG Amiodarone HCl 200 mg DAILY PO 11/12/24 10:00 11/18/24 09:29 200 MG Levalbuterol HCl 0.625 mg Q6HWA [facility] 11/11/24 18:00 11/19/24 06:17 0.625 MG Ipratropium [place] 0.5 mg Q6HWA [facility] 11/11/24 18:00 11/19/24 06:17 0.5 MG Cefepime HCl 50 ml @ 12.5 mls/hr Q12HR IV 11/12/24 10:00 11/18/24 21:57 12.5 MLS/HR Ondansetron HCl 4 mg Q4HPRN PRN IV 11/12/24 13:30 11/12/24 13:46 4 MG Enteral Nutritional Formula 240 ml BIDWM PO 11/13/24 18:00 11/18/24 18:00 240 ML Vancomycin HCl 0 ml @ 0 mls/hr UD IV 11/15/24 12:00 Polyethylene Glycol 17 gm DAILY PO 11/17/24 10:00 11/18/24 09:29 17 GM Examination General Appearance: Cooperative. Well developed. Well nourished. NAD Pulmonary/Respiratory: Equal bilateral air entry Cardiovascular/Chest: Regular rate and rhythm. No murmurs. No JVD. Abdominal Exam: Hypoactive bowel sounds. Soft. normal abdomen, no visible veins, Nontender. No hepatospenomegaly. No masses Neuro/Mental Status: A&O x 1-2. In coherent Skin Exam: Normal inspection. Normal color. Warm. Dry laboratory and microbiology Laboratory Tests 11/19/24 06:51 Test 11/19/24 06:51 Range/Units Serum Glucose 88 74-106 mg/dL Microbiology Date/Time Source Procedure Growth Status 11/14/24 13:15 Nose MRSA Screen - Final Complete 11/12/24 01:45 Blood Blood Culture - Final NO GROWTH AFTER 5 DAYS OF INCUBATION. Complete Labs and/or images reviewed: Labs reviewed by me, Image(s) reviewed by me Problem List/Assessment/Plan Problem List/Assessment/Plan Constipation, slow transit versus ileus Symptomatic anemia likely of chronic disease, MCV 92.5 Positive stool occult blood COPD Left heel ulcer, questionable osteomyelitis Acute on chronic metabolic encephalopathy Sepsis due to above Questionable multiple myeloma Plan: Scheduled for colonoscopy tomorrow, start GoLYTELY later in the day today 2/3 of a bottle, 1/3 of GoLYTELY tomorrow in the a.m., 1 bottle of Mag citrate tomorrow in the a.m.. Ordered KUB: Nonobstructive bowel gas pattern. Findings suggest fecal impaction recommend correlation with physical examination. Lactulose 30 cc b.i.d. MiraLax S/p soap water enema Clear liquid diet CEA within normal limits Protonix 40 mg p.o. daily Continue antibiotics Thank you so much for the opportunity to consult on your patient. GI team will follow the patient. In case of any questions or concerns please feel free to reach out. Plan discussed with Dr. Marcano Plan discussed with: Patient, Other (RN) My Orders My Orders Orders - ANGIE MASON RESIDENT Procedure Category Date Status Time Obtain Consent For: ORDERS 11/19/24 Verified 09:38 Npo (Nothing By DIET 11/20/24 Verified Mouth) Diet Breakfast 2/3 Third Of [place] PHA 11/19/24 Verified 12:00 1/3 Third Of [place] PHA 11/20/24 Verified 06:00 Magnesium Citrate PHA 11/20/24 Verified Solution (Citrate Of M 06:00 Obtain Consent For ABENA 11/19/24 Verified Anesthesia 09:38 Dietary Evaluation Review Comments: Laron BID for wound healing PO supplementation, Ensure HP 240ml BID Expected Outcomes/Goals: Gradually healed wounds ANGIE MASON RESIDENT Nov 19, 2024 09:40
[2024-11-19] MEDS: VANCOMYCIN 1GM/250ML KIT 250 ML IV ONE (11:54)
--- NOTE | 2024-11-19 17:20 | DVHPNRES ---
Progress Note Date Seen: Nov 19, 2024 Resident Creating Document: MARYAM WILLIS Medical Necessity Reason Pt with a Central, PICC or Fol: Yes The following are medically ne: Crisostomo Catheter Reason for crisostomo catheter: Strict I&O Subjective Review of Systems Patient is a 79-year-old female with past medical history of COPD on 2L home oxygen, hypertension, possible dementia, DVT of the left upper extremity, rheumatoid arthritis, and bilateral avascular necrosis of the hips presented to [facility] ED with complaint of left foot ulcer. She has been bed- bound for the past 4 months due to chronic back and hip pain and generalized weakness. The patient was brought to the hospital via EMS after her caregiver and visiting nurse noted worsening appearance of a left foot ulcer. On arrival, the patient was not alert and oriented and unable to respond to questions. Information was obtained from her daughter, Ann Marie, who is her power of family law attorney. Her daughter reports that the patient has been progressively weaker over the past week, with decreased oral intake and altered mental status. She also noted black stools recently, though denied any diarrhea. The patient has been complaining of worsening pain in her foot, back, and hips. On initial evaluation in the ED, the patient was altered but later became more responsive and able to answer questions. She denied abdominal pain, nausea, vomiting, melena, or hematochezia. Ms. Neeta Chaves was seen and examined at the bedside today. The patient reports experiencing pain in the left lower heel, at the site of ulcer. She denies any chest pain, shortness of breath, fever or any other complaints today. The patient expressed desire to feel better soon and go home. 11/15- Patient was seen and examined at bedside. Overnight events were reviewed. The patient reports improvement in her symptoms. Hemoglobin was found to be critically low at 6.8 g/dL. One unit of packed red blood cells (PRBC) was requested for transfusion. Attempted to contact the patient's daughter, but was unable to reach her. 11/16- Patient was seen and examined at bedside. Overnight events were reviewed. Patient complains of lower abdominal pain. She denies any chest pain, shortness of breath, fever or any other complains today. Contact was made with the patients daughter, and the plan of care was discussed; she agreed with the recommendations. 11/17- Patient was seen and examined at bedside. Overnight events were reviewed. Patient underwent IVC filter placement today. Post-procedure, patient received in Product Support Specialist, awake and oriented. Cardiology was consulted for preoperative clearance to proceed with a colonoscopy. 11/18- Patient was seen and examined at bedside. Overnight events were reviewed. The patient has confusion after procedure. Patient complains of constipation, waiting for Cardiology clearance for colonoscopy. 11/19- Patient was seen and examined at bedside. Overnight events were reviewed. Patient continues to report abdominal pain and constipation. Colonoscopy is scheduled for tomorrow. Objective vital signs Vital Sign Date Time Temp Pulse Resp B/P (MAP) Pulse Ox O2 Delivery O2 Flow Rate FiO2 11/19/24 13:00 97.7 65 16 135/63 (87) 95 97.7 11/19/24 08:00 Room Air* 0 21 Total Intake and Output 11/18/24 11/18/24 11/19/24 15:00 23:00 07:00 Intake Total 150 ml 350 ml 150 ml Output Total 400 ml 550 ml Balance 150 ml -50 ml -400 ml medications Current Medications Medications Dose Ordered Sig/[place] Route Start Time Stop Time Status Last Admin Dose Admin Pantoprazole Sodium 40 mg BID IV 11/11/24 22:00 11/19/24 11:34 40 MG Nifedipine 30 mg DAILY PO 11/12/24 10:00 11/19/24 11:34 30 MG Levothyroxine Sodium 75 mcg QAM@0600 PO 11/12/24 06:00 11/19/24 06:19 75 MCG Amiodarone HCl 200 mg DAILY PO 11/12/24 10:00 11/19/24 11:33 200 MG Levalbuterol HCl 0.625 mg Q6HWA [facility] 11/11/24 18:00 11/19/24 11:47 0.625 MG Ipratropium [place] 0.5 mg Q6HWA [facility] 11/11/24 18:00 11/19/24 11:47 0.5 MG Cefepime HCl 50 ml @ 12.5 mls/hr Q12HR IV 11/12/24 10:00 11/19/24 13:01 12.5 MLS/HR Ondansetron HCl 4 mg Q4HPRN PRN IV 11/12/24 13:30 11/12/24 13:46 4 MG Enteral Nutritional Formula 240 ml BIDWM PO 11/13/24 18:00 11/19/24 11:32 240 ML Vancomycin HCl 0 ml @ 0 mls/hr UD IV 11/15/24 12:00 Polyethylene Glycol 17 gm DAILY PO 11/17/24 10:00 11/19/24 11:34 17 GM Morphine Sulfate 2 mg Q4HPRN PRN IV 11/19/24 14:15 Examination General Appearance: Alert, Oriented X3, Cooperative, Mild distress HEENT: Atraumatic, Mucous membranes moist/pink Respiratory: Clear to auscultation, Normal air movement, No added sounds Cardiovascular: Regular rate, Normal S1, Normal S2, No murmurs Abdominal/ : Active bowel sounds, Soft, no distention, no tenderness Extremities: No edema, Normal pulses, No tenderness/swelling, currently SCDs in place, previous examination: left heel eschar, maceration at the wound site. Skin: No Significant rash, except past surgical scars Neuro: Normal speech, sensorimotor deficits none Psych/Mental Status: Mental status NL, Mood NL laboratory and microbiology Laboratory Tests 11/19/24 06:51 Test 11/19/24 06:51 Range/Units Serum Glucose 88 74-106 mg/dL Microbiology Date/Time Source Procedure Growth Status 11/14/24 13:15 Nose MRSA Screen - Final Complete 11/12/24 01:45 Blood Blood Culture - Final NO GROWTH AFTER 5 DAYS OF INCUBATION. Complete Labs and/or images reviewed: Labs reviewed by me, Image(s) reviewed by me Problem List/Assessment/Plan Problem List/Assessment/Plan Left heel wound, possible osteomyelitis - CT Left Foot: No definitive CT evidence of osteomyelitis however maintain elevated suspicion given deep soft tissue ulceration and phlegmon suspected particularly overlying the posterior heel. - Ankle X-Ray: There is no evidence of acute fracture or dislocation. Heterotopic calcification left fibular head. Small plantar calcaneal enthesophyte. - IVC filter scheduled -scheduled in Product Support Specialist for 11/17/24 for procedure - on vancomycin, cefepime and metronidazole - Morphine - [place] - Wound consult Constipation, slow transit versus ileus - Ordered KUB: Nonobstructive bowel gas pattern. Findings suggest fecal impaction recommend correlation with physical examination. - Lactulose 30 cc b.i.d. - MiraLax - Consider enema - Patient would likely benefit from elective colonoscopy, we will schedule once cardiology clearance has been obtained or patient can get it in the outpatient after family consent Acute metabolic encephalopathy likely due to sepsis History of dementia - on IV antibiotics - IV fluids possible pneumonia, left upper lobe likely d/t gram +/ bacteria - on iv antibiotics - MRSA nares finalized and is negative. MRSA nares has high negative predictive value for MRSA pneumonia History of arrhythmia Possible paroxysmal Atrial flutter - on amiodarone 200 mg daily COPD, not in exacerbation - duo nebs q.6 hours - on 2 L home oxygen Normocytic normochromic anemia Possible multiple myeloma H/o GI bleed H/o gastritis - stool occult blood positive - Cardiology consult for colonoscopy - colonoscopy scheduled tomorrow (11/20/24) - elevated creatinine, elevated calcium, anemia - lytic bone lesions seen on CT abdomen pelvis recent admission - elevated ESR - serum protein electrophoresis and urine protein electrophoresis ordered - 1 unit PRBC transfused, recheck H&H and if less than 7 transfuse 1 more unit - Protonix 40 mg IV b.i.d. - avoid NSAIDs Bilateral hip avascular necrosis Bed-bound hypothyroidism - continued on levothyroxine 75 mcg Diet: Clear liquid PUD prophylaxis: Protonix 40 mg DVT prophylaxis: Not indicated Anemia Goals of care: Full code, discussed for >16 minutes on 11/19/24 Plan discussed with patient Plan discussed with Dr. Harrison Plan discussed with: Daughter My Orders My Orders Orders - MARYAM WILLIS Procedure Category Date Status Time Basic Metabolic Panel LAB 11/20/24 Verified 04:00 Dietary Evaluation Review Comments: [place]on BID for wound healing PO supplementation, Ensure HP 240ml BID Expected Outcomes/Goals: Gradually healed wounds Date of Service: Nov 19, 2024 Billing Provider: MARICRUZ HARRISON MD Common Visit Codes: [id number] INP/OBS CARE(HIGH) MARYAM WILLIS Nov 19, 2024 17:20 MARICRUZ HARRISON MD Nov 23, 2024 20:01
[2024-11-19] MEDS: MORPHINE SULFATE 4 MG/ML SYR/VIAL IV PRN (17:42)
--- NOTE | 2024-11-19 21:51 | DVHPN2 ---
Progress Note - Dictate Date Seen: Nov 19, 2024 Medical Necessity Reason Pt with a Central, PICC or Fol: Yes The following are medically ne: Crisostomo Catheter Reason for crisostomo catheter: Strict I&O Subjective Patient was seen and evaluated in follow up. Patient complains of abdominal discomfort. Patient is scheduled for colonoscopy tomorrow. WBC 16, CO2 18. Telemetry reviewed. vital signs Vital Sign Date Time Temp Pulse Resp B/P (MAP) Pulse Ox O2 Delivery O2 Flow Rate FiO2 11/19/24 11:57 70 16 97 11/19/24 11:34 120/53 11/19/24 09:00 97.8 97.8 11/19/24 08:00 Room Air* 0 21 Total Intake and Output 11/18/24 11/18/24 11/19/24 14:59 22:59 06:59 Intake Total 150 ml 350 ml 150 ml Output Total 400 ml 550 ml Balance 150 ml -50 ml -400 ml medications Current Medications Medications Dose Ordered Sig/[place] Route Start Time Stop Time Status Last Admin Dose Admin Pantoprazole Sodium 40 mg BID IV 11/11/24 22:00 11/19/24 11:34 40 MG Nifedipine 30 mg DAILY PO 11/12/24 10:00 11/19/24 11:34 30 MG Levothyroxine Sodium 75 mcg QAM@0600 PO 11/12/24 06:00 11/19/24 06:19 75 MCG Amiodarone HCl 200 mg DAILY PO 11/12/24 10:00 11/19/24 11:33 200 MG [facility]ol [facility].625 [facility] 11/11/24 18:00 11/19/24 11:47 0.625 MG Ipratropium [place] 0.5 mg [facility] 11/11/24 18:00 11/19/24 11:47 0.5 MG Cefepime HCl 50 ml @ 12.5 mls/hr Q12HR IV 11/12/24 10:00 11/18/24 21:57 12.5 MLS/HR Ondansetron HCl 4 mg Q4HPRN PRN IV 11/12/24 13:30 11/12/24 13:46 4 MG Enteral Nutritional Formula 240 ml BIDWM PO 11/13/24 18:00 11/19/24 11:32 240 ML Vancomycin HCl 0 ml @ 0 mls/hr UD IV 11/15/24 12:00 Polyethylene Glycol 17 gm DAILY PO 11/17/24 10:00 11/19/24 11:34 17 GM objective General Appearance: Alert, Oriented X3, Cooperative, Not in acute distress HEENT: Atraumatic, Mucous membranes moist/pink Respiratory: Clear to auscultation, Normal air movement, No added sounds Cardiovascular: Regular rate, Normal S1, Normal S2, No murmurs Abdominal: Active bowel sounds, Soft, no distention, no tenderness Extremities: left heel eschar, maceration at the wound site. Skin: left heel eschar, maceration at the wound site. Neuro: Deffered laboratory and microbiology Laboratory Tests 11/19/24 06:51 Test 11/19/24 06:51 Range/Units Serum Glucose 88 74-106 mg/dL Problem List Paroxysmal atrial flutter. History of arrhythmia. Left heel wound, possible osteomyelitis. Acute metabolic encephalopathy likely due to sepsis. History of dementia. Possible G +/- PNA. COPD. Possible multiple myeloma. GI bleed. Gastritis. Bilateral hip avascular necrosis. Bed-bound. Hypothyroidism. Assessment/Plan Continued all current supportive medical care. Amiodarone IV antibiotics as ordered. Nifedipine. GI prophylactics. Nebulized breathing treatments. Additional plan as per the hospital course. Dietary Evaluation Review Comments: Laron BID for wound healing PO supplementation, Ensure HP 240ml BID Expected Outcomes/Goals: Gradually healed wounds Plan discussed with: Patient CORNELIA BROWN MD Nov 19, 2024 12:54
[2024-11-20] VITALS (15 sets, daily range): BP systolic 107–150; BP diastolic 45–75; PULSE 61–68; RESP 14–18; TEMP 97.5–98.6; O2SAT 92–100
[2024-11-20] MEDS: MAGNESIUM CITRATE SOLUTION 300 ML BTL PO ONE (06:49)
[2024-11-20] MEDS: GOLYTELY 4L KIT PO ONE ×2 (06:52→06:53)
[2024-11-20 07:24] LABS: Hematocrit 28.2 % (36.0-46.0); Hemoglobin 9.2 g/dL (12.2-16.2); Mean Corpuscular Hemoglobin 30.1 pg (28.0-32.0); Mean Corpuscular Volume 92.6 fL (80.0-100.0); Nucleated Red Blood Cells % 0.0 %
[2024-11-20 07:40] LABS: Alanine Aminotransferase 26 U/L (7-40); Anion Gap 12 (5-15); BUN/Creatinine Ratio 19.7 (10.0-20.0); Bilirubin, Total 0.6 mg/dL (0.2-1.0); Blood Urea Nitrogen 13 mg/dL (9-23); Calcium 9.5 mg/dL (8.7-10.4); Potassium 3.7 mmol/L (3.5-5.1); Total Protein 6.2 g/dL (5.7-8.2)
[2024-11-20 07:41] LABS: Albumin 2.8 g/dL (3.2-4.8); Alkaline Phosphatase 167 U/L (46-116); Carbon Dioxide 18 mmol/L (20-31); Chloride 116 mmol/L (98-107); Glucose 62 mg/dL (74-106); Sodium 146 mmol/L (136-145)
[2024-11-20] MEDS ORDERED: FLEET ENEMA(ADULT) 135 ML PR ONE (11:45)
--- NOTE | 2024-11-20 14:32 | DVHOP2 ---
Operative Report DATE OF OPERATION: 11/20/24 PROCEDURE: Diagnostic sigmoidoscopy PREOPERATIVE INDICATION: The patient is a 79 -year-old female undergoing colonoscopy for anemia POSTOPERATIVE DIAGNOSES: 1. Mild sigmoid diverticular disease otherwise normal sigmoidoscopy examination up to 40 cm above the anal verge with normal-appearing mucosa and normal brown stool PROCEDURE PERFORMED BY: Chintan Marcano M.D. SCOPE: Olympus videocolonoscope. ASA CLASS: 3. PREOPERATIVE MEDICATIONS: Dr. Kasia Yang PROCEDURE IN DETAIL: After obtaining an informed consent, the patient was placed on left lateral decubitus position. She was then sedated with the above medications. A rectal examination was performed that was normal. The colonoscope was then passed through the anus into the rectosigmoid up to 40-45 cm above the anal verge Patient had mild sigmoid diverticular disease. There was a moderate amount of normal brown soft stool and no evidence of active bleeding The colonic mucosa appeared to be normal. On retroflexion patient had trace internal hemorrhoids there was no GI bleeding noted The patient tolerated the procedure well without difficulty. WITHDRAWAL TIME: Not applicable QUALITY OF THE PREP: [place] Bowel Prep score: Not applicable, poor prep COMPLICATIONS : None SPECIMENS: None DISPOSITION: Transfer back to the floor Stable PLAN: 1. Repeat colonoscopy electively as an outpatient if the family decides to proceed with that 2. Resume GI soft diet advance as tolerated 3. Continue stool softeners MiraLax and lactulose as needed and avoid narcotic. CHINTAN MARCANO MD Nov 20, 2024 14:32
--- NOTE | 2024-11-20 18:29 | DVHPNRES ---
Progress Note Date Seen: Nov 20, 2024 Resident Creating Document: MAYRAM WILLIS Medical Necessity Reason Pt with a Central, PICC or Fol: Yes The following are medically ne: Crisostomo Catheter Reason for crisostomo catheter: Strict I&O Subjective Review of Systems Patient is a 79-year-old female with past medical history of COPD on 2L home oxygen, hypertension, possible dementia, DVT of the left upper extremity, rheumatoid arthritis, and bilateral avascular necrosis of the hips presented to [facility] ED with complaint of left foot ulcer. She has been bed- bound for the past 4 months due to chronic back and hip pain and generalized weakness. The patient was brought to the hospital via EMS after her caregiver and visiting nurse noted worsening appearance of a left foot ulcer. On arrival, the patient was not alert and oriented and unable to respond to questions. Information was obtained from her daughter, Ann Marie, who is her power of sales manager [place]. Her daughter reports that the patient has been progressively weaker over the past week, with decreased oral intake and altered mental status. She also noted black stools recently, though denied any diarrhea. The patient has been complaining of worsening pain in her foot, back, and hips. On initial evaluation in the ED, the patient was altered but later became more responsive and able to answer questions. She denied abdominal pain, nausea, vomiting, melena, or hematochezia. Ms. Neeta Chaves was seen and examined at the bedside today. The patient reports experiencing pain in the left lower heel, at the site of ulcer. She denies any chest pain, shortness of breath, fever or any other complaints today. The patient expressed desire to feel better soon and go home. 11/15- Patient was seen and examined at bedside. Overnight events were reviewed. The patient reports improvement in her symptoms. Hemoglobin was found to be critically low at 6.8 g/dL. One unit of packed red blood cells (PRBC) was requested for transfusion. Attempted to contact the patient's daughter, but was unable to reach her. 11/16- Patient was seen and examined at bedside. Overnight events were reviewed. Patient complains of lower abdominal pain. She denies any chest pain, shortness of breath, fever or any other complains today. Contact was made with the patients daughter, and the plan of care was discussed; she agreed with the recommendations. 11/17- Patient was seen and examined at bedside. Overnight events were reviewed. Patient underwent IVC filter placement today. Post-procedure, patient received in [facility], awake and oriented. Cardiology was consulted for preoperative clearance to proceed with a colonoscopy. 11/18- Patient was seen and examined at bedside. Overnight events were reviewed. The patient has confusion after procedure. Patient complains of constipation, waiting for Cardiology clearance for colonoscopy. 11/19- Patient was seen and examined at bedside. Overnight events were reviewed. Patient continues to report abdominal pain and constipation. Colonoscopy is scheduled for tomorrow. 11/20- Patient was seen and examined at bedside. Overnight events were reviewed. Patient persistently refused to drink Golytely. Due to poor bowel prep and altered mental status, procedure was canceled. Spoke with patients daughter, Ann Marie, regarding discharge planning. Objective vital signs Vital Sign Date Time Temp Pulse Resp B/P (MAP) Pulse Ox O2 Delivery O2 Flow Rate FiO2 11/20/24 18:02 93 19 136/92 11/20/24 17:00 98.3 95 98.3 11/20/24 14:24 Room Air 0 11/20/24 14:24 98 Total Intake and Output 11/19/24 11/19/24 11/20/24 15:00 23:00 07:00 Intake Total 250 ml 550 ml 290 ml Output Total 375 ml 300 ml Balance 250 ml 175 ml -10 ml medications Current Medications Medications Dose Ordered Sig/[place] Route Start Time Stop Time Status Last Admin Dose Admin Pantoprazole Sodium 40 mg BID IV 11/11/24 22:00 11/20/24 10:10 40 MG Nifedipine 30 mg DAILY PO 11/12/24 10:00 11/19/24 11:34 30 MG Levothyroxine Sodium 75 mcg QAM@0600 PO 11/12/24 06:00 11/20/24 07:00 75 MCG Amiodarone HCl 200 mg DAILY PO 11/12/24 10:00 11/19/24 11:33 200 MG Levalbuterol HCl 0.625 mg Q6HWA [facility] 11/11/24 18:00 11/20/24 06:34 0.625 MG Ipratropium [place] 0.5 mg Q6HWA [facility] 11/11/24 18:00 11/20/24 06:34 0.5 MG Cefepime HCl 50 ml @ 12.5 mls/hr Q12HR IV 11/12/24 10:00 11/20/24 10:10 12.5 MLS/HR Ondansetron HCl 4 mg Q4HPRN PRN IV 11/12/24 13:30 11/12/24 13:46 4 MG Enteral Nutritional Formula 240 ml BIDWM PO 11/13/24 18:00 11/19/24 11:32 240 ML Vancomycin HCl 0 ml @ 0 mls/hr UD IV 11/15/24 12:00 Polyethylene Glycol 17 gm DAILY PO 11/17/24 10:00 11/19/24 11:34 17 GM Morphine Sulfate 2 mg Q4HPRN PRN IV 11/19/24 14:15 11/19/24 17:42 2 MG Examination General Appearance: Alert, Oriented X3, Cooperative, Mild distress HEENT: Atraumatic, Mucous membranes moist/pink Respiratory: Clear to auscultation, Normal air movement, No added sounds Cardiovascular: Regular rate, Normal S1, Normal S2, No murmurs Abdominal/ : Active bowel sounds, Soft, no distention, no tenderness Extremities: No edema, Normal pulses, No tenderness/swelling, currently SCDs in place, previous examination: left heel eschar, maceration at the wound site. Skin: No Significant rash, except past surgical scars Neuro: Normal speech, sensorimotor deficits none Psych/Mental Status: Mental status NL, Mood NL laboratory and microbiology Laboratory Tests 11/20/24 06:29 Test 11/20/24 06:29 Range/Units Serum Glucose 62 L 74-106 mg/dL Microbiology Date/Time Source Procedure Growth Status 11/14/24 13:15 Nose MRSA Screen - Final Complete 11/12/24 01:45 Blood Blood Culture - Final NO GROWTH AFTER 5 DAYS OF INCUBATION. Complete Labs and/or images reviewed: Labs reviewed by me, Image(s) reviewed by me Problem List/Assessment/Plan Problem List/Assessment/Plan Left heel wound, possible osteomyelitis - CT Left Foot: No definitive CT evidence of osteomyelitis however maintain elevated suspicion given deep soft tissue ulceration and phlegmon suspected particularly overlying the posterior heel. - Ankle X-Ray: There is no evidence of acute fracture or dislocation. Heterotopic calcification left fibular head. Small plantar calcaneal enthesophyte. - IVC filter scheduled -scheduled in [facility] for 11/17/24 for procedure - on vancomycin, cefepime and metronidazole - Morphine - [place] - Wound consult Constipation, slow transit versus ileus - Ordered KUB: Nonobstructive bowel gas pattern. Findings suggest fecal impaction recommend correlation with physical examination. - Lactulose 30 cc b.i.d. - MiraLax - Consider enema - Patient would likely benefit from elective colonoscopy, we will schedule once cardiology clearance has been obtained or patient can get it in the outpatient after family consent Acute metabolic encephalopathy likely due to sepsis History of dementia - on IV antibiotics - IV fluids possible pneumonia, left upper lobe likely d/t gram +/ bacteria - on iv antibiotics - MRSA nares finalized and is negative. MRSA nares has high negative predictive value for MRSA pneumonia History of arrhythmia Possible paroxysmal Atrial flutter - on amiodarone 200 mg daily COPD, not in exacerbation - duo nebs q.6 hours - on 2 L home oxygen Normocytic normochromic anemia Possible multiple myeloma H/o GI bleed H/o gastritis - stool occult blood positive - Cardiology consult for colonoscopy - colonoscopy canceled due to poor bowel prep and altered mental status (11/20/24) - elevated creatinine, elevated calcium, anemia - lytic bone lesions seen on CT abdomen pelvis recent admission - elevated ESR - serum protein electrophoresis and urine protein electrophoresis ordered - 1 unit PRBC transfused, recheck H&H and if less than 7 transfuse 1 more unit - Protonix 40 mg IV b.i.d. - avoid NSAIDs Bilateral hip avascular necrosis Bed-bound hypothyroidism - continued on levothyroxine 75 mcg Diet: Soft PUD prophylaxis: Protonix 40 mg DVT prophylaxis: Not indicated Anemia Goals of care: Full code, discussed for >16 minutes on 11/20/24 Plan discussed with patient Plan discussed with Dr. Harrison Plan discussed with: Patient, Daughter My Orders My Orders Orders - MARYAM WILLIS Procedure Category Date Status Time * [place] CONS 11/20/24 Transmitted Consult 18:24 Dietary Evaluation Review Comments: [place] BID for wound healing PO supplementation, Ensure HP 240ml BID Expected Outcomes/Goals: Gradually healed wounds Date of Service: Nov 20, 2024 Billing Provider: MARICRUZ HARRISON MD Common Visit Codes: [id number] INP/OBS CARE(MOD) MARYAM WILLIS RESIDENT Nov 20, 2024 18:29 MARICRUZ HARRISON MD Nov 23, 2024 20:02
--- NOTE | 2024-11-20 23:12 | DVHPN2 ---
Progress Note - Dictate Date Seen: Nov 20, 2024 Medical Necessity Reason Pt with a Central, PICC or Fol: Yes The following are medically ne: Crisostomo Catheter Reason for crisostomo catheter: Strict I&O Subjective Patient was seen and evaluated in follow up. Patient complains of abdominal discomfort. The patient is refusing to drink Golytely due to disliking the taste. WBC 14.3, HGB 9.2, HCT 28.2, NA 146, CO2 18, GLUC 62, AST 59. Telemetry reviewed. vital signs Vital Sign Date Time Temp Pulse Resp B/P (MAP) Pulse Ox O2 Delivery O2 Flow Rate FiO2 11/20/24 09:00 98.2 65 17 120/63 (82) 95 98.2 11/20/24 06:34 Room Air 11/20/24 06:34 0 21 Total Intake and Output 11/19/24 11/19/24 11/20/24 15:00 23:00 07:00 Intake Total 250 ml 550 ml 290 ml Output Total 375 ml 300 ml Balance 250 ml 175 ml -10 ml medications Current Medications Medications Dose Ordered Sig/[place] Route Start Time Stop Time Status Last Admin Dose Admin Pantoprazole Sodium 40 mg BID IV 11/11/24 22:00 11/20/24 10:10 40 MG Nifedipine 30 mg DAILY PO 11/12/24 10:00 11/19/24 11:34 30 MG Levothyroxine Sodium 75 mcg QAM@0600 PO 11/12/24 06:00 11/20/24 07:00 75 MCG Amiodarone HCl 200 mg DAILY PO 11/12/24 10:00 11/19/24 11:33 200 MG Levalbuterol HCl 0.625 mg Q6HWA [facility] 11/11/24 18:00 11/20/24 06:34 0.625 MG Ipratropium [place] 0.5 mg Q6HWA [facility] 11/11/24 18:00 11/20/24 06:34 0.5 MG Cefepime HCl 50 ml @ 12.5 mls/hr Q12HR IV 11/12/24 10:00 11/20/24 10:10 12.5 MLS/HR Ondansetron HCl 4 mg Q4HPRN PRN IV 11/12/24 13:30 11/12/24 13:46 4 MG Enteral Nutritional Formula 240 ml BIDWM PO 11/13/24 18:00 11/19/24 11:32 240 ML Vancomycin HCl 0 ml @ 0 mls/hr UD IV 11/15/24 12:00 Polyethylene Glycol 17 gm DAILY PO 11/17/24 10:00 11/19/24 11:34 17 GM Morphine Sulfate 2 mg Q4HPRN PRN IV 11/19/24 14:15 11/19/24 17:42 2 MG objective General Appearance: Alert, Oriented X3, Cooperative, Not in acute distress HEENT: Atraumatic, Mucous membranes moist/pink Respiratory: Clear to auscultation, Normal air movement, No added sounds Cardiovascular: Regular rate, Normal S1, Normal S2, No murmurs Abdominal: Active bowel sounds, Soft, no distention, no tenderness Extremities: left heel eschar, maceration at the wound site. Skin: left heel eschar, maceration at the wound site. Neuro: Deffered laboratory and microbiology Laboratory Tests 11/20/24 06:29 Test 11/20/24 06:29 Range/Units Serum Glucose 62 L 74-106 mg/dL Problem List Paroxysmal atrial flutter. History of arrhythmia. Left heel wound, possible osteomyelitis. Acute metabolic encephalopathy likely due to sepsis. History of dementia. Possible G +/- PNA. COPD. Possible multiple myeloma. GI bleed. Gastritis. Bilateral hip avascular necrosis. Bed-bound. Hypothyroidism. Assessment/Plan Continued all current supportive medical care. GI prophylactics. IV antibiotics as ordered. Nebulized breathing treatments. Additional plan as per the hospital course. Dietary Evaluation Review Comments: [place] BID for wound healing PO supplementation, Ensure HP 240ml BID Expected Outcomes/Goals: Gradually healed wounds Plan discussed with: Patient CORNELIA BROWN MD Nov 20, 2024 12:47
[2024-11-21] VITALS (11 sets, daily range): BP systolic 123–141; BP diastolic 61–80; PULSE 62–69; RESP 16–20; TEMP 36.5; O2SAT 95–100
[2024-11-21 06:08] LABS: Hematocrit 27.0 % (36.0-46.0); Hemoglobin 8.8 g/dL (12.2-16.2); Mean Corpuscular Hemoglobin 30.4 pg (28.0-32.0); Mean Corpuscular Volume 92.7 fL (80.0-100.0); Nucleated Red Blood Cells % 0.1 %
[2024-11-21 06:21] LABS: Calcium 9.6 mg/dL (8.7-10.4)
[2024-11-21 06:22] LABS: Anion Gap 13 (5-15)
[2024-11-21 06:27] LABS: BUN/Creatinine Ratio 21.4 (10.0-20.0); Blood Urea Nitrogen 15 mg/dL (9-23)
[2024-11-21 06:44] LABS: Carbon Dioxide 19 mmol/L (20-31); Chloride 116 mmol/L (98-107); Glucose 64 mg/dL (74-106); Potassium 3.0 mmol/L (3.5-5.1); Sodium 148 mmol/L (136-145)
[2024-11-21] MEDS: POTASSIUM EFFERVESENT TAB 25 MEQ PO ONE (08:51)
--- NOTE | 2024-11-21 11:13 | DVHDSRES ---
Discharge Summary Date of Admission Resident Creating Document: MARYAM WILLIS RESIDENT Nov 11, 2024 at 15:56 Date of Discharge: Nov 21, 2024 Admitting Diagnosis Altered mental status Labs/Diagnostic Data: Laboratory Results Test 11/21/24 05:37 11/20/24 06:29 11/19/24 12:20 11/17/24 14:50 White Blood Count 12.8 10^3/uL (4.4-10.8) Red Blood Count 2.91 10^6/uL (4.0-5.20) Hemoglobin 8.8 g/dL (12.2-16.2) Hematocrit 27.0 % (36.0-46.0) Mean Corpuscular Volume 92.7 fL (80.0-100.0) Mean Corpuscular Hemoglobin 30.4 pg (28.0-32.0) Mean Corpuscular Hemoglobin Concent 32.8 g/dL (32.0-36.0) Red Cell Distribution Width 18.2 % (11.8-14.3) Platelet Count 296 10^3/uL (140-450) Mean Platelet Volume 7.6 fL (6.9-10.8) Neutrophils (%) (Auto) 75.1 % (37.0-80.0) Lymphocytes (%) (Auto) 12.2 % (10.0-50.0) Monocytes (%) (Auto) 9.3 % (0.0-12.0) Eosinophils (%) (Auto) 2.8 % (0.0-7.0) Basophils (%) (Auto) 0.6 % (0.0-2.0) Neutrophils # (Auto) 9.6 10 ^3/uL (1.6-8.6) Lymphocytes # (Auto) 1.6 10 ^3/uL (0.4-5.4) Monocytes # (Auto) 1.2 10 ^3/uL (0-1.3) Eosinophils # (Auto) 0.4 10 ^3/uL (0-0.8) Basophils # (Auto) 0.1 10 ^3/uL (0-0.2) Nucleated Red Blood Cells 0.1 % Sodium Level 148 mmol/L (136-145) Potassium Level 3.0 mmol/L (3.5-5.1) Chloride Level 116 mmol/L (98-107) Carbon Dioxide Level 19 mmol/L (20-31) Anion Gap 13 (5-15) Blood Urea Nitrogen 15 mg/dL (9-23) Creatinine 0.70 mg/dL (0.550-1.02) Glomerular Filtration Rate Calc 88 mL/min (>90) BUN/Creatinine Ratio 21.4 (10.0-20.0) Serum Glucose 64 mg/dL (74-106) Calcium Level 9.6 mg/dL (8.7-10.4) Random Vancomycin Level 13.8 ug/mL (5-10) Total Bilirubin 0.6 mg/dL (0.2-1.0) Aspartate Amino Transferase (AST) 59 U/L (13-40) Alanine Aminotransferase (ALT) 26 U/L (7-40) Alkaline Phosphatase 167 U/L (46-116) Total Protein 6.2 g/dL (5.7-8.2) Albumin 2.8 g/dL (3.2-4.8) Lactic Acid Level 0.9 mmol/L (0.4-2.0) Carcinoembryonic Antigen 3.77 ng/mL (<=5.0) Test 11/17/24 09:16 11/15/24 07:00 11/14/24 11:07 11/13/24 12:46 Prothrombin Time 12.3 sec (9.3-11.8) Prothrombin Time INR 1.18 (0.9-1.15) Activated Partial Thromboplast Time 31.3 SEC (24.5-34.5) Influenza Type A Antigen Negative (Negative) Influenza Type B Antigen Negative (Negative) SARS-CoV-2 Antigen (Rapid) Negative (NEGATIVE) Vancomycin Level Trough 31.2 ug/mL (5-10) Test 11/12/24 08:51 11/12/24 04:00 11/12/24 01:45 11/11/24 16:34 Urine Total Protein 64.8 mg/dL (1-14) Platelet Estimate [place] Clumped Platelets Few Large Platelets Few Iron Level 58 ug/dL (50-170) Total Iron Binding Capacity 242 ug/dL (250-425) Percent Iron Saturation 24.0 % (15-50) Ferritin 211.0 ng/mL (10-291) Vitamin B12 Level 1636 pg/mL (211-911) Folic Acid > 24.00 ng/mL (>5.38) Stool Occult Blood Positive (Negative) Stool Occult Blood Sample #3 (Negative) Test 11/11/24 16:11 11/11/24 11:52 Urine Color Light-yellow (Yellow) Urine Clarity Clear (Clear) Urine pH 6.0 (5.0-9.0) Urine Specific [place] 1.015 (1.001-1.035) Urine Protein Trace (Negative) Urine Ketones Negative (Negative) Urine Blood Negative /uL (Negative) Urine Nitrite Negative (Negative) Urine Bilirubin Negative (Negative) Urine Urobilinogen Normal mg/dL (Negative) Urine Leukocyte Esterase 2+ /uL (Negative) Urine RBC 3 /hpf (0 - 4) Urine Microscopic WBC 15 /HPF (0-5) Urine Squamous Epithelial Cells None seen /hpf (<5) Urine Bacteria None seen /hpf (None Seen) Urine Yeast (Budding) Occasional /hpf (None Urine Glucose Normal mg/dL (Normal) Anisocytosis (manual) Slight Ovalocytes Erythrocyte Sedimentation Rate 128 mm/hr (0-20) Reticulocyte Count (auto) 7.70 % (0.5-1.5) Phosphorus Level 2.5 mg/dL (2.4-5.1) Magnesium Level 2.3 mg/dL (1.6-2.6) Lactate Dehydrogenase 232 U/L (120-246) C-Reactive Protein High Sensitivity 2.00 mg/dL (<1.0) Other Laboratory Tests 11/21/24 05:37 Brief Hx & Hospital Course: Patient is a 79-year-old female with past medical history of COPD on 2L home oxygen, hypertension, possible dementia, DVT of the left upper extremity, rheumatoid arthritis, and bilateral avascular necrosis of the hips presented to [facility] ED with complaint of left foot ulcer. She has been bed- bound for the past 4 months due to chronic back and hip pain and generalized weakness. The patient was brought to the hospital via EMS after her caregiver and visiting nurse noted worsening appearance of a left foot ulcer. On arrival, the patient was not alert and oriented and unable to respond to questions. Information was obtained from her daughter, Ann Marie, who is her power of litigation attorney. Her daughter reports that the patient has been progressively weaker over the past week, with decreased oral intake and altered mental status. She also noted black stools recently, though denied any diarrhea. The patient has been complaining of worsening pain in her foot, back, and hips. On initial evaluation in the ED, the patient was altered but later became more responsive and able to answer questions. She denied abdominal pain, nausea, vomiting, melena, or hematochezia. The patient has a left heel wound with concern for possible osteomyelitis. Imaging showed no definitive evidence of osteomyelitis but elevated suspicion remains due to deep soft tissue ulceration and phlegmon. She is currently receiving IV antibiotics (vancomycin, cefepime, metronidazole) and pain management with morphine and [place]. Wound care consult was obtained. She also has constipation with fecal impaction noted on imaging. Management includes lactulose, MiraLax, and consideration of enema. Colonoscopy is deferred pending cardiology clearance or outpatient follow-up. The patient has acute metabolic encephalopathy likely secondary to sepsis, with a history of dementia. She is receiving IV fluids and antibiotics. Possible pneumonia in the left upper lobe is being treated empirically; MRSA screening was negative. During hospitalization, the patient underwent IVC filter placement on 11/17 and was monitored post-procedure in the [facility]. Cardiology was consulted for preoperative clearance for colonoscopy. However, due to altered mental status and poor bowel preparation, the procedure was canceled on 11/20. Discharge planning was discussed with her daughter. Her daughter was contacted and agreed with the plan of care. Examination General Appearance: Alert, Oriented X3, Cooperative, Mild distress HEENT: Atraumatic, Mucous membranes moist/pink Respiratory: Clear to auscultation, Normal air movement, No added sounds Cardiovascular: Regular rate, Normal S1, Normal S2, No murmurs Abdominal/ : Active bowel sounds, Soft, no distention, no tenderness Extremities: No edema, Normal pulses, No tenderness/swelling, currently SCDs in place, previous examination: left heel eschar, maceration at the wound site. Skin: No Significant rash, except past surgical scars Neuro: Normal speech, sensorimotor deficits none Psych/Mental Status: Mental status NL, Mood NL Operations or Procedures PATIENT: KENNETH MULLER ACCT: [id number] UNIT: [id number] : 1945 [facility] AGE / SEX: 79 / F ADM STATUS: ADM IN SERVICE 0833 ORDERING PHYSICIAN: FRITZ BUSH RESIDENT PROCEDURE(s): KUB - KUB ABDOMEN SINGLE VIEW REASON: abd pain, possible constipation ORDER NUMBER(s): [id number], ACCESSION NUMBER(s): [id number] Date: 11/18/2024 08:43 AM Examination: XY KUB ABDOMEN SINGLE VIEW History: abd pain, possible constipation Comparison: XY KUB ABDOMEN SINGLE VIEW on DOS: 11/16/24, US ABDOMEN LIMITED on DOS: 10/16/24, US KIDNEY on DOS: 10/06/24, CT CT AB PEL WO CON-NO ORAL OR IV on DOS: 10/05/24, XY KUB ABDOMEN SINGLE VIEW on DOS: 09/04/24 TECHNIQUE: Frontal views of the abdomen was obtained. FINDINGS: Bowel gas pattern is unremarkable. Moderate stool burden. The lung bases demonstrates left basilar opacity. Catheter projects over the pelvis. No acute osseous abnormality identified. 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 IMPRESSION: Moderate stool burden. Left basilar opacity. PATIENT: KENNETH MULLER ACCT: [id number] UNIT: [id number] : 1945 LOC: [facility] ROOM / BED: [address] [place] [address] A AGE / SEX: 79 / F ADM STATUS: ADM IN SERVICE 1130 ORDERING PHYSICIAN: MARYAM WILLIS PROCEDURE(s): IVC - INFERIOR VENA CAVA FILTER REASON: FILTER PL ORDER NUMBER(s): [id number], ACCESSION NUMBER(s): [id number] XY INFERIOR VENA CAVA FILTER, HISTORY: 79 F with GI bleed requiring 2 units pRBC and lower extremity DVT is unable to take anticoagulation here for a retrievable IVC filter placement. PROCEDURE: Informed consent was obtained. The patient was placed on the fluoroscopic table in supine position. The right groin was prepped with chlorhexidine which was allowed to dry and draped in the usual sterile fashion. Time out was performed. Following administration of 1% local lidocaine, the common femoral vein was accessed with a micropuncture set under ultrasound guidance, and an image documenting patency sent to PACS. A 6 [place] sheath was placed into the iliac vein and a venogram was performed. The catheter was exchanged for a 9.6 [place] introducer sheath, and a Bard G2 [place] IVC filter was deployed in an infrarenal location. The introducer sheath was removed and the venotomy closed with manual compression. Post-deployment image was obtained. No immediate complication was identified. DAP 139 FLUOROSCOPY TIME: 1.2 minutes. CONTRAST USED: 15 mL. SEDATION: Dr. Eunice Casarez was personally responsible for the administration of moderate sedation during the procedure performed, including the use of an independent trained observer who had no other duties during the procedure. The drugs utilized were IV fentanyl and versed (see nursing log for details). The total time of supervision by the attending physician was approximately 30 minutes. FINDINGS: There is a patent single IVC visualized without intraluminal filling defect. No renal venous anomaly is noted. Post-procedure image demonstrates good positioning of the IVC filter in an infrarenal position. IMPRESSION: Infra-renal IVC filter placement. PLAN: Consideration should be made for removal of this retrievable filter after and if medical necessity for caval filtration is no longer present. If we in IR are unable to contact the patient in a timely fashion, please contact our office, and we will attempt to arrange for filter retrieval at the earliest convenience. - PATIENT: KENNETH MULLER ACCT: [id number] UNIT: [id number] : 1945 LOC: [facility] ROOM / BED: [facility] / A AGE / SEX: 79 / F ADM STATUS: ADM IN SERVICE 1613 ORDERING PHYSICIAN: ANGIE MASON RESIDENT PROCEDURE(s): KUB - KUB ABDOMEN SINGLE VIEW REASON: r/o sbo ileus ORDER NUMBER(s): [id number], ACCESSION NUMBER(s): [id number] Date: 11/16/2024 04:20 PM Examination: XY KUB ABDOMEN SINGLE VIEW History: r/o sbo ileus Comparison: XY KUB ABDOMEN SINGLE VIEW on DOS: 09/04/24 TECHNIQUE: Frontal views of the abdomen was obtained. FINDINGS: Bowel gas pattern is unremarkable. Fecal impaction No findings of bowel obstruction. The lung bases are unremarkable. No acute osseous abnormality identified. IMPRESSION: 1. Nonobstructive bowel gas pattern. 2. Findings suggest fecal impaction recommend correlation with physical examination. PATIENT: KENNETH MULLER ACCT: [id number] UNIT: [id number] : 1945 LOC: [facility] ROOM / BED: [address] [place] [address] AGE / SEX: 79 / F ADM STATUS: ADM IN SERVICE 1553 ORDERING PHYSICIAN: FRITZ BUSH RESIDENT PROCEDURE(s): BLDVT - BiLat Lower DVT REASON: Left lower extremity pain ORDER NUMBER(s): [id number], ACCESSION NUMBER(s): [id number] Bilateral lower extremity venous duplex Clinical History: Left lower extremity pain Comparison: XY L ANKLE 2 VIEW XRAY on DOS: 11/11/24, US LT UPPER DVT on DOS: 08/01/24, CT PELVIS WO CONTRAST on DOS: 07/29/24, XY L ANKLE 2 VIEW XRAY on DOS: 06/12/24, XY R ANKLE 2 VIEW XRAY on DOS: 06/12/24 Technique: Duplex Doppler evaluation of the deep venous systems of both lower extremities from the common femoral veins to the popliteal veins including color Doppler and spectral/pulsed waveform analysis was performed. Findings: RIGHT SIDE: Nonocclusive thrombus is present from the right common femoral vein to the popliteal vein. Trifurcation and posterior tibial vein are patent. LEFT SIDE: The common femoral vein demonstrates appropriate compressibility and waveform variability. There is compressibility/patency of the great saphenous vein at the proximal thigh. The femoral vein demonstrates appropriate compressibility and waveform variability. The deep femoral vein demonstrates appropriate compressibility and waveform variability. The popliteal vein demonstrates appropriate compressibility and waveform variability. There is normal compressibility at the tibioperoneal trunk. Impression: Nonocclusive thrombus is present from the right common femoral vein to the popliteal vein. No left femoropopliteal venous thrombosis. - PATIENT: KENNETH MULLER ACCT: [id number] UNIT: [id number] : 1945 LOC: [facility] ROOM / BED: [address] [place] [address] AGE / SEX: 79 / F ADM STATUS: ADM IN SERVICE 51 ORDERING PHYSICIAN: FRITZ BUSH RESIDENT PROCEDURE(s): LFTCT - CT L FOOT WO CONTRAST REASON: rule out osteomyelitis ORDER NUMBER(s): [id number], ACCESSION NUMBER(s): [id number] EXAM: CT CT L FOOT WO CONTRAST INDICATION: rule out osteomyelitis TECHNIQUE: Axial images of left foot without contrast have been obtained along with coronal and sagittal reformatted images. All CT scans at this facility use dose modulation, iterative reconstruction, and/or weight based dosing when appropriate to reduce radiation dose to as low as reasonably achievable. COMPARISON: XY L ANKLE 2 VIEW XRAY on DOS: 11/11/24 FINDINGS: BONES: No CT evidence of an acute fracture or aggressive osseous lesion. bridging ossification across the ankle syndesmosis. Diffusely decreased bone mineralization. Curvilinear extension of ossification along the fibula. In regards to the clinical question, no definitive osseous erosion to suggest definitive evidence of osteomyelitis however maintain elevated suspicion given deep soft tissue ulceration along the plantar aspect of the heel. MUSCLES: Fatty atrophy of the intrinsic musculature JOINT SPACES: No joint effusion. TENDONS/LIGAMENTS: Intact. OTHER: None. IMPRESSION: 1. No definitive CT evidence of osteomyelitis however maintain elevated suspicion given deep soft tissue ulceration and phlegmon suspected particularly overlying the posterior heel. PATIENT: KENNETH MULLER ACCT: [id number] UNIT: [id number] : 1945 LOC: [facility]OM / BED: [address] [place] [address] AGE / SEX: 79 / F ADM STATUS: ADM IN SERVICE 1556 ORDERING PHYSICIAN: FRITZ BUSH RESIDENT PROCEDURE(s): CXR1 - CHEST XRAY 1 VIEW REASON: SOB ORDER NUMBER(s): [id number], ACCESSION NUMBER(s): [id number] CHEST RADIOGRAPH Indication: SOB Technique: Single frontal view of the chest was obtained COMPARISON: XY CHEST PORTABLE on DOS: 10/23/24, XY CHEST XRAY 1 VIEW on DOS: 10/11/24, XY CHEST XRAY 1 VIEW on DOS: 10/06/24, XY CHEST PORTABLE on DOS: 09/28/24, XY CHEST PORTABLE on DOS: 08/28/24 FINDINGS: Lines and Tubes: Left chest pacemaker. Lungs: Patchy airspace opacities in the right upper lobe. Pleura: No effusion. No pneumothorax. Cardiomediastinal contours: Unremarkable Bones: Unremarkable IMPRESSION: Patchy airspace opacities in the right lung apex may represent scarring or pneumonia. Clinical correlation advised. This is increased since 10/23/2024. - PATIENT: KENNETH MULLER ACCT: [id number] UNIT: [id number] : 1945 LOC: ER ROOM / BED: / AGE / SEX: 79 / F ADM STATUS: REG ER SERVICE 1047 ORDERING PHYSICIAN: CINTIA FARR DO PROCEDURE(s): LANK2 - L ANKLE 2 VIEW XRAY REASON: chronic heel wound ORDER NUMBER(s): [id number], ACCESSION NUMBER(s): [id number] CLINICAL INDICATION: chronic heel wound TECHNIQUE: 3 radiographic views of the left ankle were obtained. Comparison: XY L HIP COMPLETE XRAY on DOS: 07/29/24, XY L ANKLE 2 VIEW XRAY on DOS: 06/12/24, XY R ANKLE 2 VIEW XRAY on DOS: 06/12/24, XY R HIP COMPLETE XRAY on DOS: 05/18/24, XY R FOOT 3 VIEW XRAY on DOS: 10/28/23 FINDINGS/IMPRESSION: There is no evidence of acute fracture or dislocation. Heterotopic calcification left fibular head. Small plantar calcaneal enthesophyte. Operative Report DATE OF OPERATION: 11/20/24 PROCEDURE: Diagnostic sigmoidoscopy PREOPERATIVE INDICATION: The patient is a 79 -year-old female undergoing colonoscopy for anemia POSTOPERATIVE DIAGNOSES: 1. Mild sigmoid diverticular disease otherwise normal sigmoidoscopy examination up to 40 cm above the anal verge with normal-appearing mucosa and normal brown stool PROCEDURE PERFORMED BY: Chintan Mahoney M.D. SCOPE: [employer] videocolonoscope. ASA CLASS: 3. PREOPERATIVE MEDICATIONS: Mac Dr. Kasia crawford PROCEDURE IN DETAIL: After obtaining an informed consent, the patient was placed on left lateral decubitus position. She was then sedated with the above medications. A rectal examination was performed that was normal. The colonoscope was then passed through the anus into the rectosigmoid up to 40-45 cm above the anal verge Patient had mild sigmoid diverticular disease. There was a moderate amount of normal brown soft stool and no evidence of active bleeding The colonic mucosa appeared to be normal. On retroflexion patient had trace internal hemorrhoids there was no GI bleeding noted The patient tolerated the procedure well without difficulty. WITHDRAWAL TIME: Not applicable QUALITY OF THE PREP: [place] Bowel Prep score: Not applicable, poor prep COMPLICATIONS : None SPECIMENS: None DISPOSITION: Transfer back to the floor Stable PLAN: 1. Repeat colonoscopy electively as an outpatient if the family decides to proceed with that 2. Resume GI soft diet advance as tolerated 3. Continue stool softeners MiraLax and lactulose as needed and avoid narcotic. CHINTAN MAHONEY MD Nov 20, 2024 14:32 DICTATED BY:CHINTAN MAHONEY MD DICTATED DATE/TIME:11/20/241431 ELECTRONICALLY SIGNED BY:CHINTAN MAHONEY MD 11/20/241431 - PATIENT: KENNETH MULLER ACCT: [id number] : 1945 [facility] AGE / SEX: 79 / F ADM STATUS: ADM IN SERVICE UNIT: [id number] ORDERING PHYSICIAN: LUKASZ CASAREZ MD PROCEDURE(s): EKG - ELECTROCARDIGRAM ORDER NUMBER(s): [id number], ACCESSION NUMBER(s): [id number] [facility] Test Date: 2024-11-17 Test Time: 06:05:30 Pat Name: KENNETH MULLER Department: Room: [address] [place] [address] Gender: F [employer] Report Developer: KAMRON : 1945 Requested By: LUKASZ CASAREZ Order Number: [id number] Reading MD: Do Arreola Measurements Intervals [place] Rate: 65 P: 0 [place]: 185 QRS: -3 QRSD: 101 T: 52 QT: 463 QTc: 482 Interpretive Statements Atrial-paced rhythm Electronically Signed On 11-19-2024 21:08:24 PDT by Do Arreola Please click the below link to view image of tracing. DICTATED BY:DO ARREOLA Sr., MD DICTATED DATE/TIME:11/17/24 0605 ELECTRONICALLY SIGNED BY:DO ARREOLA Sr., MD 11/19/244 Condition at Discharge: Fair Final Diagnosis/Problems List Left heel wound, possible osteomyelitis Constipation, slow transit versus ileus Acute metabolic encephalopathy likely due to sepsis History of dementia possible pneumonia, left upper lobe likely d/t gram +/ bacteria History of arrhythmia Possible paroxysmal Atrial flutter COPD, not in exacerbation Normocytic normochromic anemia Possible multiple myeloma H/o GI bleed H/o gastritis Bilateral hip avascular necrosis Bed-bound hypothyroidism Discharge Disposition: Home with Health Services Discharge Instruct/Medications Diet: Consistent carbohydrate Activity: Bed rest Follow Up/Referral: Follow up with PCP within 1-2 weeks Medications: continue home medications Scheduled Amiodarone HCl (Amiodarone HCl), 200 MG PO DAILY Ascorbic Acid (Gnp Vitamin C W/Rosalia Hips), 1 TAB PO DAILY, (Reported) Calcium Carbonate (Calcium Carbonate), 1 TAB PO DAILY, (Reported) Cefpodoxime Proxetil (Cefpodoxime Proxetil), 1 TAB PO BID Cetirizine HCl (Cetirizine Hydrochloride), 2 TAB PO DAILY, (Reported) Cholecalciferol (Gnp Vitamin D), 1 TAB PO DAILY, (Reported) Docusate Sodium (Colace), 1 CAP PO BID Donepezil Hydrochloride (Donepezil Hcl), 1 TAB PO DAILY, (Reported) Ferrous Sulfate (Ferosul), 1 TAB PO DAILY, (Reported) Ipratropium-Albuterol (Ipratropium [place]/Albut), 1 VIAL NEB QID, (Reported) Levothyroxine Sodium (Levothyroxine Sodium), 75 MCG PO QAM@0600 Metoprolol Succinate (Metoprolol Succinate Er), 1 TAB PO DAILY, (Reported) Nifedipine (Nifedipine Er), 60 MG PO DAILY Omeprazole (Omeprazole Dr), 1 CAP PO DAILY, (Reported) Potassium Chloride (Klor-Con M20), 1 TAB PO DAILY, (Reported) Discontinued Medications Cephalexin (Keflex Capsule), 1 CAP PO BID Ibuprofen Micronized (Ibuprofen), 1 TAB PO Q4-6HR, (Reported) Rivaroxaban (Xarelto Tablet), 1 TAB PO QPM, (Reported) Discharge Statement: "Patient was advised to return to the ER or call 911 if any headaches, dizziness, shortness of breath, chest pain, abdominal pain, bleeding, fevers, or worsening of medical condition. Patient was counseled about treatment plan, medications, possible side effects, patientverbalized understanding. All questions were answered to the best of my ability. This discharge took greater then 30 minutes in planning, reviewing documentation, counseling the patient, and discussing with other team members." ASSESSMENT ASSESSMENT Assessment Left heel wound, possible osteomyelitis Constipation, slow transit versus ileus Acute metabolic encephalopathy likely due to sepsis History of dementia possible pneumonia, left upper lobe likely d/t gram +/ bacteria History of arrhythmia Possible paroxysmal Atrial flutter COPD, not in exacerbation Normocytic normochromic anemia Possible multiple myeloma H/o GI bleed H/o gastritis Bilateral hip avascular necrosis Bed-bound hypothyroidism Date of Service: Nov 21, 2024 Billing Provider: MARICRUZ PEACOCK MD Common Visit Codes: 75847-LRV/OBS DISCH DAY >30min MARYAM WILLIS RESIDENT Nov 21, 2024 11:13 MARICRUZ PEACOCK MD Nov 23, 2024 20:02
[2024-11-21] MEDS ORDERED: DOCU-94 PO (11:51)
[2024-11-21] MEDS ORDERED: CEFP200T15 PO (11:51)
--- NOTE | 2024-11-21 12:15 | DVHPNRES ---
Progress Note Date Seen: Nov 21, 2024 Resident Creating Document: MARYAM WILLIS Medical Necessity Reason Pt with a Central, PICC or Fol: Yes The following are medically ne: Crisostomo Catheter Reason for crisostomo catheter: Strict I&O Subjective Review of Systems Patient is a 79-year-old female with past medical history of COPD on 2L home oxygen, hypertension, possible dementia, DVT of the left upper extremity, rheumatoid arthritis, and bilateral avascular necrosis of the hips presented to [facility] ED with complaint of left foot ulcer. She has been bed- bound for the past 4 months due to chronic back and hip pain and generalized weakness. The patient was brought to the hospital via EMS after her caregiver and visiting nurse noted worsening appearance of a left foot ulcer. On arrival, the patient was not alert and oriented and unable to respond to questions. Information was obtained from her daughter, Ann Marie, who is her power of family law attorney. Her daughter reports that the patient has been progressively weaker over the past week, with decreased oral intake and altered mental status. She also noted black stools recently, though denied any diarrhea. The patient has been complaining of worsening pain in her foot, back, and hips. On initial evaluation in the ED, the patient was altered but later became more responsive and able to answer questions. She denied abdominal pain, nausea, vomiting, melena, or hematochezia. Ms. Neeta Chaves was seen and examined at the bedside today. The patient reports experiencing pain in the left lower heel, at the site of ulcer. She denies any chest pain, shortness of breath, fever or any other complaints today. The patient expressed desire to feel better soon and go home. 11/15- Patient was seen and examined at bedside. Overnight events were reviewed. The patient reports improvement in her symptoms. Hemoglobin was found to be critically low at 6.8 g/dL. One unit of packed red blood cells (PRBC) was requested for transfusion. Attempted to contact the patient's daughter, but was unable to reach her. 11/16- Patient was seen and examined at bedside. Overnight events were reviewed. Patient complains of lower abdominal pain. She denies any chest pain, shortness of breath, fever or any other complains today. Contact was made with the patients daughter, and the plan of care was discussed; she agreed with the recommendations. 11/17- Patient was seen and examined at bedside. Overnight events were reviewed. Patient underwent IVC filter placement today. Post-procedure, patient received in Service Assistant, awake and oriented. Cardiology was consulted for preoperative clearance to proceed with a colonoscopy. 11/18- Patient was seen and examined at bedside. Overnight events were reviewed. The patient has confusion after procedure. Patient complains of constipation, waiting for Cardiology clearance for colonoscopy. 11/19- Patient was seen and examined at bedside. Overnight events were reviewed. Patient continues to report abdominal pain and constipation. Colonoscopy is scheduled for tomorrow. 11/20- Patient was seen and examined at bedside. Overnight events were reviewed. Patient persistently refused to drink Golyt[place]. Due to poor bowel prep and altered mental status, procedure was canceled. Spoke with patients daughter, Ann Marie, regarding discharge planning. 11/21- Patient was seen and examined at bedside. Overnight events were reviewed. Patient will resume home health services upon discharge. Objective vital signs Vital Sign Date Time Temp Pulse Resp B/P (MAP) Pulse Ox O2 Delivery O2 Flow Rate FiO2 11/21/24 11:51 95 Room Air 0.0 11/21/24 11:51 21 11/21/24 11:50 69 20 11/21/24 11:44 36.5 11/21/24 10:01 123/80 Total Intake and Output 11/20/24 11/20/24 11/21/24 15:00 23:00 07:00 Intake Total 10 ml 437 ml 587 ml Output Total 250 ml 300 ml Balance 10 ml 187 ml 287 ml medications Current Medications Medications Dose Ordered Sig/[place] Route Start Time Stop Time Status Last Admin Dose Admin Pantoprazole Sodium 40 mg BID IV 11/11/24 22:00 11/21/24 10:02 40 MG Nifedipine 30 mg DAILY PO 11/12/24 10:00 11/21/24 10:01 30 MG Levothyroxine Sodium 75 mcg QAM@0600 PO 11/12/24 06:00 11/21/24 06:49 75 MCG Amiodarone HCl 200 mg DAILY PO 11/12/24 10:00 11/21/24 10:01 200 MG Levalbuterol HCl 0.625 mg Q6HWA NEB 11/11/24 18:00 11/21/24 11:49 0.625 MG Ipratropium [place] 0.5 mg Q6HWA NEB 11/11/24 18:00 11/21/24 11:49 0.5 MG Cefepime HCl 50 ml @ 12.5 mls/hr Q12HR IV 11/12/24 10:00 11/21/24 10:03 12.5 MLS/HR Ondansetron HCl 4 mg Q4HPRN PRN IV 11/12/24 13:30 11/12/24 13:46 4 MG Enteral Nutritional Formula 240 ml BIDWM PO 11/13/24 18:00 11/21/24 08:54 240 ML Vancomycin HCl 0 ml @ 0 mls/hr UD IV 11/15/24 12:00 Polyethylene Glycol 17 gm DAILY PO 11/17/24 10:00 11/21/24 10:05 17 GM Morphine Sulfate 2 mg Q4HPRN PRN IV 11/19/24 14:15 11/19/24 17:42 2 MG Examination General Appearance: Alert, Oriented X3, Cooperative, Mild distress HEENT: Atraumatic, Mucous membranes moist/pink Respiratory: Clear to auscultation, Normal air movement, No added sounds Cardiovascular: Regular rate, Normal S1, Normal S2, No murmurs Abdominal/ : Active bowel sounds, Soft, no distention, no tenderness Extremities: No edema, Normal pulses, No tenderness/swelling, currently SCDs in place, previous examination: left heel eschar, maceration at the wound site. Skin: No Significant rash, except past surgical scars Neuro: Normal speech, sensorimotor deficits none Psych/Mental Status: Mental status NL, Mood NL laboratory and microbiology Laboratory Tests 11/21/24 05:37 Test 11/21/24 05:37 Range/Units Serum Glucose 64 L 74-106 mg/dL Microbiology Date/Time Source Procedure Growth Status 11/14/24 13:15 Nose MRSA Screen - Final Complete 11/12/24 01:45 Blood Blood Culture - Final NO GROWTH AFTER 5 DAYS OF INCUBATION. Complete Labs and/or images reviewed: Labs reviewed by me, Image(s) reviewed by me Problem List/Assessment/Plan Problem List/Assessment/Plan Left heel wound, possible osteomyelitis - CT Left Foot: No definitive CT evidence of osteomyelitis however maintain elevated suspicion given deep soft tissue ulceration and phlegmon suspected particularly overlying the posterior heel. - Ankle X-Ray: There is no evidence of acute fracture or dislocation. Heterotopic calcification left fibular head. Small plantar calcaneal enthesophyte. - IVC filter scheduled -scheduled in Service Assistant for 11/17/24 for procedure - on vancomycin, cefepime and metronidazole - Morphine - [place] - Wound consult Constipation, slow transit versus ileus - Ordered KUB: Nonobstructive bowel gas pattern. Findings suggest fecal impaction recommend correlation with physical examination. - Lactulose 30 cc b.i.d. - MiraLax - Consider enema - Patient would likely benefit from elective colonoscopy, we will schedule once cardiology clearance has been obtained or patient can get it in the outpatient after family consent Acute metabolic encephalopathy likely due to sepsis History of dementia - on IV antibiotics - IV fluids possible pneumonia, left upper lobe likely d/t gram +/ bacteria - on iv antibiotics - MRSA nares finalized and is negative. MRSA nares has high negative predictive value for MRSA pneumonia History of arrhythmia Possible paroxysmal Atrial flutter - on amiodarone 200 mg daily COPD, not in exacerbation - duo nebs q.6 hours - on 2 L home oxygen Normocytic normochromic anemia Possible multiple myeloma H/o GI bleed H/o gastritis - stool occult blood positive - Cardiology consult for colonoscopy - colonoscopy canceled due to poor bowel prep and altered mental status (11/20/24) - elevated creatinine, elevated calcium, anemia - lytic bone lesions seen on CT abdomen pelvis recent admission - elevated ESR - serum protein electrophoresis and urine protein electrophoresis ordered - 1 unit PRBC transfused, recheck H&H and if less than 7 transfuse 1 more unit - Protonix 40 mg IV b.i.d. - avoid NSAIDs Bilateral hip avascular necrosis Bed-bound hypothyroidism - continued on levothyroxine 75 mcg Diet: Soft PUD prophylaxis: Protonix 40 mg DVT prophylaxis: Not indicated Anemia Goals of care: Full code, discussed for >16 minutes on 11/21/24 Plan discussed with patient Plan discussed with Dr. Harrison Plan discussed with: Daughter My Orders My Orders Orders - MARYAM WILLIS Procedure Category Date Status Time * Kiln Transfer Operator CONS 11/20/24 Transmitted Consult 18:24 Discharge DISCHARGE 11/21/24 Transmitted 11:20 * Kiln Transfer Operator CONS 11/21/24 Transmitted Consult Dietary Evaluation Review Comments: [place] BID for wound healing PO supplementation, Ensure HP 240ml BID Expected Outcomes/Goals: Gradually healed wounds Date of Service: Nov 21, 2024 Billing Provider: MARICRUZ HARRISON MD Common Visit Codes: NOT BILLABLE LAZARO,MARYAM RESIDENT Nov 21, 2024 12:15 MARICRUZ HARRISON MD Nov 23, 2024 20:01
[2024-11-21] MEDS: VANCOMYCIN 750MG KIT 100 ML IV ONE (13:40)
--- NOTE | 2024-11-21 17:58 | DVHPN2 ---
Progress Note - Dictate Date Seen: Nov 21, 2024 Medical Necessity Reason Pt with a Central, PICC or Fol: Yes The following are medically ne: Crisostomo Catheter Reason for crisostomo catheter: Strict I&O Subjective Patient was seen and evaluated in follow up. Patient complains of abdominal discomfort. WBC 12.8, HGB 8.8, HCT 27, NA 148, K 3, CO2 19, GLUC 64. Telemetry reviewed. vital signs Vital Sign Date Time Temp Pulse Resp B/P (MAP) Pulse Ox O2 Delivery O2 Flow Rate FiO2 11/21/24 11:51 95 Room Air 0.0 11/21/24 11:51 21 11/21/24 11:50 69 20 11/21/24 11:44 36.5 11/21/24 10:01 123/80 Total Intake and Output 11/20/24 11/20/24 11/21/24 15:00 23:00 07:00 Intake Total 10 ml 437 ml 587 ml Output Total 250 ml 300 ml Balance 10 ml 187 ml 287 ml medications Current Medications Medications Dose Ordered Sig/[place] Route Start Time Stop Time Status Last Admin Dose Admin Pantoprazole Sodium 40 mg BID IV 11/11/24 22:00 11/21/24 10:02 40 MG Nifedipine 30 mg DAILY PO 11/12/24 10:00 11/21/24 10:01 30 MG Levothyroxine Sodium 75 mcg QAM@0600 PO 11/12/24 06:00 11/21/24 06:49 75 MCG Amiodarone HCl 200 mg DAILY PO 11/12/24 10:00 11/21/24 10:01 200 MG Levalbuterol HCl 0.625 mg Q6HWA [facility] 11/11/24 18:00 11/21/24 11:49 0.625 MG Ipratropium [place] 0.5 mg Q6HWA NEB 11/11/24 18:00 11/21/24 11:49 0.5 MG Cefepime HCl 50 ml @ 12.5 mls/hr Q12HR IV 11/12/24 10:00 11/21/24 10:03 12.5 MLS/HR Ondansetron HCl 4 mg Q4HPRN PRN IV 11/12/24 13:30 11/12/24 13:46 4 MG Enteral Nutritional Formula 240 ml BIDWM PO 11/13/24 18:00 11/21/24 08:54 240 ML Vancomycin HCl 0 ml @ 0 mls/hr UD IV 11/15/24 12:00 Polyethylene Glycol 17 gm DAILY PO 11/17/24 10:00 11/21/24 10:05 17 GM Morphine Sulfate 2 mg Q4HPRN PRN IV 11/19/24 14:15 11/19/24 17:42 2 MG objective General Appearance: Alert, Oriented X3, Cooperative, Not in acute distress HEENT: Atraumatic, Mucous membranes moist/pink Respiratory: Clear to auscultation, Normal air movement, No added sounds Cardiovascular: Regular rate, Normal S1, Normal S2, No murmurs Abdominal: Active bowel sounds, Soft, no distention, no tenderness Extremities: left heel eschar, maceration at the wound site. Skin: left heel eschar, maceration at the wound site. Neuro: Deffered laboratory and microbiology Laboratory Tests 11/21/24 05:37 Test 11/21/24 05:37 Range/Units Serum Glucose 64 L 74-106 mg/dL Problem List Paroxysmal atrial flutter. History of arrhythmia. Left heel wound, possible osteomyelitis. Acute metabolic encephalopathy likely due to sepsis. History of dementia. Possible G +/- PNA. COPD. Possible multiple myeloma. GI bleed. Gastritis. Bilateral hip avascular necrosis. Bed-bound. Hypothyroidism. Assessment/Plan Continued all current supportive medical care. GI prophylactics. IV antibiotics as ordered. Nebulized breathing treatments. Additional plan as per the hospital course. Dietary Evaluation Review Comments: Laron BID for wound healing PO supplementation, Ensure HP 240ml BID Expected Outcomes/Goals: Gradually healed wounds Plan discussed with: Patient CORNELIA BROWN MD Nov 21, 2024 12:26
== END 2024-11-21 16:46 | disposition home health service (06) | DRG 871 ==
LOC: ER 10:27 → EDUNIT# 10:27 → EDBD 10:27 → OVERFLOW 15:56 → TELE-WESTW 20:10
PROVIDERS: ADMIT Internal Medicine Geriatric Medicine; ATTEND Internal Medicine Gastroenterology
PROC: 30233N1 Transfusion of Nonautologous Red Blood Cells into Peripheral Vein, Percutaneous Approach (ICD-10-PCS; 2024-11-11)
PROC: 06H03DZ Insertion of Intraluminal Device into Inferior Vena Cava, Percutaneous Approach (ICD-10-PCS; 2024-11-17)
PROC: B5191ZZ Fluoroscopy of Inferior Vena Cava using Low Osmolar Contrast (ICD-10-PCS; 2024-11-17)
PROC: 0DJD8ZZ Inspection of Lower Intestinal Tract, Via Natural or Artificial Opening Endoscopic (ICD-10-PCS; principal; 2024-11-20 14:09)
DX: A41.9 Sepsis, unspecified organism (principal); G93.41 Metabolic encephalopathy; K57.31 Diverticulosis of large intestine without perforation or abscess with bleeding; K29.71 Gastritis, unspecified, with bleeding; J15.9 Unspecified bacterial pneumonia; J15.69 Pneumonia due to other Gram-negative bacteria; I48.92 Unspecified atrial flutter; L97.428 Non-pressure chronic ulcer of left heel and midfoot with other specified severity; K56.7 Ileus, unspecified; C90.00 Multiple myeloma not having achieved remission; I82.431 Acute embolism and thrombosis of right popliteal vein; I82.411 Acute embolism and thrombosis of right femoral vein; M86.18 Other acute osteomyelitis, other site; J44.89 Other specified chronic obstructive pulmonary disease; I50.9 Heart failure, unspecified; I11.0 Hypertensive heart disease with heart failure; D64.9 Anemia, unspecified; E03.9 Hypothyroidism, unspecified; F03.90 Unspecified dementia, unspecified severity, without behavioral disturbance, psychotic disturbance, mood disturbance, and anxiety; R65.20 Severe sepsis without septic shock; K59.01 Slow transit constipation; Z79.890 Hormone replacement therapy; Z99.81 Dependence on supplemental oxygen; Z88.0 Allergy status to penicillin; Z86.718 Personal history of other venous thrombosis and embolism; Z82.49 Family history of ischemic heart disease and other diseases of the circulatory system; Z74.01 Bed confinement status; Z79.899 Other long term (current) drug therapy
CPT/HCPCS: 36415; 37619; 45330; 71045; 73600; 73700; 74018; 80048; 80053; 80202; 81001; 82270; 82378; 82607; 82728; 82746; 83540; 83550; 83605; 83615; 83735; 84100; 84132; 84155; 84156; 84165; 85025; 85045; 85610; 85652; 85730; 86141; 86850; 86900; 86901; 86920; 87040; 87081; 87426; 87804; 93005; 93970; 94640; 96361; 96365; 96375; 99152; C1894; G0378; J2003; J2250; J2405; J2470; J3480; J3490; Q9967